=== PATIENT | female | born 1975 | race Caucasian/White ===

== ENCOUNTER → 2019-01-08 | Outpatient (CLI) | payer MEDICAID, SELFPAY ==
--- NOTE | 2019-01-07 | IMM_PTH ---
PATIENT: OC LEON LOC: [facility] U#:[id number] AGE/SX: 43/F ROOM: RE01/08/[address]: Dr. Tanvir Colindres MD : 1975 BED: DIS: 01/08/2019 SPEC #: [id number] RECD: 01/09/19 12:31 STATUS: MACIEL REAamir #: [id number] NICHOLAS: 01/07/19 00:[address]: Tanvir Colindres DEPT: IMMUNOHISTOCHEMISTRY RECD BY: Kelsi Garcia ENTERED: 01/09/19 12:32 SP TYPE: IMMUNO OTHR DR: Dr. Sam Benitez MD Tissues: Left breast, NOS Procedures: Synapto (add) CALPONIN-1 (add) CD56 (add) CHROMO (add) CK5-6 (add) CK8 (add) E-CAD (add) HER2 WILLIAM (add) KI-67 (add) P53 (add) SC (add) IN SITU HYBRIDIZATION P40 (add) ER (initial) PHYSICIAN & [address] [address] SPECIMEN INFORMATION: Tissue Source: Left breast tissue Clinical Info: Left breast mass Specimen Number: [id number] CPT code: 93443, 57524 x9, 35061 x3 METHODOLOGY: Deparaffinized sections of prefer/formalin-fixed tissue or PAP/DQ stained slides are incubated with monoclonal/polyclonal antibodies/oligonucleotide probes. Localization is made via biotin free immunoperoxidase method. Appropriate controls are performed and reacted as expected. Results on target cell population are indicated in the following table: RESULTS: ANTIBODY / CLONE RESULT E-Cad (ECH-6) positive CK8 (32kjxfC54) positive , focal CK5-6 (D5 & 1684) positive, focal Ki-67 (30-9) positive, high P53 (DO-7) negative P40 (BC28) positive, focal Calponin-1 (YE564A) negative CD56 (123C3.D5) negative Chromo (LK2H10) negative Synapto (polyclonal) negative (high background staining) MORPHOMETRIC ANALYSIS ER (clone 6F11) 14%, weak in intensity SC (clone 16/1E2) 27%, weak to moderate in intensity Her-2Neu (clone CB11) 2+ The prognostic test for HER2 is performed on formalin-fixed paraffin embedded tissue. A 3+ (positive) staining pattern is defined as intense, homogeneous, complete, circumferential membranous staining in >10% of contiguous tumor cells. A similar weak (2+) staining pattern is interpreted as equivocal. PAULA follow-up testing is recommended for all equivocal cases. Positivity/negativity for ER/SC is reported if > or < 1% of the tumor cells are immuno- reactive, respectively. The ASCO/CAP criteria is used for scoring. Reference: Journal of Clinical Oncology, 2013; 31:7370-2367 & 2010; 16:4541-1542. Duration of fixation: 28 Hrs; Sample Adequate: Yes. These assays have not been validated on decalcified tissues. Results should be interpreted with caution given the likelihood of false negativity on decalcified specimens. These tests were developed and their performance characteristics determined by [facility]. They may not have been cleared or approved by the U.S. Food and Drug Administration. The FDA has determined that such clearance or approval is not necessary. 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 Negative for neuroendocrine differentiation. Positive for estrogen receptors (favorable prognostic indicator). Positive for progesterone receptors (favorable prognostic indicator). Equivocal for overexpression of AHM9ely. SJ:nito 01/12/19 Case has been reviewed in consultation with Dr. Archuleta who concurs with the above diagnosis. IDC:AM ADDENDUM ADDENDUM ADDENDUM ADDENDUM ADDENDUM ADDENDUM ADDENDUM ADDENDUM ADDENDUM ADDENDUM ADDENDUM ADDENDUM ADDENDUM ADDENDUM ADDENDUM ADDENDUM ADDENDUM ADDENDUM ADDENDUM ADDENDUM ADDENDUM ADDENDUM 01/13/2019 10:36 ADDENDUM 01/13/2019 10:36 ADDENDUM 01/13/2019 10:36 ADDENDUM 01/13/2019 10:36 ADDENDUM 01/13/2019 10:36 IN SITU HYBRIDIZATION (PAULA) FOR HER2 Interpretation: Not Amplified / Negative HER2 : CEP-17 Ratio: 1.04 Average HER2 Signal: 2.35 Average CEP-17 Signal: 2.25 Number of Tumor Cells Scanned: 50 Interpretative Information: The INFORM HER2 Dual PAULA DNA Probe Cocktail assay is performed on formalin-fixed paraffin embedded tissue and determines HER2 gene status by detecting HER2 copies via silver in situ hybridization (SISH) and Chromosome 17 copies via chromogenic red in situ hybridization on tumor cells. A minimum of 20 cells representing > 10% of contiguous and homogeneous invasive tumor cells were analyzed. HER2 gene status is classified as Non-amplified (HER2/Chr17 ratio < 2.0) or Amplified (HER2/Chr17 ratio greater than or equal to 2.0). If the resulting HER2/Chr17 ratio falls within 1.8 - 2.2 (Borderline), retesting by FISH is recommended. Reference: Dinorah AC, Rehan LUCIANOH, Tamika DG, et al: Recommendations for Human Epidermal Growth Factor Receptor 2 Testing in Breast Cancer: [place] [employer] of Clinical On[employer] / [employer] [place] [employer] Clinical Practice Guideline Update. J Clin Oncol 31:4622-6227, 2013. SJ:nito 01/13/19
--- NOTE | 2019-01-07 13:30 | BRBX_PTH ---
PATIENT: OC LEON LOC: [facility] U#:[id number] AGE/SX: 43/F ROOM: RE01/08/[address]: Dr. Tanvir Colindres MD : 1975 BED: DIS: 01/08/2019 SPEC #: [id number] RECD: 01/07/19 17:04 STATUS: MACIEL ASHANTI #: [id number] NICHOLAS: 01/07/19 13:[address]: Tanvir Colindres DEPT: SURGICAL PATHOLOGY RECD BY: Malik Randolph ENTERED: 01/08/19 10:57 SP TYPE: BREAST BX OTHR DR: Dr. 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 See comment. TIFFANY:nito 01/09/19 COMMENT Immunohistochemistry ([id number]) supports the above diagnosis. The findings may represent focal metaplastic change. ER/SC/Kbw6hpg studies are being performed on sections of tumor and the results from this study will be reported separately ([id number]). This case has been reviewed in consultation with Dr. Archuleta who concurs with the above diagnosis. MICROSCOPIC DESCRIPTION Slides are reviewed. GROSS DESCRIPTION Received in fixative is one container labeled with the patient's name and designated left breast. The specimen consists of multiple elongated fragments of wahl-yellow fibroadipose tissue that in aggregate measure 2 x 1 x 0.1 cm. The entire specimen is submitted in one cassette. / TIFFANY:nito 01/08/19 TC:0 CPT: 13716
[2019-01-07 14:44] VITALS: BMI 32.8
== END | disposition home or self-care (01) ==
LOC: LABSPEC 08:24
PROVIDERS: Family Provider Family Medicine; PCP Family Medicine; Referring Provider Surgery; Visit Provider Surgery
DX: N63.20 Unspecified lump in the left breast, unspecified quadrant (principal)
CPT/HCPCS: 88305; 88341; 88342; 88368

== ENCOUNTER 2019-01-09 11:29 | Observation (INO) | payer MEDICAID, SELFPAY ==
[2019-01-08 15:18] VITALS: BMI 32.8
--- NOTE | 2019-01-09 11:35 | CT_ITS ---
STUDY: CT CHEST WITH CONTRAST REASON FOR EXAM: Female, 43 years old. Left breast hematoma RADIATION DOSAGE (If Supplied By Facility): CTDIvol = ( 16.10 ) mGy, DLP = ( 1353.33 ) mGycm TECHNIQUE: Transaxial imaging was performed following intravenous administration of 100ml IV Isovue 300. Individualized dose optimization techniques were used for this CT. COMPARISON: None. FINDINGS: Skin thickening and edema of the soft tissues of the left breast which may represent postoperative changes, cellulitis, radiation therapy changes. Within the inferior left breast is a 2.5 cm round fluid collection with a thick wall consistent with a known hematoma. If there is clinical evidence of infection, abscess should be considered. The lungs are normal. There is no demonstrated pleural abnormality. Normal heart and pericardium. Normal mediastinum. Normal hilar regions. Normal enhanced pulmonary arteries. Normal aorta arch and descending thoracic aorta. Normal osseous structures. There is no demonstrated abnormality of the visualized upper abdomen. CT/Chest WITH Contrast IMPRESSION: Postsurgical, postradiation, or infectious changes of the left breast with a 2.5 cm round fluid collection which may represent hematoma or abscess. Clinical correlation is recommended. Electronically Signed: Randy Villaseñor MD at 12:17 EDT Tel , Service support ,
[2019-01-09 11:50] LABS: CREATININE FINGERSTICK 0.9 mg/dL (0.55-1.02); EGFR FINGERSTICK > 60.0000 mL/min (>60)
[2019-01-09 12:10] VITALS: BMI 33.3
[2019-01-09 12:11] VITALS: BP 143/90; PULSE 76; RESP 16; TEMP 36.9; O2SAT 99
[2019-01-09 12:13] VITALS: BMI 33.4
--- NOTE | 2019-01-09 13:37 | PCM.HP.STD ---
Problem List (1) Hematoma of breast Status: Acute History of Present Illness Date of Admission: 01/09/19 The patient is a 43 year old F who had a left breast biopsy 2 days ago. She presented back to the office with swelling and serous drainage from her incision yesterday. A small chromic stitch was placed into the incision and there is been no further drainage. She did complain of further swelling and pain. Past Medical History Medical History: Medical History (Last Reviewed 01/08/19 @ 15:17 by Baylee Garcia) Diabetes E11.9 Metabolic syndrome X E88.81 Thyroid cancer C73 HTN (hypertension) I10 Allergies hydrocodone [From Hycomine (hydrocodone-PPA)] Allergy (Mild, Verified 01/09/19 12:35) Itching phenylpropanolamine [From Hycomine (hydrocodone-PPA)] Allergy (Mild, Verified 01/09/19 12:35) Itching Home Medications: Ambulatory Orders Medication Instructions Recorded labetalol 200 mg tablet 200 mg PO DAILY 01/07/19 levothyroxine 200 mcg capsule 200 mcg PO DAILY 01/07/19 levothyroxine 50 mcg capsule 50 mcg PO DAILY 01/07/19 metformin ER 750 mg 750 mg PO QHS 01/07/19 tablet,extended release 24 hr cephalexin 250 mg capsule 250 mg PO TID #10 cap 01/08/19 Surgical History: Surgical History (Last Reviewed 01/08/19 @ 15:17 by Baylee Garcia) S/P thyroidectomy Z98.890 s/p ovarian ablation s/p tonsillectomy Surgical History: no surgical history Smoking Status: Former smoker Tobacco Use: Cigarettes Review of Systems Constitutional: Denies: Anorexia, Chills HEENT: Denies: Difficulty Swallowing Cardiovascular: Denies: Chest Pain Respiratory: Denies: Cough, Shortness of Breath Gastrointestinal: Denies: Abdominal Pain Gynecological: Reports: - - Left breast pain and swelling Musculoskeletal: Denies: Arm Pain VTE Information - Inpt Only VTE Present on Admission: No VTE Mechan Device Prophylaxis: SCD's Patient Problems: Active and Suspected Problems (Last Reviewed 01/08/19 @ 15:17 by Baylee Garcia) Hematoma of breast (Acute) - Physical Exam General: Alert, Oriented x3, Cooperative Neck: No JVD Lungs: Normal air movement Cardiovascular: Regular rate, Regular Rhythm Abdomen: Soft, Non Tender, Non-Distended Skin: - - Left breast is swollen and ecchymosis present. Tender to the touch. No erythema. Vital Signs Temp Pulse Resp BP Pulse Ox 98.4 F 76 16 143/90 H 99 01/09/19 12:11 01/09/19 12:11 01/09/19 12:11 01/09/19 12:11 01/09/19 12:11 Oxygen Delivery Method Room Air Weight: 219 lb 5.759 oz Body Mass Index (BMI) 33.3 Laboratory Tests Past 24 Hrs 01/09/19 11:45 POC Creatinine 0.9 POC Estimated GFR (eGFR) > 60.0000 Assessment/Plan All Active Problems (Last Reviewed 01/08/19 @ 15:17 by Baylee Garcia) Hematoma of breast (Acute) 43-year-old female with left breast hematoma after core biopsy 1. The patient has a BI-RADS 5 left breast mass. She underwent biopsy with clip placement 2 days ago. She presented back with swelling and serous drainage from the biopsy incision. She says that it continues to grow and it is painful. I sent her for CT of the left breast which does not show active extravasation or a large hematoma cavity. I have wrapped the patient with Luis wrap and I will observe her and give pain medication. If her breast worsens tomorrow I will evaluate for possible surgery. I am unsure if this is a block lymphatic as there is no hematoma cavity on the CT scan. Tanvir Colindres MD Pager: [facility] [address] [place] [address], [address] [place] [address] Office:
--- NOTE | 2019-01-09 13:41 | HP.PCM_ITS ---
Problem List (1) Hematoma of breast Status: Acute History of Present Illness Date of Admission: 01/09/19 The patient is a 43 year old F who had a left breast biopsy 2 days ago. She presented back to the office with swelling and serous drainage from her incision yesterday. A small chromic stitch was placed into the incision and there is been no further drainage. She did complain of further swelling and pain. Past Medical History Medical History: Medical History (Last Reviewed 01/08/19 @ 15:17 by Baylee Garcia) Diabetes E11.9 Metabolic syndrome X E88.81 Thyroid cancer C73 HTN (hypertension) I10 Allergies hydrocodone [From Hycomine (hydrocodone-PPA)] Allergy (Mild, Verified 01/09/19 12:35) Itching phenylpropanolamine [From Hycomine (hydrocodone-PPA)] Allergy (Mild, Verified 01/09/19 12:35) Itching Home Medications: Ambulatory Orders Medication Instructions Recorded labetalol 200 mg tablet 200 mg PO DAILY 01/07/19 levothyroxine 200 mcg capsule 200 mcg PO DAILY 01/07/19 levothyroxine 50 mcg capsule 50 mcg PO DAILY 01/07/19 metformin ER 750 mg 750 mg PO QHS 01/07/19 tablet,extended release 24 hr cephalexin 250 mg capsule 250 mg PO TID #10 cap 01/08/19 Surgical History: Surgical History (Last Reviewed 01/08/19 @ 15:17 by Baylee Garcia) S/P thyroidectomy Z98.890 s/p ovarian ablation s/p tonsillectomy Surgical History: no surgical history Smoking Status: Former smoker Tobacco Use: Cigarettes Review of Systems Constitutional: Denies: Anorexia, Chills HEENT: Denies: Difficulty Swallowing Cardiovascular: Denies: Chest Pain Respiratory: Denies: Cough, Shortness of Breath Gastrointestinal: Denies: Abdominal Pain Gynecological: Reports: - - Left breast pain and swelling Musculoskeletal: Denies: Arm Pain VTE Information - Inpt Only VTE Present on Admission: No VTE Mechan Device Prophylaxis: SCD's Patient Problems: Active and Suspected Problems (Last Reviewed 01/08/19 @ 15:17 by Baylee Garcia) Hematoma of breast (Acute) - Physical Exam General: Alert, Oriented x3, Cooperative Neck: No JVD Lungs: Normal air movement Cardiovascular: Regular rate, Regular Rhythm Abdomen: Soft, Non Tender, Non-Distended Skin: - - Left breast is swollen and ecchymosis present. Tender to the touch. No erythema. Vital Signs Temp Pulse Resp BP Pulse Ox 98.4 F 76 16 143/90 H 99 01/09/19 12:11 01/09/19 12:11 01/09/19 12:11 01/09/19 12:11 01/09/19 12:11 Oxygen Delivery Method Room Air Weight: 219 lb 5.759 oz Body Mass Index (BMI) 33.3 Laboratory Tests Past 24 Hrs 01/09/19 11:45 POC Creatinine 0.9 POC Estimated GFR (eGFR) > 60.0000 Assessment/Plan All Active Problems (Last Reviewed 01/08/19 @ 15:17 by Baylee Garcia) Hematoma of breast (Acute) 43-year-old female with left breast hematoma after core biopsy 1. The patient has a BI-RADS 5 left breast mass. She underwent biopsy with clip placement 2 days ago. She presented back with swelling and serous drainage from the biopsy incision. She says that it continues to grow and it is painful. I sent her for CT of the left breast which does not show active extravasation or a large hematoma cavity. I have wrapped the patient with Luis wrap and I will observe her and give pain medication. If her breast worsens tomorrow I will evaluate for possible surgery. I am unsure if this is a block lymphatic as th ere is no hematoma cavity on the CT scan. Tanvir Colindres MD Pager: [facility] [address] [place] [address], [address] [place] [address] Office:
[2019-01-09 16:19] VITALS: BP 137/73; PULSE 89; RESP 14; TEMP 36.7; O2SAT 100
[2019-01-09] MEDS: oxyCODONE 5 MG Tablet PO ×2 (16:23→21:08)
[2019-01-09 16:30] LABS: Bedside Glucose 149 mg/dL (70-110)
[2019-01-09] MEDS: Cephalexin 250 MG Capsule PO (21:18)
[2019-01-09 21:31] LABS: Bedside Glucose 101 mg/dL (70-110)
[2019-01-09 22:20] VITALS: BP 156/84; PULSE 86; RESP 16; TEMP 36.7; O2SAT 100
[2019-01-10] VITALS (10 sets, daily range): BP systolic 125–173; BP diastolic 77–96; PULSE 80–103; RESP 16–18; TEMP 36.5–37.8; O2SAT 94–99; BMI 33.3
[2019-01-10] MEDS: oxyCODONE 5 MG Tablet PO (01:11)
[2019-01-10 06:31] LABS: Bedside Glucose 126 mg/dL (70-110)
[2019-01-10 08:41] LABS: Absolute Lymphocyte Count 1.91 X10^3/ul (0.83-4.51); Basophil# 0.02 X10^3/uL; Basophil% 0.2 % (0-1); Eosinophil# 0.26 X10^3/uL; Eosinophils% 2.7 % (0-5); Hematocrit 41.6 % (37-47); Hemoglobin 13.8 g/dl (12.0-15.0); Lymphocyte # 1.91 X10^3/ul (4.0); Lymphocyte % 19.5 % (19-41); Mean Corp Hgb Conc 33.2 g/gl (32-36); Mean Corpuscular Hgb 28.7 pg (27.0-32.0); Mean Corpuscular Volume 86.5 fL (81-99); Mean Platelet Vol. 10.7 fl (6.2-12.0); Monocyte# 0.52 X10^3/uL; Monocyte% 5.3 % (0-10); Neutrophil # 7.04 X10^3/uL (2.7-7.7); Neutrophil % 72.1 % (47-70); POSITIVE COUNT NO; POSITIVE DIFFERENTIAL NO; POSITIVE MORPHOLOGY NO; Platelet Count 261 K/mm3 (150-450); RBC Distribution Width CV 12.5 % (11.6-14.6); RBC Distribution Width SD 39.8 fl (35.1-43.9); Red Blood Count 4.81 M/mm3 (4.2-5.4); White Blood Count 9.8 K/mm3 (4.4-11.0)
[2019-01-10 08:52] LABS: Internal QC Validated? YES +Cl - CLEAR BKGD; Pregnancy, Urine Negative Negative
[2019-01-10 08:54] LABS: Anion Gap 8 (5-15); BUN 9 mg/dL (7-18); BUN/Creat Ratio 12.4 RATIO (10-20); Calcium,Total 8.9 mg/dL (8.5-10.1); Chloride 102 mmol/L (98-107); Creatinine, Serum 0.73 mg/dL (0.55-1.02); EST Glomerular Filtration Rate 93 mL/min (>60); Est Glom Filt Rate - Afr Amer 112 mL/min (>60); Estimated Creatinine Clearance 100.24 ml/min; Glucose 134 mg/dL (74-106); Potassium 3.9 mmol/L (3.5-5.1); Sodium Level 138 mmol/L (136-145)
--- NOTE | 2019-01-10 09:06 | PCM.PN.SRG ---
Patient Problems: Active and Suspected Problems (Last Reviewed 01/08/19 @ 15:17 by Baylee Garcia) Hematoma of breast (Acute) Subjective: Patient is complaining of the swelling is worse and was very painful last night. She had some clear drainage last night through her bandages. - Physical Exam General: Alert, Oriented x3, Cooperative HEENT: PERRLA Lungs: Normal air movement Abdomen: Soft, Non Tender, Non-Distended Skin: No rashes Musculoskeletal: No Muscle Wasting Psych/Mental Status: Normal Affect Vital Signs Temp Pulse Resp BP Pulse Ox 98.2 F 103 H 16 173/94 H 98 01/10/19 08:34 01/10/19 08:34 01/10/19 08:34 01/10/19 08:34 01/10/19 08:34 Oxygen Delivery Method Room Air Weight: 219 lb 5.759 oz Body Mass Index (BMI) 33.3 Intake and Output for Last 24 Hours 01/08/19 01/09/19 01/10/19 23:59 23:59 23:59 Intake Total 800 / 800 1650 / 1650 Output Total 700 / 700 1500 / 1500 Balance 100 / 100 150 / 150 Laboratory Tests Past 24 Hrs 01/09/19 01/10/19 01/10/19 11:45 08:28 08:28 WBC 9.8 RBC 4.81 Hgb 13.8 Hct 41.6 MCV 86.5 MCH 28.7 MCHC 33.2 RDW 12.5 RDW Differential 39.8 Plt Count 261 MPV 10.7 Immature Gran % (Auto) 0.200 Neut % (Auto) 72.1 H Lymph % (Auto) 19.5 [place] % (Auto) 5.3 Eos % (Auto) 2.7 Baso % (Auto) 0.2 Absolute Neuts (auto) 7.0 Absolute Lymphs (auto) 1.91 Total Counted Not Reportable Sodium 138 Potassium 3.9 Chloride 102 Carbon Dioxide 28.0 Anion Gap 8 BUN 9 Creatinine 0.73 POC Creatinine 0.9 Estim Creat Clear Calc 100.24 POC Estimated GFR (eGFR) > 60.0000 Est GFR (MDRD) Af Amer 112 Est GFR (MDRD) Non-Af 93 BUN/Creatinine Ratio 12.4 Glucose 134 H Calcium 8.9 Urine Test 01/10/19 08:30 WBC RBC Hgb Hct MCV MCH MCHC RDW RDW Differential Plt Count MPV Immature Gran % (Auto) Neut % (Auto) Lymph % (Auto) [place] % (Auto) Eos % (Auto) Baso % (Auto) Absolute Neuts (auto) Absolute Lymphs (auto) Total Counted Sodium Potassium Chloride Carbon Dioxide Anion Gap BUN Creatinine POC Creatinine Estim Creat Clear Calc POC Estimated GFR (eGFR) Est GFR (MDRD) Af Amer Est GFR (MDRD) Non-Af BUN/Creatinine Ratio Glucose Calcium Urine Test Negative POC Glucose 01/10/19 01/09/19 01/09/19 06:17 21:16 16:22 POC Glucose 126 H 101 149 H Medical Necessity - Tobacco Use Smoking Status: Former smoker Tobacco Use: Cigarettes Assessment/Plan All Active Problems (Last Reviewed 01/08/19 @ 15:17 by Baylee Garcia) Hematoma of breast (Acute) 43-year-old female with left breast mass and swelling after biopsy 1. The patient is having serous drainage from her breast and a CT scan was obtained that showed no blush or large hematoma. Her breast continues to swell and have serous drainage. I discussed this problem with several physicians including breast surgeons and the consensus was that the mass should come out and the breast should be explored for any source of drainage or bleeding. At that time if the source is found and controlled the mass will be removed as well. A drain or packing will be placed into the cavity to control drainage as well. 2. I discussed this plan with the patient in detail. I informed her that I still do not have pathology for the mass and that she would require a second surgery for staging. I also informed her of the risks of surgery such as bleeding, infection, seroma or hematoma. I also explained the possibility of positive margins. The patient consents to proceed with surgery. Tanvir Colindres MD Pager: [facility] [address] [place] [address], [address] [place] [address] Office:
--- NOTE | 2019-01-10 09:09 | PN.SURG_ITS ---
Patient Problems: Active and Suspected Problems (Last Reviewed 01/08/19 @ 15:17 by Baylee Garcia) Hematoma of breast (Acute) Subjective: Patient is complaining of the swelling is worse and was very painful last night. She had some clear drainage last night through her bandages. - Physical Exam General: Alert, Oriented x3, Cooperative HEENT: PERRLA Lungs: Normal air movement Abdomen: Soft, Non Tender, Non-Distended Skin: No rashes Musculoskeletal: No Muscle Wasting Psych/Mental Status: Normal Affect Vital Signs Temp Pulse Resp BP Pulse Ox 98.2 F 103 H 16 173/94 H 98 01/10/19 08:34 01/10/19 08:34 01/10/19 08:34 01/10/19 08:34 01/10/19 08:34 Oxygen Delivery Method Room Air Weight: 219 lb 5.759 oz Body Mass Index (BMI) 33.3 Intake and Output for Last 24 Hours 01/08/19 01/09/19 01/10/19 23:59 23:59 23:59 Intake Total 800 / 800 1650 / 1650 Output Total 700 / 700 1500 / 1500 Balance 100 / 100 150 / 150 Laboratory Tests Past 24 Hrs 01/09/19 01/10/19 01/10/19 11:45 08:28 08:28 WBC 9.8 RBC 4.81 Hgb 13.8 Hct 41.6 MCV 86.5 MCH 28.7 MCHC 33.2 RDW 12.5 RDW Differential 39.8 Plt Count 261 MPV 10.7 Immature Gran % (Auto) 0.200 Neut % (Auto) 72.1 H Lymph % (Auto) 19.5 [place] % (Auto) 5.3 Eos % (Auto) 2.7 Baso % (Auto) 0.2 Absolute Neuts (auto) 7.0 Absolute Lymphs (auto) 1.91 Total Counted Not Reportable Sodium 138 Potassium 3.9 Chloride 102 Carbon Dioxide 28.0 Anion Gap 8 BUN 9 Creatinine 0.73 POC Creatinine 0.9 Estim Creat Clear Calc 100.24 POC Estimated GFR (eGFR) > 60.0000 Est GFR (MDRD) Af Amer 112 Est GFR (MDRD) Non-Af 93 BUN/Creatinine Ratio 12.4 Glucose 134 H Calcium 8.9 Urine Test 01/10/19 08:30 WBC RBC Hgb Hct MCV MCH MCHC RDW RDW Differential Plt Count MPV Immature Gran % (Auto) Neut % (Auto) Lymph % (Auto) [place] % (Auto) Eos % (Auto) Baso % (Auto) Absolute Neuts (auto) Absolute Lymphs (auto) Total Counted Sodium Potassium Chloride Carbon Dioxide Anion Gap BUN Creatinine POC Creatinine Estim Creat Clear Calc POC Estimated GFR (eGFR) Est GFR (MDRD) Af Amer Est GFR (MDRD) Non-Af BUN/Creatinine Ratio Glucose Calcium Urine Test Negative POC Glucose 01/10/19 01/09/19 01/09/19 06:17 21:16 16:22 POC Glucose 126 H 101 149 H Medical Necessity - Tobacco Use Smoking Status: Former smoker Tobacco Use: Cigarettes Assessment/Plan All Active Problems (Last Reviewed 01/08/19 @ 15:17 by Baylee Garcia) Hematoma of breast (Acute) 43-year-old female with left breast mass and swelling after biopsy 1. The patient is having serous drainage from her breast and a CT scan was obtained that showed no blush or large hematoma. Her breast continues to swell and have serous drainage. I discussed this problem with several physicians including breast surgeons and the consensus was that the mass should come out and the breast should be explored for any source of drainage or bleeding. At that time if the source is found and controlled the mass will be removed as well. A drain or packing will be placed into the cavity to control drainage as well. 2. I discussed this plan with the patient in detail. I informed her that I still do not have pathology for the mass and that she would require a second surgery for staging. I also informed her of the risks of surgery such as bleeding, infection, seroma or hematoma. I also explained the possibility of positive margins. The patient consents to proceed with surgery. Tanvir Colindres MD Pager: [facility] [address] [place] [address], [address] [place] [address] Office:
--- NOTE | 2019-01-10 09:53 | NURSING ---
CALLED REPORT TO SURGERY.
[2019-01-10] MEDS: Dextrose 5%-Lactated Ringers 1,000 ML 125 ML IV ×2 (10:03→18:12)
--- NOTE | 2019-01-10 10:07 | NURSING ---
PT LEFT FOR SURGERY
--- NOTE | 2019-01-10 11:05 | BI_ITS ---
SURGICAL BREAST SPECIMEN RADIOGRAPH CLINICAL: Document presence of tissue clip marker in biopsy specimen. FINDINGS: Specimen shows presence of tissue clip marker. Electronically Signed: Silvestre Ramirez, at 8:13 EDT , Service support , BI/Breast Biopsy Specimen
[2019-01-10] MEDS: Bupivacaine Mpf 0.5% 30 ML VIAL (11:24)
--- NOTE | 2019-01-10 11:49 | OP.PCM_ITS ---
Problem List (1) Hematoma of breast Status: Acute Report of Operation Date of Procedure: 01/10/19 Pre-Operative Diagnosis: Left breast mass. Post biopsy hematoma and breast swelling Post-Operative Diagnosis: Same Surgery/Procedure Performed:: 1. Left breast ultrasound-guided needle localization. 2. Left breast partial mastectomy and evacuation of hematoma Description of Surgical Findings:: The patient had very ecchymotic and swollen left breast. There was some bleeding around the mass but no hematoma cavity. Specimen's removed: 1. Left breast mass with suture marking the lateral and superior margin. 2. New superior and deep margin. 3. New inferior margin Drains: JONATHAN to bulb suction Description of Procedure: Patient was brought back to the operating room and general anesthesia was induced. Using ultrasound guidance the mass and clip were localized and a marking wire was placed into the mass. Next the left breast was prepped and draped in the usual sterile fashion. A linear radial incision was made inferior to superior in the inferior breast at the 6 o'clock position. This was deepened down to the deep breast tissue. There was some small amount of bleeding but no actual hematoma cavity. The mass was identified and the wire was brought into the cavity. Using electrocautery the mass was dissected out. When the mass was dissected out the mass appeared to be transected. The mass was marked and sent for mammogram. Next the inferior portion of the mass was dissected free deeply and superiorly and sent as a new superior and deep margin. New inferior margin was also obtained using electrocautery. Each of these new margins were marked with sutures at the new margin using 3-0 silk suture. The cavity was irrigated and meticulously inspected. There was good hemostasis. Titanium clips were placed in the cavity for marking for radiation. Next a 10 Slovenian round drain was placed through the inferior breast skin and into the cavity. The drain was sutured in place using 3-0 nylon suture. There was some oozing from the poke incision from the drain placement. This was stopped with pressure. Next the incision was closed with interrupted 3-0 Vicryl sutures in a running 4-0 Monocryl. Drain sponge and fluffy gauze sponges were placed over the incision and drain site. The patient's chest was tightly wrapped with Luis bandage. Patient was taken to PACU in stable condition. - Admit VTE Documentation VTE Present on Admission: No VTE Mechan Device Prophylaxis: SCD's
[2019-01-10 11:50] LABS: Bedside Glucose 100 mg/dL (70-110)
[2019-01-10] MEDS: Levothyroxine 125 MCG Tablet 250 MCG PO (12:53)
[2019-01-10] MEDS: Cephalexin 250 MG Capsule PO ×2 (14:41→22:28)
[2019-01-10] MEDS: Labetalol 200 MG Tablet PO (14:41)
[2019-01-10] MEDS: Insulin Lispro 100 UNIT/ML INSULN.PEN SC (16:40)
[2019-01-10 17:25] LABS: Bedside Glucose 173 mg/dL (70-110)
[2019-01-10 23:00] LABS: Bedside Glucose 120 mg/dL (70-110)
[2019-01-11 01:56] LABS: Bedside Glucose 162 mg/dL (70-110)
[2019-01-11] MEDS: Dextrose 5%-Lactated Ringers 1,000 ML 125 ML IV (02:02)
[2019-01-11] MEDS: Acetaminophen 325 MG Tablet 650 MG PO (03:31)
[2019-01-11 03:37] VITALS: BP 137/85; PULSE 76; RESP 16; TEMP 36.7; O2SAT 100
[2019-01-11] MEDS: Levothyroxine 125 MCG Tablet 250 MCG PO (07:19)
[2019-01-11] MEDS: Cephalexin 250 MG Capsule PO (07:19)
[2019-01-11 07:26] LABS: Bedside Glucose 122 mg/dL (70-110)
[2019-01-11 08:13] VITALS: BP 162/102; PULSE 78; RESP 18; TEMP 37.2; O2SAT 100
[2019-01-11] MEDS: Labetalol 200 MG Tablet PO (08:17)
--- NOTE | 2019-01-11 08:26 | PN.SURG_ITS ---
Patient Problems: Active and Suspected Problems (Last Reviewed 01/08/19 @ 15:17 by Baylee Garcia) Hematoma of breast (Acute) Subjective: Patient is doing well this morning. She reports her pain is much better after surgery. - Physical Exam Lungs: Normal air movement Cardiovascular: Regular rate, Regular Rhythm Abdomen: Soft, Non Tender, Non-Distended Vital Signs Temp Pulse Resp BP Pulse Ox 98.9 F 78 18 162/102 H 100 01/11/19 08:13 01/11/19 08:13 01/11/19 08:13 01/11/19 08:13 01/11/19 08:13 Oxygen Delivery Method Nasal Cannula Weight: 219 lb 5.759 oz Body Mass Index (BMI) 33.3 Intake and Output for Last 24 Hours 01/09/19 01/10/19 01/11/19 23:59 23:59 23:59 Intake Total 800 / 800 5109 / 5109 1292 / 1292 Output Total 700 / 700 2908 / 2908 900 / 900 Balance 100 / 100 2201 / 2201 392 / 392 Laboratory Tests Past 24 Hrs 01/10/19 01/10/19 01/10/19 08:28 08:28 08:30 WBC 9.8 RBC 4.81 Hgb 13.8 Hct 41.6 MCV 86.5 MCH 28.7 MCHC 33.2 RDW 12.5 RDW Differential 39.8 Plt Count 261 MPV 10.7 Immature Gran % (Auto) 0.200 Neut % (Auto) 72.1 H Lymph % (Auto) 19.5 Cabell % (Auto) 5.3 Eos % (Auto) 2.7 Baso % (Auto) 0.2 Absolute Neuts (auto) 7.0 Absolute Lymphs (auto) 1.91 Total Counted Not Reportable Sodium 138 Potassium 3.9 Chloride 102 Carbon Dioxide 28.0 Anion Gap 8 BUN 9 Creatinine 0.73 Estim Creat Clear Calc 100.24 Est GFR (MDRD) Af Amer 112 Est GFR (MDRD) Non-Af 93 BUN/Creatinine Ratio 12.4 Glucose 134 H Calcium 8.9 Urine Test Negative POC Glucose 01/11/19 01/10/19 01/10/19 07:21 22:30 16:26 POC Glucose 122 H 120 H 173 H 01/10/19 01/10/19 11:43 08:44 POC Glucose 100 162 H Medical Necessity - Tobacco Use Smoking Status: Former smoker Tobacco Use: Cigarettes Assessment/Plan All Active Problems (Last Reviewed 01/08/19 @ 15:17 by Baylee Garcia) Hematoma of breast (Acute) 43-year-old female status post left partial mastectomy after post biopsy hematoma 1. Patient is doing well after partial mastectomy. The mass was removed and a drain was placed in the cavity. There was no bleeding at the end of the case. She has a drain in place which did not drain overnight but after being repositioned in strip this morning drained about 20 cc of serosanguineous fluid. Patient will be discharged home today with JONATHAN in place. Patient will call me tomorrow to let me know how she was doing. She will require the drain output and follow-up this week for drain removal when it is less than 30 cc/day. Continue tight Luis wrap. No showering while JONATHAN in place. Tanvir Colindres MD Pager: [facility] [address] [place] [address], [address] [place] [phone] Office:
--- NOTE | 2019-01-11 08:28 | PCM.DC.BS ---
Discharge Diet: No Restrictions Discharge Activity: May Not Drive - for 2-3 days or while taking narcotic pain meds., May Not Shower Lifting Restrictions: 10 pounds for 1 week. Call your doctor if your incision/area has: Continuous Slow Oozing, Sudden Increased Bleeding, Increased Pain/ Swelling, Increased Redness, Foul Smelling Discharge, Swelling at the incision site Call your doctor if you observe: Fever of 101 or Higher Suture Line Care: Avoid Pulling/Pushing, Avoid Pinching/Bending Cleanse incision/area with: Soap & Water Drain: Suction Additional Dressing/Incision Instructions:: Strip drain twice a day and record output daily. Continue tight teresa wrapping. Allergies/Adverse Reactions: Allergies hydrocodone [From Hycomine (hydrocodone-PPA)] Allergy (Mild, Verified 01/09/19 12:35) Itching phenylpropanolamine [From Hycomine (hydrocodone-PPA)] Allergy (Mild, Verified 01/09/19 12:35) Itching Medications to take at Discharge labetalol 200 mg tablet 200 mg PO DAILY 01/07/19 levothyroxine 200 mcg capsule 200 mcg PO DAILY 01/07/19 levothyroxine 50 mcg capsule 50 mcg PO DAILY 01/07/19 metformin ER 750 mg tablet,extended release 24 hr 750 mg PO QHS 01/07/19 cephalexin 250 mg capsule 250 mg PO TID #10 cap 01/08/19 Oxycodone [Oxyir] 5 - 10 mg PO Q4H PRN PRN 7 Days #30 tablet 01/11/19 The following prescriptions were given: Oxycodone [Oxyir] 5 - 10 mg PO Q4H PRN PRN 7 Days #30 tablet PRN Reason: Severe Pain (-05/07) Primary Care Physician: Sam Benitez [Primary Care Provider] - Please Follow Up With: Tanvir Colindres MD When: Please call my office tomorrow to give update. [phone]
[2019-01-11] MEDS: oxyCODONE 5 MG Tablet PO (08:30)
[2019-01-11 09:45] VITALS: BP 160/90; PULSE 78; RESP 18; TEMP 37.2; O2SAT 100
--- NOTE | 2019-01-12 | BRBX_PTH ---
PATIENT: OC LEON LOC: [facility] U#:[id number] AGE/SX: 43/F ROOM: [facility]301 RE01/09/[address]: Dr. Tanvir Colindres MD : 1975 BED: 1 DIS: 01/11/2019 SPEC #: [id number] RECD: 01/12/19 07:45 STATUS: MACIEL REAamir #: [id number] NICHOLAS: 01/12/19 00:[address]: Tanvir Colindres DEPT: SURGICAL PATHOLOGY RECD BY: Chaka Marques ENTERED: 01/12/19 10:17 SP TYPE: BREAST BX OTHR DR: Dr. Sam Benitez MD Tissues: A - Left breast, NOS B - Left breast, NOS Procedures: Surgery Specimen Level IV Surgery Specimen Level V HEADER OPERATION: Left partial breast mastectomy PRE-OP DIAGNOSIS: Left breast mass, postop hematoma TISSUE SUBMITTED: A - Left breast mass, long stitch - lateral, short stitch - superior, B - Left breast mass, new superior and deep margins, stitch benedict new margin, C - Left breast mass, new inferior margin, stitch benedict new margin MICROSCOPIC DIAGNOSIS A. 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 Changes consistent with previous biopsy site. See cancer summary below. B. 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 Changes consistent with previous biopsy site. See cancer summary below. C. Left breast mass, new inferior margin: Changes consistent with previous biopsy site. Negative for carcinoma. SJ:nito 01/13/19 INVASIVE BREAST CANCER SUMMARY (including specimens A, B & C): Specimen - partial breast Procedure - excision with wire-guided localization Lymph node sampling - no lymph node present Specimen integrity - multiple designated specimens (main excision and identified margins) Specimen size: Partial mastectomy - 6 x 4.5 x 2.5 cm New superior and deep margin - 5 x 3.5 x 2 cm New inferior margin - 1.5 x 0.5 x 0.3 cm Specimen laterality - left Tumor site - not identified Tumor size: Lumpectomy specimen - 3.5 x 1.5 x 1.5 cm New superior and deep margin - 2 x 0.9 cm, largest focus (measured microscopically) Tumor focality - single focus of invasive carcinoma Macroscopic and Microscopic extent of tumor: Skin - not present Nipple - not applicable Skeletal muscle - no skeletal muscle present. Ductal carcinoma in situ (DCIS) - no DCIS is present. Lobular carcinoma in situ (LCIS) - not identified Histologic type of invasive carcinoma - invasive ductal carcinoma with focal squamous differentiation (Consistent with focal area of metaplastic carcinoma). Histologic Grade (Lashell grade): Glandular/tubular differentiation - score 3 Nuclear pleomorphism - score 3 Mitotic count - score 3 Overall grade - 3 (score of 9) Margins - Margins are focally positive for carcinoma. See comment. Treatment effect: Response to presurgical (neoadjuvant) therapy - no known presurgical therapy. Lymph-Vascular invasion - not identified Dermal lymph-vascular invasion - not applicable Lymph nodes - no lymph nodes present. Distant metastasis - not applicable Additional pathologic findings - changes consistent with previous biopsy site with focal area of hematoma formation. Ancillary studies - previously performed on section of tumor ([id number] / [id number]). ER - positive (14%, weak in intensity) AR - positive (27%, weak to moderate in intensity) Her2 denver - equivocal (2+) Her2 by dual PAULA - not amplified/negative Microcalcifications - not identified Clinical history - Please make reference to previous specimen ([id number]) left breast, core biopsy wit diagnosis of invasive ductal carcinoma with focal squamous differentiation. PATHOLOGIC STAGE: pT2 pNx Mx The above summary is in compliance with [employer] (CAP) Cancer Protocols Checklist and [place] Joint Committee on Cancer (AJCC), Staging Manual, 8th Ed. COMMENT The tumor is present in both specimen A & B, Correlation with clinical and radiologic findings is necessary for determination of exact tumor size. A. The tumor in the partial mastectomy specimen is present at anterior, posterior, lateral and superior margins of the specimen and is 0.2 cm away from the inferior margin. B. The tumor is 0.1 cm away from the new superior and deep margins Anterior and lateral margins are positive for tumor. This case is discussed with Dr. Colindres. As per surgeon, Dr. Colindres, the specimen margins inking is slightly discordant. Clinical correlation and appropriate follow up are necessary. Please make reference to previous specimen ([id number]) left breast, core biopsy with diagnosis of invasive ductal carcinoma wit focal squamous differentiation. Case has been reviewed in consultation with Dr. Archuleta who concurs with the above diagnosis. IDC:AM MICROSCOPIC DESCRIPTION Slides are reviewed. GROSS DESCRIPTION A - Received in fixative is one container labeled with the patient's name and designated left breast mass, short stitch - lateral, long stitch - superior. The specimen consists of a piece of fibroadipose tissue with needle localization measuring 6 x 4.5 x 2.5 cm. The specimen is oriented as follows: short stitch - lateral, long stitch - superior. A wire is coming out on the medial side. The specimen is inked as follows: anterior - yellow, posterior - black, superior - blue, inferior - green, medial - red and lateral - orange. Serial sections reveal a wahl, indurated mass measuring 3.5 x 1.5 x 1.5 cm. This mass is close to the superior, posterior, lateral and inferior margins. The specimen appears to be partly fragmented. The entire specimen is submitted in 16 cassettes from lateral to medial margins. Cassette 1 contains the most lateral margin and cassette 16 contains the medial margin. / SJ:nito 01/12/19 Note: As per surgeon, Dr. Colindres, the specimen margins inking is slightly discordant. B - Received in fixative is one container labeled with the patient's name and designated left breast mass, new superior and deep margins, stitch benedict the new margin. The specimen consists of a piece of wahl-yellow fibroadipose tissue measuring 5 x 3.5 x 2 cm. The new margin is inked black and the old margin is inked blue. Sections reveal wahl-yellow fibroadipose cut surfaces mixed with fibrous area and focal area of ill-defined mass close to the old margin. The entire specimen is submitted in 11 cassettes from one end to another end. / SJ:nito 01/12/19 C - Received in fixative is one container labeled with the patient's name and designated left breast mass, new inferior margin, stitch benedict new margin. The specimen consists of two pieces of wahl-yellow fibroadipose tissue, the larger piece shows a suture and measures 2.5 x 2 x 0.5 cm and the smaller piece without suture measures 1.5 x 0.5 x 0.3 cm. The larger piece with suture, new margin, is inked black and the opposite margin, old margin, is inked blue. Sections reveal wahl-yellow adipose cut surfaces without any obvious mass lesion. The entire specimen is submitted in four cassettes from one end to another end. / SJ:rg 01/12/19 TC:0 CPT: 81851, 08945 x2
== END 2019-01-11 10:00 | disposition home or self-care (01) ==
LOC: MS3 11:30
PROVIDERS: Admitting Provider Surgery; Family Provider Family Medicine; PCP Family Medicine; Referring Provider Surgery; Visit Provider Surgery
PROC: (CPT 19083; principal; 2019-01-10 10:00)
DX: C50.912 Malignant neoplasm of unspecified site of left female breast (principal); N64.89 Other specified disorders of breast; E11.9 Type 2 diabetes mellitus without complications; F41.9 Anxiety disorder, unspecified; F32.9 Major depressive disorder, single episode, unspecified; I10 Essential (primary) hypertension; E88.81 Metabolic syndrome and other insulin resistance; Z79.899 Other long term (current) drug therapy; Z79.84 Long term (current) use of oral hypoglycemic drugs; Z85.850 Personal history of malignant neoplasm of thyroid; Z87.891 Personal history of nicotine dependence; E78.00 Pure hypercholesterolemia, unspecified
CPT/HCPCS: 00400; 10140; 19301; 36415; 71260; 76098; 80048; 81025; 82962; 85025; 88305; 88307; 96360; 96361; 99218; Q9967; G0378; G0379; J2405

== ENCOUNTER 2019-02-24 07:43 | Day surgery (SDC) | payer MEDICAID, SELFPAY ==
[2019-02-06 09:42] VITALS: BMI 33.3
--- NOTE | 2019-02-10 02:01 | HP_ITS ---
Intake Vital Signs 02/06/19 Body Mass Index (BMI) 33.3 02/06/19 Blood Pressure 157/99 H 02/06/19 Blood Pressure Location Rt brachial 02/06/19 Blood Pressure Position Sitting 02/06/19 Respiratory Rate 20 H 02/06/19 Pulse Rate 80 02/06/19 Pulse Ox 99 Intake Visit Reasons: Discuss genetic testing results & surgery Chief Complaint: discuss surgery Cell Tuber Hand Required: No Is patient in pain?: No Allergies hydrocodone [From Hycomine (hydrocodone-PPA)] Allergy (Mild, Verified 02/06/19 09:39) Itching phenylpropanolamine [From Hycomine (hydrocodone-PPA)] Allergy (Mild, Verified 02/06/19 09:39) Itching Medications labetalol 200 mg tablet 200 mg PO DAILY 01/07/19 [History Confirmed 02/06/19] levothyroxine 200 mcg capsule 200 mcg PO DAILY 01/07/19 [History Confirmed 02/06/19] levothyroxine 50 mcg capsule 50 mcg PO DAILY 01/07/19 [History Confirmed 02/06/19] metformin ER 750 mg tablet,extended release 24 hr 750 mg PO QHS 01/07/19 [History Confirmed 02/06/19] Is last menstrual period known: No Post menopausal: No Patient : No PFSH Medical History Diabetes (Acute) Metabolic syndrome X (Acute) Thyroid cancer (Acute) HTN (hypertension) (Chronic) Surgical History (Updated 02/06/19 @ 09:39 by Marisol Hendricks) History of breast biopsy (Acute ~12/2018) S/P thyroidectomy (Acute) Status post left breast lumpectomy (Acute ~12/2018) s/p ovarian ablation (Acute) s/p tonsillectomy (Acute) Family History Mother Breast cancer Social History (Updated 02/10/19 @ 14:01 by Tanvir Colindres MD) Smoking Status: Former smoker HPI HPI HPI: OC LEON, is a 43 F who presents to the office today for HPI HPI Surgical H&P: Yes HPI: OC LENO, is a 43 F who presents to the office today for follow-up. Patient reports no problems since her last surgery. ROS General General: No weight change or fatigue Endo Endocrine: Yes thyroid disease and thyroid cancer Musc Musculoskeletal: Yes arthritis Cardio Cardiovascular: Yes murmur and high blood pressure; no pacemaker, heart disease, atrial fibrillation, heart attack, heart stent, palpitations, shortness of breat with exertion or chest pain Psych Psychiatric: No depression or anxiety Resp Respiratory: No shortness of breath, No sleep apnea, No cough, No COPD, No asthma, No emphysema, No wheezing Gastro Gastrointestinal: No abdominal pain, No nausea or vomiting, No diarrhea, No constipation, No blood in stool, No acid reflux, No hemorrhoids, No ulcers, No gallbladder problem, No black,tarry stools Axel Hematologic: No blood thinners Exam Const General: cooperative Orientation: alert, oriented x3 Chest Other: Patient's left breast incision is healing well with no erythema or ecchymosis. Resp Effort & Inspection: normal respiratory effort Auscultation: clear to auscultation bilaterally Cardio Rate: regular rate Rhythm: regular rhythm Heart Sounds: murmur GI Inspection: non-distended Palpation: soft, nontender Assessment & Plan Problems 1. Malignant neoplasm of central portion of left breast in female, estrogen receptor positive C50.112; Z17.0 Plan Patient has left breast cancer and had excision of this cancer which was done emergently due to bleeding after biopsy. There were positive margins in the cavity. The patient was sent for genetic testing which was normal except for an uncertain abnormality in 1 of the other genes, not BRCA. I recommend the patient undergo reexcision of margins of the left breast as well as sentinel lymph node biopsy. I explained breast surgery to the patient in detail as well as the risks including but not limited to bleeding, infection, seroma, nerve injury, lymphedema. Patient understands the risks and is willing to proceed with surgery. Tanvir Colindres MD Pager: [facility] [address] [place] [address], [address] [place] [address] Office: Coding Level of Care Code Global Post Op Diagnoses Malignant neoplasm of central portion of left breast in female, estrogen receptor positive C50.112; Z17.0 ??Breast location: central portion of breast ??Estrogen receptor status: positive ??Patient sex: female 02/10/19 1401 <Electronically signed by Tanvir oden MD> Date _ Tanvir Colindres MD I have re-examined the patient. There are no clinical changes since date of exam.
--- NOTE | 2019-02-24 | IMM_PTH ---
PATIENT: OC LEON LOC: [facility] U#:[id number] AGE/SX: 43/F ROOM: RE02/24/[address]: Dr. Tanvir Colindres MD : 1975 BED: DIS: 02/24/2019 SPEC #: [id number] RECD: 02/26/19 14:46 STATUS: MACIEL REQ #: [id number] NICHOLAS: 02/24/19 00:[address]: Tanvir Colindres DEPT: IMMUNOHISTOCHEMISTRY RECD BY: Kelsi Garcia ENTERED: 02/26/19 14:49 SP TYPE: IMMUNO OTHR DR: Dr. Sam Benitez MD Tissues: A - Axillary lymph node, NOS B - Left breast, NOS C - Left breast, NOS E - Left breast, NOS Procedures: CK7 (add) MACRO (add) Pankeratin (add) GATA3 (add) CK7 (initial) PHYSICIAN & INSTITUTION [place] [id number] SPECIMEN INFORMATION: Tissue Source: A - Left sentinel lymph nodes, B - Left breast tissue, superior portion of cavity, C - Left breast tissue, inferior portion of cavity, E - Left breast tissue, inferior lateral margin Clinical Info: Malignant neoplasm of central portion of left breast, ER positive Specimen Number: [id number] A1, A2, B4, C4, E1 CPT code: 16297 x4, 14329 x11 METHODOLOGY: Deparaffinized sections of prefer/formalin-fixed tissue or PAP/DQ stained slides are incubated with monoclonal/polyclonal antibodies/oligonucleotide probes. Localization is made via biotin free immunoperoxidase method. Appropriate controls are performed and reacted as expected. Results on target cell population are indicated in the following table: RESULTS: ANTIBODY / CLONE RESULT Block A1 CK7 (OV-TL12/30) negative AE1-3 (AE1/AE3/PCK26) negative Block A2 CK7 (OV-TL12/30) negative AE1-3 (AE1/AE3/PCK26) negative Block B4 CK7 (OV-TL12/30) negative Macro (HAM-56) positive GATA3 (L50-823) negative Block C4 CK7 (OV-TL12/30) negative Macro (HAM-56) positive GATA3 (L50-823) negative Block E4 CK7 (OV-TL12/30) negative Macro (HAM-56) positive GATA3 (L50-823) negative These tests were developed and their performance characteristics determined by [facility]. They may not have been cleared or approved by the U.S. Food and Drug Administration. The FDA has determined that such clearance or approval is not necessary. INTERPRETATION: A. Left sentinel lymph nodes, biopsy: Two out of two lymph nodes negative for carcinoma. B. Left breast tissue, superior portion of cavity, biopsy: Benign breast tissue. C. Left breast tissue, inferior portion of cavity, biopsy: Benign breast tissue. E. Left breast tissue, inferior lateral margin, biopsy: Benign breast tissue. AM:nito 02/27/19
[2019-02-24 08:06] VITALS: BP 142/85; PULSE 75; RESP 16; TEMP 36.7; O2SAT 97; BMI 32.2
[2019-02-24 08:30] LABS: Bedside Glucose 109 mg/dL (70-110)
--- NOTE | 2019-02-24 08:30 | NM_ITS ---
PROCEDURE: NUCLEAR MEDICINE Injection Roark Node - LEFT breast(s). REASON FOR EXAM: Female, 43 years old. Left breast cancer. TECHNIQUE: Roark node localization using radionuclide methods of the LEFT breast(s) was performed following subcutaneous administration of 1.1 mCi of of sulfur colloid Tc-99m. FINDINGS: 1.1 mCi of technetium labeled sulfur colloid was injected subcutaneously in 4 equal aliquots in the inferior lateral aspect of the right breast NM/Lymph Node Injection Only IMPRESSION: Subcutaneous injection of 1.1 mCi of technetium labeled sulfur colloid for sentinel node imaging. Electronically Signed: Silvestre Ramirez, at 9:06 EDT , Service support ,
[2019-02-24] MEDS: Bupiv/Epi 0.25% 30 ML Vial (09:32)
[2019-02-24 09:46] LABS: Internal QC Validated? YES +Cl - CLEAR BKGD; Pregnancy, Urine Negative Negative
[2019-02-24] MEDS: Cefazolin 2 GM in 0.9% Normal Saline 100 ML IV (10:16)
[2019-02-24] MEDS: Isosulfan Blue 1% 5 ML Vial OPERA.SITE (10:20)
--- NOTE | 2019-02-24 10:30 | BRBX_PTH ---
PATIENT: OC LEON LOC: [facility] [place] U#:[id number] AGE/SX: 43/F ROOM: RE02/24/[address]: Dr. Tanvir Colindres MD : 1975 BED: DIS: 02/24/2019 SPEC #: [id number] RECD: 02/24/19 13:27 STATUS: MACIEL REAamir #: [id number] NICHOLAS: 02/24/19 10:[address]: Tanvir Colindres DEPT: SURGICAL PATHOLOGY RECD BY: Chaka Marques ENTERED: 02/24/19 14:13 SP TYPE: BREAST BX OTHR DR: Dr. Sam Benitez MD Tissues: A - Lymph node, NOS B - Left breast, NOS C - Left breast, NOS D - Left breast, NOS E - Left breast, NOS Procedures: Frozen Section (charge) Frozen Section Add'l ([facility]) Surgery Specimen Level IV Surgery Specimen Level V HEADER OPERATION: Breast excision of margins, sentinel lymph node biopsy PRE-OP DIAGNOSIS: Malignant neoplasm of central portion of left breast, ER positive TISSUE SUBMITTED: A - Left sentinel lymph node, frozen section, B - Left breast tissue, superior portion of cavity, C - Left breast tissue, inferior portion of cavity, D - Left breast tissue, new lateral margin, E - Left breast tissue, inferior lateral margin FROZEN SECTION DIAGNOSIS A. Left sentinel lymph nodes, biopsy: Two out of two lymph nodes, negative for metastatic carcinoma. SJ:renae 02/24/19 MICROSCOPIC DIAGNOSIS A. Left axillary sentinel lymph nodes, biopsy: Two out of two lymph nodes negative for carcinoma. See comment. B. Left breast tissue, lumpectomy: Mild fibrocystic change. Microscopic fibroadenoma. No evidence of malignancy. See comment. C. Left breast tissue, inferior portion of cavity, biopsy: No evidence of malignancy. See comment. D. Left breast tissue, new lateral margin, biopsy: Benign breast parenchyma. E. Left breast tissue, inferior-lateral margin, biopsy: Changes of previous biopsy. No evidence of carcinoma. See comment. AM:nito 02/26/19 COMMENT A, B, C & E - Immunohistochemistry ([id number]) supports the above diagnosis. Reference is made to the patient's previous lumpectomy ([id number]) in which invasive ductal carcinoma was identified. Case has been reviewed in consultation with Dr. Bennett who concurs with the above diagnosis. IDC:[email or web address] MICROSCOPIC DESCRIPTION Slides are reviewed. GROSS DESCRIPTION A - Received fresh for frozen section diagnosis labeled with the patient's name is a specimen designated left sentinel lymph node. The specimen consists of two pieces of adipose tissue containing a nodule measuring 1.5 x 1.5 x 0.7 cm and 1.5 x 1 x 0.7 cm. Both pieces are bisected and reveal lymph nodes. The entire specimen is submitted for frozen section diagnosis in two cassettes as follows: 1 - frozen section, one bisected lymph node, 2 - frozen section, one bisected lymph node. / :nito 02/24/19 B - Received fresh for intraoperative consultation labeled with the patient's name is a specimen designated left breast tissue superior portion of cavity. The specimen consists of a piece of fibroadipose tissue measuring 8 x 6.5 x 3 cm. The specimen is oriented as follows: long - lateral, short - superior. The specimen is inked as follows: anterior - yellow, posterior - black, superior - blue, inferior - green, medial - red and lateral - orange. Sections do not reveal any obvious mass lesion. This information is conveyed to the surgeon intraoperatively. Sections also reveal focal indurated areas of inferior portion of the specimen most likely representing old margin. Parimutuel Cashier sections are submitted in 12 cassettes as follows: 1 & 2 - perpendicular margin, 3-12 - additional sections. / SJ:nito 02/25/19 C - Received fresh for intraoperative consultation labeled with the patient's name is a specimen designated left breast tissue inferior portion of cavity. The specimen consists of a piece of fibroadipose tissue measuring 7.5 x 2 x 0.5 cm. The specimen is oriented by a suture marking new inferior margin. New margin is inked black and old margin is inked blue. Serial sections do not reveal any obvious mass lesion. This information is conveyed to the surgeon intraoperatively. The specimen is serially sectioned and submitted entirely in six cassettes from one end to another end. / :nito 02/25/19 D - Received fresh for intraoperative consultation labeled with the patient's name is a specimen designated left breast tissue new lateral margin. The specimen consists of a piece of fibroadipose tissue measuring 3.5 x 3 x 1 cm. The specimen is oriented by a suture marking new lateral margin. New margin is inked black and old margin is inked blue. Serial sections do not reveal any obvious mass lesion. This information is conveyed to the surgeon intraoperatively. The entire specimen is submitted in four cassettes. / :nito 02/25/19 E - Received fresh labeled with the patient's name is a specimen designated left breast tissue inferior lateral. The specimen consists of a piece of yellow adipose tissue measuring 3 x 2 x 0.5 cm. One surface is yellowish which is inked black and opposite surface is congested which is inked blue. Sections do not reveal any mass lesion. The entire specimen is submitted in two cassettes. / TIFFANY:nito 02/25/19 TC:5 CPT: 87596 x2, 15582 x3, 69115, 39034, 61536
[2019-02-24 11:52] VITALS: BP 142/85; BP 144/90; PULSE 81; RESP 16; TEMP 36.3; O2SAT 96
[2019-02-24 12:00] VITALS: BP 140/90; BP 142/85; PULSE 77; RESP 16; O2SAT 97
[2019-02-24 12:06] LABS: Bedside Glucose 125 mg/dL (70-110)
[2019-02-24 12:15] VITALS: BP 132/87; BP 142/85; PULSE 80; RESP 16; O2SAT 98
--- NOTE | 2019-02-24 12:17 | DCINST_ITS ---
Discharge Diet: No Restrictions Discharge Activity: May Not Drive - for 2-3 days or while taking narcotic pain meds., May Shower - tomorrow May shower in (days): 1 Lifting Restrictions: 10 pounds for 1 week. Call your doctor if your incision/area has: Continuous Slow Oozing, Sudden Increased Bleeding, Increased Pain/ Swelling, Increased Redness, Foul Smelling Discharge, Swelling at the incision site Call your doctor if you observe: Fever of 101 or Higher Suture Line Care: Avoid Pulling/Pushing, Avoid Pinching/Bending Remove Dressing in (days):: 1 - Remove bulky dressing tomorrow. May leave any opsite dressing for 3-4 days. Keep dressing in place until your follow-up appointment. Additional Dressing/Incision Instructions:: Remove bulky dressing tomorrow. May leave any opsite dressing for 3-4 days. Keep dressing in place until your follow-up appointment. Allergies/Adverse Reactions: Allergies hydrocodone [From Hycomine (hydrocodone-PPA)] Allergy (Mild, Verified 02/17/19 09:06) Itching phenylpropanolamine [From Hycomine (hydrocodone-PPA)] Allergy (Mild, Verified 02/17/19 09:06) Itching Medications to take at Discharge labetalol 200 mg tablet 200 mg PO DAILY 01/07/19 levothyroxine 200 mcg capsule 200 mcg PO DAILY 01/07/19 levothyroxine 50 mcg capsule 50 mcg PO DAILY 01/07/19 metformin ER 750 mg tablet,extended release 24 hr 750 mg PO QHS 01/07/19 Aspirin [Aspir 81] 81 mg PO DAILY 02/17/19 Cholecalciferol (Vitamin D3) [Vitamin D3] 2,000 unit PO DAILY 02/17/19 Fish Oil/Dha/Epa [Fish Oil 1,200 mg Fish Oil] 1 ea PO DAILY 02/17/19 Vitamin B Complex 1 ea PO DAILY 02/17/19 Oxycodone HCl/Acetaminophen [Percocet 5/325] 1 - 2 tablet PO Q4H PRN PRN 7 Days #40 tablet 02/24/19 The following prescriptions were given: Oxycodone HCl/Acetaminophen [Percocet 5/325] 1 - 2 tablet PO Q4H PRN PRN 7 Days #40 tablet PRN Reason: Pain Transmission Status: Sent to [facility] Primary Care Physician: Sam Benitez MD [Primary Care Provider] - Please Follow Up With: Tanvir Colindres MD When: Please call to schedule 2 week follow up appointment. [phone]
[2019-02-24 12:28] VITALS: BP 142/85; BP 145/90; PULSE 83; RESP 14; TEMP 36.1; O2SAT 94
--- NOTE | 2019-02-24 12:31 | PCM.OPRPT ---
Problem List (1) Breast cancer, left Status: Acute Qualifiers: Breast location: overlapping sites of breast Estrogen receptor status: positive Patient sex: female Qualified Code(s): C50.812 - Malignant neoplasm of overlapping sites of left female breast; Z17.0 - Estrogen receptor positive status [ER+] Report of Operation Date of Procedure: 02/24/19 Pre-Operative Diagnosis: Left breast cancer with positive margins Post-Operative Diagnosis: Same Surgery/Procedure Performed:: 1. Left sentinel lymph node biopsy. 2. Reexcision of left breast margins Specimen's removed: 1. Left axillary lymph nodes. 2. Left superior cavity. 3. Left inferior cavity. 4. New lateral margin. Description of Procedure: The patient was brought back to the operating room and general anesthesia was induced. Lymphazurin blue dye was placed in the left breast in the subareolar space. The breast was massaged. Left breast and axilla were prepped in usual sterile fashion. The left axilla was marked and an incision was made with a scalpel. It was deepened to the axillary fascia using electrocautery. The neoprobe was used to locate the sentinel lymph node. There was a blue sentinel lymph node which was dissected free and its tributaries were clipped. The node was removed from the body and the 10-second count was 4215. After placing the neoprobe back in the axilla there were no further radioactive contents. Axillary lymph node was sent for pathology. The left axillary cavity was irrigated and dried. The axillary fascia was closed with interrupted 3-0 Vicryl sutures and running 4-0 Monocryl suture. Next attention was paid to left breast. The prior inferior left breast incision was excised. Flaps were created using electrocautery and the cavity and surrounding breast tissue was dissected free using electrocautery. The specimens were marked and sent for pathology. Hemostasis was obtained using electrocautery. The inferior incision was reclosed with interrupted 3-0 Vicryl sutures in a running 4-0 Monocryl. Glue was applied to both incisions. A supportive bra was placed and the patient was awoken and taken to PACU in stable condition. - Admit VTE Documentation VTE Mechan Device Prophylaxis: SCD's
[2019-02-24] MEDS: Acetaminophen 325 MG Tablet PO (13:18)
[2019-02-24] MEDS: oxyCODONE 5 MG Tablet PO (13:18)
[2019-02-24 13:47] VITALS: BP 142/85; BP 143/90; PULSE 74; RESP 16; TEMP 36.6; O2SAT 99
== END 2019-02-24 13:55 | disposition home or self-care (01) ==
LOC: SDC 07:45 → AC 07:46
PROVIDERS: Anesthesiology; Family Provider Family Medicine; PCP Family Medicine; Referring Provider Surgery; Visit Provider Surgery
PROC: (CPT 19301; principal; 2019-02-24 10:15)
DX: D24.2 Benign neoplasm of left breast (principal); C73 Malignant neoplasm of thyroid gland; E11.9 Type 2 diabetes mellitus without complications; I10 Essential (primary) hypertension; E06.9 Thyroiditis, unspecified; Z87.891 Personal history of nicotine dependence; Z79.84 Long term (current) use of oral hypoglycemic drugs; Z79.899 Other long term (current) drug therapy
CPT/HCPCS: 01610; 19120; 38500; 38792; 81025; 82962; 88305; 88307; 88331; 88332; 88341; 88342; A9541; J7120; J2405; Q9968

== ENCOUNTER 2019-03-23 07:11 | Day surgery (SDC) | payer MEDICAID, SELFPAY ==
[2019-03-11 16:07] VITALS: BMI 31.8
[2019-03-19 10:11] VITALS: BMI 31.4
[2019-03-23 07:35] VITALS: BP 152/91; PULSE 75; RESP 18; TEMP 36.6; O2SAT 97; BMI 32.1
[2019-03-23 07:36] LABS: Internal QC Validated? YES +Cl - CLEAR BKGD; Pregnancy, Urine Negative Negative
[2019-03-23] MEDS: Lactated Ringers 1,000 ML 100 ML IV (07:59)
[2019-03-23 08:26] LABS: Bedside Glucose 120 mg/dL (70-110)
--- NOTE | 2019-03-23 08:26 | HP.PCM_ITS ---
Problem List (1) Encounter for adjustment or management of vascular access device Status: Acute History of Present Illness Date of Admission: 03/23/19 The patient is a 43 year old F here for port placement. Patient has breast cancer which is triple negative and needs chemotherapy. Past Medical History Medical History: Medical History (Last Reviewed 03/19/19 @ 10:10 by Eliane Bautista) Breast cancer, left C50.912 Diabetes E11.9 Metabolic syndrome X E88.81 Thyroid cancer C73 HTN (hypertension) I10 Allergies hydrocodone [From Hycomine (hydrocodone-PPA)] Adverse Reaction (Mild, Verified 03/19/19 10:11) Itching phenylpropanolamine [From Hycomine (hydrocodone-PPA)] Adverse Reaction (Mild, Verified 03/19/19 10:11) Itching Home Medications: Ambulatory Orders Medication Instructions Recorded labetalol 200 mg tablet 200 mg PO DAILY 01/07/19 levothyroxine 200 mcg capsule 200 mcg PO DAILY 01/07/19 levothyroxine 50 mcg capsule 50 mcg PO DAILY 01/07/19 metformin ER 750 mg 750 mg PO QHS 01/07/19 tablet,extended release 24 hr Aspirin [Aspir 81] 81 mg PO DAILY 02/17/19 Fish Oil/Dha/Epa [Fish Oil 1,200 1 ea PO DAILY 02/17/19 mg Fish Oil] Vitamin B Complex 1 ea PO DAILY 02/17/19 Lidocaine/Prilocaine 1 applicatio TP DAILY PRN PRN 30 03/19/19 [Lidocaine-Prilocaine Cream] Days #1 tube Ondansetron [Ondansetron Odt] 8 mg PO Q8H PRN PRN 10 Days #30 03/19/19 tab.rapdis Prochlorperazine Maleate 10 mg PO Q6H PRN PRN 10 Days #30 03/19/19 tab Surgical History: Surgical History (Last Reviewed 03/19/19 @ 10:10 by Eliane Bautista) History of breast biopsy Onset Date: ~12/2018 Z98.890 S/P lumpectomy, left breast Onset Date: ~02/24/19 Z98.890 S/P thyroidectomy Z98.890 Status post left breast lumpectomy Onset Date: ~12/2018 Z98.890 s/p ovarian ablation s/p tonsillectomy Surgical History: no surgical history Smoking Status: Former smoker Tobacco Use: Non-smoker Review of Systems Constitutional: Denies: Anorexia, Chills, Fever HEENT: Denies: Difficulty Swallowing Cardiovascular: Denies: Chest Pain Respiratory: Denies: Cough, Shortness of Breath Gastrointestinal: Denies: Abdominal Pain, Nausea, Vomiting Genitourinary: Denies: Dysuria Musculoskeletal: Denies: Joint Tenderness Skin: Denies: Dryness, Jaundice Neurological: Denies: Balance problems Hematologic/ Lymphatic: Denies: Anemia VTE Information - Inpt Only VTE Present on Admission: No VTE Mechan Device Prophylaxis: SCD's Patient Problems: Active and Suspected Problems (Last Reviewed 03/19/19 @ 10:10 by Eliane Bautista) Encounter for adjustment or management of vascular access device (Acute) - Physical Exam General: Alert, Oriented x3 Neck: No JVD, Negative Carotid Bruits Lungs: Normal air movement Cardiovascular: Regular rate, Regular Rhythm Abdomen: Soft, Non Tender, Non-Distended Vital Signs Temp Pulse Resp BP Pulse Ox 97.9 F 75 18 152/91 H 97 03/23/19 07:35 03/23/19 07:35 03/23/19 07:35 03/23/19 07:35 03/23/19 07:35 Oxygen Delivery Method Room Air Weight: 218 lb 0.595 oz Body Mass Index (BMI) 32.1 Finger Stick Blood Glucose 125 Laboratory Tests Past 24 Hrs 03/23/19 07:25 Urine Test Negative POC Glucose 03/23/19 08:23 POC Glucose 120 H Assessment/Plan All Active Problems (Last Reviewed 03/19/19 @ 10:10 by Eliane Bautista) Encounter for education (Acute) Encounter for adjustment or management of vascular access device (Acute) Cancer of left female breast (Acute) Hematoma of breast (Resolved) 43-year-old female here for right chest port placement 1. Chest port was discussed with the patient in detail. I discussed the procedure including the risks of bleeding, infection, pneumothorax, DVT, line infection. Patient understands and is willing to proceed with port placement. She will start treatment next week. Tanvir Colindres MD Pager: [facility] [address] [place] [address], [address] [place] [phone] Office:
[2019-03-23] MEDS: Cefazolin 2 GM in 0.9% Normal Saline 100 ML IV (08:28)
[2019-03-23] MEDS: Bupiv/Epi 0.5% Mpf 30 ML Vial (09:00)
[2019-03-23 09:14] VITALS: BP 130/90; BP 152/91; PULSE 87; RESP 14; TEMP 36.7; O2SAT 99
[2019-03-23 09:20] VITALS: BP 128/93; BP 152/91; PULSE 78; RESP 16; O2SAT 97
[2019-03-23 09:25] VITALS: BP 138/94; BP 152/91; PULSE 85; RESP 16; O2SAT 99
--- NOTE | 2019-03-23 09:28 | RAD_ITS ---
STUDY: X-RAY CHEST REASON FOR EXAM: Female, 43 years old. Port placement. TECHNIQUE: Single AP portable view of the chest. COMPARISON: None. FINDINGS: A right-sided portacatheter is in place. The tip is at the junction of the superior vena cava and right atrium. Surgical clips are seen in the left axillary region. Minimal increased markings in the left mid lung suggestive of linear atelectasis and/or scarring. There is no demonstrated pleural abnormality. Normal size heart. Normal mediastinum and laurie. Normal visualized pulmonary arteries. Normal visualized aortic arch and descending thoracic aorta. Normal visualized thoracic spine. Normal visualized ribs, clavicles, and shoulders. There is no demonstrated abnormality of the visualized soft tissue structures of the upper abdomen. RAD/Chest 1 View (Portable) IMPRESSION: The tip of the right portacatheter is at the junction of the superior vena cava and right atrium. Electronically Signed: Silvestre Ramirez, at 9:54 EDT , Service support ,
[2019-03-23 09:30] VITALS: BP 106/72; BP 152/91; PULSE 83; RESP 16; TEMP 36.7; O2SAT 100
--- NOTE | 2019-03-23 10:20 | PCM.OPRPT ---
Problem List (1) Encounter for adjustment or management of vascular access device Status: Acute Report of Operation Date of Procedure: 03/23/19 Pre-Operative Diagnosis: Need for vascular access for left breast cancer Post-Operative Diagnosis: Same Surgery/Procedure Performed:: Ultrasound and fluoroscopy guided right chest port placement utilizing right IJ Description of Procedure: After obtaining informed consent patient was brought back to the operating room MAC anesthesia was induced and the right chest and neck were prepped in normal sterile fashion. Ultrasound was used to evaluate both IJs and the right IJ was selected. Next, using a needle, the right IJ was accessed and a guidewire was passed on into the superior vena cava under fluoroscopy guidance. A small incision was made over the puncture site and the dilator introducer was placed over the guidewire. Next this was capped and the pocket was made for the port. 1% lidocaine with epinephrine was injected in the proposed port site. An incision was made with scalpel. Electrocautery was used to make a pocket under the skin and subcutaneous tissue. Hemostasis was obtained. Next, the catheter was tunneled up to the neck incision site and placed through the introducer. The peel-away introducer was removed and the position of the catheter was confirmed on fluoroscopy. Next, the catheter was trimmed and attached to the port with the locking device. Interrupted 2-0 Vicryl sutures were used to anchor the port to the chest wall and then the port was placed inside the pocket. The pocket was then flushed with saline and the port irrigated with saline. There was good blood return and the port flushed easily. Next, heparin was injected into the port. The skin was closed with subcutaneous interrupted 3-0 Vicryl sutures. A single 3-0 Vicryl sutures placed under the skin at the neck incision site. Steri-Strips were placed as well as op sites. Patient tolerated procedure well, was taken to PACU in stable condition. Chest x-ray will be obtained. Grafts/Implants Used: 8 Setswana PowerPort - Admit VTE Documentation VTE Mechan Device Prophylaxis: SCD's
--- NOTE | 2019-03-23 10:22 | DCINST_ITS ---
Discharge Diet: No Restrictions - Pain medication may cause nausea. You should typically eat light foods as you take your pain medication. Discharge Activity: Return to Normal Activity, May Shower - with your bandage in place in 1-2 days after surgery. DO NOT SHOWER WHEN YOUR PORT IS ACCESSED. Call your doctor if your incision/area has: Continuous Slow Oozing, Sudden Increased Bleeding, Increased Pain/ Swelling, Increased Redness Call your doctor if you observe: Fever of 101 or Higher Remove Dressing in (days):: 3 - When you remove the bandage, leave the steri- strips intact until they fall off. Allergies/Adverse Reactions: Allergies hydrocodone [From Hycomine (hydrocodone-PPA)] Adverse Reaction (Mild, Verified 03/19/19 10:11) Itching phenylpropanolamine [From Hycomine (hydrocodone-PPA)] Adverse Reaction (Mild, Verified 03/19/19 10:11) Itching Medications to take at Discharge labetalol 200 mg tablet 200 mg PO DAILY 01/07/19 levothyroxine 200 mcg capsule 200 mcg PO DAILY 01/07/19 levothyroxine 50 mcg capsule 50 mcg PO DAILY 01/07/19 metformin ER 750 mg tablet,extended release 24 hr 750 mg PO QHS 01/07/19 Aspirin [Aspir 81] 81 mg PO DAILY 02/17/19 Fish Oil/Dha/Epa [Fish Oil 1,200 mg Fish Oil] 1 ea PO DAILY 02/17/19 Vitamin B Complex 1 ea PO DAILY 02/17/19 Lidocaine/Prilocaine [Lidocaine-Prilocaine Cream] 1 applicatio TP DAILY PRN PRN 30 Days #1 tube 03/19/19 Ondansetron [Ondansetron Odt] 8 mg PO Q8H PRN PRN 10 Days #30 tab.rapdis 03/19/19 Prochlorperazine Maleate 10 mg PO Q6H PRN PRN 10 Days #30 tab 03/19/19 Primary Care Physician: Sam Benitez MD [Primary Care Provider] - Test Results: Test results from this visit will be discussed in further detail at your follow- up appointment, if applicable. Please Follow Up With: Tanvir Colindres MD When: Please call to schedule 1 week follow up appointment. [phone]
[2019-03-23 10:30] VITALS: BP 152/91
== END 2019-03-23 10:57 | disposition home or self-care (01) ==
LOC: SDC 07:12 → AC 07:13
PROVIDERS: Anesthesiology; Family Provider Family Medicine; PCP Family Medicine; Referring Provider Surgery; Visit Provider Surgery
PROC: (CPT 36571; principal; 2019-03-23 08:30)
DX: C50.912 Malignant neoplasm of unspecified site of left female breast (principal); Z45.2 Encounter for adjustment and management of vascular access device; E11.9 Type 2 diabetes mellitus without complications; I10 Essential (primary) hypertension; E06.9 Thyroiditis, unspecified; Z85.850 Personal history of malignant neoplasm of thyroid; Z79.84 Long term (current) use of oral hypoglycemic drugs; Z79.82 Long term (current) use of aspirin; Z79.899 Other long term (current) drug therapy; Z87.891 Personal history of nicotine dependence
CPT/HCPCS: 00532; 36571; 71045; 77001; 81025; 82962; J7120; C1788

== ENCOUNTER → 2019-03-27 | Outpatient (CLI) | payer MEDICAID, SELFPAY ==
[2019-03-11 16:07] VITALS: BMI 31.8
[2019-03-23 07:35] VITALS: BMI 32.1
--- NOTE | 2019-03-27 07:56 | ECHODONC_ITS ---
Reason For Study: PRE-CHEMO Procedure This was a 2D Doppler, Color Flow transthoracic echocardiogram. Myocardial strain analysis was performed in this exam to aid in the assessment of cardiac function. The exam was of adequate technical quality. Exam performed in department. Left Ventricle Normal LV size. Left ventricular systolic function is normal. The estimated ejection fraction is 65 %. Diastolic function is indeterminate. No regional wall motion abnormalities noted. Right Ventricle Normal RV size. Normal systolic function. Atria Normal left atrium. Normal right atrium. No doppler evidence for ASD. Mitral Valve There is no mitral annular calcification. Anterior leaflet diffuse mitral valve thickening. Trivial mitral valve insufficiency. Tricuspid Valve Normal tricuspid valve. Trivial tricuspid valve insufficiency. Aortic Valve Trisinus/trileaflet aortic valve. Normal aortic valve. Pulmonic Valve The pulmonic valve is not well visualized. Great Vessels Normal sized aortic root. Pericardium/Pleural No pericardial effusion. MMode/2D Measurements & Calculations LVIDd: 4.2 cm IVSd: 0.94 cm Ao root diam: 2.7 cm LVIDs: 2.8 cm LVPWd: 1.2 cm RVDd: 2.7 cm FS: 32.4 % LAV(MOD-bp): 28.9 ml LA A4 area: 10.6 cm2 LA dimension(2D): 3.9 cm LAV(MOD-bp) Indexed: 13.5 ml/m2 LAV(MOD-sp2): 40.6 ml LAV(MOD-sp4): 18.1 ml RA A4 area: 7.4 cm2 Time Measurements MV dec time: 0.15 sec Doppler Measurements & Calculations MV E max andrew: 102.4 cm/sec Lat Peak E' Andrew: 9.4 cm/sec Med Peak E' Andrew: 6.2 cm/sec MV A max andrew: 95.2 cm/sec E/E' lat: 10.9 E/E' med: 16.5 MV E/A: 1.1 Ao V2 max: 202.3 cm/sec LV V1 max: 125.9 cm/sec PA V2 max: 120.2 cm/sec Ao max P.4 mmHg LV V1 max P.3 mmHg Interpretation Summary Left ventricular systolic function is normal. The estimated ejection fraction is 65 %. The global longitudinal strain was -16 % . (Borderline) Anterior leaflet diffuse mitral valve thickening. Trivial mitral valve insufficiency. Trivial tricuspid valve insufficiency. Diastolic function is indeterminate. Ordering Physician: Edwin Soria Referring Physician: Edwin Soria Performed By: Carissa Nguyen, ANGE, RVT
== END | disposition home or self-care (01) ==
LOC: CVS 07:53
PROVIDERS: Family Provider Family Medicine; PCP Family Medicine; Referring Provider Internal Medicine Hematology & Oncology; Visit Provider Internal Medicine Hematology & Oncology
DX: C73 Malignant neoplasm of thyroid gland (principal); C50.912 Malignant neoplasm of unspecified site of left female breast
CPT/HCPCS: 0399T; 93306

== ENCOUNTER → 2019-08-27 09:38 | Outpatient (CLI) | payer MEDICAID, SELFPAY ==
[2019-08-10 09:59] VITALS: BMI 31.5
[2019-08-20 10:44] VITALS: BMI 32.3
--- NOTE | 2019-08-27 09:44 | BD_ITS ---
STUDY: DUAL ENERGY X-RAY ABSORPTIOMETRY / DXA REASON FOR EXAM: Female, 43 years old. MENOPAUSAL- CHEMO INDUCED AT 43 -- HAS BREAST CANCER- CURRENTLY HAVING RADIATION, S/P CHEMO AND PRE- AROMATASE INHIBITOR TREATMENT -- DIABETIC- TAKES METFORMIN -- HX OF SMOKING- QUIT 5 YRS AGO -- TAKES THYROID MEDICATION -- FAMILY HX OF OSTEO- MOTHER -- DOES LITTLE EXERCISE -- HX OF ANKLE FX -- PAOLA OF 0.75 INCHES TECHNIQUE: Bone Mineral Density (BMD) measurements of lumbar spine and bilateral hips were obtained. COMPARISON: None. FINDINGS: Lumbar Spine (L1-L4): g/cm2 (1.540) / T-score (3.1) / Z-score (3.1) Findings are suggestive of normal bone density with a low fracture risk. Left Femur Total: g/cm2 (1.262) / T-score (2.0) / Z-score (2.3) Left Femoral Neck: g/cm2 (1.236) / T-score (1.4) / Z-score (1.9) Right Femur Total: g/cm2 (1.318) / T-score (2.5) / Z-score (2.7) Right Femoral Neck: g/cm2 (1.381) / T-score (2.5) / Z-score (3.0) BD/Dexa Bone Density Study IMPRESSION: The patient is considered normal as outlined below according to World Andrae Organization (WHO) criteria with a low fracture risk. Reference Information: The T-score is the number of standard deviations above or below the standard which is normal for young adults at their peak bone mineral density. The World Health Organization (WHO) interprets the T-scores as follows: Above -1 Normal bone density Between -1 and -2.5 Osteopenia Equal to / or below -2.5 Osteoporosis As a practical clinical guideline, osteopenia may be graded as follows: Mild -1 through -1.5 Moderate -1.6 through -2.0 Severe -2.1 through -2.4 The Z-score is the number of standard deviations above or below age-matched controls. A Z-score of less than -1.5 would be considered abnormal. References: 1. NIH Osteoporosis and Related Bone Diseases http://www.osteo.org 2. International Society for Clinical Densitometry http://www.iscd.org 3. National Osteoporosis Foundation http://www.nof.org Electronically Signed: Silvestre Ramirez, at 10:13 EST , Service support ,
== END ==
PROVIDERS: PCP Family Medicine; Referring Provider Internal Medicine Hematology & Oncology; Visit Provider Internal Medicine Hematology & Oncology
DX: C50.912 Malignant neoplasm of unspecified site of left female breast (principal); C73 Malignant neoplasm of thyroid gland
CPT/HCPCS: 77080; 77412

== ENCOUNTER 2019-09-02 10:59 | Emergency (ER) | payer MEDICAID, SELFPAY ==
[2019-08-10 09:59] VITALS: BMI 31.5
[2019-08-31 10:21] VITALS: BMI 32.3
[2019-09-02 11:01] VITALS: BP 168/111; PULSE 88; RESP 18; TEMP 36.6; O2SAT 100; BMI 32.8
[2019-09-02 11:37] VITALS: BP 169/93; PULSE 82; RESP 13; O2SAT 100
[2019-09-02 12:20] VITALS: BP 146/95; PULSE 88; RESP 16; O2SAT 98
--- NOTE | 2019-09-02 12:20 | ED.DCSUM_ITS ---
- ER Visit Summary Date of Service: 09/02/19 Chief Complaint: Acute on chronic hypertension History of Present Illness: The patient is a 43 F history of hypertension. Also recently diagnosed breast cancer underwent chemotherapy which is since finished in June and is still undergoing radiation therapy. She is had a prior TIA and is diabetic. They states her blood pressures have been running a little higher than normal. Today at her radiation treatment was 158/111. Currently it is 169/93. And when I am in the room is 145/95. She denies any headache, chest pain or shortness of breath. Radiation therapy personnel encouraged her to be evaluated. She denies any other complaints. Said she used to be on labetalol it was working well Dr. Cooper her digital content marketing manager who she sees for thyroid disease change her from labetalol to metoprolol 100 mg daily. Said the blood pressure has been is good since she is been on this medication. She had no problems in the past with labetalol. Physical Examination: White female no acute distress vital signs stable afebrile. Initial blood pressure 169/93 when I am in the room was 145/95. No complaints. H EENT exam unremarkable except for alopecia secondary to recent chemotherapy. Neck nontender no lymphadenopathy. Lungs clear to auscultation bilaterally. Heart regular rhythm no murmur. Abdomen soft nontender. Patient moving all 4 extremities. Neurovascular intact. No edema. Neurologically she is awake alert with no focal motor deficits. Test Results: None Emergency Department Course and Treatment: Patient I discussed treatment options. She does not need any testing at this time. Treatment Plan: She will continue her metoprolol. Log her blood pressures twice daily and follow-up with your primary care provider for repeat evaluation. We are not making any medication changes at this time. Disposition: Discharge Impression: Acute on chronic hypertension History of breast CA with chemo and radiation therapy History of diabetes This note was generated with [employer] dictation software. It may contain incorrect words, spelling, and punctuation that were not noted in review of the chart prior to signing ED Disposition - Plan for ED Patient: Referrals: Sam Benitez MD [Primary Care Provider] -
--- NOTE | 2019-09-02 12:23 | ED.DEP ---
ED Disposition - Plan for ED Patient: Disposition: Home or Assisted Living Instructions: HYPERTENSION, Established, Out of Control Prescriptions: Labetalol [Trandate (Beta Oswaldo)] 200 mg PO DAILY #30 tab Prescription Printed Referrals: Sam Benitez MD [Primary Care Provider] - As Needed Rashaun Cooper MD [STAFF PHYSICIAN] - As Needed Additional Instructions: Log your blood pressures daily. Follow-up with either Dr. Cooper or Dr. Thomas for any med changes.
--- NOTE | 2019-09-02 12:33 | ED.RN ---
DISCHARGE INSTRUCTIONS GIVEN TO AND REVIEWED WITH PATIENT, PATIENT DENIES QUESTIONS OR CONCERNS AND VOICES UNDERSTANDING OF DISCHARGE INSTRUCTIONS. PT AMBULATES OUT OF ROOM WITHOUT DIFFICULTY.
== END 2019-09-02 12:33 | disposition home or self-care (01) ==
PROVIDERS: Emergency Provider Emergency Medicine; PCP Family Medicine
DX: I10 Essential (primary) hypertension (principal); C50.912 Malignant neoplasm of unspecified site of left female breast; E11.9 Type 2 diabetes mellitus without complications; E03.9 Hypothyroidism, unspecified; Z86.73 Personal history of transient ischemic attack (TIA), and cerebral infarction without residual deficits; Z79.82 Long term (current) use of aspirin; Z79.84 Long term (current) use of oral hypoglycemic drugs; Z79.899 Other long term (current) drug therapy
CPT/HCPCS: 77412; 99282

== ENCOUNTER → 2020-01-19 10:47 | Outpatient (CLI) | payer MEDICAID, SELFPAY ==
[2019-08-10 09:59] VITALS: BMI 31.5
[2019-11-19 11:08] VITALS: BMI 32.3
--- NOTE | 2020-01-19 10:48 | BI_ITS ---
MAMMOGRAPHY - BILATERAL SCREENING 3-D TOMOSYNTHESIS REASON FOR EXAM: Female, 44 years old. P/H AGE 43, MOTHER AGE 67, PAT GMA AGE 70S -- LT LUMPECTOMY 01/10/19 WITH RAD AND CHEMO PERTINENT HISTORY: Personal history of breast cancer.. TECHNIQUE: 2-D mammograms and 3-D Tomosynthesis of the breast (s) were performed. CAD was performed. COMPARISON: 01/10/2019 FINDINGS: The breast composition is composed of scattered fibroglandular density. Architectural distortion in the central left breast from previous surgery. No new suspicious mass or nodule noted. Scattered benign calcifications are seen. No dense spiculated masses or suspicious microcalcifications are identified. No architectural distortion is identified. There is no skin thickening or retraction. There has been no significant change since the prior study. BI/SCREEN MAMM (CAD) W/ZOE BILAT IMPRESSION: No mammographic signs of malignancy. Routine yearly mammograms recommended. ASSESSMENT CATEGORY: BIRADS Category 2: Benign. A letter regarding these results will be sent to the patient by the facility within 30 days. FOLLOW UP RECOMMENDATION: Yearly follow up mammogram recommended. (A) Approximately 10% of breast cancers are not detected by mammography. A normal mammogram should not delay biopsy of a clinically suspicious abnormality. Electronically Signed: Alfa Handley MD at 12:40 EDT , Service support ,
== END ==
PROVIDERS: PCP Family Medicine; Referring Provider Surgery; Visit Provider Surgery
DX: Z12.31 Encounter for screening mammogram for malignant neoplasm of breast (principal)
CPT/HCPCS: 77063; 77067

== ENCOUNTER → 2020-01-25 17:19 | Outpatient (CLI) | payer MEDICAID, SELFPAY ==
[2019-08-10 09:59] VITALS: BMI 31.5
[2020-01-25 09:01] VITALS: BMI 32.3
[2020-01-31 07:07] LABS: HPV APTIMA, High Risk Negative (Negative)
== END ==
PROVIDERS: Referring Provider Nurse Practitioner Women's Health; Visit Provider Nurse Practitioner Women's Health
DX: Z12.4 Encounter for screening for malignant neoplasm of cervix (principal)
CPT/HCPCS: 87624; 88175; G0145

== ENCOUNTER → 2020-05-24 08:49 | Outpatient (CLI) | payer MEDICAID, SELFPAY ==
[2020-04-18 08:59] VITALS: BMI 32.5
[2020-05-18 13:47] VITALS: BMI 33.5
--- NOTE | 2020-05-24 08:50 | US_ITS ---
STUDY: ULTRASOUND BREAST - LEFT REASON FOR EXAM: Female, 44 years old. Left breast pain at the site of the lumpectomy. TECHNIQUE: Axial and longitudinal images of the LEFT breast were performed with a high resolution ultrasound transducer. # OF IMAGES: 61 COMPARISON: Comparison is made with prior mammogram done earlier in the day. FINDINGS: LEFT Breast: The lumpectomy site was examined by ultrasound. Evidence of a focal scar tissue measuring 3.1 cm x 2.3 cm x 2.3 cm. Is also evidence of a fluid collection at the operative site measuring 2.3 cm x 1.5 cm x 0.3 cm suggestive of postoperative seroma. US/Breast Limited Unilateral IMPRESSION: Focal scarring and small fluid collection seen at the excisional biopsy site. ASSESSMENT CATEGORY: BIRADS Category 2: Benign. A letter regarding these results will be sent to the patient by the facility within 30 days. Electronically Signed: Silvestre Ramirez, at 14:09 EDT , Service support ,
--- NOTE | 2020-05-24 08:50 | BI_ITS ---
MAMMOGRAPHY - UNILATERAL DIAGNOSTIC: LEFT BREAST REASON FOR EXAM: Female, 44 years old. One-week history of left retroareolar pain at the level of the lumpectomy site. PERTINENT HISTORY: Personal history of breast cancer. Prior left lumpectomy. Mother with breast cancer. Grandmother with breast cancer. TECHNIQUE: Digital unilateral breast gunner (3D mammographic acquisition) in the CC and MLO projections. 2-D mediolateral oblique (MLO) and craniocaudad (CC) views of both breasts were obtained. CAD: Full Field Digital Mammography with Computer Added Detection was performed. COMPARISON: Comparison is made with prior examination dated 01/19/2020. FINDINGS: Breast Composition: The breasts are heterogeneously dense, which may obscure small masses. There are no dominant masses or suspicious calcifications. Surgical clips are once again seen in the deep inferior central portion of the left breast in keeping with the prior lumpectomy. Postsurgical changes are seen. This is unchanged. Surgical clips are also present in the left axillary region. No other significant abnormalities are identified. There has been no significant change since the prior study. BI/DIAG MAMM W/CAD, UNILAT IMPRESSION: Stable unilateral diagnostic mammogram. With the patient''s history of pain at the lumpectomy site, correlation with ultrasound is recommended.. (A) ASSESSMENT CATEGORY: BIRADS Category 0: Incomplete. Need additional imaging evaluation. A letter regarding these results will be sent to the patient by the facility within 30 days. Approximately 10% of breast cancers are not detected by mammography. A normal mammogram should not delay biopsy of a clinically suspicious abnormality. Electronically Signed: Silvestre Ramirez, at 10:54 EDT , Service support ,
--- NOTE | 2020-05-24 10:27 | RAD_ITS ---
STUDY: X-RAY - UNILATERAL RIBS ( LEFT ) REASON FOR EXAM: Female, 44 years old. LEFT BREAST PAIN, PT HAS BREAST CA TECHNIQUE: 4 view(s) of the ribs. COMPARISON: None. FINDINGS: Normal visualized ribs without a demonstrated fracture. The visualized lung is clear and expanded. RAD/Ribs Unil 2V No CXR IMPRESSION: Normal x-ray examination of the ribs. Electronically Signed: Alfa Handley MD at 17:47 EDT , Service support ,
== END ==
PROVIDERS: PCP Family Medicine; Referring Provider Internal Medicine Hematology & Oncology; Visit Provider Internal Medicine Hematology & Oncology
DX: C50.912 Malignant neoplasm of unspecified site of left female breast (principal)
CPT/HCPCS: 71100; 76642; 77061; 77065; G0279

== ENCOUNTER → 2021-01-27 12:13 | Outpatient (CLI) | payer MEDICAID, SELFPAY ==
[2020-04-18 08:59] VITALS: BMI 32.5
[2020-09-20 11:25] VITALS: BMI 34.3
[2020-12-20 14:04] VITALS: BMI 32.3
--- NOTE | 2021-01-27 12:14 | BI_ITS ---
MAMMOGRAPHY - BILATERAL SCREENING REASON FOR EXAM: Female, 45 years old. Routine annual screening examination. PERTINENT HISTORY: Personal history of breast cancer. Left lumpectomy with chemotherapy and radiation therapy. Mother with breast cancer. Grandmother with breast cancer. TECHNIQUE: Digital bilateral breast zoe (3D mammographic acquisition) in the CC and MLO projections. 2-D mediolateral oblique (MLO) and craniocaudad (CC) views of both breasts were obtained. CAD: Full Field Digital Mammography with Computer Added Detection was performed. COMPARISON: Comparison is made with prior study dated 01/19/2020 and 05/24/2020. FINDINGS: Breast Composition: There are scattered areas of fibroglandular density. There are no dominant masses or suspicious calcifications. The patient is status post lumpectomy and then deep central aspect of the left breast with the postsurgical changes. Surgical clips are seen at the operative site as well as in the left axillary region. No other significant abnormalities are identified. There has been no significant change since the prior study. BI/SCRN MAMM (CAD)W/ZOE BILAT IMPRESSION: Stable bilateral screening mammogram. Yearly follow-up mammogram recommended. (A) ASSESSMENT CATEGORY: BIRADS Category 2: Benign. A letter regarding these results will be sent to the patient by the facility within 30 days. Approximately 10% of breast cancers are not detected by mammography. A normal mammogram should not delay biopsy of a clinically suspicious abnormality. [id number] Electronically Signed: Silvestre Ramirez MD at 13:25 EDT , Service support ,
== END ==
PROVIDERS: PCP Family Medicine; Referring Provider Internal Medicine Hematology & Oncology; Visit Provider Internal Medicine Hematology & Oncology
DX: Z12.31 Encounter for screening mammogram for malignant neoplasm of breast (principal)
CPT/HCPCS: 77063; 77067

== ENCOUNTER → 2021-04-18 10:21 | Outpatient (CLI) | payer MEDICAID, SELFPAY ==
[2020-04-18 08:59] VITALS: BMI 32.5
[2021-04-18 12:38] LABS: ALB/GLOB Ratio 0.9 RATIO (0.9-2.4); AST(SGOT) 16 U/L (15-37); Alanine Aminotransfer ALT/SGPT 41 U/L (13-56); Albumin, Serum 3.5 g/dL (3.2-5.0); Alkaline Phosphatase 70 U/L (45-117); Anion Gap 5 (5-15); BUN 20 mg/dL (7-18); BUN/Creat Ratio 34.4 RATIO (10-20); Calcium,Total 8.9 mg/dL (8.5-10.1); Chloride 104 mmol/L (98-107); Cholesterol 216 mg/dL (200); Creatinine, Serum 0.58 mg/dL (0.55-1.02); EST Glomerular Filtration Rate 119 mL/min (>60); Est Glom Filt Rate - Afr Amer 144 mL/min (>60); Glucose 139 mg/dL (74-106); High Density Lipoprotein 58 mg/dL; Protein, Total 7.5 g/dL (6.4-8.2); Sodium Level 136 mmol/L (136-145); Thyroid Stim Hormone (TSH) 2.59 uIU/mL (0.358-3.74); Triglycerides 226 mg/dL; Very Low Density Lipoprotein 45 mg/dL (5-40)
[2021-04-18 12:46] LABS: Microalbumin,Random Urine < 5.0 mg/L (NO RANGE EST.)
[2021-04-19 20:32] LABS: Anti-Thyroglobulin AB < 1.0 IU/mL (0.0-0.9); Thyroglobulin, Serum Qt. 0.3 ng/mL (1.5-38.5)
== END ==
PROVIDERS: Referring Provider Internal Medicine Endocrinology, Diabetes & Metabolism; Visit Provider Internal Medicine Endocrinology, Diabetes & Metabolism
DX: E89.0 Postprocedural hypothyroidism (principal); C73 Malignant neoplasm of thyroid gland; E11.65 Type 2 diabetes mellitus with hyperglycemia
CPT/HCPCS: 36415; 80053; 80061; 82043; 82570; 84432; 84439; 84443; 86800

== ENCOUNTER 2021-05-24 10:30 | Outpatient (RCR) | payer MEDICAID, SELFPAY ==
[2020-04-18 08:59] VITALS: BMI 32.5
== END 2021-05-28 23:59 ==
LOC: DC 10:30
PROVIDERS: Visit Provider Internal Medicine Endocrinology, Diabetes & Metabolism
DX: Z71.3 Dietary counseling and surveillance (principal); E66.9 Obesity, unspecified; E11.65 Type 2 diabetes mellitus with hyperglycemia
CPT/HCPCS: 97802; G0108

== ENCOUNTER 2021-06-14 09:27 | Outpatient (RCR) | payer MEDICAID, SELFPAY ==
[2020-04-18 08:59] VITALS: BMI 32.5
== END 2021-06-27 23:59 ==
LOC: DC 09:27
PROVIDERS: Visit Provider Internal Medicine Endocrinology, Diabetes & Metabolism
DX: E11.65 Type 2 diabetes mellitus with hyperglycemia (principal); E66.9 Obesity, unspecified
CPT/HCPCS: 97803

== ENCOUNTER → 2022-02-20 | Outpatient (CLI) | payer MEDICAID, SELFPAY ==
[2020-04-18 08:59] VITALS: BMI 32.5
--- NOTE | 2022-02-20 07:52 | BI_ITS ---
MAMMOGRAPHY - BILATERAL SCREENING REASON FOR EXAM: Female, 46 years old. Routine annual screening examination. PERTINENT HISTORY: Personal history of breast cancer. Prior left lumpectomy with chemotherapy and radiation therapy. Mother with breast cancer. Grandmother with breast cancer. TECHNIQUE: Digital bilateral breast zoe (3D mammographic acquisition) in the CC and MLO projections. 2-D mediolateral oblique (MLO) and craniocaudad (CC) views of both breasts were obtained. CAD: Full Field Digital Mammography with Computer Added Detection was performed. COMPARISON: Comparison is made with prior study dated 01/27/2021 and 01/19/2020. FINDINGS: Breast Composition: There are scattered areas of fibroglandular density. There are no dominant masses or suspicious calcifications. The patient is status post lumpectomy in the inferior deep central portion of the left breast with resultant postoperative scarring. Surgical clips are also seen in the left axillary region. There has been no change. No other significant abnormalities are identified. There has been no significant change since the prior study. BI/SCRN MAMM (CAD)W/ZOE BILAT IMPRESSION: Stable bilateral screening mammogram. Yearly follow-up mammogram recommended. (A) ASSESSMENT CATEGORY: BIRADS Category 2: Benign. A letter regarding these results will be sent to the patient by the facility within 30 days. Approximately 10% of breast cancers are not detected by mammography. A normal mammogram should not delay biopsy of a clinically suspicious abnormality. [id number] Electronically Signed: Silvestre Ramirez MD at 10:24 EDT ,
--- NOTE | 2022-02-20 08:08 | BD_ITS ---
STUDY: DUAL ENERGY X-RAY ABSORPTIOMETRY / DXA REASON FOR EXAM: Female, 46 years old. SCREENING FOR OSTEOPOROSIS TECHNIQUE: Bone Mineral Density (BMD) measurements of lumbar spine and bilateral hips were obtained. COMPARISON: Comparison is made with prior study dated 08/27/2019. FINDINGS: Lumbar Spine (L1-L4): g/cm2 (1.362) / T-score (2.9) / Z-score (3.4) Findings are suggestive of normal bone density with a low fracture risk. Left Femur Total: g/cm2 (1.174) / T-score (1.9) / Z-score (2.2) Left Femoral Neck: g/cm2 (1.043) / T-score (1.7) / Z-score (2.2) Right Femur Total: g/cm2 (1.221) / T-score (2.3) / Z-score (2.6) Right Femoral Neck: g/cm2 (1.064) / T-score (1.9) / Z-score (2.4) The T-Scores on the most recent prior examination were: Lumbar Spine (L1-L4): There has been worsening of bone density since the previous examination. Left Femur Total: which represents a worsening of 1.2%. Right Femur Total: which represents a worsening of 1.8%. BD/Dexa Bone Density Study IMPRESSION: The patient is considered normal as outlined below according to World Andrae Organization (WHO) criteria with a low fracture risk. There has been worsening of bone density since the previous examination. Reference Information: The T-score is the number of standard deviations above or below the standard which is normal for young adults at their peak bone mineral density. The World Health Organization (WHO) interprets the T-scores as follows: Above -1 Normal bone density Between -1 and -2.5 Osteopenia Equal to / or below -2.5 Osteoporosis As a practical clinical guideline, osteopenia may be graded as follows: Mild -1 through -1.5 Moderate -1.6 through -2.0 Severe -2.1 through -2.4 The Z-score is the number of standard deviations above or below age-matched controls. A Z-score of less than -1.5 would be considered abnormal. References: 1. NIH Osteoporosis and Related Bone Diseases www osteo.org 2. International Society for Clinical Densitometry www iscd.org 3. National Osteoporosis Foundation www nof.org Electronically Signed: Silvestre Ramirez MD at 14:50 EDT ,
== END | disposition home or self-care (01) ==
PROVIDERS: PCP Family Medicine; Visit Provider Internal Medicine Hematology & Oncology
DX: Z13.820 Encounter for screening for osteoporosis (principal); Z12.31 Encounter for screening mammogram for malignant neoplasm of breast
CPT/HCPCS: 77063; 77067; 77080

== ENCOUNTER → 2022-03-06 | Outpatient (CLI) | payer MEDICAID, SELFPAY ==
[2020-04-18 08:59] VITALS: BMI 32.5
[2022-03-06 09:59] LABS: Estradiol < 11.0 pg/mL; Follicle Stimulating Hormone 58.9 mIU/mL
== END | disposition home or self-care (01) ==
LOC: PAVLAB 09:13
PROVIDERS: PCP Family Medicine; Referring Provider Nurse Practitioner Women's Health; Visit Provider Nurse Practitioner Women's Health
DX: N92.6 Irregular menstruation, unspecified (principal); C50.912 Malignant neoplasm of unspecified site of left female breast
CPT/HCPCS: 36415; 82670; 83001

== ENCOUNTER → 2022-03-14 | Outpatient (CLI) | payer MEDICAID, SELFPAY ==
[2020-04-18 08:59] VITALS: BMI 32.5
--- NOTE | 2022-03-14 08:19 | US_ITS ---
INDICATION: AUB EXAMINATION: Ultrasound US Pelvis Non OB Complete With Transvaginal Imaging TECHNIQUE: Transabdominal and transvaginal pelvic ultrasound was performed. Grayscale, spectral waveform, and color flow Doppler evaluation of the adnexa. COMPARISON: None. FINDINGS: UTERUS: Anteverted uterus demonstrates heterogenous echogenicity, a hyperechoic ovoid area is visualized in the posterior myometrium measuring 1.1 x 1.0 x 0.6 cm suggestive of a myometrial fibroid. The uterus measures 6.9 x 4.5 x 3.1 cm. The endometrial stripe measures 0.4 cm in AP diameter which is within normal limits. RIGHT OVARY: Right ovary measures 2.3 x 1.6 x 1.2 cm. Non-enlarged, normal echogenicity. There is normal arterial inflow and venous outflow present in the right ovary. LEFT OVARY: The left ovary measures 2.7 x 2.0 x 1.4 cm. Non-enlarged, normal echogenicity. There is normal arterial inflow and venous outflow present in the left ovary. FREE FLUID: None. US/Transvaginal Non- IMPRESSION: 1. cm posterior myometrial fibroid, otherwise unremarkable uterus. Unremarkable ovaries. Electronically Signed: Kendall Lopez MD at 9:11 EDT ,
--- NOTE | 2022-03-14 08:19 | US_ITS ---
INDICATION: AUB EXAMINATION: Ultrasound US Pelvis Non OB Complete With Transvaginal Imaging TECHNIQUE: Transabdominal and transvaginal pelvic ultrasound was performed. Grayscale, spectral waveform, and color flow Doppler evaluation of the adnexa. COMPARISON: None. FINDINGS: UTERUS: Anteverted uterus demonstrates heterogenous echogenicity, a hyperechoic ovoid area is visualized in the posterior myometrium measuring 1.1 x 1.0 x 0.6 cm suggestive of a myometrial fibroid. The uterus measures 6.9 x 4.5 x 3.1 cm. The endometrial stripe measures 0.4 cm in AP diameter which is within normal limits. RIGHT OVARY: Right ovary measures 2.3 x 1.6 x 1.2 cm. Non-enlarged, normal echogenicity. There is normal arterial inflow and venous outflow present in the right ovary. LEFT OVARY: The left ovary measures 2.7 x 2.0 x 1.4 cm. Non-enlarged, normal echogenicity. There is normal arterial inflow and venous outflow present in the left ovary. FREE FLUID: None. US/Pelvic (Non ) IMPRESSION: 1. cm posterior myometrial fibroid, otherwise unremarkable uterus. Unremarkable ovaries. Electronically Signed: Kendall Lopez MD at 9:11 EDT ,
== END | disposition home or self-care (01) ==
LOC: US 08:17
PROVIDERS: Referring Provider Nurse Practitioner Women's Health; Visit Provider Nurse Practitioner Women's Health
DX: N92.6 Irregular menstruation, unspecified (principal)
CPT/HCPCS: 76830; 76856

== ENCOUNTER → 2022-04-17 | Outpatient (CLI) | payer MEDICAID, SELFPAY ==
[2022-04-17 09:01] VITALS: BMI 32.5
[2022-04-17 10:04] LABS: Vitamin B12 487 pg/mL (211-911); Vitamin D,25 Hydroxy 41.7 ng/mL
[2022-04-17 10:11] LABS: Microalbumin,Random Urine 7.2 mg/L (NO RANGE EST.)
[2022-04-17 10:15] LABS: AST(SGOT) 15 U/L (15-37); Alanine Aminotransfer ALT/SGPT 30 U/L (13-56); Albumin, Serum 3.9 g/dL (3.2-5.0); Alkaline Phosphatase 69 U/L (45-117); Anion Gap 7 (5-15); BUN 13 mg/dL (7-18); BUN/Creat Ratio 16.2 RATIO (10-20); Calcium,Total 9.2 mg/dL (8.5-10.1); Chloride 104 mmol/L (98-107); Cholesterol 244 mg/dL (200); EST Glomerular Filtration Rate 82 mL/min (>60); Est Glom Filt Rate - Afr Amer 99 mL/min (>60); Globulin 3.8 g/dL (2.2-4.2); Glucose 132 mg/dL (74-106); High Density Lipoprotein 53 mg/dL; Potassium 4.1 mmol/L (3.5-5.1); Protein, Total 7.7 g/dL (6.4-8.2); Sodium Level 137 mmol/L (136-145); T4 Free Direct 1.32 ng/dL (0.76-1.46); Thyroid Stim Hormone (TSH) 0.86 uIU/mL (0.358-3.74); Triglycerides 342 mg/dL; Very Low Density Lipoprotein 68 mg/dL (5-40)
[2022-04-19 08:28] LABS: Anti-Thyroglobulin AB < 1.0 IU/mL (0.0-0.9); Thyroglobulin, Serum Qt. 0.2 ng/mL (1.5-38.5)
== END | disposition home or self-care (01) ==
PROVIDERS: Referring Provider Internal Medicine Endocrinology, Diabetes & Metabolism; Visit Provider Internal Medicine Endocrinology, Diabetes & Metabolism
DX: E55.9 Vitamin D deficiency, unspecified (principal); C73 Malignant neoplasm of thyroid gland; E11.9 Type 2 diabetes mellitus without complications; E89.0 Postprocedural hypothyroidism
CPT/HCPCS: 36415; 80053; 80061; 82043; 82306; 82570; 82607; 84432; 84439; 84443; 86800

== ENCOUNTER → 2022-10-31 | Outpatient (CLI) | payer MEDICAID, SELFPAY ==
[2022-04-17 09:01] VITALS: BMI 32.5
== END | disposition home or self-care (01) ==
PROVIDERS: Referring Provider Internal Medicine; Visit Provider Internal Medicine
DX: G47.10 Hypersomnia, unspecified (principal)
CPT/HCPCS: 95810

== ENCOUNTER → 2022-11-06 | Outpatient (CLI) | payer MEDICAID, SELFPAY ==
[2022-04-17 09:01] VITALS: BMI 32.5
--- NOTE | 2022-11-06 12:51 | ECHOCS_ITS ---
Reason For Study: MURMUR Procedure This was a 2D Doppler, Color Flow transthoracic echocardiogram. Myocardial strain analysis was performed in this exam to aid in the assessment of cardiac function. Exam performed in department. Left Ventricle Normal size and thickness. The global longitudinal strain = -22.4 % (normal). The left ventricular ejection fraction is 65 %. No evidence for diastolic dysfunction. Right Ventricle Normal size and thickness. Atria The left and right atria are normal. Mitral Valve The mitral valve is structurally normal. No prolapse or stenosis seen. Tricuspid Valve Trivial tricuspid valve insufficiency. Unable to estimate RV systolic pressure due to insufficient tricuspid regurgitant envelope. Aortic Valve Trisinus/trileaflet aortic valve. Trivial aortic valve insufficiency. Pulmonic Valve The pulmonic valve is not well visualized. Great Vessels Normal sized aortic root. Pericardium/Pleural No pericardial effusion. MMode/2D Measurements & Calculations LVIDd: 4.8 cm IVSd: 0.74 cm Ao root diam: 3.0 cm LVIDs: 3.0 cm LVPWd: 1.0 cm RVDd: 3.1 cm FS: 36.5 % LAV(MOD-bp): 49.3 ml LVAd ap4: 29.1 cm2 SV(MOD-sp4): 56.6 ml LAV(MOD-bp) Indexed: 23.1 ml/m2 LVLd ap4: 7.6 cm LAV(MOD-sp2): 50.1 ml EDV(MOD-sp4): 91.5 ml LAV(MOD-sp4): 45.1 ml EDV(sp4-el): 94.5 ml LVAs ap4: 14.8 cm2 LVLs ap4: 6.0 cm ESV(MOD-sp4): 34.8 ml ESV(sp4-el): 30.6 ml EF(MOD-sp4): 61.9 % EF(sp4-el): 67.6 % SV(sp4-el): 63.9 ml LA A4 area: 17.5 cm2 LA dimension(2D): 4.0 cm RA A4 area: 11.5 cm2 Time Measurements MV dec time: 0.23 sec Doppler Measurements & Calculations MV E max andrew: 73.8 cm/sec Lat Peak E' Andrew: 10.2 cm/sec Med Peak E' Andrew: 6.6 cm/sec MV A max andrew: 86.0 cm/sec E/E' lat: 7.3 E/E' med: 11.2 MV E/A: 0.86 MV V2 max: 91.1 cm/sec Ao V2 max: 161.1 cm/sec MV max P.3 mmHg MV dec slope: 327.6 cm/sec2 Ao max P.4 mmHg MV V2 mean: 62.9 cm/sec Ao V2 mean: 114.7 cm/sec MV mean P.7 mmHg Ao mean P.0 mmHg MV V2 VTI: 27.6 cm Ao V2 VTI: 34.4 cm AV (velocity ratio): 0.59 LV V1 max: 97.0 cm/sec PA V2 max: 123.1 cm/sec LV V1 max P.8 mmHg PA V2 mean: 88.5 cm/sec LV V1 mean P.9 mmHg LV V1 mean: 65.5 cm/sec LV V1 VTI: 20.2 cm ECHO/Echo Complete W/ Contrast Interpretation Summary The global longitudinal strain = -22.4 % (normal). The left ventricular ejection fraction is 65 %. Ordering Physician: Eduard Teixeira Referring Physician: Eduard Teixeira Performed By: Mia Kelley RCS
== END | disposition home or self-care (01) ==
LOC: CVS 12:50
PROVIDERS: Referring Provider Internal Medicine; Visit Provider Internal Medicine
DX: R01.1 Cardiac murmur, unspecified (principal); R06.83 Snoring
CPT/HCPCS: 93306; A4216; C8929

== ENCOUNTER 2022-12-25 06:16 | Day surgery (SDC) | payer MEDICAID, SELFPAY ==
[2022-04-17 09:01] VITALS: BMI 32.5
[2022-12-25 06:48] VITALS: BP 148/84; PULSE 70; RESP 18; TEMP 36.5; O2SAT 99; BMI 31.1
[2022-12-25 06:51] LABS: Internal QC Validated? YES +Cl - CLEAR BKGD; Pregnancy, Urine Negative Negative
[2022-12-25] MEDS: Lactated Ringers 1,000 ML 15 ML IV (06:52)
[2022-12-25 06:57] LABS: Bedside Glucose 140 mg/dL (74-106)
--- NOTE | 2022-12-25 07:13 | H&P.OPEN ---
HPI - General HPI Narrative OC LEON, is a 47 F who presents for screening colonoscopy. Patient has had several cancers and has family history of cancers but she has never had a colonoscopy. She says she occasionally has blood in her stool but is bright and she thinks is from straining. She denies abdominal pain. She denies any weight loss. She has never had a colonoscopy in the past. [facility] Medical History (Updated 12/18/22 @ 09:46 by Tiki Fernandes) Arthritis Breast cancer, left Cancer Chronic headache Diabetes Former smoker Gastric reflux H/O emotional problems H/O: pneumonia History of echocardiogram History of irregular heartbeat History of malignant neoplasm of skin HTN (hypertension) Loud snoring Metabolic syndrome X Murmur, cardiac Neuropathy Obesity PORT PLACEMENT Thyroid cancer Thyroid disease TIA (transient ischemic attack) Wears glasses Home Medications vitamin B complex 1 ea PO DAILY 02/17/19 [History Last Taken Unknown] cholecalciferol (vitamin D3) 25 mcg (1,000 unit) capsule 1,000 unit PO DAILY 06/08/19 [History Last Taken Unknown] aspirin 81 mg tablet,delayed release 81 mg PO DAILY 04/18/20 [History Last Taken Unknown] cetirizine 10 mg tablet 10 mg PO DAILY 03/02/21 [History Last Taken Unknown] diclofenac sodium 75 mg tablet,delayed release 75 mg PO BID 03/02/21 [History Last Taken Unknown] blood sugar diagnostic #100 ea 04/18/21 [Rx Last Taken Unknown] blood-glucose meter (OneTouch Verio Flex Meter) #1 ea 04/19/21 [Rx Last Taken Unknown] OneTouch Verio test strips (blood sugar diagnostic) #200 ea 06/09/21 [Rx Last Taken Unknown] Jardiance 25 mg tablet (empagliflozin) 25 mg PO DAILY #90 tabs 10/15/22 [Rx Last Taken Unknown] levothyroxine 200 mcg tablet 200 mcg PO .COMPLEX #96 tabs 10/15/22 [Rx Last Taken 12/25/22 04:30] sitagliptin phosphate 100 mg tablet (Januvia) 100 mg PO DAILY #90 tabs 10/15/22 [Rx Last Taken Unknown] metoprolol succinate 100 mg tablet,extended release 24 hr 100 mg PO QHS 12/18/22 [History Last Taken Unknown] Allergy/AdvReac Type Severity Reaction Status Date / Time hydrocodone AdvReac Mild Itching Verified 12/25/22 06:47 [From Hycomine (hydrocodone-PPA)] Family History Mother Breast cancer Grandmother Cervical cancer Breast cancer Sister Thyroid cancer Unknown Diabetes Arthritis Hyperlipidemia Hypertension Thyroid disorder CVA (cerebral vascular accident) Other Vocal cord cancer Surgical History (Updated 12/18/22 @ 09:46 by Tiki Fernandes) History of breast biopsy (~12/2018) History of endometrial ablation History of removal of Port-a-Cath History of tonsillectomy Hx of surgical procedure S/P lumpectomy, left breast (~02/24/19) S/P thyroidectomy Status post left breast lumpectomy (~12/2018) Social History Smoking Status: Former smoker Tobacco: How many years used: 22 second hand exposure: No alcohol intake: never substance use type: does not use caffeine: Yes what type of physical activity do you participate in: walking seatbelt use: always do you feel safe at home: Yes 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 works for [employer] Past Medical/Surgical History Planned Operation Planned Operative Procedure/s: COLONOSCOPY S.O.S: No Previous Hospitalizations/Surgeries HX Hospitalizations: No HX of Surgeries: total thyroidectomy Uterine Ablation Tonsilectomy [place] teeth left breast lumpectomy i&d left breast 12/2018 Any Problems With Anesthesia: No You/Your Family Experience Fever (Hyperthermia) With Anes: No Cholinesterase deficiency: No Cardiovascular Hx Chest Pain within Last 2 months: No Hx of Irregular Heartbeat and/or Afib: No Hx Heart Attack: No Hx Congestive Heart Failure: No Hx Rheumatic Fever: No Hx Hypertension: Yes (CONTROLLED ON MED) Hx Internal Defibrillator: No Hx Pacemaker: No Hx Cardiac Catheterization: No Hx Cardiac Surgery/Stents/Etc.: No Hx Stress Test: No Hx Pain in Legs when Walking/Leg Cramps: No Respiratory Chronic Cough: No HX of Shortness of Breath: No Hoarseness: No Hx Chronic Obstructive Pulmonary Disease (COPD): No Hx Asthma: No Hx Emphysema: No Hx Sleep Apnea: No CPAP: No BIPAP: No Hx Respiratory Tract Infection/Cold (presently): No Do You Snore Loudly (louder than talking or can be heard): Yes Do You Often Feel Tired/ Fatigued/ Sleepy Dring Daytime?: No Has Anyone Observed You Stop Breathing During Sleep?: No Result (for STOP score): Positive Hx Smoking: Yes (quit 5-6 yrs ago) Smoking Status: Former smoker Gastrointestinal Hx Gastroesophageal Reflux: No (occ heartburn) Controlled With Meds: No Hx Gastrointestinal Disorders: No Hx Gastrointestinal Bleed: No Hx Ulcer: No Hx Hiatal Hernia: No Difficulty Chewing/Swallowing: No Special diet followed at home: No Hx Unplanned Weight Loss of 20#: No HX Unplanned Weight Gain of 20#: No Neurological Hx Seizures: No HX Syncope/Blackout Spells/Unconsciousness: No Hx Transient Ischemic Attacks (TIA): No Hx Multiple Sclerosis: No Hx Parkinson's Disease: No Hx Head/Neck Injury: No Hx Headaches: Yes (migraines) Hx Back Injury/Pain: No Recent Onset of Speech Difficulty: No Restless Legs: No Does patient have nerve stimulator: No Blood Disorder Hx Leukemia: No Bleeding Tendencies: No Hx Deep Vein Thrombosis: No Hx High Cholesterol: Yes (in the past) Blood Transmitted Disease: No Hx Hepatitis: No Hx Cirrhosis: No Hx Anemia: No Hx Blood Disorders: No Reproduction Is Patient Lactating: No Hx Hysterectomy: No Hx Tubal Ligation: No (.) Are You Post Menopause: No Genitourinary Hx Renal Disease: No Hx Dialysis: No Musculoskeletal Hx Arthritis: Yes Hx Rheumatoid Arthritis: No Hx Gout: No Recent Onset of an Orthopedic Problem: No Endocrine Hx Diabetes: Yes (on med) Insulin: No Thyroid Disease: Yes (on med) Hx Steroid Therapy: No Psycho/Social Hx Substance Use: Yes (marijuana daily) Hx Alcohol Use: No Hx Anxiety: Yes (no med) Hx Depression: Yes (no med) Mental Illness: No Hx Dementia: No Miscellaneous Hx Cancer: Yes (thyroid/precancer skin/BREAST) Recent Exposure to Contagious Disease: No Hx of C-Diff: No Any Loose Teeth: No Allergies hydrocodone [From Hycomine (hydrocodone-PPA)] Adverse Reaction (Mild, Verified 12/25/22 06:47) Itching Discharge Is Pt Admitted From a Skilled Nursing, or a Penitentiary: No After D/C, Where Do you Plan to Go: Return Home Vital Signs Vital Signs Vital Signs: 12/25/22 06:48 05/30/23 06:48 Temperature 97.7 F L Temperature Source Temporal Pulse Rate 70 Respiratory Rate 18 Respiratory Pattern Normal Blood Pressure 148/84 H Blood Pressure Mean 105 Blood Pressure Source Monitor Blood Pressure Position Sitting Blood Pressure Location Right Arm Pulse Ox 99 Oxygen Delivery Method Room Air Weight Weight: 210 lb 15.718 oz Body Mass Index (BMI) 31.1 Physical Exam Const alert and oriented x3 HEENT normocephalic Eyes PERRL Resp normal respiratory effort and normal air movement Cardio regular rate and regular rhythm GI soft to palpation, non-tender and non-distended Extremity normal to inspection Assessment & Plan Assessment/Plan (1) Screen for colon cancer: PLAN: I explained endoscopy in detail to the patient. I explained the risks including but not limited to stroke or heart attack with anesthesia, perforation of the GI tract, bleeding, infection. I explained that any of these could necessitate further emergency surgery. The patient understands and all questions were answered sufficiently. The patient wishes to proceed with procedure. Tanvir Colindres MD Pager: [facility] [address] [place] [address] [address] [place] [address] Office: Surgery Risks - Colonoscopy Risks Include but are not Limited To: Risks include but are not limited to: Bleeding, perforation requiring further surgery, inability to complete colonoscopy requiring barium enema.
[2022-12-25 07:35] VITALS: BP 104/54; BP 148/84; PULSE 72; RESP 16; TEMP 37.1; O2SAT 95
[2022-12-25 07:40] VITALS: BP 108/61; BP 148/84; PULSE 67; RESP 16; O2SAT 96
[2022-12-25 07:45] VITALS: BP 105/62; BP 148/84; PULSE 73; RESP 16; O2SAT 97
--- NOTE | 2022-12-25 07:45 | OP.COLON_ITS ---
Patient Name: Soha Flores Procedure Date: 12/25/2022 7:11 AM Date of : 1975 Age: 47 Procedure: Colonoscopy Indications: Screening for colorectal malignant neoplasm Providers: Tanvir Colindres MD Referring MD: Tanvir Colindres MD Medicines: Monitored Anesthesia Care Patient Profile: This is a 47 year old female. Refer to note in patient chart for documentation of history and physical. Last Colonoscopy: none. The patient's first colonoscopy is today. Complications: No immediate complications. Procedure: Pre-Anesthesia Assessment: - Prior to the procedure, a History and Physical was performed, and patient medications and allergies were reviewed. The patient's tolerance of previous anesthesia was also reviewed. The risks and benefits of the procedure and the sedation options and risks were discussed with the patient. All questions were answered, and informed consent was obtained. Prior Anticoagulants: The patient has taken no previous anticoagulant or antiplatelet agents. After reviewing the risks and benefits, the patient was deemed in satisfactory condition to undergo the procedure. After I obtained informed consent, the scope was passed under direct vision. Throughout the procedure, the patient's blood pressure, pulse, and oxygen saturations were monitored continuously. The Colonoscope was introduced through the anus and advanced to the cecum, identified by appendiceal orifice and ileocecal valve. The colonoscopy was performed without difficulty. The patient tolerated the procedure well. The quality of the bowel preparation was good. Scope In: 7:20:53 AM Scope Withdrawal Time 0 hours 4 minutes 30 seconds Scope Out: 7:29:26 AM Total Procedure Duration Time 0 hours 8 minutes 33 seconds Findings: The entire examined colon appeared normal on direct and retroflexion views. Impression: - The entire examined colon is normal on direct and retroflexion views. - No specimens collected. Recommendation: - Discharge patient to home. - Resume previous diet. - Continue present medications. - Repeat colonoscopy in 10 years for screening purposes. Procedure Code(s): --- Professional --- 44778, Colonoscopy, flexible; diagnostic, including collection of specimen(s) by brushing or washing, when performed (separate procedure) Diagnosis Code(s): --- Professional --- Z12.11, Encounter for screening for malignant neoplasm of colon CPT copyright 2017 [employer]. All rights reserved. The codes documented in this report are preliminary and upon insurance coder review may be revised to meet current compliance requirements. Tanvir Colindres MD 12/25/2022 7:44:34 AM This report has been signed electronically. Number of Addenda: 0 Note Initiated On: 12/25/2022 7:11 AM
--- NOTE | 2022-12-25 07:45 | OP.CCLET_ITS ---
12/25/2022 Prasad Re : Colonoscopy procedure for Soha Flores Dear Prasad This procedure was performed on Sunday, December 25, 2022. My impressions and recommendations are as follows: Impressions : - The entire examined colon is normal on direct and retroflexion views. - No specimens collected. Recommendations : - Discharge patient to home. - Resume previous diet. - Continue present medications. - Repeat colonoscopy in 10 years for screening purposes. My findings are described in the full procedure note, which is enclosed. If I can be of further assistance, please feel free to contact me at Doctor phone number(s): , Work: . Sincerely, Tanvir Colindres MD 12/25/2022 7:44:34 AM This report has been signed electronically.
[2022-12-25 07:50] VITALS: BP 129/73; BP 148/84; PULSE 64; RESP 16; TEMP 37.1; O2SAT 97
[2022-12-25 08:10] VITALS: BP 148/84
== END 2022-12-25 08:30 | disposition home or self-care (01) ==
LOC: EN 06:17 → AC 06:18
PROVIDERS: Anesthesiology; Referring Provider Surgery; Visit Provider Surgery
PROC: 0DJD8ZZ Inspection of Lower Intestinal Tract, Via Natural or Artificial Opening Endoscopic (ICD-10-PCS; CPT 45378; principal; 2022-12-25 07:25)
DX: Z12.11 Encounter for screening for malignant neoplasm of colon (principal); E11.40 Type 2 diabetes mellitus with diabetic neuropathy, unspecified; I10 Essential (primary) hypertension; E88.81 Metabolic syndrome and other insulin resistance; E66.9 Obesity, unspecified; M19.90 Unspecified osteoarthritis, unspecified site; Z85.850 Personal history of malignant neoplasm of thyroid; Z86.73 Personal history of transient ischemic attack (TIA), and cerebral infarction without residual deficits; Z79.899 Other long term (current) drug therapy; Z85.828 Personal history of other malignant neoplasm of skin; Z79.82 Long term (current) use of aspirin; Z87.891 Personal history of nicotine dependence; Z79.84 Long term (current) use of oral hypoglycemic drugs; Z85.3 Personal history of malignant neoplasm of breast
CPT/HCPCS: 45378; 81025; 82962; J7120; J2405

== ENCOUNTER → 2023-02-22 | Outpatient (CLI) | payer MEDICAID, SELFPAY ==
[2022-04-17 09:01] VITALS: BMI 32.5
--- NOTE | 2023-02-22 09:09 | BI_ITS ---
MAMMOGRAPHY - BILATERAL SCREENING REASON FOR EXAM: Female, 47 years old. Routine annual screening examination. PERTINENT HISTORY: Personal history of breast cancer. Prior left lumpectomy with radiation and chemotherapy. Mother with breast cancer. Grandmother with breast cancer. TECHNIQUE: Digital bilateral breast zoe (3D mammographic acquisition) in the CC and MLO projections. 2-D mediolateral oblique (MLO) and craniocaudad (CC) views of both breasts were obtained. CAD: Full Field Digital Mammography with Computer Added Detection was performed. COMPARISON: Comparison is made with prior study February 20, 2022 and January 27, 2021. FINDINGS: Breast Composition: There are scattered areas of fibroglandular density. There are no dominant masses or suspicious calcifications. The patient is status post lumpectomy in the deep central portion of the left breast as well as axillary node dissection on the left side. Postoperative changes are stable. There has been no change. No other significant abnormalities are identified. There has been no significant change since the prior study. BI/SCRN MAMM (CAD)W/ZOE BILAT IMPRESSION: Stable bilateral screening mammogram. Yearly follow-up mammogram recommended. (A) ASSESSMENT CATEGORY: BIRADS Category 2: Benign. A letter regarding these results will be sent to the patient by the facility within 30 days. Approximately 10% of breast cancers are not detected by mammography. A normal mammogram should not delay biopsy of a clinically suspicious abnormality. [id number] Electronically Signed: Silvestre Ramirez MD at 10:23 EDT ,
== END | disposition home or self-care (01) ==
LOC: OPBI 09:08
PROVIDERS: Referring Provider Student in an Organized Health Care Education/Training Program; Visit Provider Student in an Organized Health Care Education/Training Program
DX: Z12.31 Encounter for screening mammogram for malignant neoplasm of breast (principal)
CPT/HCPCS: 77063; 77067

== ENCOUNTER → 2023-03-26 | Outpatient (CLI) | payer MEDICAID, SELFPAY ==
[2022-04-17 09:01] VITALS: BMI 32.5
--- NOTE | 2023-03-26 09:11 | US_ITS ---
EXAM: US PELVIS TRANSABDOMINAL AND TRANSVAGINAL, COMPLETE CLINICAL INDICATION: AUB TECHNIQUE: Transabdominal and endovaginal pelvic ultrasound was performed with grayscale and color Doppler imaging. Endovaginal imaging was used for better evaluation of the endometrium and adnexa. COMPARISON: No relevant prior studies available. FINDINGS: UTERUS/CERVIX: Uterus measures 8.6 x 4.2 x 5.6 cm and is anteverted. Multiple nabothian cysts. Endometrium measures approximately 6 mm in diameter and appears to be somewhat ill-defined. Heterogeneous uterine echogenicity which may represent diffuse fibroid involvement or adenomyosis. Focal 13 mm fibroid noted within the posterior aspect of the lower uterine segment. RIGHT OVARY: Normal. Blood flow is present in the right ovary. The right ovary measures 3.2 x 2.4 x 2.5 cm. LEFT OVARY: 19 mm left ovarian follicular cyst. Blood flow is present in the left ovary. The left ovary measures 3.6 x 3.0 x 2.0 cm. FREE FLUID: No adnexal mass or free pelvic fluid. US/Pelvic w/ Transvaginal IMPRESSION: Question adenomyosis of the uterus versus diffuse fibroid involvement. MRI of the pelvis recommended if clinically warranted. Electronically Signed: Veto Silverio MD at 20:49 EDT ,
== END | disposition home or self-care (01) ==
LOC: US 09:10
PROVIDERS: Referring Provider Nurse Practitioner Women's Health; Visit Provider Nurse Practitioner Women's Health
DX: N93.9 Abnormal uterine and vaginal bleeding, unspecified (principal)
CPT/HCPCS: 76830; 76856

== ENCOUNTER → 2023-04-04 | Outpatient (CLI) | payer MEDICAID, SELFPAY ==
[2022-04-17 09:01] VITALS: BMI 32.5
[2023-04-04 11:50] LABS: Estradiol 28.1 pg/mL; Follicle Stimulating Hormone 18.7 mIU/mL
== END | disposition home or self-care (01) ==
LOC: PAVLAB 10:36
PROVIDERS: Referring Provider Nurse Practitioner Women's Health; Visit Provider Nurse Practitioner Women's Health
DX: N95.0 Postmenopausal bleeding (principal)
CPT/HCPCS: 36415; 82670; 83001

== ENCOUNTER 2023-07-30 05:39 | Day surgery (SDC) | payer MEDICAID, SELFPAY ==
[2022-04-17 09:01] VITALS: BMI 32.5
--- NOTE | 2023-07-28 07:30 | HYST_PTH ---
PATHOLOGY RESULTS PATIENT: OC LEON LOC: [facility] U#:[id number] AGE/SX: 47/F ROOM: RE07/30/[address]: Dr. Jaymie Kemp MD : 1975 BED: DIS: 07/30/2023 SPEC #: [id number] RECD: 07/30/23 13:46 STATUS: MACIEL BURRELL #: [id number] NICHOLAS: 07/28/23 07:[address]: Jaymie Kemp DEPT: SURGICAL PATHOLOGY RECD BY: Eliane Kat ENTERED: 07/30/23 13:47 SP TYPE: HYSTERECT Tissues: Uterus, NOS Procedures: Surgery Specimen Level V HEADER OPERATION: ERAS, laparoscopic assisted vaginal hysterectomy, bilateral salpingo-oophorectomy PRE-OP DIAGNOSIS: Cancer of left breast, postmenopausal bleeding TISSUE SUBMITTED: Uterus, cervix, bilateral fallopian tubes, bilateral ovaries MICROSCOPIC DIAGNOSIS Uterus, cervix, bilateral fallopian tubes and bilateral ovaries, hysterectomy and bilateral salpingo-oophorectomy: Cervix - chronic cystic cervicitis. Endometrium - changes consistent with endometrial ablation and focal minimal area of proliferative endometrium. Myometrium - intramural leiomyoma (1.5 cm in diameter). - Focal adenomyosis. Bilateral fallopian tubes - no pathologic diagnosis. Right ovary - physiologic, hemorrhagic follicular cyst. Left ovary - benign epithelial cyst (0.9 cm in greatest dimension). TIFFANY:nito 07/31/2023 MICROSCOPIC DESCRIPTION Slides are reviewed. GROSS DESCRIPTION Received in fixative is one container labeled with the patient's name and designated uterus, cervix, bilateral fallopian tubes and bilateral ovaries. The specimen consists of a hysterectomy specimen consisting of uterus with cervix, attached bilateral ovaries, attached left fallopian tube and attached portion of right fallopian and also detached portion of right fallopian tube with fimbrial end. The uterus with cervix weighs 70 gm and measures 8.5 x 5.5 x 3.5 cm. The serosal surface is wahl, glistening. The ectocervical mucosa is unremarkable. The external os is oval and patulous in contour. The endocervical canal measures 2.5 cm in length and the endocervical mucosa is wahl, glistening and unremarkable. The endometrial cavity is tubular in shape and measures 4.0 cm in length and 0.7 cm in width. The endometrium is wahl, glistening without any mass lesion and measures <0.1 cm in thickness. Sections of the uterine wall reveal one intramural nodular mass measuring 1.5 cm in diameter. Sections of this mass reveals wahl whorled cut surfaces without areas of hemorrhage, necrosis or cystic degeneration. The uterine wall measures up to 2.0 cm in thickness. Attached portion of right fallopian tube measures 2.5 cm in length and 0.5 cm in diameter and detached portion measures 3.5 cm in length and 0.5 cm in diameter. The fimbrial end is identified. Sections reveal unremarkable cut surfaces. The soft to cystic right ovary measures 4.5 x 4.0 x 1.5 cm. Sections reveal a hemorrhagic cyst measuring 3.0 cm in greatest dimension. The cyst wall is smooth. No tubo-ovarian adhesions are identified. The left fallopian tube measures 6.5 cm in length and up to 0.8 cm in diameter. The fimbrial end is identified. No tubo-ovarian adhesions are identified. Sections reveal unremarkable cut surfaces. The left ovary measures 2.0 x 2.0 x 1.2 cm. Sections reveal a cyst filled with clear fluid measuring 0.9 cm in greatest dimension. [employer] sections are submitted in 12 cassettes as follows: 1 - anterior cervix, 2 - posterior cervix, 3 & 4 - anterior uterine wall, 5 & 6 - posterior uterine wall, 7 - nodular mass, entirely submitted, 8 - right fallopian tube and ovary, 9 & 10 - right ovary with cyst, 11 - left fallopian tube, 12 - left ovary. / TIFFANY:nito 07/30/2023 TC:1 CPT: 27315
[2023-07-30] VITALS (10 sets, daily range): BP systolic 121–159; BP diastolic 80–92; PULSE 68–93; RESP 12–18; TEMP 35.7–37.2; O2SAT 94–100; BMI 30.9
--- OUTSIDE RECORDS SUMMARY | 2023-07-30 05:43 | XMS RPT_ITS | CCD ---
Author Name Unknown Address [address] [place] [address] Organization [facility] Care Team Providers Care Ornamenter Hand Name Role Phone Yazmin Looney CNP Unavailable Unavailable OSMANI DAVIES Attending Unavailable BUTTERFIELD, FELISA R Primary Care Unavailable Scout EISENBERG, Felisa R Primary Care Provider Pcp EMPLOYEE COUNSELOR, No Primary Care Provider Unavailja Butterfield APRN FAINA, Felisa R Primary Care Provider LOUIE MARTINEZ Attending Unavailable LOUIE MARTINEZ Referring Unavailable BUTTERFIELD, FELISA R Primary Care Unavailable LOUIE MARTINEZ Attending Unavailable BUTTERFIELD, FELISA R Primary Care Unavailable OSMANI DAVIES Referring Unavailable BUTTERFIELD, FELISA R Primary Care Unavailable OSMANI DAVIES Referring Unavailable SCOUT, FELISA R Primary Care Unavailable OSMANI DAVIES Referring Unavailable BUTTERFIELD, FELISA R Primary Care Unavailable OSMANI DAVIES Referring Unavailable BUTTERFIELD, FELISA R Primary Care Unavailable OSMANI DAVIES Referring Unavailable SCOUT, FELISA R Primary Care Unavailable OSMANI DAVIES Attending Unavailable BUTTERFIELD, FELISA R Primary Care Unavailable BUTTERFIELD, FELISA R Primary Care Unavailable OSMANI DAVIES Attending Unavailable Allergies Allergy Classification Reported Allergen(s) Allergy Type Date of Onset Reaction(s) Facility (9 sources) HYDROcodone; Translations: [HYDROCODONE] Drug Allergy 03-04-2020 Itching [facility] Repository (8 sources) Phenylpropanolam ine; Translations: [PHENYLPROPANOLA MINE] Drug Allergy 04-08-2019 Itching [facility] (3 sources) metFORMIN; Translations: [METFORMIN] Drug Allergy 02-01-2023 Diarrhea [facility] Medications Completed/Discontinued Medications Medication Drug Class(es) Dates Sig (Normalized) Sig (Original) aspirin 81 mg delayed release oral tablet (4 sources) Platelet Aggregation Inhibitor, Nonsteroidal Anti-inflammatory Drug Start: 02-17-2019 take 1 tablet by mouth once daily aspirin, enteric coated (ASPIRIN, ENTERIC COATED) 81 mg EC tablet Take 81 mg by mouth once daily. 0 02/17/2019 Active Problems Active Problems Problem Classification Problem Date Documented Date Episodic/Chronic Joint disorders and dislocations; trauma-related (7 sources) Derangement of right knee; Translations: [Unspecified internal derangement of right knee] Onset: 06-08-2020 06-08-2020 Chronic Joint disorders and dislocations; trauma-related (7 sources) Chondromalacia of left patella; Translations: [Chondromalacia patellae, left knee] Onset: 07-05-2020 07-05-2020 Chronic Osteoarthritis (18 sources) Osteoarthritis of right knee joint; Translations: [Unilateral primary osteoarthritis, right knee] Onset: 03-08-2020 06-20-2020 Chronic Other connective tissue disease (2 sources) Muscle weakness; Translations: [Muscle weakness (generalized)] Onset: 07-02-2023 07-10-2023 Episodic Other connective tissue disease (1 source) Muscle weakness (generalized); Translations: [Muscle weakness] Onset: 07-02-2023 Episodic Other injuries and conditions due to external causes (1 source) Injury of right knee; Translations: [Unspecified injury of right lower leg, initial encounter] 05-24-2023 Episodic Other injuries and conditions due to external causes (1 source) Unspecified injury of right lower leg, initial encounter; Translations: [Unspecified injury of right lower leg, initial encounter] Onset: 05-24-2023 Episodic Other nervous system disorders (1 source) Other chronic pain; Translations: [Chronic pain of right knee] Onset: 07-02-2023 Chronic Other non-traumatic joint disorders (1 source) Pain in left ankle and joints of left foot; Translations: [Acute left ankle pain] Onset: 01-30-2023 Episodic Other non-traumatic joint disorders (1 source) Acute ankle pain; Translations: [Pain in left ankle and joints of left foot] Episodic Other non-traumatic joint disorders (8 sources) Pain in left knee; Translations: [Pain in joint, lower leg] Onset: 03-08-2020 07-05-2020 Episodic Other non-traumatic joint disorders (2 sources) Stiffness of right knee; Translations: [Stiffness of right knee, not elsewhere classified] Onset: 07-02-2023 07-10-2023 Episodic Other non-traumatic joint disorders (2 sources) Pain in right knee; Translations: [Chronic pain of right knee] Onset: 07-02-2023 Episodic Other non-traumatic joint disorders (1 source) Stiffness of right knee, not elsewhere classified; Translations: [Knee stiffness, right] Onset: 07-02-2023 Episodic Unclassified (1 source) Unknown / UNK(Unknown) Onset: 08-31-2017 Past or Other Problems Problem Classification Problem Date Documented Da te Episodic/Chronic Other non-traumatic joint disorders (8 sources) Effusion of right knee joint; Translations: [Effusion, right knee] Onset: 03-08-2020 03-08-2020 Episodic Other non-traumatic joint disorders (1 source) Effusion, right knee; Translations: [Effusion of right knee] Onset: 03-08-2020 Episodic Sprains and strains (16 sources) Strain of muscle and/or tendon of lower leg; Translations: [Strain of unspecified muscle and tendon at ankle and foot level, left foot, initial encounter] Onset: 01-30-2023 Episodic Unclassified (1 source) E89.0,E11.9,E78.2 Onset: 08-31-2017 Results Test Name Value Interpretation Reference Range Facil ity Vital Signs Date Time Vital Sign Value Performing Clinician Facility 06-19-2023 10:38-0500 Diastolic blood pressure 92 mm[Hg] Osmani Benton DO Work Phone: [facility] 06-19-2023 10:38-0500 Heart rate 82 /min Osmani Davies DO Work Phone: [facility] 06-19-2023 10:38-0500 Systolic blood pressure 137 mm[Hg] Osmani Benton DO Work Phone: [facility] 05-29-2023 12:48-0400 Body height 175.3 cm Osmani Davies DO Work Phone: [facility] 05-29-2023 12:48-0400 Body weight 93.89 kg Osmani Davies DO Work Phone: [facility] 05-29-2023 12:48-0400 Diastolic blood pressure 80 mm[Hg] Osmani Tomff DO Work Phone: [facility] 05-29-2023 12:48-0400 Heart rate 86 /min Osmani Keke DO Work Phone: [facility] 05-29-2023 12:48-0400 Systolic blood pressure 131 mm[Hg] Osmani Keke DO Work Phone: [facility] 05-24-2023 07:33-0400 Body height 175.3 cm Louie Martinez MD Work Phone: [facility] 05-24-2023 07:33-0400 Body mass index (BMI) [Ratio] 30.72 kg/m2 Louie Martinez MD Work Phone: [facility] 05-24-2023 07:33-0400 Body temperature 98.4 [degF] Louie Martinez MD Work Phone: [facility] 05-24-2023 07:33-0400 Body weight 94.35 kg Louie Martinez MD Work Phone: [facility] 05-24-2023 07:33-0400 Diastolic blood pressure 100 mm[Hg] Louie Martinez MD Work Phone: [facility] 05-24-2023 07:33-0400 Heart rate 96 /min Louie Martinez MD Work Phone: [facility] 05-24-2023 07:33-0400 Respiratory rate 16 /min Louie Martinez MD Work Phone: [facility] 05-24-2023 07:33-0400 SaO2% (BldA) [Mass fraction] 98 % Louie Martinez MD Work Phone: [facility] 05-24-2023 07:33-0400 Systolic blood pressure 165 mm[Hg] Louie Martinez MD Work Phone: [facility] 01-30-2023 08:52-0400 Body height 175.3 cm Osmani Davies DO Work Phone: [facility] 01-30-2023 08:52-0400 Body weight 97.52 kg Osmani Davies DO Work Phone: [facility] 01-30-2023 08:52-0400 Diastolic blood pressure 72 mm[Hg] Osmani Davies DO Work Phone: [facility] 01-30-2023 08:52-0400 Heart rate 79 /min Osmani Davies DO Work Phone: [facility] 01-30-2023 08:52-0400 Systolic blood pressure 128 mm[Hg] Osmani Davies DO Work Phone: [facility] Encounters Encounter Date Encounter Type Care Provider Facility Start: 07-24-2023 End: 07-24-2023 ambulatory OSMANI DAVIES Facility:[id number] Start: 07-19-2023 End: 07-19-2023 ambulatory OSMANI DAVIES Facility:[id number] Start: 07-12-2023 End: 07-12-2023 ambulatory OSMANI DAVIES Facility:[id number] Start: 07-10-2023 End: 07-10-2023 ambulatory OSMANI DAVIES Facility:[id number] Start: 07-10-2023 End: 07-10-2023 ambulatory Yolis Aren [employer] [facility] Procedures Date Procedure Procedure Detail Performing Clinician Start: 05-29-2023 Arthrocentesis aspir &/inj major jt/bursa w/o us Osmani Davies DO Work Phone: Start: 05-24-2023 Radiologic examinati on knee 3 views Louie Martinez MD Work Phone: Start: 01-30-2023 Radex ankle complete minimum 3 views Osmani Davies DO Work Phone: Start: 01-05-2019 Mammography Osmani Davies DO Work Phone: Start: 12-21-2017 Lipid 1996 panel - S danny or Plasma Jaime Griffin III, MD Work Phone: Start: 05-14-2013 SURGICAL PATHOLOGY, CONVERTED Rd Amaya MD Work Phone: Start: 10-18-2006 CYTOLOGY VISUAL MERCHANDISER, CONVERTED Rd Amaya MD Work Phone: Start: 03-04-2006 CYTOLOGY VISUAL MERCHANDISER, CONVERTED Jaime Griffin MD Work Phone: Plan of Treatment Date Care Activity Detail Author Start: 03-29-2023 Influenza vaccination [facility] Start: 03-29-2023 Influenza vaccination given INFLUENZA VACCINE (#1) [facility] Start: 12-21-2022 Lipid 1996 panel - Serum or Plasma Lipid Screening [facility] Start: 12-21-2022 Lipid panel Lipid Screening [facility] Start: 12-21-2022 LIPID SCREEN LIPID SCREEN [facility] Start: 07-29-2022 DEPRESSION ASSESSMENT DEPRESSION ASSESSMENT [facility] Start: 12-21-2020 DIABETES SCREEN DIABETES SCREEN [facility] Start: 12-21-2020 Diabetes Screening Diabetes Screening [facility] Start: 11-16-2020 COLOGUARD (FIT-DNA) COLOGUARD (FIT-DNA) [facility] Start: 11-16-2020 Colonoscopy COLONOSCOPY [facility] Start: 11-16-2020 COLORECTAL CANCER SCREENING COLORECTAL CANCER SCREENING [facility] Start: 11-16-[address] COLONOGRAPHY [facility] Start: 11-16-2020 FECAL OCCULT BLOOD FECAL OCCULT BLOOD [facility] Start: 11-16-2020 Screening for malignant neoplasm of colon [facility] Start: 11-16-2020 SIGMOIDOSCOPY SIGMOIDOSCOPY [facility] Start: 07-29-2020 Urine microalbumin profile DTaP,Tdap,Td Vaccine (2 - Td or Tdap) [facility] Start: 01-06-2020 Mammography [facility] Start: 01-06-2020 Screening for malignant neoplasm of breast Mammogram Screening [facility] Start: 2015 Screening for malignant neoplasm of breast MAMMOGRAM [facility] Start: 11-16-2005 HPV TESTING HPV TESTING [facility] Start: 11-16-2005 Screening for malignant neoplasm of cervix HPV Testing [facility] Start: 11-16-1996 PAP TESTING PAP TESTING [facility] Start: 11-16-1996 Screening for malignant neoplasm of cervix Pap Testing [facility] Start: 11-16-1994 Urine microalbumin profile [facility] Start: 11-16-1993 ANNUAL WELLNESS VISIT ANNUAL WELLNESS VISIT [facility] Start: 11-16-1993 HEPATITIS C SCREENING HEPATITIS C SCREENING [facility] Start: 11-16-1993 Hepatitis C screening Hepatitis C Screening [facility] Start: 11-16-1993 HIV SCREENING HIV SCREENING [facility] Start: 11-16-1993 HIV screening HIV Screening [facility] Start: 1987 Depression screening using PHQ-9 (Patient Health Questionnaire 9) score DEPRESSION SCREENING [facility] Start: 11-16-1986 Administration of diphtheria + tetanus + acellular pertussis vaccine DTAP/TDAP/TD VACCINE (1 - Tdap) [facility] Start: 05-18-1976 COVID-19 VACCINE (#1) COVID-19 VACCINE (#1) [facility] Start: 1975 HEPATITIS B (1 of 3 - 3-dose series) HEPATITIS B (1 of 3 - 3-dose series) [facility] Start: 1975 Hepatitis B Vaccine (1 of 3 - 3-dose series) Hepatitis B Vaccine (1 of 3 - 3-dose series) [facility] Start: 1975 HPV/COTEST HPV/COTEST [facility] Start: 1975 Screening for malignant neoplasm of cervix [facility] Immunizations Immunization Date Immunization Notes Care Provider Fa cili 05-15-2012 influenza virus vacc ine, unspecified formulation Jaime Griffin III, MD Work Phone: [facility] Payers Date Payer Category Payer Medicaid [id number] 2020 Medicaid [id number] 2017 Unknown [id number] 1975 Unknown [id number] 1975 Unknown [id number] Social History Date Type Detail Facility Start: 03-08-2020 Tobacco smoking status NHIS Ex-smoker [facility] History of tobacco use Current smoker [facility] Start: 03-08-2020 End: 05-24-2023 Tobacco use and exposure Smokeless tobacco non-user [facility] Start: 01-30-2023 End: 06-19-2023 Alcohol intake Ex-drinker (finding) [facility] Start: 1975 Sex Assigned At Not on file C [facility] Tobacco smoking status KYIS Tobacco smoking consumption unknown [facility] Start: 01-30-2023 End: 06-19-2023 History of Social function [facility] Start: 01-30-2023 End: 06-19-2023 Tobacco use panel [facility] National Score (1-100), lower number is lower risk 46 [facility] Start: 02-25-2021 End: 03-27-2021 Exposure to SARS-CoV-2 (event) Not sure [facility] Start: 05-24-2023 Tobacco smoking status NHIS Never smoked tobacco [facility] Clinical Notes 01-30-2023 to 07-24-2023 Yolis Younger, HOUSE CLEANER - 07/10/2023 7:48 AM ESTPatient Osmani Rai, DO - 06/19/2023 10:40 AM ESTPatient Osmani Rai, DO - 05/29/2023 12:44 PM EDTDischarge Instructions Note Date & Type Note Facility 07-24-2023 Note HNO ID: [id number] Author: Dickson Dailey PT, DPT Service: ? Author Type: Physical Therapist Type: Progress Notes Filed: 07/24/2023 8:32 AM Note Text: Episode Visit Count: 5 Therapist That Will Accept/Oversee The Plan Of Care: Marco Antonio Dailey DPConchis Start of Care Date: 07/02/23 Onset Date: 07/02/19 Plan of Care Certification Date: 07/02/23 Next Certification Due Date: 08/31/23 Patient Identified by Name and Date of : Yes REHABILITATION AND SPORTS THERAPY PHYSICAL THERAPY PROGRESS REPORT PLAN OF CARE UPDATE: Assessment: Soha Flores demonstrates significant improvements in strength and ROM of the right knee. Recurrent swelling without her brace on persistes as do mild gait deviations. She has progressed toward goals. Patient continues to present with impairments in edema management and symptom management that interfere with heavy exertion, recreational activities, running, jumping, squatting . Current prognosis is Good due to: current objective clinical presentation, good overall health status, acuteness of condition, positive past response to therapy, within-session changes, good support system/ coping skills . She will benefit from continued skilled therapy services to meet the updated goals for this plan of care as noted below. Goals for Episode of Care: created on 07/02/23 through 08/13/23 [place] in home exercise program.(MET) Patient will decrease pain to 0/10 with functional activities to allow patient to improve ambulation, transfers, and standing tolerance for ADLs. (3-4/10) Increase ROM of right knee to equal left side. (PROGRESSING) Increased strength of bilateral lower extremities to 5/5 for pain free completion of all desired functional activities. (PROGRESSING) Normal gait. (MINIMAL DEVIATIONS) Reciprocal stair negotiation. (MET) Patient Goals: Abolish knee pain. Planned Interventions, Frequency, and Duration: 2x/week, 3 weeks Total Number of Visits Planned: 5 Patient to be seen for Therapeutic exercise (75215), Neuromuscular re-education (55422), Manual therapy (38905), Gait Training (54774), Functional training, General Conditioning, Patient/Family/Caregiver Education PLAN FOR NEXT VISIT: Hold chart pending an unrelated upcoming surgery. SUBJECTIVE: Patient reports she is still having right anteromedial knee pain. Functional Limitations: heavy exertion, recreational activities, running, jumping, squatting Pain: Pain Pain Level: 1 Pain Location: Knee - Right PROMIS Scales T-scores: mean of general population = 50. 5 points is clinically meaningfully difference Percentiles provide an indication of how the patient's score ranks in relation to the general population. Higher percentile rankings indicate better function/quality of life. 50th percentile is the average of the general population and indicates half of respondents had a worse score. OBJECTIVE MEASURES WITH LEVEL OF FUNCTION: LE AROM R Knee Extension: -2 Degrees R Knee Flexion: 136 Degrees LE Strength R Hip Extension: 5/5 R Hip Flexion (L2): 5/5 R Hip ABduction: 5/5 R Knee Extension (L3): 5/5 R Knee Flexion: 5/5 Gait Weight Bearing Status: FWB Gait: Independent Gait Distance (feet): 60 Gait Device: None Gait Observation: Right knee stefanie laterally and left arch collapses. TREATMENT: Therapeutic Exercise: 1: Nustep L5 with no UE x5' 2: Goals assessed 3: *Bridges with ball squeeze 3x10 4: HS stretch at steps right 3x30 5: Gastroc stretch bilat 3x30 6: YTB IR strengthening prone 2x10 7: SCLP (5/5) 65# 3x10 8: CKE (5/2) 30# stop 6 3x10 9: CKF (6/2) 30# 3x10 Skilled Intervention: Patient was educated in proper exercise technique and purpose for exercises. Reviewed and educated patient on additions/changes for home exercise program as above (*). Skilled judgment was used in selection of appropriate interventions. Correct performance of therapeutic exercises was facilitated with verbal and visual cuing. Billing Therapeutic Exercise Treatment Minutes: 45 Skilled Treatment Time Minutes (timed and untimed codes): 45 Total Session Time (minutes): 46 Session Start Time : 744 Session Stop Time : 830 Dickson Dailey, PT, DPT [facility] 07-19-2023 Note HNO ID: [id number] Author: Yolis Younger PTA Service: ? Author Type: Tonal Regulator Type: Progress Notes Filed: 07/19/2023 8:26 AM Note Text: Episode Visit Count: 4 Therapist That Will Accept/Oversee The Plan Of Care: Marco Antonio Dailey DPT Start of Care Date: 07/02/23 Onset Date: 07/02/19 Plan of Care Certification Date: 07/02/23 Next Certification Due Date: 08/31/23 Patient Identified by Name and Date of : Yes REHABILITATION AND SPORTS THERAPY PHYSICAL THERAPY TREATMENT NOTE ASSESSMENT: Soha Flores tolerated the session with expected muscle soreness. She demonstrated improvements in overall tolerance to exercise. The patient will continue to benefit from ongoing skilled physical therapy to progress toward set goals. PLAN FOR NEXT VISIT: Continue painfree stretching and low impact strengthening of hips/core, quads and hamstrings. SUBJECTIVE: Pt reports her symptoms are about the same. She can't get rid of the medial anterior knee pain. Pain: Pain Pain Level: 3 Pain Location: Knee - Right Description: Stiffness OBJECTIVE MEASURES WITH LEVEL OF FUNCTION: No objective measurements taken this treatment. See assessment for response to treatment. TREATMENT: Therapeutic Exercise: 1: BJC sup. HS stretch 2x30 YANET 2: S/L ITB stretch 2x30 3: BJC adductor stretch 2x30 5: 4 step up 2x10 right 6: SLR flex/abd 2x10 YANET 8: LAQ with add ball squeeze 2x10 YANET 9: WB F/L x1' ea 11: 20 STS 2x10 12: YTB s-s/monster 25' <> x1 ea 13: step flex/HS stretch 2x30 YANET 14: step calf stretch 2x30 Skilled Intervention: Patient was educated in proper exercise technique and purpose for exercises. Skilled judgment was used in selection of appropriate interventions. Billing Therapeutic Exercise Treatment Minutes: 38 Skilled Treatment Time Minutes (timed and untimed codes): 38 Total Session Time (minutes): 40 Session Start Time : 744 Session Stop Time : 824 Yolis Younger PTA [facility] 07-12-2023 Note HNO ID: [id number] Author: Yolis Younger PTA Service: ? Author Type: Tonal Regulator Type: Progress Notes Filed: 07/12/2023 8:24 AM Note Text: Episode Visit Count: 3 Therapist That Will Accept/Oversee The Plan Of Care: Marco Antonio Dailey DPT Start of Care Date: 07/02/23 Onset Date: 07/02/19 Plan of Care Certification Date: 07/02/23 Next Certification Due Date: 08/31/23 Patient Identified by Name and Date of : Yes REHABILITATION AND SPORTS THERAPY PHYSICAL THERAPY TREATMENT NOTE ASSESSMENT: Soha Flores tolerated the session with no issues. She demonstrated difficulty with closed chain strengthening exercises. The patient will continue to benefit from ongoing skilled physical therapy to progress toward set goals. PLAN FOR NEXT VISIT: Continue painfree stretching and low impact strengthening of hips/core, quads and hamstrings. SUBJECTIVE: Pt reports she overdid it and was sore last night but is very stiff this morning. Pain: Pain Pain Level: 3 Pain Location: Knee - Right Description: Stiffness Post Treatment Pain Post Treatment Pain Level: No Change Post Treatment Pain Location: Knee - Right OBJECTIVE MEASURES WITH LEVEL OF FUNCTION: No objective measurements taken this treatment. See assessment for response to treatment. TREATMENT: Therapeutic Exercise: 1: BJC sup. HS stretch 2x30 YANET 3: Heel slides AAROM with band 3x30 5: SAQ 1.5# 2x10 YANET 6: SLR flex/abd 2x10 YANET 8: LAQ with add ball squeeze 2x10 YANET 9: WB F/L x1' ea 10: airex tandem x30 YANET 11: 20 STS 2x10 12: YTB s-s/monster 25' <> x1 ea 13: step flex/HS stretch 2x30 YANET 14: step calf stretch 2x30 Skilled Intervention: Patient was educated in proper exercise technique and purpose for exercises. Skilled judgment was used in selection of appropriate interventions. Billing Therapeutic Exercise Treatment Minutes: 38 Skilled Treatment Time Minutes (timed and untimed codes): 38 Total Session Time (minutes): 39 Session Start Time : 744 Session Stop Time : 823 Yolis Younger PTA [facility] 07-10-2023 Note HNO ID: [id number] Author: Yolis Younger PTA Service: ? Author Type: Tonal Regulator Type: Progress Notes Filed: 07/10/2023 8:24 AM Note Text: Episode Visit Count: 2 Therapist That Will Accept/Oversee The Plan Of Care: Marco Antonio Dailey DPConchis Start of Care Date: 07/02/23 Onset Date: 07/02/19 Plan of Care Certification Date: 07/02/23 Next Certification Due Date: 08/31/23 Patient Identified by Name and Date of : Yes REHABILITATION AND SPORTS THERAPY PHYSICAL THERAPY TREATMENT NOTE ASSESSMENT: Soha Flores tolerated the session with improved tolerance to closed chain exercises. She demonstrated difficulty with attempt at Nustep and she felt non painful popping with certain movements. The patient will continue to benefit from ongoing skilled physical therapy to progress toward set goals. PLAN FOR NEXT VISIT: Continue painfree stretching and low impact strengthening of hips/core, quads and hamstrings. SUBJECTIVE: Pt reports increased knee pain today as she tweaked it walking her dog this AM. Pain: Pain Pain Level: 4 Pain Location: Knee - Right Description: Sharp Post Treatment Pain Post Treatment Pain Level: No Change OBJECTIVE MEASURES WITH LEVEL OF FUNCTION: No objective measurements taken this treatment. See assessment for response to treatment. TREATMENT: Therapeutic Exercise: 1: Seated HS stretch 3x30 2: Seated gastroc stretch 3x30 3: Heel slides AAROM with band 3x30 4: Quad sets with towel roll 10x5 5: SAQ 1.5# 2x10 YANET 6: SLR flex/abd 2x10 YANET 7: S/L RTB clams 2x10 YANET 8: LAQ with add ball squeeze 2x10 YANET 9: WB F/L x1' ea 10: airex tandem x30 YANET 11: 20 STS 2x10 12: YTB s-s/monster 25' <> x1 ea Skilled Intervention: Patient was educated in proper exercise technique and purpose for exercises. Skilled judgment was used in selection of appropriate interventions. Billing Therapeutic Exercise Treatment Minutes: 38 Skilled Treatment Time Minutes (timed and untimed codes): 38 Total Session Time (minutes): 38 Session Start Time : 744 Session Stop Time : 822 Yolis Younger [facility] 07-10-2023 History of Present illness Narrative Episode Visit Count: 2 Therapist That Will Accept/Oversee The Plan Of Care: Marco Antonio Dailey DPT Start of Care Date: 07/02/23 Onset Date: 07/02/19 Plan of Care Certification Date: 07/02/23 Next Certification Due Date: 08/31/23 Patient Identified by Name and Date of : Yes REHABILITATION AND SPORTS THERAPY PHYSICAL THERAPY TREATMENT NOTE ASSESSMENT: Soha Flores tolerated the session with improved tolerance to closed chain exercises. She demonstrated difficulty with attempt at Nustep and she felt non painful popping with certain movements. The patient will continue to benefit from ongoing skilled physical therapy to progress toward set goals. PLAN FOR NEXT VISIT: Continue painfree stretching and low impact strengthening of hips/core, quads and hamstrings. SUBJECTIVE: Pt reports increased knee pain today as she tweaked it walking her dog this AM. Pain: Pain Pain Level: 4 Pain Location: Knee - Right Description: Sharp Post Treatment Pain Post Treatment Pain Level: No Change OBJECTIVE MEASURES WITH LEVEL OF FUNCTION: No objective measurements taken this treatment. See assessment for response to treatment. TREATMENT: Therapeutic Exercise: 1: Seated HS stretch 3x30 2: Seated gastroc stretch 3x30 3: Heel slides AAROM with band 3x30 4: Quad sets with towel roll 10x5 5: SAQ 1.5# 2x10 YANET 6: SLR flex/abd 2x10 YANET 7: S/L RTB clams 2x10 YANET 8: LAQ with add ball squeeze 2x10 YANET 9: WB F/L x1' ea 10: airex tandem x30 YANET 11: 20 STS 2x10 12: YTB s-s/monster 25' <> x1 ea Skilled Intervention: Patient was educated in proper exercise technique and purpose for exercises. Skilled judgment was used in selection of appropriate interventions. Billing Therapeutic Exercise Treatment Minutes: 38 Skilled Treatment Time Minutes (timed and untimed codes): 38 Total Session Time (minutes): 38 Session Start Time : 744 Session Stop Time : 822 Yolis Younger PTA documented in this encounter [facility] 07-02-2023 Note HNO ID: [id number] Author: Dickson Dailey, PT, DPT Service: ? Author Type: Physical Therapist Type: Progress Notes Filed: 07/02/2023 8:47 AM Note Text: Episode Visit Count: 1 Therapist That Will Accept/Oversee The Plan Of Care: Marco Antonio Dailey DPT Start of Care Date: 07/02/23 Onset Date: 07/02/19 Plan of Care Certification Date: 07/02/23 Next Certification Due Date: 08/31/23 Patient Identified by Name and Date of : Yes REHABILITATION AND SPORTS THERAPY PHYSICAL THERAPY EVALUATION PLAN OF CARE: Assessment: Soha Flores presents with chief complaint of right knee pain that interferes with physical activities, recreational activities, walking in the community, stair negotiation, squatting, jumping, running . She presents with impairments in gait, joint mobility, overall function, range of motion, strength, and symptom management. Patient did not complete the PROMIS? (Patient Reported Outcome Measures Information System). Prognosis for therapy is Good due to: current objective clinical presentation, good overall health status, acuteness of condition, positive past response to therapy, within-session changes, good support system/ coping skills . She will benefit from skilled therapy services to meet the goals established for this plan of care as noted below. Goals for Episode of Care: created on 07/02/23 through 08/13/23 [place] in home exercise program. Patient will decrease pain to 0/10 with functional activities to allow patient to improve ambulation, transfers, and standing tolerance for ADLs. Increase ROM of right knee to equal left side. Increased strength of bilateral lower extremities to 5/5 for pain free completion of all desired functional activities. Normal gait. Reciprocal stair negotiation. Patient Goals: Abolish knee pain. Planned Interventions, Frequency, and Duration: Current Frequency: 2x/week Duration: 5 weeks Total Number of Visits Planned: 10 Planned Treatment Interventions: Therapeutic exercise (31769), Neuromuscular re-education (69186), Therapeutic activities (84056), Gait Training (80077), Manual therapy (44619), Patient/Family/Caregiver Education, Body Mechanics Training, Functional training, General Conditioning PLAN FOR NEXT VISIT: Continue painfree stretching and low impact strengthening of hips/core, quads and hamstrings. Patient demonstrates good understanding of plan of care and treatment. The above goals and plan of care were discussed and agreed upon by patient/family. SUBJECTIVE: Four year H/O bilateral knee pain, worse on the right following chemotherapy. Had injectrions with prolonged relief. Stepped over dog with a hop/twist 4 weeks ago and right knee has been in more pain since. fluid removed and received coritisone shot. Pain anteromedial knee. Patient Goals: Abolish knee pain. Functional Limitations: physical activities, recreational activities, walking in the community, stair negotiation, squatting, jumping, running Prior Level of Function: Independent without limitations Relevant History Past Relevant Medical Conditions: Cancer, Diabetes, Arthritis (H/O chemo, H/O left ankle fracture.) Intake Information: Prescription present Pain: Pain Pain Level: 4 Pain Location: Knee - Right Description: Sharp Frequency: Continuous, With movement Post Treatment Pain Post Treatment Pain Level: 5 Post Treatment Pain Location: Knee - Right PROMIS Scales T-scores: mean of general population = 50. 5 points is clinically meaningfully difference Percentiles provide an indication of how the patient's score ranks in relation to the general population. Higher percentile rankings indicate better function/quality of life. 50th percentile is the average of the general population and indicates half of respondents had a worse score. OBJECTIVE MEASURES WITH LEVEL OF FUNCTION: Posture / Alignment L LE Anatomical Alignment Weight-Bearing: L Genu valgus Knee Observations R Knee Presents with: Comments (Lateral tracking of the patella) R Knee Palpation Tenderness: Medial joint line Knee Brace: (2 knee sleeves) LE AROM R Knee Extension: -6 Degrees R Knee Flexion: 115 Degrees L Knee Extension: 0 Degrees L Knee Flexion: 139 Degrees LE Strength R Hip Extension: 4/5 R Hip Flexion (L2): 5/5 R Hip ABduction: 5/5 R Knee Extension (L3): 5/5 R Knee Flexion: 5/5 L Hip Extension: 4/5 L Hip Flexion (L2): 5/5 L Hip ABduction: 5/5 L Knee Extension (L3): 5/5 L Knee Flexion: 5/5 Special Tests - Knee Knee Special Tests: Thessaly's Test Thessaly's Test: Thessaly's Test (5 degrees flexion), Thessaly's Test (20 degrees flexion) Thessaly's Test (5 degrees flexion): Right Negative Thessaly's Test (20 degrees flexion): Right Negative DVT Screening/Testing Screening/Testing: Gagandeep Pedraza's Sign: Right Negative Gait Gait Observation: Right knee stefanie laterally Education: Education Francy (more content not included)... [facility] 06-19-2023 Note HNO ID: [id number] Author: Osmani Davies, DO Service: ? Author Type: Physician Type: Progress Notes Filed: 06/19/2023 10:59 AM Note Text: HPI: Soha Flores is a 47 year old female established patient who returns for a follow up of Primary osteoarthritis of right knee. Last seen 05-29-2023 received a steroid injection. 3/10 pain AND 60% improvement. Ice, diclofenac, tylenol, hinged knee brace, home exercises. Prior history as of 05-29-2023: presents for reinjury of right Knee. Patient states pain started 5 days ago, she was stepping over her dog and went to sit in a chair and felt a pop. She states a 5/10 pain. Patient treating with ice, tylenol, knee sleeve. seen by [facility] on 05-24-2023, she had xray's done. Walking/ movement worsens her pain. Patient notes swelling and with prolonged walking standing will sometimes feel her leg go out. Sometimes she will fall. Patient been working out going to the gym and has lost weight and is feeling much better overall with her knees. Patient's been seen multiple times in the past for right knee osteoarthritis this required cortisone injections conservative measures. She had gel injections summer 2020. Past x-rays and MRI right knee showed arthritis. Current Outpatient Medications Medication Sig Dispense Refill TRULICITY 1.5 mg/0.5 mL pen injector methocarbamol (ROBAXIN) 500 mg tablet Take 1 tablet by mouth four times daily. Pseudoephedrine HCl (SUDAFED SR) 120 mg TbER 1 tablet as needed Orally every 12 hrs for 7 days pseudoephedrine (SUDAFED) 30 mg tablet 2 tablets as needed Orally every 6 hrs for 7 days diclofenac, EC, (VOLTAREN) 75 mg EC tablet Take 1 tablet by mouth twice daily. fluconazole (DIFLUCAN) 150 mg tablet TAKE 1 TABLET BY MOUTH ONCE DAILY FOR ONE DOSE hydroCHLOROthiazide 12.5 mg capsule Take 12.5 mg by mouth every morning. JARDIANCE 25 mg tablet Take 25 mg by mouth once daily. cetirizine (ZYRTEC) 10 mg tablet Take 10 mg by mouth as needed. fluticasone (FLONASE) 50 mcg/actuation nasal spray 1 [employer] as needed. ondansetron orally disintegrating (ZOFRAN ODT) 8 mg disintegrating tablet 8 mg as needed. aspirin, enteric coated (ASPIRIN, ENTERIC COATED) 81 mg EC tablet Take 81 mg by mouth once daily. Cholecalciferol, Vitamin D3, 25 mcg (1,000 unit) cap Take 1,000 Units by mouth once daily. hydrOXYzine HCl (ATARAX) 25 mg tablet Take 25 mg by mouth every 8 hours as needed. levothyroxine (SYNTHROID) 200 mcg tablet Take 200 mcg by mouth once daily. metoprolol succinate ER (TOPROL XL) 100 mg Take 100 mg by mouth once daily. metFORMIN ER (GLUCOPHAGE XR) 750 mg 24 hr tablet Take 750 mg by mouth two times a day. JANUVIA 100 mg tablet Take 100 mg by mouth once daily. VITAMIN B COMPLEX ORAL Take 1 tablet by mouth once daily. triamcinolone (KENALOG) 0.025 % cream Apply 1 application to affected area as needed. Vpuvg-[id number]-EPA-Fish Oil 300-1,000 mg cap Take 1 capsule by mouth once daily. No current facility-administered medications for this visit. ALLERGIES Allergen Reactions Metformin Diarrhea Hydrocodone Itching Phenylpropanolamine Itching HISTORIES PAST MEDICAL HISTORY Diagnosis Date Diabetes (HCC) Hypertension Hypothyroidism Malignant neoplasm (HCC) of lower inner quadrant of left female breast Migraine Skin cancer Thyroid cancer (HCC) TIA (transient ischemic attack) PAST SURGICAL HISTORY Procedure Laterality Date ABLATION uterine BREAST LUMPECTOMY HX Left ORAL SURGERY PROCEDURE wisdom teeth extraction TONSILLECTOMY AND ADENOIDECTOMY HX Social History Tobacco Use Smoking status: Former Smokeless tobacco: Never Substance Use Topics Alcohol use: Not Currently Drug use: Never FAMILY HISTORY Problem Relation Age of Onset Cancer Mother Diabetes Father Cancer Father Hypertension Father Diabetes Sister Review of Systems Constitutional: Negative. HENT: Negative. Eyes: Negative. Respiratory: Negative. Cardiovascular: Negative. Gastrointestinal: Negative. Genitourinary: Negative. Musculoskeletal: Positive for joint pain. Skin: Negative. Neurological: Negative. Endo/Heme/Allergies: Negative. Psychiatric/Behavioral: Negative. Exam: BP 137/92 Pulse 82 No weight on file for this encounter. Const: Appears well developed and well nourished. No signs of acute distress present. Facial expression appears pleasant. CV: Extremities: No clubbing, cyanosis or edema. +2 distal pulses throughout Skin: No erythema, petechiae, rash. Neuro: Alert and oriented x3. Reflexes: DTRs are 2+ bilaterally. No deficits noted. Right Knee Exam Tenderness The patient is experiencing tenderness in the patella and medial joint line. Range of Motion Extension: normal Flexion: 120 abnormal Tests Nicholas: Medial - positive Lateral - negative Varus: negative Valgus: negative Ling: Anterior - negative Drawer: Anterior - negative Posterior - (more content not included)... [facility] 06-19-2023 Instructions Yadira Duque MA - 06/19/2023 11:02 AM EST Ice right knee 3 times a day for 20 minutes. Continue diclofenac 75 mg twice a day with food/ Tylenol 1-2 tablets 325 mg every 8 hours as needed for Breakthrough pain only. Continue home exercise program for keeping the quadriceps, hip flexors and hamstrings strong to help support the knee twice daily. Formal physical therapy for right knee strengthening range of motion. Avoid deep knee bends, squats or excessive walking standing for the next few weeks. Limited step climbing. Hinged knee brace to wear daily activities. Glucosamine/chondroitin Joint supplement can help with joint pain. Reevaluate after therapy May consider gel injections in the future documented in this encounter [facility] 06-19-2023 History of Present illness Narrative HPI: Soha Flores is a 47 year old female established patient who returns for a follow up of Primary osteoarthritis of right knee. Last seen 05-29-2023 received a steroid injection. 3/10 pain & 60% improvement. Ice, diclofenac, tylenol, hinged knee brace, home exercises. Prior history as of 05-29-2023: presents for reinjury of right Knee. Patient states pain started 5 days ago, she was stepping over her dog and went to sit in a chair and felt a pop. She states a 5/10 pain. Patient treating with ice, tylenol, knee sleeve. seen by Laurie on 05-24-2023, she had xray's done. Walking/ movement worsens her pain. Patient notes swelling and with prolonged walking standing will sometimes feel her leg go out. Sometimes she will fall. Patient been working out going to the gym and has lost weight and is feeling much better overall with her knees. Patient's been seen multiple times in the past for right knee osteoarthritis this required cortisone injections conservative measures. She had gel injections summer 2020. Past x-rays and MRI right knee showed arthritis. Current Outpatient Medications Medication Sig Dispense Refill TRULICITY 1.5 mg/0.5 mL pen injector methocarbamol (ROBAXIN) 500 mg tablet Take 1 tablet by mouth four times daily. Pseudoephedrine HCl (SUDAFED SR) 120 mg TbER 1 tablet as needed Orally every 12 hrs for 7 days pseudoephedrine (SUDAFED) 30 mg tablet 2 tablets as needed Orally every 6 hrs for 7 days diclofenac, EC, (VOLTAREN) 75 mg EC tablet Take 1 tablet by mouth twice daily. fluconazole (DIFLUCAN) 150 mg tablet TAKE 1 TABLET BY MOUTH ONCE DAILY FOR ONE DOSE hydroCHLOROthiazide 12.5 mg capsule Take 12.5 mg by mouth every morning. JARDIANCE 25 mg tablet Take 25 mg by mouth once daily. cetirizine (ZYRTEC) 10 mg tablet Take 10 mg by mouth as needed. fluticasone (FLONASE) 50 mcg/actuation nasal spray 1 [employer] as needed. ondansetron orally disintegrating (ZOFRAN ODT) 8 mg disintegrating tablet 8 mg as needed. aspirin, enteric coated (ASPIRIN, ENTERIC COATED) 81 mg EC tablet Take 81 mg by mouth once daily. Cholecalciferol, Vitamin D3, 25 mcg (1,000 unit) cap Take 1,000 Units by mouth once daily. hydrOXYzine HCl (ATARAX) 25 mg tablet Take 25 mg by mouth every 8 hours as needed. levothyroxine (SYNTHROID) 200 mcg tablet Take 200 mcg by mouth once daily. metoprolol succinate ER (TOPROL XL) 100 mg Take 100 mg by mouth once daily. metFORMIN ER (GLUCOPHAGE XR) 750 mg 24 hr tablet Take 750 mg by mouth two times a day. JANUVIA 100 mg tablet Take 100 mg by mouth once daily. VITAMIN B COMPLEX ORAL Take 1 tablet by mouth once daily. triamcinolone (KENALOG) 0.025 % cream Apply 1 application to affected area as needed. Epzhx-4-[id number]-EPA-Fish Oil 300-1,000 mg cap Take 1 capsule by mouth once daily. No current facility-administered medications for this visit. ALLERGIES Allergen Reactions Metformin Diarrhea Hydrocodone Itching Phenylpropanolamine Itching HISTORIES PAST MEDICAL HISTORY Diagnosis Date Diabetes (HCC) Hypertension Hypothyroidism Malignant neoplasm (HCC) of lower inner quadrant of left female breast Migraine Skin cancer Thyroid cancer (HCC) TIA (transient ischemic attack) PAST SURGICAL HISTORY Procedure Laterality Date ABLATION uterine BREAST LUMPECTOMY HX Left ORAL SURGERY PROCEDURE wisdom teeth extraction TONSILLECTOMY AND ADENOIDECTOMY HX Social History Tobacco Use Smoking status: Former Smokeless tobacco: Never Substance Use Topics Alcohol use: Not Currently Drug use: Never FAMILY HISTORY Problem Relation Age of Onset Cancer Mother Diabetes Father Cancer Father Hypertension Father Diabetes Sister Review of Systems Constitutional: Negative. HENT: Negative. Eyes: Negative. Respiratory: Negative. Cardiovascular: Negative. Gastrointestinal: Negative. Genitourinary: Negative. Musculoskeletal: Positive for joint pain. Skin: Negative. Neurological: Negative. Endo/Heme/Allergies: Negative. Psychiatric/Behavioral: Negative. Exam: BP 137/92 Pulse 82 No weight on file for this encounter. Const: Appears well developed and well nourished. No signs of acute distress present. Facial expression appears pleasant. CV: Extremities: No clubbing, cyanosis or edema. +2 distal pulses throughout Skin: No erythema, petechiae, rash. Neuro: Alert and oriented x3. Reflexes: DTRs are 2+ bilaterally. No deficits noted. Right Knee Exam Tenderness The patient is experiencing tenderness in the patella and medial joint line. Range of Motion Extension: normal Flexion: 120 abnormal Tests Nicholas: Medial - positive Lateral - negative Varus: negative Valgus: negative Ling: Anterior - negative Drawer: Anterior - negative Posterior - negative Patellar apprehension: positive Other Erythema: absent Scars: absent Sensation: normal Pulse: present Swelling: moderate Effusion: effusion present Comments: Positive tenderness medial joint and patellofemoral joint. X-ray 3 view right knee 05/24/2023 Laurie: Moderate tricompartment osteoarthritis especially medial and patellofemoral compartment with spurring and joint space narrowing. No acute fracture. Films were reviewed by myself. ASSESSMENT/PLAN: 1. Primary osteoarthritis of right knee - ICD9: 715.16, ICD10: M17.11 (primary diagnosis) Ice right knee 3 times a day for 20 minutes. Continue diclofenac 75 mg twice a day with food/ Tylenol 1-2 tablets 325 mg every 8 hours as needed for Breakthrough pain only. Continue home exercise program for keeping the quadriceps, hip flexors and hamstrings strong to help support the knee twice daily. Formal physical therapy for right knee strengthening range of motion. Avoid deep knee bends, squats or excessive walking standing for the next few weeks. Limited step climbing. Hinged knee brace to wear daily activities. Glucosamine/chondroitin Joint supplement can help with joint pain. Reevaluate after therapy May consider gel injections in the future Osmani Davies DO The information in this document was created by the director of graduate medical education. Pam Davies have reviewed and approved this document for accuracy. Note: This dictation was created with the assistance of voice recognition software. Phonetic and/or minor grammatical errors may exist. documented in this encounter [facility] 05-29-2023 Note HNO ID: [id number] Author: Osmani Davies DO Service: ? Author Type: Physician Type: Progress Notes Filed: 05/29/2023 1:31 PM Note Text: HPI: Soha Flores is a 47 year old female established patient presents for reinjury of right Knee. Patient states pain started 5 days ago, she was stepping over her dog and went to sit in a chair and felt a pop. She states a 5/10 pain. Patient treating with ice, tylenol, knee sleeve. seen by [facility]ie on 05-24-2023, she had xray's done. Walking/ movement worsens her pain. Patient notes swelling and with prolonged walking standing will sometimes feel her leg go out. Sometimes she will fall. Patient been working out going to the gym and has lost weight and is feeling much better overall with her knees. Patient's been seen multiple times in the past for right knee osteoarthritis this required cortisone injections conservative measures. She had gel injections summer 2020. Past x-rays and MRI right knee showed arthritis. Current Outpatient Medications Medication Sig Dispense Refill TRULICITY 1.5 mg/0.5 mL pen injector methocarbamol (ROBAXIN) 500 mg tablet Take 1 tablet by mouth four times daily. Pseudoephedrine HCl (SUDAFED SR) 120 mg TbER 1 tablet as needed Orally every 12 hrs for 7 days pseudoephedrine (SUDAFED) 30 mg tablet 2 tablets as needed Orally every 6 hrs for 7 days diclofenac, EC, (VOLTAREN) 75 mg EC tablet Take 1 tablet by mouth twice daily. fluconazole (DIFLUCAN) 150 mg tablet TAKE 1 TABLET BY MOUTH ONCE DAILY FOR ONE DOSE hydroCHLOROthiazide 12.5 mg capsule Take 12.5 mg by mouth every morning. JARDIANCE 25 mg tablet Take 25 mg by mouth once daily. cetirizine (ZYRTEC) 10 mg tablet Take 10 mg by mouth as needed. fluticasone (FLONASE) 50 mcg/actuation nasal spray 1 [employer] as needed. ondansetron orally disintegrating (ZOFRAN ODT) 8 mg disintegrating tablet 8 mg as needed. aspirin, enteric coated (ASPIRIN, ENTERIC COATED) 81 mg EC tablet Take 81 mg by mouth once daily. Cholecalciferol, Vitamin D3, 25 mcg (1,000 unit) cap Take 1,000 Units by mouth once daily. hydrOXYzine HCl (ATARAX) 25 mg tablet Take 25 mg by mouth every 8 hours as needed. levothyroxine (SYNTHROID) 200 mcg tablet Take 200 mcg by mouth once daily. metoprolol succinate ER (TOPROL XL) 100 mg Take 100 mg by mouth once daily. JANUVIA 100 mg tablet Take 100 mg by mouth once daily. VITAMIN B COMPLEX ORAL Take 1 tablet by mouth once daily. Kdtfk-[id number]-EPA-Fish Oil 300-1,000 mg cap Take 1 capsule by mouth once daily. metFORMIN ER (GLUCOPHAGE XR) 750 mg 24 hr tablet Take 750 mg by mouth twice daily. (Patient not taking: Reported on 01/30/2023) triamcinolone (KENALOG) 0.025 % cream Apply 1 application to affected area as needed. (Patient not taking: Reported on 01/30/2023) No current facility-administered medications for this visit. ALLERGIES Allergen Reactions Hydrocodone Itching Phenylpropanolamine Itching HISTORIES PAST MEDICAL HISTORY Diagnosis Date Diabetes (HCC) Hypertension Hypothyroidism Malignant neoplasm (HCC) of lower inner quadrant of left female breast Migraine Skin cancer Thyroid cancer (HCC) TIA (transient ischemic attack) PAST SURGICAL HISTORY Procedure Laterality Date ABLATION uterine BREAST LUMPECTOMY HX Left ORAL SURGERY PROCEDURE wisdom teeth extraction TONSILLECTOMY AND ADENOIDECTOMY HX Social History Tobacco Use Smoking status: Former Smokeless tobacco: Never Substance Use Topics Alcohol use: Not Currently Drug use: Never FAMILY HISTORY Problem Relation Age of Onset Cancer Mother Diabetes Father Cancer Father Hypertension Father Diabetes Sister Review of Systems Constitutional: Negative. HENT: Negative. Eyes: Negative. Respiratory: Negative. Cardiovascular: Negative. Gastrointestinal: Negative. Genitourinary: Negative. Musculoskeletal: Positive for joint pain. Skin: Negative. Neurological: Negative. Endo/Heme/Allergies: Negative. Psychiatric/Behavioral: Negative. Exam: BP 131/80 Pulse 86 Ht 175.3 cm (5' 9 ) Wt 93.9 kg (207 lb) BMI 30.57 kg/m? BMI 30.57 kg/(m2) Const: Appears well developed and well nourished. No signs of acute distress present. Facial expression appears pleasant. CV: Extremities: No clubbing, cyanosis or edema. +2 distal pulses throughout Skin: No erythema, petechiae, rash. Neuro: Alert and oriented x3. Reflexes: DTRs are 2+ bilaterally. No deficits noted. Right Knee Exam Tenderness The patient is experiencing tenderness in the patella and medial joint line. Range of Motion Extension: normal Flexion: 120 abnormal Tests Nicholas: Medial - positive Lateral - negative Varus: negative Valgus: negative Ling: Anterior - negative Drawer: Anterior - negative Posterior - negative Patellar apprehension: positive Other Erythema: absent Scars: absent Sensation: normal Pulse: present Swelling: moderate (more content not included)... [facility] 05-29-2023 Instructions Yadira Duque MA - 05/29/2023 1:11 PM EDT Ice right knee 3-4 times a day for 20 minutes. Diclofenac 75 mg twice a day with food/ Tylenol 1-2 tablets 325 mg every 8 hours as needed for Breakthrough pain only. Hopefully aspiration/cortisone injection to affected right knee with decreased pain. Would recommend no heavy activities for the next 7 days. Home exercise program for keeping the quadriceps, hip flexors and hamstrings strong to help support the knee. Perform these twice daily. Avoid deep knee bends, squats or excessive walking standing for the next few weeks. Limited step climbing. Hinged knee brace to wear daily activities. Glucosamine/chondroitin Joint supplement can help with joint pain. Reevaluate in 3 weeks documented in this encounter [facility] 05-29-2023 History of Present illness Narrative Associated Order(s): LARGE JOINT INJECTION/ARTHROCENTESIS: R knee joint Post-Procedure Diagnose(s): Primary osteoarthritis of right knee; Effusion of right knee HPI: Soha Flores is a 47 year old female established patient presents for reinjury of right Knee. Patient states pain started 5 days ago, she was stepping over her dog and went to sit in a chair and felt a pop. She states a 5/10 pain. Patient treating with ice, tylenol, knee sleeve. seen by [facility] on 05-24-2023, she had xray's done. Walking/ movement worsens her pain. Patient notes swelling and with prolonged walking standing will sometimes feel her leg go out. Sometimes she will fall. Patient been working out going to the gym and has lost weight and is feeling much better overall with her knees. Patient's been seen multiple times in the past for right knee osteoarthritis this required cortisone injections conservative measures. She had gel injections summer 2020. Past x-rays and MRI right knee showed arthritis. Current Outpatient Medications Medication Sig Dispense Refill TRULICITY 1.5 mg/0.5 mL pen injector methocarbamol (ROBAXIN) 500 mg tablet Take 1 tablet by mouth four times daily. Pseudoephedrine HCl (SUDAFED SR) 120 mg TbER 1 tablet as needed Orally every 12 hrs for 7 days pseudoephedrine (SUDAFED) 30 mg tablet 2 tablets as needed Orally every 6 hrs for 7 days diclofenac, EC, (VOLTAREN) 75 mg EC tablet Take 1 tablet by mouth twice daily. fluconazole (DIFLUCAN) 150 mg tablet TAKE 1 TABLET BY MOUTH ONCE DAILY FOR ONE DOSE hydroCHLOROthiazide 12.5 mg capsule Take 12.5 mg by mouth every morning. JARDIANCE 25 mg tablet Take 25 mg by mouth once daily. cetirizine (ZYRTEC) 10 mg tablet Take 10 mg by mouth as needed. fluticasone (FLONASE) 50 mcg/actuation nasal spray 1 [employer] as needed. ondansetron orally disintegrating (ZOFRAN ODT) 8 mg disintegrating tablet 8 mg as needed. aspirin, enteric coated (ASPIRIN, ENTERIC COATED) 81 mg EC tablet Take 81 mg by mouth once daily. Cholecalciferol, Vitamin D3, 25 mcg (1,000 unit) cap Take 1,000 Units by mouth once daily. hydrOXYzine HCl (ATARAX) 25 mg tablet Take 25 mg by mouth every 8 hours as needed. levothyroxine (SYNTHROID) 200 mcg tablet Take 200 mcg by mouth once daily. metoprolol succinate ER (TOPROL XL) 100 mg Take 100 mg by mouth once daily. JANUVIA 100 mg tablet Take 100 mg by mouth once daily. VITAMIN B COMPLEX ORAL Take 1 tablet by mouth once daily. Ixzfs-8-VLX-EPA-Fish Oil 300-1,000 mg cap Take 1 capsule by mouth once daily. metFORMIN ER (GLUCOPHAGE XR) 750 mg 24 hr tablet Take 750 mg by mouth twice daily. (Patient not taking: Reported on 01/30/2023) triamcinolone (KENALOG) 0.025 % cream Apply 1 application to affected area as needed. (Patient not taking: Reported on 01/30/2023) No current facility-administered medications for this visit. ALLERGIES Allergen Reactions Hydrocodone Itching Phenylpropanolamine Itching HISTORIES PAST MEDICAL HISTORY Diagnosis Date Diabetes (HCC) Hypertension Hypothyroidism Malignant neoplasm (HCC) of lower inner quadrant of left female breast Migraine Skin cancer Thyroid cancer (HCC) TIA (transient ischemic attack) PAST SURGICAL HISTORY Procedure Laterality Date ABLATION uterine BREAST LUMPECTOMY HX Left ORAL SURGERY PROCEDURE wisdom teeth extraction TONSILLECTOMY AND ADENOIDECTOMY HX Social History Tobacco Use Smoking status: Former Smokeless tobacco: Never Substance Use Topics Alcohol use: Not Currently Drug use: Never FAMILY HISTORY Problem Relation Age of Onset Cancer Mother Diabetes Father Cancer Father Hypertension Father Diabetes Sister Review of Systems Constitutional: Negative. HENT: Negative. Eyes: Negative. Respiratory: Negative. Cardiovascular: Negative. Gastrointestinal: Negative. Genitourinary: Negative. Musculoskeletal: Positive for joint pain. Skin: Negative. Neurological: Negative. Endo/Heme/Allergies: Negative. Psychiatric/Behavioral: Negative. Exam: BP 131/80 Pulse 86 Ht 175.3 cm (5' 9 ) Wt 93.9 kg (207 lb) BMI 30.57 kg/m BMI 30.57 kg/(m^2) Const: Appears well developed and well nourished. No signs of acute distress present. Facial expression appears pleasant. CV: Extremities: No clubbing, cyanosis or edema. +2 distal pulses throughout Skin: No erythema, petechiae, rash. Neuro: Alert and oriented x3. Reflexes: DTRs are 2+ bilaterally. No deficits noted. Right Knee Exam Tenderness The patient is experiencing tenderness in the patella and medial joint line. Range of Motion Extension: normal Flexion: 120 abnormal Tests Nicholas: Medial - positive Lateral - negative Varus: negative Valgus: negative Ling: Anterior - negative Drawer: Anterior - negative Posterior - negative Patellar apprehension: positive Other Erythema: absent Scars: absent Sensation: normal Pulse: present Swelling: moderate Effusion: effusion present Comments: Positive tenderness medial joint and patellofemoral joint. X-ray 3 view right knee 05/24/2023 Laurie: Moderate tricompartment osteoarthritis especially medial and patellofemoral compartment with spurring and joint space narrowing. No acute fracture. Films were reviewed by myself. ASSESSMENT/PLAN: 1. Primary osteoarthritis of right knee - ICD9: 715.16, ICD10: M17.11 (primary diagnosis) LARGE JOINT INJECTION/ARTHROCENTESIS: R knee joint Informed Consent Consent Obtained: Verbal [place] Protocol A moment to CARE was completed. SIGN IN Personnel directly involved with the procedure wore the appropriate PPE. Special Equipment: N/A Patient/Surrogate Stated/Verified: Patient name, Date of , Relevant allergies and Intended procedure TIME OUT Intended patient and procedure match the source document(s). Consent documented and matches the intended procedure. Relevant labs, photos, and/or imaging studies have been reviewed. Correct side/site marked and visible. Medications required for procedure verified. No fire risk assessment and interventions applicable. No implant(s) inserted. 05/29/2023 12:58 PM The procedure site was prepped in the usual sterile fashion. Site: R knee joint Aspirate: 20 mL yellow and clear Medications: 40 mg triamcinolone acetonide 40 mg/mL; 2 mg dexAMETHasone sodium phosphate 4 mg/mL Anesthetics: 2 mL lidocaine (PF) 20 mg/mL (2 %) Outcome: Tolerated well, no immediate complications Post-injection instructions were reviewed with the patient and the patient voiced understanding of these instructions. SIGN OUT No instruments, equipment or retained foreign bodies applicable. Ice right knee 3-4 times a day for 20 minutes. Diclofenac 75 mg twice a day with food/ Tylenol 1-2 tablets 325 mg every 8 hours as needed for Breakthrough pain only. Hopefully aspiration/cortisone injection to affected right knee with decreased pain. Would recommend no heavy activities for the next 7 days. Home exercise program for keeping the quadriceps, hip flexors and hamstrings strong to help support the knee. Perform these twice daily. Avoid deep knee bends, squats or excessive walking standing for the next few weeks. Limited step climbing. Hinged knee brace to wear daily activities. Glucosamine/chondroitin Joint supplement can help with joint pain. Reevaluate in 3 weeks 2. Effusion of right knee - ICD9: 719.06, ICD10: M25.461 Osmani Davies DO The information in this document was created by the director of graduate medical education. Pam Davies have reviewed and approved this document for accuracy. Note: This dictation was created with the assistance of voice recognition software. Phonetic and/or minor grammatical errors may exist. documented in this encounter [facility] 05-24-2023 Emergency department Note Discharge orders reviewed, pt states understanding. NAD noted. Pt ambulates to [facility], leaves via car. [facility] 05-24-2023 Emergency department Note Discharge orders reviewed, pt states understanding. NAD noted. Pt ambulates to [facility], leaves via car. Images from the original note were not included. [facility] Emergency Department - [place] [facility] Course/Medical Decision Making: Soha Flores, date of 1975, is a 47 y.o. female with no pertinent past medical history who presents to the Emergency Department with/for R knee pain. Upon arrival patient in no acute distress breathing easily on room air ED Course as of 05/24/23 0803 SatMay 24, 2023 0751 On arrival patient is alert and oriented x3 answering questions appropriately all extremity spontaneously. Hemodynamically stable and afebrile. Patient presents with right knee pain. She states that last night she was stepping over her dog and stepped awkwardly. She states that her knee buckled and slid and then she heard a pop . Denies falling or hitting her head. No other injuries. Denies surgeries to this knee. Came into the ED on crutches that she had from a prior leg injury. States that she has no pain at rest and that she has full range of motion but when she tries to bear weight on it she gets 10 out of 10 pain. Denies any fevers, chest pain, shortness of breath. On exam patient is overall well-appearing. Distal pulses and sensation are intact. Negative tenderness throughout the right knee. Full range of passive motion. We will plan for x-ray 0802 XR Knee Right 3 Views Osteoarthritis. 0802 On reassessment patient continues to do well. Given knee immobilizer and prescription for naproxen as well as referral to sports medicine. Patient already has crutches. Given close return precautions. Encouraged to follow up with their PCP. Discharged with instructions to return to the ED with any new or worsening symptoms. Patient amenable to plan Differential diagnosis (including but not limited to): Fracture, contusion, sprain, strain, dislocation, septic joint, compartment syndrome, neurovascular injury IV antibiotics considered but deemed not necessary at this time Medications Given: Medications - No data to display Upon re-examination, the patient looked well and denied any new or worsening symptoms. Patient remained stable throughout the visit. Results were discussed with the patient and family . Patient and family given the opportunity to ask questions. Patient discharged with instructions to return to the emergency department with any new worsening symptoms Patient amenable to plan Consults: none Disposition: DC Chief Complaint: Patient presents with Chief Complaint Patient presents with Knee Injury HPI Soha Flores, date of 1975, is a 47 y.o. female with no pertinent past medical history who presents to the Emergency Department with/for R knee pain. Patient states that last night she was stepping over her dog and stumbled. She states that she twisted her knee and then she heard a pop . Denies falling or hitting her head. States that she has pain with weightbearing. Full range of motion. No prior surgeries. Denies any fevers, chest pain, shortness of breath Review of Systems Constitutional: Negative for fever. Respiratory: Negative for shortness of breath. Cardiovascular: Negative for chest pain. Gastrointestinal: Negative for abdominal pain. Genitourinary: Negative for dysuria. Musculoskeletal: R knee pain All other systems reviewed and are negative. Physical Exam Vitals and nursing note reviewed. Constitutional: General: She is not in acute distress. HENT: Head: Atraumatic. Eyes: Extraocular Movements: Extraocular movements intact. Pupils: Pupils are equal, round, and reactive to light. Cardiovascular: Rate and Rhythm: Regular rhythm. Pulmonary: Effort: Pulmonary effort is normal. No respiratory distress. Abdominal: General: There is no distension. Palpations: Abdomen is soft. Tenderness: There is no abdominal tenderness. Musculoskeletal: General: No signs of injury. Neurological: General: No focal deficit present. Mental Status: She is alert and oriented to person, place, and time. Mental status is at baseline. Psychiatric: Mood and Affect: Mood normal. Vitals: Vitals: 05/24/23 0733 BP: (!) 165/100 Pulse: 96 Resp: 16 Temp: 98.4 F (36.9 C) SpO2: 98% Past Medical History: Past Medical History: Diagnosis Date Breast cancer (HCC) 2019 DM II (diabetes mellitus, type II), controlled ([facility]) H/O total thyroidectomy Heart murmur Hypertension Thyroid cancer (HCC) 2011 TIA (transient ischemic attack) 2011 Past Surgical History: Past Surgical History: Procedure Laterality Date BREAST LUMPECTOMY Left 2019 TONSILLECTOMY TOTAL THYROIDECTOMY 2011 Family History: History reviewed. No pertinent family history. Social History: Social History Socioeconomic History Marital status: Spouse name: None Number of children: None Years of education: None Highest education level: None Occupational History None Tobacco Use Smoking status: Never Smokeless tobacco: Never Vaping Use Vaping Use: Never used Substance and Sexual Activity Alcohol use: Not Currently Drug use: Not Currently Sexual activity: None Other Topics Concern None Social History Narrative None Social Determinants of Health Financial Resource Strain: Not on file Food Insecurity: No Food Insecurity (05/24/2023) [facility] Brief Food Brief social Worry about food: Not on file Brief social Food run out: Not on file Transportation Needs: No Transportation Needs (05/24/2023) [facility] Brief Transportation Brief social Transport to appt: Not on file Brief social Transport to work: Not on file Physical Activity: Not on file Stress: Not on file Social Connections: Not on file Intimate Partner Violence: Not on file Housing Stability: Low Risk (05/24/2023) [facility] Brief Housing Brief social Pay for mortgage/rent: Not on file Brief social: Place to sleep: Not on file Allergies: Not on File Review of patient's records reviewed by me during this visit Diagnostics: Labs: Labs Reviewed - No data to display Labs reviewed and interpreted by me. Radiology: Personal review of imaging conducted and agree with radiology's findings XR Knee Right 3 Views Final Result Osteoarthritis. Louie Martinez MD 05/24/23, 8:03 AM [facility] Emergency Physicians This note was partially generated using [employer] Lanes[employer] system, and there may be some incorrect words, spellings, and punctuation that were not noted in checking the note before saving. Louie Martinez MD 05/24/23 0803 Patient ambulates to room 2 with crutches with complaints of right knee pain after an injury last night. Patient was stepping over her dog and twisted her knee, states she heard a pop noise. Patient states she has unable to put any weight on her knee. Patient rates pain 0/10 unless she puts weight on her knee and the pain increases to a 9/10. Patient alert and oriented, skin PWD, respirations easy and unlabored. documented in this encounter [facility] 05-24-2023 Hospital Discharge instructions Louie Martinez MD - 05/24/2023 8:04 AM EDT Follow up with your primary care doctor. Please return to the Emergency Department for any new or worsening symptoms. documented in this encounter [facility] 05-24-2023 Physician Emergency department Note Images from the original note were not included. [facility] Emergency Department - [place] [facility] Course/Medical Decision Making: Soha Flores, date of 1975, is a 47 y.o. female with no pertinent past medical history who presents to the Emergency Department with/for R knee pain. Upon arrival patient in no acute distress breathing easily on room air ED Course as of 05/24/23 0803 SatMay 24, 2023 0751 On arrival patient is alert and oriented x3 answering questions appropriately all extremity spontaneously. Hemodynamically stable and afebrile. Patient presents with right knee pain. She states that last night she was stepping over her dog and stepped awkwardly. She states that her knee buckled and slid and then she heard a pop . Denies falling or hitting her head. No other injuries. Denies surgeries to this knee. Came into the ED on crutches that she had from a prior leg injury. States that she has no pain at rest and that she has full range of motion but when she tries to bear weight on it she gets 10 out of 10 pain. Denies any fevers, chest pain, shortness of breath. On exam patient is overall well-appearing. Distal pulses and sensation are intact. Negative tenderness throughout the right knee. Full range of passive motion. We will plan for x-ray 0802 XR Knee Right 3 Views Osteoarthritis. 0802 On reassessment patient continues to do well. Given knee immobilizer and prescription for naproxen as well as referral to sports medicine. Patient already has crutches. Given close return precautions. Encouraged to follow up with their PCP. Discharged with instructions to return to the ED with any new or worsening symptoms. Patient amenable to plan Differential diagnosis (including but not limited to): Fracture, contusion, sprain, strain, dislocation, septic joint, compartment syndrome, neurovascular injury IV antibiotics considered but deemed not necessary at this time Medications Given: Medications - No data to display Upon re-examination, the patient looked well and denied any new or worsening symptoms. Patient remained stable throughout the visit. Results were discussed with the patient and family . Patient and family given the opportunity to ask questions. Patient discharged with instructions to return to the emergency department with any new worsening symptoms Patient amenable to plan Consults: none Disposition: DC Chief Complaint: Patient presents with Chief Complaint Patient presents with Knee Injury HPI Soha Flores, date of 1975, is a 47 y.o. female with no pertinent past medical history who presents to the Emergency Department with/for R knee pain. Patient states that last night she was stepping over her dog and stumbled. She states that she twisted her knee and then she heard a pop . Denies falling or hitting her head. States that she has pain with weightbearing. Full range of motion. No prior surgeries. Denies any fevers, chest pain, shortness of breath Review of Systems Constitutional: Negative for fever. Respiratory: Negative for shortness of breath. Cardiovascular: Negative for chest pain. Gastrointestinal: Negative for abdominal pain. Genitourinary: Negative for dysuria. Musculoskeletal: R knee pain All other systems reviewed and are negative. Physical Exam Vitals and nursing note reviewed. Constitutional: General: She is not in acute distress. HENT: Head: Atraumatic. Eyes: Extraocular Movements: Extraocular movements intact. Pupils: Pupils are equal, round, and reactive to light. Cardiovascular: Rate and Rhythm: Regular rhythm. Pulmonary: Effort: Pulmonary effort is normal. No respiratory distress. Abdominal: General: There is no distension. Palpations: Abdomen is soft. Tenderness: There is no abdominal tenderness. Musculoskeletal: General: No signs of injury. Neurological: General: No focal deficit present. Mental Status: She is alert and oriented to person, place, and time. Mental status is at baseline. Psychiatric: Mood and Affect: Mood normal. Vitals: Vitals: 05/24/23 0733 BP: (!) 165/100 Pulse: 96 Resp: 16 Temp: 98.4 F (36.9 C) SpO2: 98% Past Medical History: Past Medical History: Diagnosis Date Breast cancer (HCC) 2018 DM II (diabetes mellitus, type II), controlled (HCC) H/O total thyroidectomy Heart murmur Hypertension Thyroid cancer (HCC) 2011 TIA (transient ischemic attack) 2011 Past Surgical History: Past Surgical History: Procedure Laterality Date BREAST LUMPECTOMY Left 2019 TONSILLECTOMY TOTAL THYROIDECTOMY 2011 Family History: History reviewed. No pertinent family history. Social History: Social History Socioeconomic History Marital status: Spouse name: None Number of children: None Years of education: None Highest education level: None Occupational History None Tobacco Use Smoking status: Never Smokeless tobacco: Never Vaping Use Vaping Use: Never used Substance and Sexual Activity Alcohol use: Not Currently Drug use: Not Currently Sexual activity: None Other Topics Concern None Social History Narrative None Social Determinants of Health Financial Resource Strain: Not on file Food Insecurity: No Food Insecurity (05/24/2023) [facility] Brief Food Brief social Worry about food: Not on file Brief social Food run out: Not on file Transportation Needs: No Transportation Needs (05/24/2023) [facility] Brief Transportation Brief social Transport to appt: Not on file Brief social Transport to work: Not on file Physical Activity: Not on file Stress: Not on file Social Connections: Not on file Intimate Partner Violence: Not on file Housing Stability: Low Risk (05/24/2023) [facility] Brief Housing Brief social Pay for mortgage/rent: Not on file Brief social: Place to sleep: Not on file Allergies: Not on File Review of patient's records reviewed by me during this visit Diagnostics: Labs: Labs Reviewed - No data to display Labs reviewed and interpreted by me. Radiology: Personal review of imaging conducted and agree with radiology's findings XR Knee Right 3 Views Final Result Osteoarthritis. Louie Martinez MD 05/24/23, 8:03 AM [facility] Emergency Phys[facility] This note was partially generated using [employer] Dictation system, and there may be some incorrect words, spellings, and punctuation that were not noted in checking the note before saving. Louie Martinez MD 05/24/23 0803 [facility] 05-24-2023 Emergency department Triage note Patient ambulates to room 2 with crutches with complaints of right knee pain after an injury last night. Patient was stepping over her dog and twisted her knee, states she heard a pop noise. Patient states she has unable to put any weight on her knee. Patient rates pain 0/10 unless she puts weight on her knee and the pain increases to a 9/10. Patient alert and oriented, skin PWD, respirations easy and unlabored. [facility] 01-30-2023 Note HNO ID: [id number] Author: Osmani Davies, DO Service: ? Author Type: Physician Type: Progress Notes Filed: 01/30/2023 9:27 AM Note Text: HPI: Soha Flores is a 47 year old female established patient presents for New of the Left Ankle pain started 1 month ago, worsened in the last 2 weeks. She was walking and twisted her ankle. She has had an on going problem with her left ankle since she was 18, she said she has sprained it a lot since then. 2/10 on a pain scale. Certain movement/ being on her feet worsens her pain. Patient treating with ice, tylenol as needed, ankle brace, range of motion exercises. She states she feels like her muscle is getting ripped off the bone. Pain Scales: Verbal (Numeric Rating or Visual Analog Scale) Pain Level: 2 Pain Location: Ankle-Left Description: Sharp Duration Amount of Time: 1 Duration Units: Months Frequency: Continuous Intervention/Comfort measure: Cold, Medication Current Outpatient Medications Medication Sig Dispense Refill diclofenac, EC, (VOLTAREN) 75 mg EC tablet Take 1 tablet by mouth twice daily. fluconazole (DIFLUCAN) 150 mg tablet TAKE 1 TABLET BY MOUTH ONCE DAILY FOR ONE DOSE hydroCHLOROthiazide 12.5 mg capsule Take 12.5 mg by mouth every morning. JARDIANCE 25 mg tablet Take 25 mg by mouth once daily. cetirizine (ZYRTEC) 10 mg tablet Take 10 mg by mouth as needed. fluticasone (FLONASE) 50 mcg/actuation nasal spray 1 [employer] as needed. ondansetron orally disintegrating (ZOFRAN ODT) 8 mg disintegrating tablet 8 mg as needed. aspirin, enteric coated (ASPIRIN, ENTERIC COATED) 81 mg EC tablet Take 81 mg by mouth once daily. Cholecalciferol, Vitamin D3, 25 mcg (1,000 unit) cap Take 1,000 Units by mouth once daily. hydrOXYzine HCl (ATARAX) 25 mg tablet Take 25 mg by mouth every 8 hours as needed. levothyroxine (SYNTHROID) 200 mcg tablet Take 200 mcg by mouth once daily. metoprolol succinate ER (TOPROL XL) 100 mg Take 100 mg by mouth once daily. JANUVIA 100 mg tablet Take 100 mg by mouth once daily. VITAMIN B COMPLEX ORAL Take 1 tablet by mouth once daily. Vjtiy-1-DRM-EPA-Fish Oil 300-1,000 mg cap Take 1 capsule by mouth once daily. metFORMIN ER (GLUCOPHAGE XR) 750 mg 24 hr tablet Take 750 mg by mouth twice daily. (Patient not taking: Reported on 01/30/2023) triamcinolone (KENALOG) 0.025 % cream Apply 1 application to affected area as needed. (Patient not taking: Reported on 01/30/2023) No current facility-administered medications for this visit. ALLERGIES Allergen Reactions Hydrocodone Itching Phenylpropanolamine Itching HISTORIES PAST MEDICAL HISTORY Diagnosis Date Diabetes (HCC) Hypertension Hypothyroidism Malignant neoplasm (HCC) of lower inner quadrant of left female breast Migraine Skin cancer Thyroid cancer (HCC) TIA (transient ischemic attack) PAST SURGICAL HISTORY Procedure Laterality Date ABLATION uterine BREAST LUMPECTOMY HX Left ORAL SURGERY PROCEDURE wisdom teeth extraction TONSILLECTOMY AND ADENOIDECTOMY HX Social History Tobacco Use Smoking status: Former Smokeless tobacco: Never Substance Use Topics Alcohol use: Not Currently Drug use: Never FAMILY HISTORY Problem Relation Age of Onset Cancer Mother Diabetes Father Cancer Father Hypertension Father Diabetes Sister Review of Systems Constitutional: Negative. HENT: Negative. Eyes: Negative. Respiratory: Negative. Cardiovascular: Negative. Gastrointestinal: Negative. Genitourinary: Negative. Musculoskeletal: Negative. Skin: Negative. Neurological: Negative. Endo/Heme/Allergies: Negative. Psychiatric/Behavioral: Negative. Exam: BP 128/72 Pulse 79 Ht 175.3 cm (5' 9 ) Wt 97.5 kg (215 lb) BMI 31.75 kg/m? BMI 31.75 kg/(m2) Const: Appears well developed and well nourished. No signs of acute distress present. Facial expression appears pleasant. CV: Extremities: No clubbing, cyanosis or edema. +2 distal pulses throughout Skin: No erythema, petechiae, rash. Neuro: Alert and oriented x3. Reflexes: DTRs are 2+ bilaterally. No deficits noted. Left Ankle Exam Tenderness The patient is experiencing tenderness in the ATF, CF and lateral malleolus. Swelling: mild Range of Motion Dorsiflexion: normal Plantar flexion: normal Eversion: normal Inversion: normal Muscle Strength Dorsiflexion: 5/5 Plantar flexion: 5/5 Anterior tibial: 5/5 Posterior tibial: 5/5 Gastrocsoleus: 5/5 Peroneal muscle: 4/5 Tests Anterior drawer: 1+ Varus tilt: negative Other Erythema: absent Scars: absent Sensation: normal Pulse: present Comments: Mild inversion plantarflexion test. Negative eversion dorsiflexion test. Negative talus tilt bilateral. Recent Results (from the past 36 hour(s)) XR ANKLE GENERAL 3V AP/LAT/OBL LEFT Impression Left ankle x-ray x3 view shows arthritic changes to the lateral and medial malleolus talus joint. Old fracture noted t (more content not included)... [facility] 01-30-2023 Instructions Danay Bajwa MA - 01/30/2023 9:29 AM EDT Ice left lateral ankle 3-4 times a day for 20 minutes. Ibuprofen 2-3 tablets (400-600mg) every 8 hours/Tylenol as needed for breakthrough pain. Home exercise program for ankle range of motion and strengthening twice daily. Ankle lace up brace was strong supportive shoe for the next few weeks. Recommend wearing an ankle lace up brace in the future with uneven ground or long standing walking activities. Formal physical therapy to work on ankle strengthening and joint balance to prevent further ankle sprain. Follow up after therapy documented in this encounter [facility] 01-30-2023 History of Present illness Narrative HPI: Soha Flores is a 47 year old female established patient presents for New of the Left Ankle pain started 1 month ago, worsened in the last 2 weeks. She was walking and twisted her ankle. She has had an on going problem with her left ankle since she was 18, she said she has sprained it a lot since then. 2/10 on a pain scale. Certain movement/ being on her feet worsens her pain. Patient treating with ice, tylenol as needed, ankle brace, range of motion exercises. She states she feels like her muscle is getting ripped off the bone. Pain Scales: Verbal (Numeric Rating or Visual Analog Scale) Pain Level: 2 Pain Location: Ankle-Left Description: Sharp Duration Amount of Time: 1 Duration Units: Months Frequency: Continuous Intervention/Comfort measure: Cold, Medication Current Outpatient Medications Medication Sig Dispense Refill diclofenac, EC, (VOLTAREN) 75 mg EC tablet Take 1 tablet by mouth twice daily. fluconazole (DIFLUCAN) 150 mg tablet TAKE 1 TABLET BY MOUTH ONCE DAILY FOR ONE DOSE hydroCHLOROthiazide 12.5 mg capsule Take 12.5 mg by mouth every morning. JARDIANCE 25 mg tablet Take 25 mg by mouth once daily. cetirizine (ZYRTEC) 10 mg tablet Take 10 mg by mouth as needed. fluticasone (FLONASE) 50 mcg/actuation nasal spray 1 [place] as needed. ondansetron orally disintegrating (ZOFRAN ODT) 8 mg disintegrating tablet 8 mg as needed. aspirin, enteric coated (ASPIRIN, ENTERIC COATED) 81 mg EC tablet Take 81 mg by mouth once daily. Cholecalciferol, Vitamin D3, 25 mcg (1,000 unit) cap Take 1,000 Units by mouth once daily. hydrOXYzine HCl (ATARAX) 25 mg tablet Take 25 mg by mouth every 8 hours as needed. levothyroxine (SYNTHROID) 200 mcg tablet Take 200 mcg by mouth once daily. metoprolol succinate ER (TOPROL XL) 100 mg Take 100 mg by mouth once daily. JANUVIA 100 mg tablet Take 100 mg by mouth once daily. VITAMIN B COMPLEX ORAL Take 1 tablet by mouth once daily. Ivtxy-0-WPG-EPA-Fish Oil 300-1,000 mg cap Take 1 capsule by mouth once daily. metFORMIN ER (GLUCOPHAGE XR) 750 mg 24 hr tablet Take 750 mg by mouth twice daily. (Patient not taking: Reported on 01/30/2023) triamcinolone (KENALOG) 0.025 % cream Apply 1 application to affected area as needed. (Patient not taking: Reported on 01/30/2023) No current facility-administered medications for this visit. ALLERGIES Allergen Reactions Hydrocodone Itching Phenylpropanolamine Itching HISTORIES PAST MEDICAL HISTORY Diagnosis Date Diabetes (HCC) Hypertension Hypothyroidism Malignant neoplasm (HCC) of lower inner quadrant of left female breast Migraine Skin cancer Thyroid cancer (HCC) TIA (transient ischemic attack) PAST SURGICAL HISTORY Procedure Laterality Date ABLATION uterine BREAST LUMPECTOMY HX Left ORAL SURGERY PROCEDURE wisdom teeth extraction TONSILLECTOMY AND ADENOIDECTOMY HX Social History Tobacco Use Smoking status: Former Smokeless tobacco: Never Substance Use Topics Alcohol use: Not Currently Drug use: Never FAMILY HISTORY Problem Relation Age of Onset Cancer Mother Diabetes Father Cancer Father Hypertension Father Diabetes Sister Review of Systems Constitutional: Negative. HENT: Negative. Eyes: Negative. Respiratory: Negative. Cardiovascular: Negative. Gastrointestinal: Negative. Genitourinary: Negative. Musculoskeletal: Negative. Skin: Negative. Neurological: Negative. Endo/Heme/Allergies: Negative. Psychiatric/Behavioral: Negative. Exam: BP 128/72 Pulse 79 Ht 175.3 cm (5' 9 ) Wt 97.5 kg (215 lb) BMI 31.75 kg/m BMI 31.75 kg/(m^2) Const: Appears well developed and well nourished. No signs of acute distress present. Facial expression appears pleasant. CV: Extremities: No clubbing, cyanosis or edema. +2 distal pulses throughout Skin: No erythema, petechiae, rash. Neuro: Alert and oriented x3. Reflexes: DTRs are 2+ bilaterally. No deficits noted. Left Ankle Exam Tenderness The patient is experiencing tenderness in the ATF, CF and lateral malleolus. Swelling: mild Range of Motion Dorsiflexion: normal Plantar flexion: normal Eversion: normal Inversion: normal Muscle Strength Dorsiflexion: 5/5 Plantar flexion: 5/5 Anterior tibial: 5/5 Posterior tibial: 5/5 Gastrocsoleus: 5/5 Peroneal muscle: 4/5 Tests Anterior drawer: 1+ Varus tilt: negative Other Erythema: absent Scars: absent Sensation: normal Pulse: present Comments: Mild inversion plantarflexion test. Negative eversion dorsiflexion test. Negative talus tilt bilateral. Recent Results (from the past 36 hour(s)) XR ANKLE GENERAL 3V AP/LAT/OBL LEFT Impression Left ankle x-ray x3 view shows arthritic changes to the lateral and medial malleolus talus joint. Old fracture noted to the distal tip of the lateral malleolus with resultant spurring. Mild joint space narrowing between the tibial talus joint mortise view. No acute fracture. No loose body. ASSESSMENT/PLAN: 1. Strain of left ankle, initial encounter - ICD9: 845.00, ICD10: S96.912A (primary diagnosis) Ice left lateral ankle 3-4 times a day for 20 minutes. Ibuprofen 2-3 tablets (400-600mg) every 8 hours/Tylenol as needed for breakthrough pain. Home exercise program for ankle range of motion and strengthening twice daily. Ankle lace up brace was strong supportive shoe for the next few weeks. Recommend wearing an ankle lace up brace in the future with uneven ground or long standing walking activities. Formal physical therapy to work on ankle strengthening and joint balance to prevent further ankle sprain. Follow up after therapy 2. Sprain of left ankle, unspecified ligament, initial encounter - ICD9: 845.00, ICD10: S93.402A 3. Acute left ankle pain - ICD9: 719.47, ICD10: M25.572 - XR ANKLE GENERAL 3V AP/LAT/OBL LEFT Osmani Davies DO The information in this document was created by the director of graduate medical education. Pam Davies have reviewed and approved this document for accuracy. Note: This dictation was created with the assistance of voice recognition software. Phonetic and/or minor grammatical errors may exist. documented in this encounter [facility] Injury of right knee, initial encounter- Primary [facility] Primary osteoarthritis of right knee- Primary Primary localized osteoarthrosis, lower leg Effusion of right knee Effusion of lower leg joint [facility] Diagnosis Primary osteoarthritis of right knee- Primary Primary localized osteoarthrosis, lower leg [facility] Diagnosis Primary osteoarthritis of right knee- Primary Primary localized osteoarthrosis, lower leg Chronic pain of right knee Knee stiffness, right Muscle weakness Muscle weakness (generalized) [facility] Diagnostic Procedure Only (Routine) - Pending Review Specialty Diagnoses / Procedures Referred By Clare tomas Referred To Contact XR IMAGING Diagnoses Acute left ankle pain Procedures XR ANKLE GENERAL 3V AP/LAT/OBL LEFT RADEX ANKLE COMPLETE MINIMUM 3 VIEWS Osmani Davies DO [address] [place] [id number] Xr Imaging Referral ID Status Reason Start Date Expiration Date Visits Requested Visits Authorized [id number] Pending Review Auto-Generat ed Referral 01/30/2023 02/24/2024 1 1 [facility] for referral (narrative)* Consultation (Routine) - Open Specialty Diagnoses / Procedures Referred By Contac t Referred To Contact Orthopedic Surgery Diagnoses Injury of right knee, initial encounter Louie Martinez MD [address] [place] [id number] [facility] [address] [place], [place] [id number] Referral ID Status Reason Start Date Expiration Date Visits Re quested Visits Authorized [id number] Open 05/24/2023 06/24/2024 1 1 [facility] Summary Purpose Family History No Family History Records FoundNo Family History Records FoundNo Family History Records FoundNo Family History Records FoundNo Family History Records Found Advance Directives No Advanced Directives Records FoundNo Advanced Directives Records FoundNo Advanced Directives Records FoundNo Advanced Directives Records FoundNo Advanced Directives Records Found Medications Administered Section Inactive Administered Medications - up to 3 most recent administrations Medication Order MAR Action Action Date Dose Rate Site dexAMETHasone sodium phosphate 2 mg injection (DECADRON) 2 mg, Injection - FOR ORTHO USE ONLY, ONCE, 1 dose, Starting on Sat05/29/23 at 1258, Until Sat05/29/23 at 1258 Given 05/29/2023 12:58 PM EDT 2 mg Knee , Right lidocaine (PF) 20 mg/mL (2 %) 2 mL injection (XYLOCAINE) 2 mL, Injection - FOR ORTHO USE ONLY, ONCE, 1 dose, Starting on Sat05/29/23 at 1258, Until Sat05/29/23 at 1258 Given 05/29/2023 12:58 PM EDT 2 mL Knee , Right triamcinolone acetonide 40 mg injection (KeNALog 40) 40 mg, Injection - FOR ORTHO USE ONLY, ONCE, 1 dose, Starting on Sat05/29/23 at 1258, Until Sat05/29/23 at 1258 Given 05/29/2023 12:58 PM EDT 40 mg Knee , Right Reason for Referral Specialty Diagnoses / Procedures Referred By Clare tomas Referred To Contact [facility] Diagnoses Primary osteoarthritis of right knee Procedures CONSULT TO PHYSICAL THERAPY PHYSICAL THERAPY EVALUATION HIGH COMPLEX 45 MINS Osmani Davies, DO [address] [address] [facility] [place] [address] [place] [address] Referral ID Status Reason Start Date Expiration Date Visits Requested Visits Authorized [id number] Pending Review Auto-Generat ed Referral 3 06/18/2024 1 1 Additional Source Comments INFORMATION SOURCE (unrecogn ized section and content) DATE CREATED AUTHOR AUTHOR'S ORGANIZ ATION 07/12/2020 [facility] DATE CREATED AUTHOR AUTHOR'S ORGANIZ ATION 01/30/2023 [facility] DATE CREATED AUTHOR AUTHOR'S ORGANIZ ATION 05/26/2023 [facility] DATE CREATED AUTHOR AUTHOR'S ORGANIZ ATION 07/25/2023 [facility] Source Comments (unrecognize d section and content) In the event this informatio n is protected by the Federal Confidentiality of Alcohol and Drug Abuse Patient Records regulations: The Federal rules restrict any use of the information to criminally investigate or prosecute any alcohol or drug abuse patient.[facility] the event this information is protected by the Federal Confidentiality of Alcohol and Drug Abuse Patient Records regulations: The Federal rules restrict any use of the information to criminally investigate or prosecute any alcohol or drug abuse patient.[facility] the event this information is protected by the Federal Confidentiality of Alcohol and Drug Abuse Patient Records regulations: The Federal rules restrict any use of the information to criminally investigate or prosecute any alcohol or drug abuse patient.[facility] the event this information is protected by the Federal Confidentiality of Alcohol and Drug Abuse Patient Records regulations: The Federal rules restrict any use of the information to criminally investigate or prosecute any alcohol or drug abuse patient.[facility] the event this information is protected by the Federal Confidentiality of Alcohol and Drug Abuse Patient Records regulations: The Federal rules restrict any use of the information to criminally investigate or prosecute any alcohol or drug abuse patient.[facility] the event this information is protected by the Federal Confidentiality of Alcohol and Drug Abuse Patient Records regulations: The Federal rules restrict any use of the information to criminally investigate or prosecute any alcohol or drug abuse patient.[facility] the event this information is protected by the Federal Confidentiality of Alcohol and Drug Abuse Patient Records regulations: The Federal rules restrict any use of the information to criminally investigate or prosecute any alcohol or drug abuse patient.[facility] Reason for Visit (unrecogniz ed section and content) Reason Comments Knee Injury Reason Comments New Reason Comments Established Patient Follow Up Reason Comments Physical Therapy Specialty Diagnoses / Procedures Referred By Clare tomas Referred To Contact [facility] Diagnoses Primary osteoarthritis of right knee Procedures CONSULT TO PHYSICAL THERAPY PHYSICAL THERAPY EVALUATION HIGH COMPLEX 45 MINS Osmani Davies DO [address] [place] [id number] [facility] [place] [address] [place] [address] Referral ID Status Reason Start Date Expiration Date Visits Requested Visits Authorized [id number] Authorized Auto-Generat ed Referral 07/29/2022 07/28/2023 30 30 Care Teams (unrecognized sec tion and content) Ornamenter Hand Relationship Specialty Start Date End Date Inessa Gould APRN PCP - General 07/10/12 01/25/13 Felisa Butterfield CNP [address] [place] [address] PCP - General Family Medicine 03/08/20 Ornamenter Hand Relationship Specialty Start Date End Date Felisa Butterfield CNP [address] [place] [address] PCP - General Family Medicine 03/08/20 Ornamenter Hand Relationship Specialty Start Date End Date Felisa Butterfield, EMPLOYEE COUNSELOR [employer] [address] [place] [address] PCP - General Nurse Practitioner[facility] 05/24/23 Ornamenter Hand Relationship Specialty Start Date End Date Felisa Butterfield CNP [address] [place] [address] PCP - General [facility] 03/08/20 Ornamenter Hand Relationship Specialty Start Date End Date Felisa Butterfield CNP [address] [place] [address] PCP - [facility] 03/08/20 Ornamenter Hand Relationship Specialty Start Date End Date Felisa Butterfield CNP [address] [place] [address] PCP - General [facility] 03/08/20 FOR RECORDS PERTAINING TO PATIENTS WHO ARE OR HAVE BEEN ENROLLED IN A CHEMICAL DEPENDENCY/SUBSTANCEABUSE PROGRAM, SOME INFORMATION MAY BE OMITTED. This clinical summary was aggregated from multiple sources. Caution should be exercised in using it in the provision of clinical care. This summary normalizes information from multiple sources, and as a consequence, information in this document may materially change the coding, format and clinical context of patient data. In addition, data may be omitted in some cases. CLINICAL DECISIONS SHOULD BE BASED ON THE PRIMARY CLINICAL RECORDS. [facility] [employer], [facility]. provides no warranty or guarantee of the accuracy or completeness of information in this document.
[2023-07-30 06:33] LABS: Internal QC Validated? YES +Cl - CLEAR BKGD; Pregnancy, Urine Negative Negative
[2023-07-30 06:37] LABS: Bedside Glucose 239 mg/dL (74-106)
[2023-07-30] MEDS: Gabapentin 600 MG Tablet PO (06:41)
[2023-07-30] MEDS: Acetaminophen 500 MG Tablet 1000 MG PO ×2 (06:42→13:07)
[2023-07-30] MEDS: Celecoxib 200 MG Capsule 400 MG PO ×2 (06:43→06:44)
[2023-07-30] MEDS: dexAMETHasone 4 MG/ML Vial 8 MG IV (06:44)
[2023-07-30 06:45] LABS: Hematocrit 43.1 % (37-47); Hemoglobin 13.9 g/dL (12.0-15.0); Mean Corp Hgb Conc 32.3 g/dL (32-36); Mean Corpuscular Hgb 28.4 pg (27.0-32.0); Mean Corpuscular Volume 88.1 fL (81-99); Mean Platelet Vol. 10.7 fl (6.2-12.0); Platelet Count 236 K/mm3 (150-450); RBC Distribution Width CV 13.1 % (11.6-14.6); RBC Distribution Width SD 42.5 fl (35.1-43.9); Red Blood Count 4.89 M/mm3 (4.2-5.4)
[2023-07-30] MEDS: Insulin Lispro 100 UNIT/ML INSULN.PEN SC ×2 (06:45→11:24)
--- NOTE | 2023-07-30 06:56 | HP.PCM_ITS ---
History and Physical Date of Admission: 07/30/23 Intake Vital Signs 04/22/2310:53 05/23/2308:32 07/09/2311:05 07/09/2311:10 Height 5 ft 9 in 5 ft 9 in 5 ft 9 in 5 ft 9 in Weight: 207 lb 2 oz 208 lb 4 oz 208 lb 4 oz BMI 30.6 30.7 30.7 BP 118/82 H 118/78 135/88 H Blood Pressure Location Rt brachial Position Sitting Respiration 18 Pulse 80 Pulse Source Monitor Temp 98.0 F Pulse Oximetry (%) 97 Oxygen Delivery Method room air Intake Visit Reasons: [facility] Forensic Photographer Required: No Is patient in pain?: No Allergies hydrocodone [From Hycomine (hydrocodone-PPA)] Adverse Reaction (Mild, Verified 07/09/23 11:10) Itchingmetformin Adverse Reaction (Mild, Verified 07/09/23 11:10) Diarrhea Medications vitamin B complex 1 ea PO DAILY 02/17/19 [History Confirmed 07/09/23] cholecalciferol (vitamin D3) 25 mcg (1,000 unit) capsule 1,000 unit PO DAILY 06/08/19 [History Confirmed 07/09/23] aspirin 81 mg tablet,delayed release 81 mg PO DAILY 04/18/20 [History Confirmed 07/09/23] diclofenac sodium 75 mg tablet,delayed release 75 mg PO BID 03/02/21 [History Confirmed 07/09/23] blood sugar diagnostic #100 ea 04/18/21 [Rx Confirmed 07/09/23] blood-glucose meter (OneTouch Verio Flex Meter) #1 ea 04/19/21 [Rx Confirmed 07/09/23] OneTouch Verio test strips (blood sugar diagnostic) #200 ea 06/09/21 [Rx Confirmed 07/09/23] Jardiance 25 mg tablet (empagliflozin) 25 mg PO DAILY #90 tabs 02/01/23 [Rx Confirmed 07/09/23] cetirizine 10 mg tablet 10 mg PO DAILY PRN 04/04/23 [History Confirmed 07/09/23] levothyroxine 200 mcg tablet 200 mcg PO .COMPLEX #96 tabs 05/23/23 [Rx Confirmed 07/09/23] metoprolol succinate 100 mg tablet,extended release 24 hr 50 mg PO QHS 05/23/23 [History Confirmed 07/09/23] dulaglutide 3 mg/0.5 mL subcutaneous pen injector (Trulicity) 3 mg (0.5 mL) subcut QWEEK #2 mL 06/12/23 [Rx Confirmed 07/09/23] misoprostol 200 mcg tablet (Cytotec) See Rx Instructions .Route .COMPLEX #4 tabs 07/09/23 [Rx Confirmed 07/09/23] Post menopausal: No Patient : No : No PFSH Medical History Arthritis Breast cancer, left Cancer Chronic headache Diabetes Former smoker Gastric reflux H/O emotional problems H/O: pneumonia History of echocardiogram History of irregular heartbeat History of malignant neoplasm of skin HTN (hypertension) Loud snoring Metabolic syndrome X Murmur, cardiac Neuropathy Obesity PORT PLACEMENT Thyroid cancer Thyroid disease TIA (transient ischemic attack) Wears glasses Surgical History History of breast biopsy (~12/2018) History of endometrial ablation History of removal of Port-a-Cath History of tonsillectomy Hx of surgical procedure S/P lumpectomy, left breast (~02/24/19) S/P thyroidectomy Status post left breast lumpectomy (~12/2018) Family History Mother Breast cancerGrandmother Cervical cancer Breast cancerSister Thyroid cancerUnknown Diabetes Arthritis Hyperlipidemia Hypertension Thyroid disorder CVA (cerebral vascular accident)Other Vocal cord cancer Social History Smoking Status: Former smoker Tobacco: How many years used: 22 second hand exposure: No alcohol intake: never substance use type: does not use caffeine: Yes what type of physical activity do you participate in: walking seatbelt use: always do you feel safe at home: Yes 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 Details: OC LEON is a 47 year old who presents for preop for hysterectomy. she has had persistent PMB and has a history of breast cancer. unable to perform biopsy of uterine lining due to stenosis. Uterus measures 8.6 x 4.2 x 5.6 cm and is anteverted. Multiple nabothian cysts. Endometrium measures approximately 6 mm in diameter and appears to be somewhat ill-defined. Heterogeneous uterine echogenicity which may represent diffuse fibroid involvement or adenomyosis. Focal 13 mm fibroid noted within the posterior aspect of the lower uterine segment. Female Reproductive History Menopausal Symptoms: No night sweats History 3 Elective abortions Hx Para 3 Spontaneous abortions Hx # Term Pregnancies Ectopic pregnancies Hx # Pregnancies Multiple births # of living children Past Pregnancies Del. Date Name GA/Weeks Outcome Route Bth Weight Infant Gen Labor Lgth Anesthesia Del Locatn Provider FOB Unknown 2006 Mariela live - full term Unknown 2008 Gray live - full term Unknown 2012 Matt live - full term ROS Const Constitutional: Denies fatigue, night sweats, weight gain or weight loss ENT ENT: Reports system reviewed and no additional complaints, except as documented Cardio Card: Denies chest pain Resp Resp: Denies cough or dyspnea GI GI: Reports as per HPI; Denies abdominal pain, constipation, nausea or vomiting : Reports urinary incontinence; Denies nipple discharge, urinary frequency, urinary hesitancy, urinary urgency, vaginal discharge, vaginal dryness, vaginal odor or vaginal pruritus Musc Musc: Denies arthralgias, back pain or muscle weakness Skin Skin/Breast: Denies alopecia, change in hair, dry skin, breast mass, breast pain, breast skin changes or nipple discharge Neuro Neuro: Reports system reviewed and no additional complaints, except as documented Psych Psych: Reports system reviewed and no additional complaints, except as documented Endo Endo: Denies cold intolerance, excessive sweating, heat intolerance or polydipsia Axel/Lymph Hematologic/Lymphatic: Denies easy bleeding, Denies easy bruising and Denies lymphadenopathy Exam Const General: cooperative, healthy appearing, comfortable and no acute distress Orientation: alert [facility] Head: normal to inspection and normocephalic Ears: hearing grossly normal bilaterally and external ears normal Nose: external nose normal and nares normal Face and sinus: normal facial exam Neck Neck: normal visual inspection and no lymphadenopathy Thyroid: thyroid normal Chest Chest palpation & inspection: normal inspection of the chest Resp Effort & Inspection: normal respiratory effort Auscultation: clear to auscultation bilaterally Cardio Rate: regular rate Rhythm: regular rhythm Heart Sounds: S1 normal and S2 normal GI Inspection: normal to inspection and non-distended Palpation: soft and no hepatosplenomegaly Musc Other: gross motor intact no deficits, full bilateral strength Skin General: no rashes or lesions noted Neuro General: patient alert, patient awake, moves all extremities and no focal motor deficits Motor: muscle tone normal throughout Extrem General: normal to inspection and no pedal edema Psych Appearance: grossly normal Mental Status: mental status grossly normal Affect: normal affect Speech and Movement: speech and movement normal Coding Level of Care Code No Charge Diagnoses Malignant neoplasm of lower-inner quadrant of left female breast, unspecified estrogen receptor status C50.312 Breast location: lower inner quadrant of breast Estrogen receptor status: unspecified Postmenopausal bleeding N95.0 Assessment and Plan Assessment and Plan (1) Cancer of left female breast : Status: Chronic Qualifiers: Breast location: lower inner quadrant of breast Estrogen receptor status: unspecified Qualified Code(s): C50.312 - Malignant neoplasm of lower- inner quadrant of left female breast Comment: discussed risk reducing oophorectomy at time of hysterectomy, approved by ifrah chaudhary. (2) Postmenopausal bleeding: Status: Acute Comment: 2021 failed EMB. US lining was 4mm. Recurrent bleeding 11/2022:rpt US. Adenomyosis vs postablation syndrome. Lining 6mm. discussed options of d and c hystoersocpy vs LAVH BSO for persistent irregular bleeding, patient to decide. Medications: Refilled misoprostol (Cytotec) 200 mcg 2 tab po night prior to procedure and repeat 12 hour later 4 tabs 0RF Plan After discussing the patient's diagnosis and treatment plan options, patient wishes to proceed with surgical management. I have discussed with the patient the risks, benefits, and alternatives of the procedure which include but are not limited to risks of anesthesia, bleeding, infection, possible damage to bowel, bladder, or surrounding vasculature which could lead to additional surgery to evaluate any complications. Patient agrees to procedure and wishes to proceed. ACOG/uptodate references given for additional information regarding procedure. UPDATE- I have seen the patient and performed any clinically relevant updates to the history and physical exam. Jaymie Kemp MD
[2023-07-30] MEDS: Scopolamine 1mg/72hr Patch 1 PATCH TD (06:59)
[2023-07-30] MEDS: Enoxaparin 40 MG/0.4 ML Syringe SC (06:59)
[2023-07-30] MEDS: Phenazopyridine 95 MG Tablet 190 MG PO (06:59)
[2023-07-30] MEDS: Lactated Ringers 1,000 ML 40 ML IV ×2 (07:08→11:53)
[2023-07-30 07:10] LABS: AST(SGOT) 21 U/L (15-37); Alanine Aminotransfer ALT/SGPT 44 U/L (13-56); Albumin, Serum 3.6 g/dL (3.2-5.0); Alkaline Phosphatase 54 U/L (45-117); Anion Gap 8 (5-15); BUN 14 mg/dL (7-18); BUN/Creat Ratio 18.4 RATIO (10-20); Calcium,Total 8.9 mg/dL (8.5-10.1); Chloride 105 mmol/L (98-107); Creatinine, Serum 0.76 mg/dL (0.55-1.02); EST Glomerular Filtration Rate 86 mL/min (>60); Est Glom Filt Rate - Afr Amer 104 mL/min (>60); Estimated Creatinine Clearance 95.63 ml/min; Globulin 3.5 g/dL (2.2-4.2); Glucose 240 mg/dL (74-106); Potassium 3.6 mmol/L (3.5-5.1); Protein, Total 7.1 g/dL (6.4-8.2); Sodium Level 138 mmol/L (136-145); Thyroid Stim Hormone (TSH) 4.17 uIU/mL (0.358-3.74)
[2023-07-30] MEDS: Magnesium 1 GM over 15 mins IV (07:35)
[2023-07-30] MEDS: Cefazolin 2 GM in 0.9% Normal Saline (100mL Bag) 100 ML IV (07:49)
[2023-07-30 09:01] LABS: Bedside Glucose 147 mg/dL (74-106)
[2023-07-30] MEDS: Bupivacaine 0.25% 30 ML Vial (10:00)
[2023-07-30] MEDS: Vasopressin 20 UNITS/ML Vial (10:00)
--- NOTE | 2023-07-30 11:21 | PCM.OPRPT ---
Problems Associated Problem List Diagnoses (1) S/P laparoscopic assisted vaginal hysterectomy (LAVH): (2) Postmenopausal bleeding: (3) Cancer of left female breast : Report of Operation Date of Procedure: 07/30/23 Pre-Operative Diagnosis: see A/P Post-Operative Diagnosis: same Surgery/Procedure Performed:: LAVHBSO cystoscopy Description of Surgical Findings:: thickened vesicouterine tissue, right simple ovarian cyst Surgeon: Jaymie Kemp performance test consultant: Christos Molina Type of Anesthesia: General Specimen's removed: uterus, tubes, ovaries Drains: de la cruz Estimated Blood Loss (mL): 250 Fluids Replaced: crystalloid Description of Procedure: Patient received preoperative antibiotics and SCDs were on preoperatively. Patient was taken back to the operating room and placed in the dorsal lithotomy position. General anesthesia was induced and patient was prepped and draped in normal sterile fashion. Uterine manipulator was placed inside the uterus and De La Cruz catheter placed in the bladder. The umbilicus was grasped with towel clamps and an intraumbilical incision was made after injecting with quarter percent Marcaine and a Veress needle entered into the abdomen confirmed to be intra-abdominal with a low opening pressure. Abdomen was insufflated with CO2 gas and the Veress needle removed and the 5 mm trocar was placed under direct visualization without complication. Right and left lower quadrants were transilluminated and injected with quarter percent Marcaine and 5 mm ports placed under direct visualization. Pelvis was well visualized see operative findings for additional information. Bilateral fallopian tubes and ovaries were identified and transected with the LigaSure device across the IP ligament, and then down to the level of the utero-ovarian ligament which was also transected with the LigaSure device. The broad ligament was opened up by transecting the round ligament bilaterally and skeletonizing the uterine vessels bilaterally and creating a bladder flap using the LigaSure device. thickened tissue was encountered and taken down carefully with the monopolar scissors and with the suction practice coordinator, and ligasure device. The uterine arteries were transected bilaterally with good visualization of the bladder and the ureters were seen to be inferior lateral to the operative area. Attention was then paid to the vaginal portion of the procedure and the cervix was grasped with Stephen clamps and circumferentially injected with dilute vasopressin. A circumferential incision was made and the vaginal mucosa was mobilized off posteriorly and the cul-de-sac entered into sharply and a longneck speculum placed. The anterior cul-de-sac was then identified and entered into sharply. The uterosacral ligaments were clamped cut and suture ligated with 0 Monocryl bilaterally followed by the cardinal ligaments which were clamped cut and suture ligated bilaterally with 0 Monocryl. The uterus serially descended and was removed without difficulty. Pelvic sidewall pedicles were checked and noted to have excellent hemostasis. The vaginal mucosa was reapproximated incorporating the posterior peritoneum. This was reapproximated using 0 Vicryl [id number] sutures. Excellent hemostasis was noted. The cystoscopy was then performed and bilateral ureteral strong spray was noted and the bladder was noted to have no abnormality or lesions seen. De La Cruz catheter was replaced and then attention paid to the abdominal portion of the procedure again. The pelvis and cul-de-sac were well visualized and no significant active bleeding noted but some raw areas were seen on the peritoneum and therefore hemoblast was applied. Pressure was taken down and the areas visualized and noted of excellent hemostasis. All ports were removed under direct visualization without complication and the abdomen was desufflated of air. The instruments were removed from the abdomen and the vaginal sweep was negative. Port sites on the abdomen were closed with 4-0 Monocryl interrupted sutures and Steri's and windows were applied. She was awoken and taken recovery in stable condition. Grafts/Implants Used: none Procedure Start Time: 07:59 Procedure Stop Time: 10:51 Complications none Admit VTE Documentation VTE Present on Admission: No VTE Mechan Device Prophylaxis: SCD's VTE Pharm Prophylaxis ordered?: Yes Multi Select Codes Urinary/Genital Urinary/Genital CPT Codes: 81714 Cystoscopy and 36889 LAVH+BS/O <250gr Uterus
[2023-07-30 11:44] LABS: Bedside Glucose 223 mg/dL (74-106)
[2023-07-30] MEDS: Ketorolac 30 MG/ML Syringe IV (13:07)
[2023-07-30 13:41] LABS: Hemoglobin 13.8 g/dL (12.0-15.0); Mean Corp Hgb Conc 32.1 g/dL (32-36); Mean Corpuscular Hgb 28.4 pg (27.0-32.0); Mean Corpuscular Volume 88.5 fL (81-99); Mean Platelet Vol. 10.6 fl (6.2-12.0); Platelet Count 237 K/mm3 (150-450); RBC Distribution Width CV 13.2 % (11.6-14.6); RBC Distribution Width SD 42.6 fl (35.1-43.9); Red Blood Count 4.86 M/mm3 (4.2-5.4); White Blood Count 11.3 K/mm3 (4.4-11.0)
--- NOTE | 2023-07-30 14:29 | DCINST_ITS ---
Discharge Instructions Diet Discharge Diet: No restrictions Activity May resume sexual activity in: 6 weeks Weight Bearing Status: Full weight bearing Dressing / Incision Call your doctor if your incision/area has: Continuous Slow Oozing, Sudden Increased Bleeding, Increased Pain/ Swelling, Increased Redness and Foul Smelling Discharge Call your doctor if you observe: Fever of 101 or Higher, Using more than 1 pad per hour, Shortness of breath, Chest pain and Uncontrolled pain Suture Line Care: Avoid Pulling/Pushing and Avoid Pinching/Bending Remove Dressing in: 1 week (if present) Cleanse incision/area with: Soap & Water and Keep Dressing Clean & Dry Follow Up Care Please Follow Up With: Jaymie Kemp MD When: Call to make an appointment with your doctor for a postop visit in 2 and 6 weeks. Test Results: Test results from this visit will be discussed in further detail at your follow- up appointment, if applicable. Discharge Plan Admission Attending Provider: Jaymie Kemp Primary Care Provider: QUENTIN ALEXANDER Discharge Orders/Prescriptions Prescriptions: New oxycodone-acetaminophen [Percocet] 5-325 mg tablet 1 tab PO Q6H PRN (Reason: pain) 7 Days Qty: 20 0RF naproxen [naproxen] 500 mg tablet 500 mg PO BID PRN PRN (Reason: Pain) Qty: 30 1RF No Action cholecalciferol (vitamin D3) 1,000 unit capsule 1,000 unit PO DAILY diclofenac sodium 75 mg tablet,delayed release (DR/EC) 75 mg PO BID Patient Comments: TAKE 1 TABLET BY MOUTH TWICE DAILY cetirizine 10 mg tablet 10 mg PO DAILY PRN (Reason: allergy symptoms) Patient Comments: TAKE 1 TABLET BY MOUTH ONCE DAILY (DME) blood sugar diagnostic Strip See Rx Instructions .ROUTE .MEDSUPPLY Qty: 100 3RF Rx Instructions: As directed Jardiance 25 mg tablet 25 mg PO DAILY Qty: 90 2RF metoprolol succinate 100 mg tablet extended release 24 hr 50 mg PO QHS vitamin B complex 1 EACH capsule 1 ea PO DAILY aspirin 81 MG tablet,delayed release (DR/EC) 81 mg PO DAILY levothyroxine 200 mcg capsule 300 mcg PO SCHWAB omega 6-xig-iql-fish oil [Fish Oil] 1,200 (144-216) mg capsule 1 cap PO DAILY misoprostol [Cytotec] 200 mcg tablet 400 mcg PO PRN PRN (Reason: PROCEDURE) Rx Instructions: 200 mcg 2 tab po night prior to procedure and repeat 12 hour later levothyroxine 200 mcg tablet 200 mcg PO .SAMOTUWETHFR Rx Instructions: 200 mcg PO One daily, 1 1/2 on Sundays; Trulicity 3 mg/0.5 mL pen injector 3 mg subcut WE (DME) blood-glucose meter [OneTouch Verio Flex meter] Misc See Rx Instructions .ROUTE .MEDSUPPLY Qty: 1 0RF Rx Instructions: As directed (DME) OneTouch Verio test strips Strip See Rx Instructions .ROUTE .MEDSUPPLY Qty: 200 6RF Rx Instructions: 2 times daily Referrals / Follow Up: Care Physician,No Primary [Non-Staff] - Disposition Disposition (needs filled in before D/C Order can be placed): Home, Self Care
== END 2023-07-30 16:15 | disposition home or self-care (01) ==
LOC: SDC 05:40 → AC 05:41
PROVIDERS: Anesthesiology; Referring Provider Obstetrics & Gynecology; Visit Provider Obstetrics & Gynecology
PROC: 0UT9FZZ Resection of Uterus, Via Natural or Artificial Opening With Percutaneous Endoscopic Assistance (ICD-10-PCS; CPT 58552; principal; 2023-07-30 07:05)
DX: L72.0 Epidermal cyst (principal); E11.40 Type 2 diabetes mellitus with diabetic neuropathy, unspecified; D25.1 Intramural leiomyoma of uterus; N72 Inflammatory disease of cervix uteri; N83.01 Follicular cyst of right ovary; N95.0 Postmenopausal bleeding; I10 Essential (primary) hypertension; E66.9 Obesity, unspecified; E07.9 Disorder of thyroid, unspecified; Z68.30 Body mass index [BMI] 30.0-30.9, adult; Z79.82 Long term (current) use of aspirin; Z79.899 Other long term (current) drug therapy; Z86.73 Personal history of transient ischemic attack (TIA), and cerebral infarction without residual deficits; Z79.84 Long term (current) use of oral hypoglycemic drugs; Z87.891 Personal history of nicotine dependence; Z85.3 Personal history of malignant neoplasm of breast
CPT/HCPCS: 58552; 00840; 80053; 81025; 82962; 83735; 84443; 85027; 86850; 86900; 86901; 88307; 93005; J7120; J2405; J3475

== ENCOUNTER → 2024-03-05 | Outpatient (CLI) | payer MEDICAID, SELFPAY ==
[2022-04-17 09:01] VITALS: BMI 32.5
--- NOTE | 2024-03-05 08:42 | BI_ITS ---
MAMMOGRAPHY - BILATERAL SCREENING 3-D TOMOSYNTHESIS REASON FOR EXAM: Female, 48 years old. h/o breast cancer, annual screening -- please compare to prior PERTINENT HISTORY: No significant family history. TECHNIQUE: 2-D mammograms and 3-D Tomosynthesis of the breast (s) were performed. CAD was performed. COMPARISON: 02/22/2023 FINDINGS: The breast composition is composed of scattered fibroglandular density. Scattered benign calcifications are seen. No dense spiculated masses or suspicious microcalcifications are identified. No architectural distortion is identified. There is no skin thickening or retraction. There has been no significant change since the prior study. No change in lumpectomy changes and scarring in the inferior left breast. BI/SCRN MAMM (CAD)W/ZOE BILAT IMPRESSION: No mammographic signs of malignancy. Routine yearly mammograms recommended. ASSESSMENT CATEGORY: BIRADS Category 1: Negative. A letter regarding these results will be sent to the patient by the facility within 30 days. FOLLOW UP RECOMMENDATION: Yearly follow up mammogram recommended. (A) Approximately 10% of breast cancers are not detected by mammography. A normal mammogram should not delay biopsy of a clinically suspicious abnormality. Electronically Signed: Randy Villaseñor MD at 13:27 EDT ,
== END | disposition home or self-care (01) ==
PROVIDERS: Referring Provider Student in an Organized Health Care Education/Training Program; Visit Provider Student in an Organized Health Care Education/Training Program
DX: Z12.31 Encounter for screening mammogram for malignant neoplasm of breast (principal)
CPT/HCPCS: 77063; 77067

== ENCOUNTER → 2024-06-15 | Outpatient (CLI) | payer MEDICAID, SELFPAY ==
[2022-04-17 09:01] VITALS: BMI 32.5
[2024-06-15 12:50] LABS: Vitamin D,25 Hydroxy 69.4 ng/mL
[2024-06-15 13:01] LABS: Microalbumin,Random Urine 32.4 mg/L (NO RANGE EST.); Microalbumin:Creatinine Ratio 14.9 mg/g CRE (<30 mg/g CRE)
[2024-06-15 13:07] LABS: T4 Free Direct 1.86 ng/dL (0.76-1.46); Thyroid Stim Hormone (TSH) 0.094 uIU/mL (0.358-3.740)
[2024-06-16 16:10] LABS: Anti-Thyroglobulin AB < 1.0 IU/mL (0.0-0.9); Thyroglobulin, Serum Qt. 0.3 ng/mL (1.5-38.5)
== END | disposition home or self-care (01) ==
LOC: BIMLAB 10:03
PROVIDERS: PCP Internal Medicine Endocrinology, Diabetes & Metabolism; Visit Provider Internal Medicine Endocrinology, Diabetes & Metabolism
DX: E11.65 Type 2 diabetes mellitus with hyperglycemia (principal); C73 Malignant neoplasm of thyroid gland; E89.0 Postprocedural hypothyroidism; E55.9 Vitamin D deficiency, unspecified
CPT/HCPCS: 36415; 82043; 82306; 82570; 84432; 84439; 84443; 86800

== ENCOUNTER → 2025-01-11 | Outpatient (CLI) | payer MEDICAID, SELFPAY ==
[2022-04-17 09:01] VITALS: BMI 32.5
== END | disposition home or self-care (01) ==
LOC: BIMLAB 11:31
PROVIDERS: PCP Internal Medicine Endocrinology, Diabetes & Metabolism; Referring Provider Internal Medicine Endocrinology, Diabetes & Metabolism; Visit Provider Internal Medicine Endocrinology, Diabetes & Metabolism
DX: E89.0 Postprocedural hypothyroidism (principal)
CPT/HCPCS: 36415; 84439; 84443

== ENCOUNTER → 2025-03-08 | Outpatient (CLI) | payer MEDICAID, SELFPAY ==
[2022-04-17 09:01] VITALS: BMI 32.5
--- NOTE | 2025-03-08 08:37 | BI_ITS ---
EXAM: SCRN MAMM (CAD)W/ZOE BILAT DATE: 03/08/2025 CLINICAL HISTORY: F, Age 49 y/o , ANNUAL SCREENING MAMMOGRAM TECHNIQUE: SCRN MAMM (CAD)W/ZOE BILAT COMPARISON: Prior exam(s) were compared FINDINGS: TISSUE DENSITY: There are scattered areas of fibroglandular density. Bilateral Breast Mammographic Findings: No suspicious masses, calcifications or other abnormalities are identified. BI/SCRN MAMM (CAD)W/ZOE BILAT IMPRESSION: No mammographic evidence of malignancy in either breast OVERALL FINAL ASSESSMENT BI-RADS 1: NEGATIVE. RECOMMENDATION: Routine annual follow-up in 1 Year A letter with findings and recommendations will be mailed to the patient. Reading Location: [id number]
--- OUTSIDE RECORDS SUMMARY | 2025-03-08 08:58 | XMS RPT_ITS | CCD ---
Author Organization [facility] Care Team Providers Care Embedded Case Manager Name Role Phone Yazmin Looney PRESS PULLER Unavailable Unavailable Dr. Edwin Soria Attending Provider Dr. Sam Benitez Primary Care Provider Dr. Sam Benitez Referring Provider Dr. Michael Osuna Attending Provider Dr. Sam Benitez Primary Care Provider Dr. Sam Benitez Referring Provider Pine HSE ADVISOR, HSE ADVISOR-C Zina Attending Provider Dr. Tanvir Colindres Attending Provider Dr. Edwin Soria Attending Provider FELISA BUTTERFIELD Primary Care Provider Unavailabl e FELISA BUTTERFIELD Referring Provider Unavailable Dr. Rashaun Cooper Attending Provider Dr. Michael Osuna Attending Provider Dr. Michael Osuna Referring Provider CATHERINE FELISA Primary Care Provider Unavailabl e Dr. Edwin Soria Attending Provider Dr. Edwin Soria Referring Provider Dr. Eduard Teixeira Attending Provider [facility] Doctor, Out of Referring Provider Unavailab Dr. Rashaun Van Attending Provider [facility] Doctor, Out of [facility], [facility] Primary Primary Care Provider Unavailable Dr. Latoya Irby Attending Provider Dr. Latoya Irby Referring Provider Dr. Tanvir Colindres Attending Provider Dr. Tanvir Colindres Referring Provider Dr. Tanvir Colindres Other Provider CATHERINE FELISA Primary Care Provider OSMANI DAVIES Attending Unavailable BUTTERFIELD, FELISA R Primary Care Unavailable [place] PRESS PULLER, Felisa R Primary Care Provider [facility] Doctor, Out of Referring Provider Unavailab Dr. Eduard Chawla Attending Provider Dr. Rashaun Cooper Attending Provider Dr. Michael Osuna Attending Provider BUTTERFIELD, FELISA Primary Care Provider Unavailabl e [facility] Doctor, Out of Referring Provider Unavailab Dr. Sam Morley Referring Provider Hortencia HSE ADVISOR, HSE ADVISOR-C Zina Attending Provider Dr. Edwin Soria Attending Provider Care Physician, No Primary Primary Care Provider Unavailable Care Physician, No Primary Referring Provider Un available Pcp WOODS RIDER, No Primary Care Provider Unavailabl e [place] WOODS RIDER PRESS PULLER, Felisa R Primary Care Provider [phone] LOUIE MARTINEZ Attending Unavailable LOUIE MARTINEZ Referring Unavailable FELISA BUTTERFIELD R Primary Care Unavailable LOUIE MARTINEZ Attending Unavailable BUTTERFIELD, FELISA R Primary Care Unavailable Dr. Edwin Soria Attending Provider Care Physician, No Primary Primary Care Provider Unavailable Care Physician, No Primary Referring Provider Un available Dr. Jaymie Kemp Attending Provider [phone] Dr. Rashaun Cooper Attending Provider Dr. Jaymie Kemp Referring Provider Dr. Jaymie Kemp Other Provider FELISA BUTTERFIELD Primary Care Provider Catherine PRESS PULLER, Felisa R Primary Care Provider Dr. Rashaun Cooper MD Primary Care Provider Dr. Rashaun Cooper MD Attending Provider [phone] Rashaun Cooper MD Referring Provider OSMANI DAVIES Attending Unavailable BUTTERFIELD, FELISA R Primary Care Unavailable OSMANI DAVIES Attending Unavailable BUTTERFIELD, FELISA R Primary Care Unavailable Jaymie Kemp Attending Unavailable Kenneth, Rashaun Referring Unavailable Kenneth, Rashaun Primary Care Unavailable Kenneth, Rashaun Attending Unavailable Isckarus, Edwin Attending Unavailable Isckarus, Ranjitour Attending Unavailable VOSLER, LOUIE Primary Care Unavailable VOSLER, LOUIE Referring Unavailable VOSLER, LOUIE Primary Care Unavailable EnrriqueMichael vera Attending Unavailable Kenneth, Rashaun Referring Unavailable Kenneth, Rashaun Primary Care Unavailable Kenneth, Rashaun Attending Unavailable Kenneth, Rashaun Referring Unavailable Kenneth, Rashaun Primary Care Unavailable Kenneth, Rashaun Attending Unavailable Kenneth, Rashaun Primary Care Unavailable Kenneth, Rashaun Attending Unavailable Isckarus, Ranjitour Attending Unavailable Kenneth, Rashaun Consulting Unavailable Tanvir Colindres Referring Unavailable Sam Benitez Primary Care Unavailable Michael Osuan Consulting Unavailable Kenneth, Rashaun Primary Care Unavailable Michael Osuna Attending Unavailable Michael Osuna Referring Unavailable Kenneth, Rashaun Referring Unavailable Isckarus, Edwin Attending Unavailable Kenneth, Rashaun Primary Care Unavailable Allergies Allergy Classification Reported Allergen(s) Gigi rgy Type Date of Onset Reaction(s) Facility metFORMIN (1 source) metFORMIN Drug Allergy 023 Diarrhea [facility] Opioid Agonists (1 source) HYDROcodone Drug Allergy Itching [facility] Phenylpropanolamine (1 source) Phenylpropanolamine Drug Allergy 019 Itching [facility] (20 sources) HYDROcodone; Translations: [HYDROCODONE] Drug Allergy 020 Itching [facility] (11 sources) Phenylpropanolamine; Translations: [PHENYLPROPANOLAMINE] Drug Allergy 019 Itching [facility] (13 sources) metFORMIN; Translations: [METFORMIN] Drug Allergy 023 Diarrhea [facility] (1 source) HYDROcodone Drug Allergy 025 [facility] Repository Medications Current Medications Medication Drug Class(es) Dates Sig (Normalized) Sig (Original) aspirin 81 mg delayed release oral tablet (20 sources) Platelet Aggregation Inhibitor, Nonsteroidal Anti-inflammatory Drug Start: 02-17-2019 take 1 tablet by mouth once daily aspirin, enteric coated (ASPIRIN, ENTERIC COATED) 81 mg EC tablet Take 81 mg by mouth once daily. 02/17/2019 Active Comment on above: Take 81 mg by mouth once daily. Blood Sugar Diagnostic (20 sources) Start: 04-18-2021 Blood Sugar Diagnostic Active 0 .ROUTE .MEDSUPPLY April 18, 2021 9:18am As directed Start: 04-18-2021 Blood Sugar Di agnostic Active 0 .ROUTE .MEDSUPPLY April 18, 2021 10:18am As directed Start: 06-08-2019 End: 04-18-2021 Blood Sugar Diagnostic Disco ntinued 0 .ROUTE .MEDSUPPLY June 08, 2019 12:00am April 18, 2021 9:19am As directed Start: 06-08-2019 End: 04-18-2021 Blood Sugar Diagnostic Disco ntinued 0 .ROUTE .MEDSUPPLY June 08, 2019 1:00am April 18, 2021 10:19am As directed Blood-Glucose Meter (Onetouc h Verio Flex Meter) misc (12 sources) Start: 04-19-2021 Blood-Glucose Meter (Onetouch Verio Flex Meter) misc Active 0 .ROUTE .MEDSUPPLY 1 April 19, 2021 12:00am As directed Start: 04-19-2021 Blood-Glucose Meter (Onetouch Verio Flex Meter) misc Active 0 .ROUTE .MEDSUPPLY April 18, 2021 11:00pm As directed Start: 04-19-2021 Blood-Glucose Meter (Onetouch Verio Flex Meter) misc Active 0 .ROUTE .MEDSUPPLY April 19, 2021 12:00am As directed Blood-Glucose Sensor (Freest yle Ginny 3 Plus Sensor) device (6 sources) Start: 06-15-2024 Blood-Glucose Sensor (Freestyle Ginny 3 Plus Sensor) device Active 0 .Route 12 27June 15, 2024 1:00am As directed Start: 06-15-2024 Blood-Glucose Sensor (Freestyle Ginny 3 Plus Sensor) device Active 0 .Route June 15, 2024 1:00am As directed Start: 05-15-2024 Blood-Glucose Sensor (Freestyle Ginny 3 Plus Sensor) device Active 0 .Route 2 May 15, 2024 12:52pm As directed Start: 05-15-2024 Blood-Glucose Sensor (Freestyle Ginny 3 Plus Sensor) device Active 0 .Route 2 May 15, 2024 12:52pm As directed Start: 05-08-2024 End: 05-15-2024 Blood-Glucose Sensor (Freest yle Ginny 3 Plus Sensor) device Discontinued 0 .Route 2 May 08, 2024 12:00am May 15, 2024 12:52pm As directed Start: 05-08-2024 End: 05-15-2024 Blood-Glucose Sensor (Freest yle Ginny 3 Plus Sensor) device Discontinued 0 .Route 2 May 08, 2024 12:00am May 15, 2024 12:52pm As directed cholecalciferol 0.025 mg oral capsule (20 sources) Vitamin D Start: 06-08-2019 take 1 capsule by mouth once daily Cholecalciferol, Vitamin D3, 25 mcg (1,000 unit) cap Take 1,000 Units by mouth once daily. 06/08/2019 Active Comment on above: Take 1,000 Units by mouth once daily. diclofenac sodium 75 mg delayed release oral tablet (20 sources) Nonsteroidal Anti-inflammatory Drug Start: 11-15-2020 End: 12-28-2024 take 1 tablet by mouth twice daily diclofenac, EC, (VOLTAREN) 75 mg EC tablet Indications: Primary osteoarthritis of right knee Take 1 tablet by mouth two times a day. 60 tablet 1 12/28/2024 Active Start: 11-15-2020 End: 03-02-2021 Diclofenac Sodium 75 mg tabl et,delayed release (DR/EC) Discontinued NMA PO November 15, 2020 12:00am March 02, 2021 8:13am take 75 mg by mouth twice daily DICLOFENAC PO Take 75 mg by mouth two times per day. 0 Active Comment on above: Take 1 tablet by stephen twice daily. Dulaglutide (20 sources) GLP-1 Receptor Agonist Start: 02-02-2025 Dulaglutide (Trulicity) 4.5 mg/0.5 mL pen injector Active 4.5 mg SC EVERY WEEK 6 February 02, 2025 9:33am Start: 12-24-2024 End: 02-02-2025 Dulaglutide (Trulicity) 4.5 mg/0.5 mL pen injector Discontinued 4.5 mg SC EVERY WEEK 6 December 24, 2024 12:00am February 02, 2025 9:33am Start: 12-24-2024 Dulaglutide (T rulicity) 4.5 mg/0.5 mL pen injector Active 4.5 mg SC EVERY WEEK 6 December 24, 2024 12:00am Start: 08-26-2023 End: 12-26-2023 Dulaglutide (Trulicity) 4.5 mg/0.5 mL pen injector Discontinued 4.5 mg SC EVERY WEEK 6 August 26, 2023 1:00am December 26, 2023 9:49am Start: 08-26-2023 End: 12-26-2023 Dulaglutide (Trulicity) 4.5 mg/0.5 mL pen injector Discontinued 4.5 mg SC EVERY WEEK 6 August 26, 2023 1:00am December 26, 2023 9:49am Start: 07-19-2023 End: 08-26-2023 Dulaglutide (Trulicity) 3 mg /0.5 mL pen injector Discontinued 3 mg SC WE July 19, 2023 1:00am August 26, 2023 8:37am Start: 07-19-2023 Dulaglutide (T rulicity) 3 mg/0.5 mL pen injector Active 3 MG SC WE July 19, 2023 12:00am Start: 06-12-2023 End: 07-19-2023 Dulaglutide (Trulicity) 3 mg /0.5 mL pen injector Discontinued 3 mg SC EVERY WEEK 2 June 12, 2023 1:00am July 19, 2023 11:17am Diabetes mellitus Type 2 diabetes mellitus with hyperglycemia Start: 06-12-2023 End: 07-19-2023 Dulaglutide (Trulicity) 3 mg /0.5 mL pen injector Discontinued 3 mg SC EVERY WEEK 2 June 12, 2023 1:00am July 19, 2023 11:17am Start: 06-12-2023 End: 07-19-2023 Dulaglutide (Trulicity) 3 mg /0.5 mL pen injector Discontinued 3 MG SC EVERY WEEK 2 June 12, 2023 12:00am July 19, 2023 10:17am Start: 05-23-2023 TRULICITY 1.5 mg/0.5 mL pen injector 05/23/2023 Active Start: 05-23-2023 End: 06-12-2023 Dulaglutide (Trulicity) 1.5 mg/0.5 mL pen injector Discontinued 1.5 mg SC EVERY WEEK 2 3 May 23, 2023 12:00am June 12, 2023 5:24pm Start: 02-05-2023 End: 05-23-2023 Dulaglutide (Trulicity) 0.75 mg/0.5 mL pen injector Discontinued 0.75 mg SC EVERY WEEK February 25, 2023 12:00am April 04, 2023 10:53am Dulaglutide (SERENA LICITY) 1.5 MG/0.5ML SOPN Inject 1.5 mg into the skin every 7 days. 1 box = 2 ml = 4 pens 0 Active DULoxetine 20 mg delayed release oral capsule (2 sources) Serotonin and Norepinephrine Reuptake Inhibitor Start: 08-27-2022 take 20 mg by mouth twice daily Duloxetine Active 20 MG PO TWICE A DAY August 27, 2022 1:00am empagliflozin 25 mg oral tablet (20 sources) Sodium-Glucose Cotransporter 2 Inhibitor Start: 11-15-2020 End: 01-14-2025 take 1 tablet by mouth once daily JARDIANCE 25 mg tablet Take 25 mg by mouth once daily. 12/13/2020 Active Comment on above: Take 25 mg by mouth once daily. Fish Oil-Dha-Epa (5 sources) Start: 02-17-2019 Fish Oil-Dha-Epa Active 1 EACH PO DAILY February 17, 2019 12:00am fluconazole 150 mg oral tablet (8 sources) Azole Antifungal Start: 11-29-2022 take 1 tablet by mouth once daily fluconazole (DIFLUCAN) 150 mg tablet TAKE 1 TABLET BY MOUTH ONCE DAILY FOR ONE DOSE 11/29/2022 Active Comment on above: TAKE 1 TABLET BY STEPHEN TH ONCE DAILY FOR ONE DOSE fluticasone propionate 0.05 mg/actuat metered dose nasal spray (13 sources) Corticosteroid Start: 11-15-2020 Fluticasone Propionate Active G INTRANASAL November 15, 2020 12:00am Start: 08-01-2020 fluticasone (F LONASE) 50 mcg/actuation nasal spray 1 [place] as needed. 08/01/2020 Active Comment on above: 1 [place] as needed. hydroCHLOROthiazide 12.5 mg oral capsule (9 sources) Thiazide Diuretic Start: 2022 take 1 capsule by mouth once daily in the morning hydroCHLOROthiazide 12.5 mg capsule Take 12.5 mg by mouth every morning. 11/14/2022 Active take 1 tablet by mouth once luzma y hydroCHLOROthiazide (HYDRODIURIL) 12.5 MG tablet Take 1 tablet by mouth daily. 0 Active Comment on above: Take 12.5 mg by mout h every morning. hydrOXYzine hydrochloride 25 mg oral tablet (8 sources) Antihistamine Start: 03-02-20 20 take 1 tablet by mouth every eight hours as needed hydrOXYzine HCl (ATARAX) 25 mg tablet Take 25 mg by mouth every 8 hours as needed. 03/02/2020 Active Comment on above: Take 25 mg by mouth every 8 hours as needed. ketoconazole 20 mg/ml medicated shampoo (3 sources) Azole Antifungal Start: 01-28-20 25 ketoconazole (NIZORAL) 2 % shampoo once daily as needed. 01/27/2025 Active Start: 11-23-2024 Ketoconazole 2 % shampoo Active 1 NMA TOPICAL TWICE A WEEK 120 November 23, 2024 12:00am 24 hr metoprolol succinate 100 mg extended release oral tablet (20 sources) beta-Adrenergic Oswaldo Start: 05-23-2023 take 2 tablets by mouth every twenty-four hours at bedtime Metoprolol Succinate 100 mg tablet extended release 24 hr Active 50 mg PO AT BEDTIME May 23, 2023 8:42am Start: 05-23-2023 take 50 mg by mouth at bedtime Metoprolol Succinate Active 50 MG PO AT BEDTIME May 23, 2023 7:42am Start: 12-18-2022 End: 05-23-2023 take 1 tablet by mouth every twenty-four hours at bedtime Metoprolol Succinate 100 mg tablet extended release 24 hr Discontinued 100 mg PO AT BEDTIME 90 3 April 15, 2023 8:52am May 23, 2023 8:42am Start: 11-10-2019 End: 05-23-2023 take 100 mg by mouth once daily metoprolol succinate E R (TOPROL XL) 100 mg Take 100 mg by mouth once daily. 02/06/2020 Active Metoprolol Succi jessica 50 MG CS24 Take by mouth. 0 Active Comment on above: Take 100 mg by mouth once daily. [place] 2-Ggl-Zmt-Fish Oil (Fish Oil) 1,200 (144-216) mg capsule (3 sources) Start: 07-19-2023 [place] 8-Zer-Dxs-Fish Oil (Fish Oil) 1,200 (144-216) mg capsule Active 1 NMA PO DAILY July 19, 2023 1:00am Start: 07-19-2023 take 1 capsule by mo uth once daily [place] 7-Hiy-Lbm-Fish Oil (Fish Oil) 1,200 (144-216) mg capsule Active 1 CAP PO DAILY July 19, 2023 12:00am Cybkc-9-ZVK-EPA-Fish Oil 300-1,000 mg cap (8 sources) take 300-1000 mg by mouth once daily Mjtic-5-IPP-EPA-Fish Oil 300-1,000 mg cap Take 1 capsule by mouth once daily. Active take 300-1000 mg by mouth once d aily Zffgp-3-ZTQ-EPA-Fish Oil 300-1,000 mg cap Take 1 capsule by mouth once daily. 0 Active Comment on above: Take 1 capsule by mo uth once daily. ondansetron 8 mg disintegrating oral tablet (8 sources) Serotonin-3 Receptor Antagonist Start: 03-19-20 ondansetron orally disintegrating (ZOFRAN ODT) 8 mg disintegrating tablet 8 mg as needed. 03/19/2019 Active Comment on above: 8 mg as needed. pseudoephedrine hydrochloride 30 mg oral tablet (13 sources) alpha-Adrenergic Agonist Start: 01-11-20 take 2 tablets by mouth every six hours as needed pseudoephedrine (SUDAFED) 30 mg tablet 2 tablets as needed Orally every 6 hrs for 7 days 01/10/2022 Active Start: 07-07-2020 End: 12-28-2024 take 1 tablet by mouth every twelve hours as needed Pseudoephedrine HCl (SUDAFED SR) 120 mg TbER 1 tablet as needed Orally every 12 hrs for 7 days 07/07/2020 12/28/2024 Discontinued (Discontinued by Patient) Comment on above: 1 tablet as needed O rally every 12 hrs for 7 days 2 tablets as needed Orally every 6 hrs for 7 days Bddndrr-Cqlm-Kaunv-O reg-Capryl (5 sources) Start: 04-18-20 Uoxgivl-Jahe-Glkwz- Oreg-Capryl Active CAP PO April 18, 2021 12:00am 24 hr venlafaxine 75 mg extended release oral capsule (8 sources) Serotonin and Norepinephrine Reuptake Inhibitor Start: 12-14-19 take 1 capsule by mouth every hour venlafaxine ER (EFFEXOR XR) 75 mg 24 hr capsule Take 1 capsule by mouth every afternoon. 12/14/2023 Active Start: 09-12-2023 End: 09-14-2024 take 1 capsule by mouth once daily Venlafaxine (Effexor Xr) 75 mg capsule,extended release 24hr Active 75 mg PO DAILY 30 September 14, 2024 10:12am Vitamin B Complex (10 sources) Start: 02-17-2019 Vitamin B Comp bria Active 1 EACH PO DAILY February 16, 2019 11:00pm Start: 02-17-2019 Vitamin B Comp bria Active 1 EACH PO DAILY February 17, 2019 12:00am Vitamin B Complex 1 EACH capsule (2 sources) Start: 02-17-2019 Vitamin B Comp bria 1 EACH capsule Active 1 NMA PO DAILY February 17, 2019 12:00am VITAMIN B COMPLEX ORAL (8 sources) Start: 02-17-2019 take 1 tablet by mouth once daily VITAMIN B COMPLEX ORAL Take 1 tablet by mouth once daily. 02/17/2019 Active Start: 02-17-2019 take 1 tablet by stephen th once daily VITAMIN B COMPLEX ORAL Take 1 tablet by mouth once daily. 0 02/17/2019 Active Comment on above: Take 1 tablet by stephen th once daily. Completed/Discontinued Medications Medication Drug Class(es) Dates Sig (Normalized) Sig (Original) acetaminophen 325 mg / oxyCODONE hydrochloride 5 mg oral tablet (15 sources) Opioid Agonist Start: 07-30-2023 End: 08-15-2023 Oxycodone-Acetamino phen (Percocet) 5-325 mg tablet Discontinued 1 {tbl} PO EVERY 6 HOURS as needed for pain 20 7 0 July 30, 2023 August 15, 2023 9:28am Status post laparoscopy-assiste d vaginal hysterectomy Acquired absence of both cervix and uterus Start: 02-24-2019 End: 03-07-2019 Oxycodone-Acetaminophen 1 TA BLET tablet Discontinued 1 - 2 {tbl} PO EVERY 4 HOURS NEEDED as needed for Pain 40 7 0 February 24, 2019 March 02, 2019 12:00am March 07, 2019 12:09am Status post left breast lumpectomy Other specified postprocedural states Start: 02-24-2019 End: 03-07-2019 take 1 tablet by mouth every four hours as needed Oxycodone-Acetaminophen Discontinued 1 - 2 TABLET PO EVERY 4 HOURS NEEDED 40 7 February 24, 2019 March 06, 2019 11:09pm Blood-Glucose Sensor (Freest yle Ginny 3 Sensor) device (4 sources) Start: 05-08-2024 End: 06-15-2024 Blood-Glucose Sensor (Freest yle Ginny 3 Sensor) device Discontinued 0 .Route 2 May 08, 2024 10:23am June 15, 2024 9:43am As directed Start: 05-08-2024 End: 06-15-2024 Blood-Glucose Sensor (Freest yle Ginny 3 Sensor) device Discontinued 0 .Route 2 May 08, 2024 10:23am June 15, 2024 9:43am As directed Start: 11-26-2023 End: 05-08-2024 Blood-Glucose Sensor (Freest yle Ginny 3 Sensor) device Discontinued 0 .Route 2 November 26, 2023 12:00am May 08, 2024 10:23am As directed Start: 11-26-2023 End: 05-08-2024 Blood-Glucose Sensor (Freest yle Ginny 3 Sensor) device Discontinued 0 .Route 2 November 26, 2023 12:00am May 08, 2024 10:23am As directed cephalexin 250 mg oral capsule (12 sources) Cephalosporin Antibacterial Start: 01-08-2019 End: 02-06-2019 take 3 capsules by mouth three times daily Cephalexin (Keflex) 250 mg capsule Discontinued 250 mg PO THREE TIMES A DAY 10 January 08, 2019 12:00am February 06, 2019 9:39am Pt has 3 doses yesterday, was prescribed yesterday cetirizine hydrochloride 10 mg oral tablet (20 sources) Histamine-1 Receptor Antagonist Start: 11-15-2020 End: 03-02-2021 Cetirizine 10 mg tablet Discontinued NMA PO November 15, 2020 12:00am March 02, 2021 8:13am Start: 09-19-2020 End: 04-04-2023 cetirizine (ZYRTEC) 10 mg ta blet Take 10 mg by mouth as needed. 09/19/2020 Active Comment on above: Take 10 mg by mouth as needed. desoximetasone 0.0025 mg/mg topical ointment (12 sources) Corticosteroid Start: 09-20-2020 End: 03-02-2021 Desoximetasone 1 APPLIC ointment Discontinued 1 NMA TOPICAL TWICE A DAY 60 0 September 20, 2020 1:00am March 02, 2021 8:11am Rash Rash and other nonspecific skin eruption apply thin film to affected area twice daily Start: 09-20-2020 End: 03-02-2021 Desoximetasone Discontinued 1 APPLIC TOPICAL TWICE A DAY 60 September 20, 2020 12:00am March 02, 2021 7:11am apply thin film to affected area twice daily 1 ml dexamethasone phosphate 4 mg/ml injection (17 sources) Corticosteroid Start: 12-28-2024 End: 12-28-2024 dexAMETHasone sodium phosphate 2 mg injection (DECADRON) Start: 12-28-2024 End: 12-28-2024 2 mg, Injection - FOR ORTHO USE ONLY, ONCE, 1 dose, Starting on Sat12/28/24 at 0915, Until Sat12/28/24 at 0915 Start: 12-19-2023 End: 12-19-2023 dexAMETHasone sodium phospha te 2 mg injection (DECADRON) Start: 05-29-2023 End: 05-29-2023 dexAMETHasone sodium phospha te 2 mg injection (DECADRON) Start: 05-13-2019 End: 06-08-2019 Dexamethasone 4 MG tablet Di scontinued 20 mg PO TWICE A DAY 10 1 4 May 13, 2019 12:00am June 08, 2019 10:26am Malignant neoplasm of left breast Malignant neoplasm of unspecified site of left female breast Take 20 mg night before and morning of chemotherapy, repeat cycle every 2 weeks total 4 cycles Start: 05-13-2019 End: 06-08-2019 Dexamethasone Discontinued 2 0 MG PO TWICE A DAY 10 May 12, 2019 11:00pm June 08, 2019 9:26am Take 20 mg night before and morning of chemotherapy, repeat cycle every 2 weeks total 4 cycles labetalol hydrochloride 200 mg oral tablet (20 sources) beta-Adrenergic Oswaldo Start: 09-02-2019 End: 11-10-2019 take 1 tablet by mouth once daily Labetalol 200 MG tablet Discontinued 200 mg PO DAILY 30 0 September 02, 2019 1:00am November 10, 2019 9:55am Start: 01-07-2019 End: 06-08-2019 take 1 tablet by mouth once daily Labetalol 200 mg tablet Discontinued 200 mg PO DAILY January 07, 2019 12:00am June 08, 2019 11:05am levothyroxine sodium 0.175 mg oral tablet (20 sources) l-Thyroxine Start: 06-15-2024 End: 01-14-2025 take 1 tablet by mouth once daily Levothyroxine 175 mcg tablet Discontinued 175 ug PO daily 90 0 October 05, 2024 9:25am January 14, 2025 3:21pm Start: 07-19-2023 End: 06-15-2024 Levothyroxine 200 mcg capsul e Discontinued 300 ug PO July 19, 2023 1:00am June 15, 2024 9:41am Start: 07-19-2023 Levothyroxine Active 300 MCG PO SCHWAB July 19, 2023 12:00am Start: 01-04-2020 End: 06-15-2024 take 1 tablet by mouth once daily levothyroxine (SYNTHROID) 200 mcg tablet Take 200 mcg by mouth once daily. 01/04/2020 Active Start: 01-07-2019 End: 01-04-2020 take 1 capsule by mouth once daily Levothyroxine 50 mcg capsule Discontinued 50 ug PO DAILY 90 June 18, 2019 8:38am January 04, 2020 10:26am Start: 01-07-2019 End: 01-04-2020 take 1 capsule by mouth once daily Levothyroxine 200 mcg capsule Discontinued 200 ug PO DAILY 90 June 18, 2019 8:38am September 02, 2019 12:42pm Comment on above: Take 200 mcg by mout h once daily. Lidocaine (5 sources) Antiarrhythmic, Amide Local Anesthetic Start: 12-28-2024 End: 12-28-2024 lidocaine 20 mg/mL (2 %) 2 mL injection (XYLOCAINE) Start: 12-28-2024 End: 12-28-2024 2 mL, Injection - FOR ORTHO USE ONLY, ONCE, 1 dose, Starting on Sat12/28/24 at 0915, Until Sat12/28/24 at 0915 Start: 12-19-2023 End: 12-19-2023 lidocaine 20 mg/mL (2 %) 2 m L injection (XYLOCAINE) Start: 05-29-2023 End: 05-29-2023 lidocaine (PF) 20 mg/mL (2 % ) 2 mL injection (XYLOCAINE) 24 hr metFORMIN hydrochloride 750 mg extended release oral tablet (20 sources) Biguanide Start: 11-19-2019 End: 12-28-2024 take 1 tablet by mouth twice daily Metformin 750 mg tablet extended release 24 hr Discontinued 750 mg PO TWICE A DAY 180 0 November 19, 2019 2:24pm March 02, 2021 8:12am Start: 01-07-2019 End: 06-09-2019 take 1 tablet by mouth every twenty-four hours at bedtime Metformin 750 mg tablet extended release 24 hr Discontinued 750 mg PO AT BEDTIME January 07, 2019 12:00am June 09, 2019 9:33am Start: 01-07-2019 End: 11-19-2019 take 1 tablet by mouth once daily in the evening Metformin 750 mg tablet extended release 24 hr Discontinued 750 mg PO EVERY EVENING 90 1 November 10, 2019 10:05am November 19, 2019 2:25pm Start: 01-07-2019 End: 06-09-2019 take 750 mg by mouth at bedtime Metformin Discontinued 750 MG PO AT BEDTIME January 06, 2019 11:00pm June 09, 2019 8:33am Comment on above: Take 750 mg by mouth twice daily. Take 750 mg by mouth two times a day. methocarbamol 500 mg oral tablet (7 sources) Muscle Relaxant Start: 023 End: 025 take 1 tablet by mouth four times daily methocarbamol (ROBAXIN) 500 mg tablet Take 1 tablet by mouth four times daily. 05/16/2023 12/28/2024 Discontinued (Discontinued by Patient) Comment on above: Take 1 tablet by stephen four times daily. miSOPROStol 0.2 mg oral tablet (10 sources) Prostaglandin E1 Analog Start: 023 End: take 1 tablet by mouth every twelve hours as needed Misoprostol (Cytotec) 200 mcg tablet Discontinued 400 ug PO NEEDED as needed for PROCEDURE July 19, 2023 1:00am September 14, 2024 9:53am 200 mcg 2 tab po night prior to procedure and repeat 12 hour later naproxen 500 mg oral tablet (3 sources) Nonsteroidal Anti-inflammatory Drug Start: End: take 1 tablet by mouth twice daily as needed for pain Naproxen 500 mg tablet Discontinued 500 mg PO TWICE DAILY NEEDED as needed for Pain 30 July 30, 2023 1:00am August 15, 2023 9:28am oxyCODONE hydrochloride 5 mg oral tablet (12 sources) Opioid Agonist Start: End: take 5-10 mg by mouth every four hours as needed for pain Oxycodone 5 MG tablet Discontinued 5 - 10 mg PO EVERY 4 HOURS NEEDED as needed for Severe Pain (6-10/10) 30 7 0 January 11, 2019 12:00am January 17, 2019 12:00am January 18, 2019 12:09am Hematoma of breast Other specified disorders of breast OZEMPIC 2 mg/dose (8 mg/3 mL) pen injector (2 sources) Start: End: inject 2 mg by subcutaneous injection every week OZEMPIC 2 mg/dose (8 mg/3 mL) pen injector Inject 2 mg subcutaneously one time a week. 12/31/2023 12/28/2024 Discontinued (Discontinued by Patient) Start: 12-31-2023 inject 2 mg by subcu taneous injection every week OZEMPIC 2 mg/dose (8 mg/3 mL) pen injector Inject 2 mg subcutaneously one time a week. 0 12/31/2023 Active repaglinide 1 mg oral tablet (20 sources) Glinide Start: 06-08-2019 End: 11-10-2019 take 1 tablet by mouth at mealtime as needed Repaglinide 1 MG tablet Discontinued 1 mg PO NEEDED as needed for HYPERGLYCEMIA September 02, 2019 12:42pm November 10, 2019 10:06am administer within 30 minutes of a meal or snack Semaglutide (Ozempic) 2 mg/dose (8 mg/3 mL) pen injector (8 sources) Start: 06-15-2024 End: 12-24-2024 Semaglutide (Ozempic) 2 mg/dose (8 mg/3 mL) pen injector Discontinued 2 mg SC EVERY WEEK 3 June 15, 2024 9:43am December 24, 2024 2:46pm Diabetes mellitus Type 2 diabetes mellitus with hyperglycemia Start: 06-15-2024 End: 12-24-2024 Semaglutide (Ozempic) 2 mg/d ose (8 mg/3 mL) pen injector Discontinued 2 mg SC EVERY WEEK 3 June 15, 2024 9:43am December 24, 2024 2:46pm Start: 05-08-2024 End: 06-15-2024 Semaglutide (Ozempic) 2 mg/d ose (8 mg/3 mL) pen injector Discontinued 2 mg SC EVERY WEEK 3 May 08, 2024 10:23am June 15, 2024 9:44am Diabetes mellitus Type 2 diabetes mellitus with hyperglycemia Start: 05-08-2024 End: 06-15-2024 Semaglutide (Ozempic) 2 mg/d ose (8 mg/3 mL) pen injector Discontinued 2 mg SC EVERY WEEK 3 May 08, 2024 10:23am June 15, 2024 9:44am Start: 12-31-2023 End: 05-08-2024 Semaglutide (Ozempic) 2 mg/d ose (8 mg/3 mL) pen injector Discontinued 2 mg SC EVERY WEEK 3 December 31, 2023 12:49pm May 08, 2024 10:23am Diabetes mellitus Type 2 diabetes mellitus with hyperglycemia Start: 12-31-2023 End: 05-08-2024 Semaglutide (Ozempic) 2 mg/d ose (8 mg/3 mL) pen injector Discontinued 2 mg SC EVERY WEEK December 31, 2023 12:49pm May 08, 2024 10:23am Start: 12-26-2023 End: 12-31-2023 Semaglutide (Ozempic) 2 mg/d ose (8 mg/3 mL) pen injector Discontinued 2 mg SC EVERY WEEK 3 December 26, 2023 12:00am December 31, 2023 12:49pm Diabetes mellitus Type 2 diabetes mellitus with hyperglycemia Start: 12-26-2023 End: 12-31-2023 Semaglutide (Ozempic) 2 mg/d ose (8 mg/3 mL) pen injector Discontinued 2 mg SC EVERY WEEK 3 December 26, 2023 12:00am December 31, 2023 12:49pm SITagliptin 100 mg oral tablet (20 sources) Dipeptidyl Peptidase 4 Inhibitor Start: 11-10-2019 End: 12-28-2024 take 1 tablet by mouth once daily Sitagliptin Phosphate (Januvia) 100 mg tablet Discontinued 100 mg PO DAILY May 23, 2020 8:54am November 15, 2020 2:50pm Comment on above: Take 100 mg by mouth once daily. tamoxifen 20 mg oral tablet (12 sources) Estrogen Agonist/Antagonis t Start: 09-28-2019 End: 11-10-2019 take 1 tablet by mouth once daily Tamoxifen 20 MG tablet Discontinued 20 mg PO DAILY September 28, 2019 1:00am November 10, 2019 9:58am Malignant neoplasm of left female breast Estrogen receptor positive tumor status Malignant neoplasm of unspecified site of left female breast Estrogen receptor positive status [ER+] Tirzepatide (Mounjaro) 2.5 mg/0.5 mL pen injector (6 sources) Start: 02-01-2023 End: 02-05-2023 Tirzepatide (Mounjaro) 2.5 mg/0.5 mL pen injector Discontinued 2.5 mg SC EVERY WEEK February 01, 2023 12:00am February 05, 2023 8:34am Start: 02-01-2023 End: 02-05-2023 Tirzepatide (Mounjaro) 2.5 m g/0.5 mL pen injector Discontinued 2.5 mg SC EVERY WEEK 09 25February 01, 2023 12:00am February 05, 2023 8:34am Start: 02-01-2023 End: 02-05-2023 Tirzepatide (Mounjaro) 2.5 m g/0.5 mL pen injector Discontinued 2.5 MG SC EVERY WEEK 2 January 31, 2023 11:00pm February 05, 2023 7:34am Start: 02-01-2023 End: 02-05-2023 Tirzepatide (Mounjaro) 2.5 m g/0.5 mL pen injector Discontinued 2.5 MG SC EVERY WEEK 2 February 01, 2023 12:00am February 05, 2023 8:34am 1 ml triamcinolone acetonide 40 mg/ml injection (12 sources) Corticosteroid Start: 12-28-2024 End: 12-28-2024 triamcinolone acetonide 40 mg injection (KeNALog 40) Start: 12-28-2024 End: 12-28-2024 40 mg, Injection - FOR ORTHO USE ONLY, ONCE, 1 dose, Starting on Sat12/28/24 at 0915, Until Sat12/28/24 at 0915 Start: 12-19-2023 End: 12-19-2023 triamcinolone acetonide 40 m g injection (KeNALog 40) Start: 05-29-2023 End: 05-29-2023 triamcinolone acetonide 40 m g injection (KeNALog 40) Start: 03-02-2020 End: 12-28-2024 triamcinolone (KENALOG) 0.02 5 % cream Apply 1 application to affected area as needed. 03/02/2020 12/28/2024 Discontinued (Discontinued by Patient) Comment on above: Apply 1 application to affected area as needed. Triamcinolone 0.1% Cream (Kenalog) 1 APPLIC Tube (12 sources) Start: 09-21-2020 End: 03-02-2021 Triamcinolone 0.1% Cream (Kenalog) 1 APPLIC Tube Discontinued 1 NMA TOPICAL THREE TIMES A DAY 1 September 21, 2020 1:00am March 02, 2021 8:13am Rash Rash and other nonspecific skin eruption apply thin layer to affected area 2-3 times per day Start: 09-21-2020 End: 03-02-2021 Triamcinolone 0.1% Cream (Ke nalog) 1 APPLIC Tube Discontinued 1 NMA TOPICAL THREE TIMES A DAY September 21, 2020 1:00am March 02, 2021 8:13am apply thin layer to affected area 2-3 times per day Start: 09-21-2020 End: 03-02-2021 Triamcinolone 0.1% Cream (Ke nalog) 1 APPLIC Tube Discontinued 1 APPLIC TOPICAL THREE TIMES A DAY 1 September 21, 2020 12:00am March 02, 2021 7:13am apply thin layer to affected area 2-3 times per day Start: 09-21-2020 End: 03-02-2021 Triamcinolone 0.1% Cream (Ke nalog) 1 APPLIC Tube Discontinued 1 APPLIC TOPICAL THREE TIMES A DAY 1 September 21, 2020 1:00am March 02, 2021 8:13am apply thin layer to affected area 2-3 times per day Problems Active Problems Problem Classification Problem Date Documented Date Episodic/Chronic Cancer of breast (20 sources) Malignant neoplasm of female breast; Translations: [Malignant neoplasm of unspecified site of left female breast] Onset: 09-14-2024 Chronic Cancer of thyroid (20 sources) Papillary thyroid carcinoma; Translations: [Malignant neoplasm of thyroid gland] Onset: 06-15-2024 Chronic Comment on above: 2012 Complications of surgical procedures or medical care (20 sources) Postoperative hypothyroidism; Translations: [Postprocedural hypothyroidism] Onset: 01-15-2025 Chronic Diabetes mellitus with complications (1 source) Type 2 diabetes mellitus with hyperglycemia; Translations: [Type 2 diabetes mellitus with hyperglycemia] Onset: 02-02-2025 Chronic Diabetes mellitus without complication (20 sources) Diabetes mellitus; Translations: [Type 2 diabetes mellitus without complications] Onset: 06-15-2024 Chronic Comment on above: January 2023 A1c 7.4% S tarted Trulicity, D/C 2023 Trulicity changed to Ozempic Heart valve disorders (12 sources) Heart murmur; Translations: [Cardiac murmur, unspecified] 10-10-2022 Episodic Comment on above: Bubble contrast echo cardiogram normal Joint disorders and dislocations; trauma-related (11 sources) Derangement of right knee; Translations: [Unspecified internal derangement of right knee] Onset: 06-08-2020 06-08-2020 Chronic Joint disorders and dislocations; trauma-related (11 sources) Chondromalacia of left patella; Translations: [Chondromalacia patellae, left knee] Onset: 07-05-2020 07-05-2020 Chronic Menopausal disorders (12 sources) Postmenopausal bleeding; Translations: [Postmenopausal bleeding] 03-27-2023 Chronic Comment on above: 2021 failed EMB. US lining was 4mm. Recurrent bleeding 11/2022:rpt US. Adenomyosis vs postablation syndrome. Lining 6mm. discussed options of d and c hystoersocpy vs LAVH BSO for persistent irregular bleeding, patient to decide. Menstrual disorders (15 sources) Irregular periods; Translations: [Irregular menstruation, unspecified] Chronic Comment on above: US. Osteoarthritis (20 sources) Osteoarthritis of right knee joint; Translations: [Unilateral primary osteoarthritis, right knee] Onset: 03-08-2020 06-20-2020 Chronic Other connective tissue disease (12 sources) Fibromyalgia; Translations: [Fibromyalgia] 02-22-2022 Episodic Other female genital disorders (10 sources) Stenosis of cervix; Translations: [Stricture and stenosis of cervix uteri] 03-14-2022 Episodic Comment on above: failed EMB Other female genital disorders (3 sources) Stricture and stenosis of cervix uteri; Translations: [Stricture and stenosis of cervix] 03-18-2023 Episodic Other injuries and conditions due to external causes (1 source) Injury of right knee; Translations: [Unspecified injury of right lower leg, initial encounter] 05-24-2023 Episodic Other injuries and conditions due to external causes (1 source) Unspecified injury of right lower leg, initial encounter; Translations: [Unspecified injury of right lower leg, initial encounter] Onset: 05-24-2023 Episodic Other lower respiratory disease (9 sources) Snoring; Translations: [Snoring] 10-10-2022 Episodic Comment on above: This patient has milana judy snoring without evidence of sleep apnea on a high-quality diagnostic polysomnogram. There was no other sleep disorder evident on that study including no evidence of restless legs, sleep architecture abnormality, insomnia, parasomnia,We discussed snoring, and ways to mitigate it. Since her airway is Mallampati 2 and she did not snore as a child, the best solution for Soha will likely be significant weight loss. Her BMI is 31%, losing just 10 to 20 pounds is likely to significantly help her snoring.Thank you for allowing this pleasant patient to come to [facility]. Since she needs no further intervention for her sleep disorder, we will discharge her from the practice, please let us know if we can be of further assistance in the future. Other lower respiratory disease (6 sources) Snoring; Translations: [Other respiratory abnormalities] 10-10-2022 Episodic Other nervous system disorders (12 sources) Peripheral nerve disease ; Translations: [Polyneuropathy, unspecified] 11-19-2019 Chronic Other nervous system disorders (5 sources) Polyneuropathy, unspecified; Translations: [Unspecified hereditary and idiopathic peripheral neuropathy] Chronic Other non-epithelial cancer of skin (11 sources) History of malignant neoplasm of skin; Translations: [Personal history of other malignant neoplasm of skin] 03-07-2022 Episodic Other non-traumatic joint disorders (1 source) Pain in left ankle and joints of left foot; Translations: [Acute left ankle pain] Onset: 01-30-2023 Episodic Other non-traumatic joint disorders (1 source) Acute ankle pain; Translations: [Pain in left ankle and joints of left foot] Episodic Other non-traumatic joint disorders (1 source) Pain in right shoulder; Translations: [Pain in joint, shoulder region] 12-19-2023 Episodic Other non-traumatic joint disorders (2 sources) Mass of knee joint; Translations: [Other specified joint disorders, right knee] Onset: 02-23-2025 02-23-2025 Episodic Other non-traumatic joint disorders (1 source) Other specified joint disorders, right knee; Translations: [Cyst of right knee joint] Onset: 02-23-2025 Episodic Other nutritional; endocrine; and metabolic disorders (12 sources) Obesity; Translations: [Obesity, unspecified] 11-15-2020 Chronic Other nutritional; endocrine; and metabolic disorders (7 sources) Obesity, unspecified; Translations: [Obesity, unspecified] 10-15-2022 Chronic Other screening for suspected conditions (not mental disorders or infectious disease) (20 sources) Patient encounter status; Translations: [Encounter for screening mammogram for malignant neoplasm of breast] Onset: 03-09-2024 Episodic Residual codes; unclassified (1 source) Hypersomnia; Translations: [Hypersomnia, unspecified] 10-11-2022 Chronic Residual codes; unclassified (11 sources) Postmenopausal state; Translations: [Asymptomatic menopausal state] 03-06-2022 Episodic Residual codes; unclassified (2 sources) Asymptomatic menopausal state; Translations: [Asymptomatic postmenopausal status (age-related) (natural)] Episodic Residual codes; unclassified (10 sources) History of endometrial ablation; Translations: [Other specified postprocedural states] 03-14-2022 Episodic Residual codes; unclassified (3 sources) Other specified postprocedural states; Translations: [Personal history of other diseases of circulatory system] 03-18-2023 Episodic Residual codes; unclassified (3 sources) History of vaginal hysterectomy; Translations: [Acquired absence of both cervix and uterus] 07-30-2023 Episodic Comment on above: LAVHBSO SM - nml pat hology Residual codes; unclassified (1 source) Acquired absence of both cervix and uterus; Translations: [Acquired absence of both cervix and uterus] 07-30-2023 Episodic Unclassified (1 source) Unknown / UNK(Unknown) Onset: 08-31-2017 Past or Other Problems Problem Classification Problem Date Documented Da te Episodic/Chronic Cancer of breast (1 source) Personal history of malignant neoplasm of breast; Translations: [Personal history of malignant neoplasm of breast] Onset: 10-03-2024 Episodic Other aftercare (1 source) Encounter for adjustment and management of vascular access device; Translations: [Encounter for adjustment and management of vascular access device] Onset: 10-03-2024 Episodic Other connective tissue disease (6 sources) Muscle weakness; Translations: [Muscle weakness (generalized)] Onset: 07-02-2023 Resolved: 08-27-2023 07-10-2023 Episodic Other connective tissue disease (6 sources) Calcific tendinitis of right shoulder; Translations: [Calcific tendinitis of right shoulder] Onset: 12-19-2023 12-19-2023 Episodic Other non-traumatic joint disorders (12 sources) Pain in left knee; Translations: [Pain in joint, lower leg] Onset: 03-08-2020 Resolved: 08-27-2023 07-05-2020 Episodic Other non-traumatic joint disorders (12 sources) Effusion of right knee joint; Translations: [Effusion, right knee] Onset: 03-08-2020 03-08-2020 Episodic Other non-traumatic joint disorders (6 sources) Stiffness of right knee; Translations: [Stiffness of right knee, not elsewhere classified] Onset: 07-02-2023 Resolved: 08-27-2023 07-10-2023 Episodic Sprains and strains (20 sources) Strain of muscle and/or tendon of lower leg; Translations: [Strain of unspecified muscle and tendon at ankle and foot level, left foot, initial encounter] Onset: 01-30-2023 Episodic Unclassified (1 source) E89.0,E11.9,E78.2 Onset: 08-31-2017 Unclassified (11 sources) PORT PLACEMENT 02-26-2022 Comment on above: FEBRUARY 2019 Results Test Name Value Interpretation Reference Range Facility OVon 02-23-2025 CNOV Office Visit (ORUPDO ) SOHA LEON Noelle ([id number]) 1975 F Date Time Provider Department 02/23/25 11:40 AM OSMANI DAVIES During your visit today, we recorded the following information about you: Pulse Blood pressure Weight Height 79/minute 141/81 84.9 kg 1.753 m Danay Bajwa MA 02/23/2025 11:38 AM Signed Continue to ice right knee 3 times a day for 20 minutes especially to the anterior medial aspect over the cystic region. Continue diclofenac 75 mg twice a day with food for the next week and then as needed for pain/ Tylenol 1-2 tablets 325 mg every 8 hours as needed for Breakthrough pain only. Continue home exercise program for keeping the quadriceps, hip flexors and hamstrings strong to help support the knee twice daily. Limited step climbing. Continue knee brace to wear daily activities. Glucosamine/chondroitin Joint supplement can help with joint pain. In the future if continued cystic enlargement to the knee would recommend MRI for further evaluation of the cyst. I feel this is more of a ganglion cyst secondary to the osteoarthritis of the right knee. DO Keke Adkins James David, DO 02/23/2025 11:37 AM Signed HPI: Soha Leon is a 49 year old female established patient who returns for a re-evaluation of her Primary osteoarthritis of right knee. Patient noticed increased swelling over the last couple of days to the right anterior medial joint line with a cystic-like structure in that region. She says it was very sore swollen. She has been moving her house and doing a lot of climbing and lifting activities. She has been icing and taking her medication. Notes improvement today. Last seen on 12/28/2024 AND received a steroid injection. Ongoing pain in her right knee for the past 3 days with no known injury. Ice, Diclofenac, tylenol, hinged knee brace, home exercises. Prior history as of 12/28/2024: Primary osteoarthritis of right knee. Patient 10/05, with some swelling and a lump present. Patient is taking diclofenac and using ice. Denies any new injury. gradual increase in right knee pain over the past month, with significant worsening in the last 2 weeks prompting her to seek medical attention. 2 braces for stability and pain control. Still taken diclofenac which has helped. Prior history as of 06-19-23. Last seen 05-29-2023 received a steroid injection. 10/05 pain AND 60% improvement. Ice, diclofenac, tylenol, hinged knee brace, home exercises. Patient's been seen multiple times in the past for right knee osteoarthritis this required cortisone injections conservative measures. She had gel injections summer 2020. Past x-rays and MRI right knee showed arthritis. Current Outpatient Medications Medication Sig Dispense Refill ketoconazole (NIZORAL) 2 % shampoo once daily as needed. diclofenac, EC, (VOLTAREN) 75 mg EC tablet Take 1 tablet by mouth two times a day. 60 tablet 1 venlafaxine ER (EFFEXOR XR) 75 mg 24 hr capsule Take 1 capsule by mouth every afternoon. TRULICITY 1.5 mg/0.5 mL pen injector pseudoephedrine (SUDAFED) 30 mg tablet 2 tablets as needed Orally every 6 hrs for 7 days fluconazole (DIFLUCAN) 150 mg tablet TAKE 1 TABLET BY MOUTH ONCE DAILY FOR ONE DOSE hydroCHLOROthiazide 12.5 mg capsule Take 12.5 mg by mouth every morning. JARDIANCE 25 mg tablet Take 25 mg by mouth once daily. cetirizine (ZYRTEC) 10 mg tablet Take 10 mg by mouth as needed. fluticasone (FLONASE) 50 mcg/actuation nasal spray 1 [place] as needed. ondansetron orally disintegrating (ZOFRAN ODT) [...] Take 1 tablet by mouth once daily. Nohga-0-SIB-EPA-Fish Oil 300-1,000 mg cap Take 1 capsule [...] wisdom teeth extraction TONSILLECTOMY AND ADENOIDECTOMY HX TOTAL ABDOM HYSTERECTOMY Social History Tobacco Use Smoking status: Former Smokeless tob (more content not included)... Normal [facility] Endocrinology Visit Reporton 02-02-2025 Endocrinology Visit Report [facility] [address] [place] [address] OFFICE VISIT Date of Service: 02/02/25 MR#: [id number] Acct: [id number] Name: SOHA LEON Noelle Rep #: [id number] : 1975 Provider: Vu Reyes Age/Sex: 49/F Location: [facility] Status: Signed Intake Vital Signs 06/15/24 08:27 09/14/24 10:27 02/02/25 09:21 Height 5 ft 9 in 5 ft 9 in 5 ft 9 in Weight: 185 lb 6 oz 190 lb 4 oz BMI 27.3 28.0 BP 122/81 H 132/93 H Blood Pressure Location Rt brachial Rt brachial Position Sitting Sitting Respiration 16 Pulse 84 85 Pulse Source Monitor Monitor Temp 97.8 F Pulse Oximetry (%) 96 96 Oxygen Delivery Method room air room air Intake Visit Reasons: 8 M FU, RS 12/14 Chief Complaint: Diabetes Is patient in pain?: No Allergies hydrocodone (From Hycomine (hydrocodone-PPA)) Adverse Reaction (Mild, Verified 02/02/25 09:24) Itching metformin Adverse Reaction (Mild, Verified 02/02/25 09:24) Diarrhea Medications ???Medication ???Instructions ???Recorded ???Confirmed ???Type vitamin B complex 1 ea PO DAILY 02/17/19 02/02/25 Hi story cholecalciferol (vitamin D3) 25 1,000 unit PO DAILY 06/08/1902/02 History mcg (1,000 unit) capsule aspirin 81 mg tablet,delayed 81 mg PO DAILY 04/18/20 02/02/25 H istory release diclofenac sodium 75 mg 75 mg PO BID 03/02/21 02/02/25 His tory tablet,delayed release blood sugar diagnostic #100 ea 04/18/21 09/14/24 Rx blood-glucose meter (OneTouch #1 ea 04/19/21 09/14/24 Rx Verio Flex Meter) OneTouch Verio test strips (blood #200 ea 06/09/21 09/14/24 Rx sugar diagnostic) cetirizine 10 mg tablet 10 mg PO DAILY PRN allergy symptom s 04/04/23 02/02/25 History metoprolol succinate 100 mg 50 mg PO QHS 05/23/23 02/02/25 His tory tablet,extended release 24 hr omega 3-iwe-miz-fish oil 1,200 mg 1 cap PO DAILY 07/19/23 02/02/25 History (144 mg-216 mg) capsule (Fish Oil) blood-glucose sensor (FreeStyle #2 ea 05/15/24 09/14/24 Rx Ginny 3 Plus Sensor device) blood-glucose sensor (FreeStyle #6 ea 06/15/24 09/14/24 Rx Ginny 3 Plus Sensor device) venlafaxine 75 mg capsule,extended 75 mg PO DAILY #30 caps 09/14/24 02/02/25 Rx release 24 hr (Effexor XR) ketoconazole 2 % shampoo 1 applic topical 2XW #120 mL 11/2302/02/25 Rx Jardiance 25 mg tablet 25 mg PO DAILY #90 tabs 01/14/25 0 02/02/25 Rx (empagliflozin) levothyroxine 175 mcg tablet 175 mcg PO QDAY #90 tabs 01/14/25 02/02/25 Rx dulaglutide 4.5 mg/0.5 mL 4.5 mg (0.5 mL) subcut QWEEK #6 mL 02/02/25 02/02/25 Rx subcutaneous pen injector (Trulicity) [facility] Medical History (Updated 02/02/25 @ 09:[address] Rashaun Cooper MD) Overweight (BMI 25.0-29.9) Wears glasses Cancer Thyroid disease Gastric reflux Former smoker History of echocardiogram History of irregular heartbeat Loud snoring Murmur, cardiac History of malignant neoplasm of skin TIA (transient ischemic attack) Neuropathy Chronic headache Arthritis PORT PLACEMENT Breast cancer, left Thyroid cancer HTN (hypertension) Diabetes Surgical History S/P laparoscopic assisted vaginal hysterectomy (LAVH) Hx of colonoscopy Hx of surgical procedure History of removal of Port-a-Cath History of tonsillectomy History of endometrial ablation S/P lumpectomy, left breast ( 02/24/19) Status post left breast lumpectomy ( 12/2018) History of breast biopsy ( 12/2018) S/P thyroidectomy Family History Mother Breast cancer Grandmother Cervical cancer Breast cancer Sister Thyroid cancer Unknown Diabetes Arthritis Hyperlipidemia Hypertension Thyroid disorder CVA (cerebral vascular accident) Other Vocal cord cancer Social History Smoking Status: Former smoker Tobacco: How many years used: 22 second hand exposure: No alcohol intake: never substance use type: does not use caffeine: Yes what type of physical activity do you participate in: walking seatbelt use: always do you feel safe at home: Yes 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 A1C is 6.7% She is taking Trulicity 4.5 mg weekly and Jardiance 25 mg daily. She is up 9 pounds from May, but down 40 pounds from max weight. She has post surgical hypothyroidism. TSH was 3.9 recently. She had microcarcinoma. TG level < 1 last year. She is feeling well. ROS Const Constitutional: No fatigue or change in appetite Eyes Eyes: No (more content not included)... Normal [facility] T4 Free Directon 01-11-2025 T4 FREE DIRECT 1.30 ng/dL Normal 0.76-1.46 [facility] Comment on above: Performed By: #### L [phone], [id number] ####[facility] [id number] [place], [place], [id number] T4 freeOrdered By: Rashaun Cooper on 01-11-2025 Free T4 [Mass/Vol] 1.30 ng/dL 0.76-1.46 [facility] TSH DL <= 0.005 mIU/L QnOrde red By: Rashaun Cooper on 01-11-2025 TSH Qn 3.940 uIU/mL 0.300-4.20 0 [facility] Thyroid Stim Hormone (TSH)on 01-11-2025 TSH 3.940 uIU/mL Normal 0.300-4.20 0 [facility] Comment on above: Performed By: #### L 501.9520, L506.0400 ####[facility] [address] [place], [place], [address] CNOVon 12-28-2024 CNOV Office Visit (MANJIT ) SOHA LEON ([id number]) 1975 F Date Time Provider Department 12/28/24 9:20 AM OSMANI DAVIES During your visit today, we recorded the following information about you: Pulse Blood pressure Weight Height 84/minute 122/70 90.7 kg 1.753 m Joanne Deliatiana Womack LPN 12/28/2024 9:19 AM Signed Cortisone injection right knee given today. Ice right knee 3 times a day for 20 minutes. Refill diclofenac 75 mg twice a day with food for the next week and then as needed for pain/ Tylenol 1-2 tablets 325 mg every 8 hours as needed for Breakthrough pain only. Continue home exercise program for keeping the quadriceps, hip flexors and hamstrings strong to help support the knee twice daily. Limited step climbing. knee brace to wear daily activities. Glucosamine/chondroitin Joint supplement can help with joint pain. Please call in 3 weeks to report on how the right knee is feeling. If continued pain may consider gel injections at that time. Would recommend getting some updated lab work with CBC and CMP if taking long-term diclofenac. Osmani Davies, 12/28/2024 9:18 AM Addendum HPI: Soha Leon is a 47 year old female established patient who returns for a follow up of Primary osteoarthritis of right knee. Patient states her pain is 3/10, with some swelling and a lump present. Patient is taking diclofenac and using ice. Denies any new injury. gradual increase in right knee pain over the past month, with significant worsening in the last 2 weeks prompting her to seek medical attention. Patient wearing 2 braces for stability and pain control. Still taken diclofenac which has helped. She needs a refill. Prior history as of 06-19-23. Last seen 05-29-2023 received a steroid injection. [...] Current Outpatient Medications Medication Sig Dispense Refill venlafaxine ER (EFFEXOR XR) 75 mg 24 hr capsule Take 1 capsule by mouth every afternoon. OZEMPIC 2 mg/dose (8 mg/3 mL) pen injector Inject 2 mg subcutaneously one time a week. (Patient not taking: Reported on 12/28/2024) TRULICITY 1.5 mg/0.5 mL pen injector methocarbamol (ROBAXIN) 500 mg tablet Take 1 tablet by mouth four times daily. (Patient not taking: Reported on 12/28/2024) Pseudoephedrine HCl (SUDAFED SR) 120 mg TbER 1 tablet as needed Orally every 12 hrs for 7 days (Patient not taking: Reported on 12/28/2024) pseudoephedrine (SUDAFED) 30 mg tablet 2 tablets [...] fluticasone (FLONASE) 50 mcg/actuation nasal spray 1 [place] as needed. ondansetron orally disintegrating (ZOFRAN ODT) [...] mg by mouth two times a day. (Patient not taking: Reported on 12/28/2024) JANUVIA 100 mg tablet Take 100 mg by mouth once daily. (Patient not taking: Reported on 12/28/2024) VITAMIN B COMPLEX ORAL Take 1 tablet by mouth once daily. triamcinolone (KENALOG) 0.025 % cream Apply 1 application to affected area as needed. (Patient not taking: Reported on 12/28/2024) Revtn-9-FWI-EPA-Fish Oil 300-1,000 mg cap Take 1 capsule by mouth once daily. No current facility-administered medica (more content not included)... [facility] LARGE JOINT INJECTION/ARTHRO CENTESIS: R knee jointon 12-28-2024 Delia Handy LPN 12/28/2024 3:49 PM LARGE JOINT INJECTION/ARTHROCENTESIS: R knee joint 12/28/2024 9:15 AM The procedure site was prepped in the usual sterile fashion. Site: R knee joint Medications: 40 mg triamcinolone acetonide 40 mg/mL; 2 mg dexAMETHasone sodium phosphate 4 mg/mL (lidocaine [id number], oy0621, 07/22 kenalog [id number], [id number], 07/23 dexamethasone [id number], [id number], 04/22) Anesthetics: 2 mL lidocaine 20 mg/mL (2 %) Outcome: Tolerated well, no immediate complications Post-injection instructions were reviewed with the patient and the patient voiced understanding of these instructions. Informed Consent Consent Obtained: Verbal [place] Protocol A moment to CARE was completed. SIGN IN Personnel directly involved with the procedure wore the appropriate PPE. Special Equipment: N/A Patient/Surrogate Stated/Verified: Patient name, Date of , Relevant allergies and Intended procedure TIME OUT Relevant labs, photos, and/or imaging studies have been reviewed. Consent documented and matches the intended procedure. Correct side/site marked and visible. Medications required for procedure verified. No fire risk assessment and interventions applicable. No implant(s) inserted. [facility] XR Knee - right 4 Viewson (12/28/2024) Right k nee X-ray: - Mild to moderate medial compartment narrowing with increased sclerosis - Early osteophyte formation in the medial and lateral compartments - Lateral view: Spurring around the patellofemoral joint and posterior tibial plateau with osteophyte formation - [place] view: Moderate arthritic changes in the patellofemoral joint with significant spurring in both lateral and medial aspects - Notch view: Moderate arthritic changes in the medial and lateral compartments [facility] (UPS) [facility] Radiology Study observation (narrative) [facility] CBC W/Diff, Automatedon - Absolute Lymph 1.85 X10 3/uL Normal 0.83-4.51 [facility] Comment on above: Performed By: #### L 100.0100, L500.4050 ####[facility] [address] [place], [address] Absolute Neut 4.0 X10 3/uL Normal 2.0-7.7 [facility] Comment on above: Performed By: #### L 100.0100, L500.4050 ####[facility] [address] [place], [address] Basophils/100 WBC (Bld) 0.6 % Normal 0-1 [facility] Comment on above: Performed By: #### L 100.0100, L500.4050 ####[facility] [address] [place], [address] Eosinophils/100 WBC (Bld) 3.0 % Normal 0-5 [facility] Comment on above: Performed By: #### L 100.0100, L500.4050 ####[facility] [address] [place], [address] Erythrocyte distribution width (RBC) [Ratio] 12.3 % Normal 11.6-14.6 [facility] Comment on above: Performed By: #### L 100.0100, L500.4050 ####[facility] [address] [place], [address] Hematocrit (Bld) [Volume fraction] 44.9 % Normal 37-47 [facility] Comment on above: Performed By: #### L 100.0100, L500.4050 ####[facility] [address] [place], [address] Hemoglobin (Bld) [Mass/Vol] 14.8 g/dL Normal 12.0-15.0 [facility] Comment on above: Performed By: #### L 100.0100, L500.4050 ####[facility] [address] [place], [address] IG% 0.200 Normal 0.0-0.9 [facility] Comment on above: Result Comment: IG% - Immature Granulocytes (promyelocytes, myelocytes and metamyelocytes) > 1% indicates that a LEFT SHIFT is Present. Performed By: #### L 100.0100, L500.4050 ####[facility] [address] [place], [address] Lymphocytes/100 WBC (Bld) 28.7 % Normal 19-41 [facility] Comment on above: Performed By: #### L 100.0100, L500.4050 ####[facility] [address] [place], [address] MCH (RBC) [Entitic mass] 28.5 pg Normal 27.0-32.0 [facility] Comment on above: Performed By: #### L 100.0100, L500.4050 ####[facility] [address] [place], [address] MCHC (RBC) [Mass/Vol] 33.0 g/dL Normal 32-36 [facility] Comment on above: Performed By: #### L 100.0100, L500.4050 ####[facility] [address] [place], [address] MCV (RBC) [Entitic vol] 86.5 fL Normal 81-99 [facility] Comment on above: Performed By: #### L 100.0100, L500.4050 ####[facility] [address] [place], [address] Monocytes/100 WBC (Bld) 5.6 % Normal 0-10 [facility] Comment on above: Performed By: #### L 100.0100, L500.4050 ####[facility] [address] [place], [address] Neutrophils/100 WBC (Bld) 61.9 % Normal 47-70 [facility] Comment on above: Performed By: #### L 100.0100, L500.4050 ####[facility] [address] [place], [address] Nucleated RBC (Bld) [#/Vol] 0 10*3/uL Normal 0-5 [facility] Comment on above: Performed By: #### L 100.0100, L500.4050 ####[facility] [address] [place], [address] Platelet mean volume (Bld) [Entitic vol] 10.6 fL Normal 6.2-12.0 [facility] Comment on above: Performed By: #### L 100.0100, L500.4050 ####[facility] [address] [place], [address] Platelets (Bld) [#/Vol] 225 10*3/uL Normal 150-450 [facility] Comment on above: Performed By: #### L 100.0100, L500.4050 ####[facility] [address] [place], [address] RBC (Bld) [#/Vol] 5.19 10*6/uL Normal 4.2-5.4 [facility] Comment on above: Performed By: #### L 100.0100, L500.4050 ####[facility] [address] [place], [address] RDW SD 39.0 fl Normal 35.1-43.9 [facility] Comment on above: Performed By: #### L 100.0100, L500.4050 ####[facility] [address] [place], [address] WBC (Bld) [#/Vol] 6.4 10*3/uL Normal 4.4-11.0 [facility] Comment on above: Performed By: #### L 100.0100, L500.4050 ####[facility] [address] [place], [address] Comprehensive Metabolic Prof ilon 09-14-2024 Albumin [Mass/Vol] 3.9 g/dL Normal 3.2-5.0 [facility] Comment on above: Performed By: #### L 100.0100, L500.4050 ####[facility] [address] [place], [address] Albumin/Globulin [Mass ratio] 1.0 {ratio} Normal 0.9-2.4 [facility] Comment on above: Performed By: #### L 100.0100, L500.4050 ####[facility] [address] [place], [address] ALK P 86 U/L Normal 45-117 [facility] Comment on above: Performed By: #### L 100.0100, L500.4050 ####[facility] [address] [place], [address] ALT [Catalytic activity/Vol] 62 U/L High 13-56 [facility] Comment on above: Performed By: #### L 100.0100, L500.4050 ####[facility] [address] [place], [address] AST [Catalytic activity/Vol] 28 U/L Normal 15-37 [facility] Comment on above: Performed By: #### L 100.0100, L500.4050 ####[facility] [address] [place], [address] Bilirubin [Mass/Vol] 0.60 mg/dL Normal 0.20-1.00 [facility] Comment on above: Result Comment: For patients on eltrombopag therapy, use of Dimension [place] TBIL is not recommended. Performed By: #### L 100.0100, L500.4050 ####[facility] [address] [place], [address] BUN/CRE 21.0 RATIO High 10-20 [facility] Comment on above: Performed By: #### L 100.0100, L500.4050 ####[facility] [address] [place], [address] CA,Total 10.0 mg/dL Normal 8.5-10.1 [facility] Comment on above: Performed By: #### L 100.0100, L500.4050 ####[facility] [address] [place], [address] Chloride [Moles/Vol] 102 mmol/L Normal 98-107 [facility] Comment on above: Performed By: #### L 100.0100, L500.4050 ####[facility] [address] [place], [address] CO2 [Moles/Vol] 27.0 mmol/L Normal 21.0-32.0 [facility] Comment on above: Performed By: #### L 100.0100, L500.4050 ####[facility] [address] [place], [address] Creatinine [Mass/Vol] 0.86 mg/dL Normal 0.55-1.02 [facility] Comment on above: Result Comment: The validity of the calculated GFR GFRAA in patients over 70 years has not been determined. Clinical correlation is essential. Performed By: #### L 100.0100, L500.4050 ####[facility] [address] [place], [address] ECRCL 91.72 ml/min Normal [facility] Comment on above: Performed By: #### L 100.0100, L500.4050 ####[facility] [address] [place], [address] EST GFR - AA 91 mL/min Normal >60 [facility] Comment on above: Result Comment: Afri can [place] GFR Calc Performed By: #### L 100.0100, L500.4050 ####[facility] [address] [place], [address] GAP 9 Normal 5-15 [facility] Comment on above: Performed By: #### L 100.0100, L500.4050 ####[facility] [address] [place], [address] GFR/1.73 sq M.predicted among non-blacks MDRD (S/P/Bld) [Vol rate/Area] 75 mL/min/{1.73_m2} Normal >60 [facility] Comment on above: Result Comment: Non- GFR Calc Performed By: #### L 100.0100, L500.4050 ####[facility] [address] [place], [address] Globulin (S) [Mass/Vol] 3.8 g/dL Normal 2.2-4.2 [facility] Comment on above: Performed By: #### L 100.0100, L500.4050 ####[facility] [address] [place], [address] Glucose [Mass/Vol] 196 mg/dL High 74-106 [facility] Comment on above: Result Comment: Fast ing Glucose result greater than or equal to 126 mg/dL suggests DIABETES MELLITUS per A.D.A. criteria. Performed By: #### L 100.0100, L500.4050 ####[facility] [address] [place], [address] Potassium [Moles/Vol] 3.9 mmol/L Normal 3.5-5.1 [facility] Comment on above: Performed By: #### L 100.0100, L500.4050 ####[facility] [address] [place], [address] Sodium [Moles/Vol] 137 mmol/L Normal 136-145 [facility] Comment on above: Performed By: #### L 100.0100, L500.4050 ####[facility] [address] [place], [address] T PROT 7.7 g/dL Normal 6.4-8.2 [facility] Comment on above: Performed By: #### L 100.0100, L500.4050 ####[facility] [address] [place], [address] Urea nitrogen [Mass/Vol] 18 mg/dL Normal 7-18 [facility] Comment on above: Performed By: #### L 100.0100, L500.4050 ####[facility] [address] [place], [address] [facility] Office Visit Reporton 09-14-2024 Rev[facility] Drafter Office Visit Report [facility] [address], [address] [place] [address] OFFICE VISIT Date of Service: 09/14/24 MR#: [id number] Acct: [id number] Name: SOHA LEON Rep #: [id number] : 1975 Provider: Dr. 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 Is patient in pain?: No Allergies hydrocodone (From Hycomine (hydrocodone-PPA)) Adverse Reaction (Mild, Verified 09/14/24 08:52) Itching metformin Adverse Reaction (Mild, Verified 09/14/24 08:52) Diarrhea Medications ???Medication ???Instructions ???Recorded ???Confirmed ???Type vitamin B complex 1 ea PO DAILY 02/17/19 09/14/24 Hi story cholecalciferol (vitamin D3) 25 1,000 unit PO DAILY 06/08/1909/14 History mcg (1,000 unit) capsule aspirin 81 mg tablet,delayed 81 mg PO DAILY 04/18/20 09/14/24 H istory release diclofenac sodium 75 mg 75 mg PO BID 03/02/21 09/14/24 His tory tablet,delayed release blood sugar diagnostic #100 ea 04/18/21 06/15/24 Rx blood-glucose meter (OneTouch #1 ea 04/19/21 09/14/24 Rx Verio Flex Meter) OneTouch Verio test strips (blood #200 ea 06/09/21 09/14/24 Rx sugar diagnostic) cetirizine 10 mg tablet 10 mg PO DAILY PRN allergy symptom s 04/04/23 09/14/24 History metoprolol succinate 100 mg 50 mg PO QHS 05/23/23 09/14/24 His tory tablet,extended release 24 hr omega 3-laj-kwe-fish oil 1,200 mg 1 cap PO DAILY 07/19/23 09/14/24 History (144 mg-216 mg) capsule (Fish Oil) Jardiance 25 mg tablet 25 mg PO DAILY #90 tabs 11/26/23 0 09/14/24 Rx (empagliflozin) blood-glucose sensor (FreeStyle #2 ea 05/15/24 09/14/24 Rx Ginny 3 Plus Sensor device) blood-glucose sensor (FreeStyle #6 ea 06/15/24 09/14/24 Rx Ginny 3 Plus Sensor device) levothyroxine 175 mcg tablet 175 mcg PO QDAY #90 tabs 06/15/24 09/14/24 Rx semaglutide 2 mg/dose (8 mg/3 mL) 2 mg (0.75 mL) subcut QWEEK #3 mL 06/15/24 09/14/24 Rx subcutaneous pen injector (Ozempic) venlafaxine 75 mg capsule,extended 75 mg PO DAILY #30 caps 09/14/24 09/14/24 Rx release 24 hr (Effexor XR) Is last menstrual period known: No Patient : No : No PFSH Medical History Wears glasses Cancer Thyroid disease Gastric reflux Former smoker History of echocardiogram History of irregular heartbeat Loud snoring Murmur, cardiac History of malignant neoplasm of skin Obesity TIA (transient ischemic attack) Neuropathy Chronic headache Arthritis PORT PLACEMENT Breast cancer, left Thyroid cancer HTN (hypertension) Diabetes Surgical History S/P laparoscopic assisted vaginal hysterectomy (LAVH) Hx of colonoscopy Hx of surgical procedure History of removal of Port-a-Cath History of tonsillectomy History of endometrial ablation S/P lumpectomy, left breast ( 02/24/19) Status post left breast lumpectomy ( 12/2018) History of breast biopsy ( 12/2018) S/P thyroidectomy Family History Mother Breast cancer Grandmother Cervical cancer Breast cancer Sister Thyroid cancer Unknown Diabetes Arthritis Hyperlipidemia Hypertension Thyroid disorder CVA (cerebral vascular accident) Other Vocal cord cancer Social History Smoking Status: Former smoker Tobacco: How many years used: 22 second hand exposure: No alcohol intake: never substance use type: does not use caffeine: Yes what type of physical activity do you participate in: walking seatbelt use: always do you feel safe at home: Yes 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 Date Name GA/Weeks Outcome Route Bth Weight Gen Labor Lgth Anesthesia Del Locatn Provider FOB Unknown 2006 Mariela live - full term Unknown 2008 Maxx live - full term Unknown 2012 Matt live - full term HPI Encounter for routine gynecological examination Details: SOHA LEON is a 48 year old who presents for annual exam. Last PAP: 01/25/2020 - normal. Has had hysterectomy. History of abnormal PAP: Last mammogram: 03/05/2024 - normal History of abnormal mammogram: Colon cancer screening: last year - (more content not included)... Normal [facility] Oncology Visit Reporton 08-29 Oncology Visit Report [facility] [place] [facility] [place] [address] OFFICE VISIT Date of Service: 09/14/24 1018 MR#: [id number] Acct: [id number] Name: SOHA LEON Rep #: [id number] : 1975 From: Edwin Soria MD Age/Sex: 48/F [place] [facility] [place] Status: Signed HPI Subjective Date of Service 09/14/24 Chief Complaint Breast cancer History of Present Illness 48-year-old female, maxime-menopausal at diagnosis who never had screening mammogram until she felt a lump in her left breast. 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 ANTIBODY / CLONE? RESULT E-Cad??? (ECH-6) ? positive CK8??? (30litvQ76) positive , focal CK5-6??? (D5 1684) ? positive, focal Ki-67??? (30-9)? positive, high P53??? (DO-7)? negative P40??? (BC28) positive, focal Calponin-1 (KE294T) ? negative CD56??? (123C3.D5) ? negative Chromo??? (LK2H10) ? negative Synapto??? (polyclonal) negative (high background staining) MORPHOMETRIC ANALYSIS ? ER (clone 6F11) ? 14%, weak in intensity OK (clone 16/1E2) ? 27%, weak to moderate in intensity Her-2Neu (clone CB11) ? 2+ IN SITU HYBRIDIZATION (PAULA) FOR HER2 Interpretation:??? Not Amplified / Negative The biopsy was complicated with a rather large hematoma which required a two-step surgery: January 12, 2019: A.??? 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 Changes consistent with previous biopsy site. See cancer summary below. B.??? 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 Changes consistent with previous biopsy site. See cancer summary below. C.??? Left breast mass, new inferior margin: Changes consistent with previous biopsy site. Negative for carcinoma. INVASIVE BREAST CANCER SUMMARY (including specimens A, B C): ??? Specimen??? partial breast ??? Procedure??? excision with wire-guided localization ??? Lymph node sampling??? no lymph node present ??? Specimen integrity??? multiple designated specimens (main excision and identified margins) ??? Specimen size:??? Partial mastectomy??? 6 x 4.5 x 2.5 cm New superior and deep margin??? 5 x 3.5 x 2 cm New inferior margin??? 1.5 x 0.5 x 0.3 cm ??? Specimen laterality - left ??? Tumor site??? not identified ??? Tumor size: Lumpectomy specimen??? 3.5 x 1.5 x 1.5 cm New superior and deep margin??? 2 x 0.9 cm, largest focus (measured microscopically) ??? Tumor focality??? single focus of invasive carcinoma ??? Macroscopic and Microscopic extent of tumor: ? Skin??? not present ? Nipple??? not applicable ? Skeletal muscle??? no skeletal muscle present. ??? Ductal carcinoma in situ (DCIS)??? no DCIS is present. ??? Lobular carcinoma in situ (LCIS)??? not identified ??? Histologic type of invasive carcinoma??? invasive ductal carcinoma with focal squamous differentiation (Consistent with focal area of metaplastic carcinoma). ??? Histologic Grade (Lashell grade): ? Glandular/tubular differentiation - score 3 ? Nuclear pleomorphism - score 3 ? Mitotic count??? score 3 ? Overall grade - 3 (score of 9) ??? Margins??? Margins are focally positive for carcinoma.??? See comment. ??? Treatment effect:??? Response to presurgical (neoadjuvant) therapy - no known presurgical therapy. ??? Lymph-Vascular invasion??? not identified ??? Dermal lymph-vascular invasion??? not applicable ??? Lymph nodes??? no lymph nodes present. ??? Distant metastasis??? not applicable ??? Additional pathologic findings??? changes consistent with previous biopsy site with focal area of hematoma formation. ??? Ancillary studies - previously performed on section of tumor ([id number] / [id number]). ? ER??? positive (14%, weak in intensity) ? OK??? positive (27%, weak to moderate in intensity) ? Her2 denver??? equivocal (2+) ? Her2 by dual PAULA - not amplified/negative ??? Microcalcifications??? not identified ??? Clinical history - Please make reference to previous specimen ([id number]) left breast, core biopsy wit diagnosis of invasive ductal carcinoma with focal squamous differentiation. ??? PATHOLOGIC STAGE:??? pT2??? pNx??? Mx February 24, 2019: MICROSCOPIC DIAGNOSIS A.??? Left axillary sentinel lymph nodes, biopsy: Two out of two lymph nodes negative for carcinoma. See comment. B.??? Left breast tissue, lumpectomy: Mild fibrocystic change. Microscopic fibroade (more content not included)... Normal [facility] Thyroglobulin w/Anti-TG ABon 11-19-2024 Anti-TG AB < 1.0 Normal 0.0-0.9 [facility] Comment on above: Order Comment: Reaso n for Laboratory Test x Result Comment: Thyr oglobulin Antibody measured by Andi Sandro Methodology It should be noted that the presence of thyroglobulin antibodies may not be pathogenic nor diagnostic, especially at very low levels. The assay fabrication inspector has found that four percent of individuals without evidence of thyroid disease or autoimmunity will have positive TgAb levels up to 4 IU/mL. Performed By: #### L 506.1000, L506.0400, L3300.6820, L502.0250, L501.9520 ####[facility] [address] [place], [place], [id number] THYROGLOB QUANT 0.3 ng/mL Low 1.5-38.5 [facility] Comment on above: Order Comment: Reaso n for Laboratory Test x Result Comment: Acco rding to the National Academy of Clinical Biochemistry, the reference interval for Thyroglobulin (TG) should be related to euthyroid patients and not for patients who underwent thyroidectomy. TG reference intervals for these patients depend on the residual mass of the thyroid tissue left after surgery. Establishing a post-operative baseline is recommended. The assay limit of quantitation is 0.1 ng/mL Thyroglobulin measured by Andi Sandro Immunometric Assay Performed at: [address] [id number] Tnt Line Supervisor: Gerald Christianson PhD, Phone: [phone] Performed By: #### L 506.1000, L506.0400, L3300.6820, L502.0250, L501.9520 ####[facility] [id number] [place], [place], [id number] Endocrinology Visit Reporton 06-15-2024 Endocrinology Visit Report [facility] [address] [place] [address]. [address] [place], [place] [address] OFFICE VISIT Date of Service: 06/15/24 MR#: [id number] Acct: [id number] Name: SOHA LEON Rep #: [id number] : 1975 Provider: Vu Reyes Age/Sex: 48/F Location[place] [facility] Status: Signed Intake Vital Signs 11/26/23 08:27 03/09/24 09:46 05/21/24 10:31 06/15/24 08:27 Height 5 ft 9 in 5 ft 9 in 5 ft 9 in 5 ft 9 in Weight: 181 lb 4 oz BMI 26.7 BP 146/101 H Blood Pressure Location Rt brachial Position Sitting Pulse 82 Pulse Source Monitor Pulse Oximetry (%) 98 Oxygen Delivery Method room air Intake Visit Reasons: 7 M FU, RS 03/24 Chief Complaint: Diabetes, thyroid Allergies hydrocodone (From Hycomine (hydrocodone-PPA)) Adverse Reaction (Mild, Verified 05/21/24 10:30) Itching metformin Adverse Reaction (Mild, Verified 05/21/24 10:30) Diarrhea Medications ???Medication ???Instructions ???Recorded ???Confirmed ???Type vitamin B complex 1 ea PO DAILY 02/17/19 06/15/24 History cholecalciferol (vitamin D3) 25 1,000 unit PO DAILY 06/08/19 06/15/24 History mcg (1,000 unit) capsule aspirin 81 mg tablet,delayed 81 mg PO DAILY 04/18/20 06/15/24 History release diclofenac sodium 75 mg 75 mg PO BID 03/02/21 06/15/24 History tablet,delayed release blood sugar diagnostic #100 ea 04/18/21 06/15/24 Rx blood-glucose meter (OneTouch #1 ea 04/19/21 06/15/24 Rx Verio Flex Meter) OneTouch Verio test strips (blood #200 ea 06/09/21 05/21/24 Rx sugar diagnostic) cetirizine 10 mg tablet 10 mg PO DAILY PRN allergy symptoms 04/04/23 06/15/24 History metoprolol succinate 100 mg 50 mg PO QHS 05/23/23 06/15/24 History tablet,extended release 24 hr misoprostol 200 mcg tablet 400 mcg PO PRN PRN PROCEDURE 07/19/23 06/15/24 History (Cytotec) omega 1-bzj-yzs-fish oil 1,200 mg 1 cap PO DAILY 07/19/23 06/15/24 History (144 mg-216 mg) capsule (Fish Oil) venlafaxine 75 mg capsule,extended 75 mg PO DAILY #30 caps 09/12/23 06/15/24 Rx release 24 hr (Effexor XR) Jardiance 25 mg tablet 25 mg PO DAILY #90 tabs 11/26/23 06/15/24 Rx (empagliflozin) blood-glucose sensor (FreeStyle #2 ea 05/15/24 06/15/24 Rx Ginny 3 Plus Sensor device) blood-glucose sensor (FreeStyle #6 ea 06/15/24 06/15/24 Rx Ginny 3 Plus Sensor device) levothyroxine 200 mcg tablet 200 mcg PO .COMPLEX #90 tabs 06/15/24 06/15/24 Rx semaglutide 2 mg/dose (8 mg/3 mL) 2 mg (0.75 mL) subcut QWEEK #3 mL 06/15/24 06/15/24 Rx subcutaneous pen injector (Ozempic) PFSH Medical History Wears glasses Cancer Thyroid disease Gastric reflux Former smoker History of echocardiogram History of irregular heartbeat Loud snoring Murmur, cardiac History of malignant neoplasm of skin Obesity TIA (transient ischemic attack) Neuropathy Chronic headache Arthritis PORT PLACEMENT Breast cancer, left Thyroid cancer HTN (hypertension) Diabetes Surgical History S/P laparoscopic assisted vaginal hysterectomy (LAVH) Hx of colonoscopy Hx of surgical procedure History of removal of Port-a-Cath History of tonsillectomy History of endometrial ablation S/P lumpectomy, left breast ( 02/24/19) Status post left breast lumpectomy ( 12/2018) History of breast biopsy ( 12/2018) S/P thyroidectomy Family History Mother Breast cancer Grandmother Cervical cancer Breast cancer Sister Thyroid cancer Unknown Diabetes Arthritis Hyperlipidemia Hypertension Thyroid disorder CVA (cerebral vascular accident) Other Vocal cord cancer Social History Smoking Status: Former smoker Tobacco: How many years used: 22 second hand exposure: No alcohol intake: never substance use type: does not use caffeine: Yes what type of physical activity do you participate in: walking seatbelt use: always do you feel safe at home: Yes 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 A1C is 6.7% She is taking Ozempic. She has lost about 20 pounds. She is feeling well. She is having menopausal symptoms including brain fog. She has remote history of microcarcinoma of the thyroid. She is on high dose levothyroxine. She is due for labs. She has history of breast cancer. Bone density was 2 years ago and is normal. ROS Const Constitutional: No fatigue, weight change or change in appetite Eyes Eyes: No change in vision ENT ENT: No d (more content not included)... Normal [facility] Microalb:Creat Ratio,Random URon 06-15-2024 Creatinine [Mass/Vol] 217.00 mg/dL Normal NO RANGE EST. [facility] Comment on above: Performed By: #### L 506.1000, L506.0400, L3300.6820, L502.0250, L501.9520 #### [facility] [address] [place], [address] MALB:CRE 14.9 mg/g CRE Normal <30 mg/g CRE [facility] Comment on above: Performed By: #### L 506.1000, L506.0400, L3300.6820, L502.0250, L501.9520 #### [facility] [address] [place], [address] MICROALBUMIN,UR 32.4 mg/L Normal NO RANGE EST. [facility] Comment on above: Performed By: #### L 506.1000, L506.0400, L3300.6820, L502.0250, L501.9520 #### [facility] [address] [place], [address] T4 Free Directon 06-15-2024 T4 FREE DIRECT 1.86 ng/dL High 0.76-1.46 [facility] Comment on above: Performed By: #### L 506.1000, L506.0400, L3300.6820, L502.0250, L501.9520 ####[facility] [id number] [place], [address] Thyroid Stim Hormone (TSH)on 06-15-2024 TSH 0.094 uIU/mL Low 0.358-3.74 0 [facility] Comment on above: Performed By: #### L 506.1000, L506.0400, L3300.6820, L502.0250, L501.9520 #### [facility] [address] [place], [address] Vitamin D,25 Hydroxyon 06-15 Vitamin D 25-OH 69.4 ng/mL Normal [facility] Comment on above: Result Comment: Ramonita min D 25(OH) Status Range Deficiency <20 ng/mL (50nmol/L) Insufficiency 20 - 30 ng/mL (50 - 75 nmol/L) Sufficiency 30 - 100 ng/mL (75 - 250 nmol/L) Toxicity >100 ng/mL (>250 nmol/L) Performed By: #### L 506.1000, L506.0400, L3300.6820, L502.0250, L501.9520 #### [facility] [address] [place], [address] Oncology Visit Reporton 04-29 Oncology Visit Report [facility] [address] [place] [address] OFFICE VISIT Date of Service: 05/21/24 1027 MR#: [id number] Acct: [id number] Name: SOHA LEON Noelle Rep #: [id number] : 1975 From: Edwin Soria MD Age/Sex: 48/F Location: [facility] [place] Status: Signed HPI Subjective Date of Service 05/21/24 Chief Complaint Breast cancer History of Present Illness 47-year-old female, maxime-menopausal at diagnosis who never had screening mammogram until she felt a lump in her left breast. 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 ANTIBODY / CLONE? RESULT E-Cad??? (ECH-6) ? positive CK8??? (16qsjjH10) positive , focal CK5-6??? (D5 1684) ? positive, focal Ki-67??? (30-9)? positive, high P53??? (DO-7)? negative P40??? (BC28) positive, focal Calponin-1 (HZ703W) ? negative CD56??? (123C3.D5) ? negative Chromo??? (LK2H10) ? negative Synapto??? (polyclonal) negative (high background staining) MORPHOMETRIC ANALYSIS ? ER (clone 6F11) ? 14%, weak in intensity OK (clone 16/1E2) ? 27%, weak to moderate in intensity Her-2Neu (clone CB11) ? 2+ IN SITU HYBRIDIZATION (PAULA) FOR HER2 Interpretation:??? Not Amplified / Negative The biopsy was complicated with a rather large hematoma which required a two-step surgery: January 12, 2019: A.??? 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 Changes consistent with previous biopsy site. See cancer summary below. B.??? 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 Changes consistent with previous biopsy site. See cancer summary below. C.??? Left breast mass, new inferior margin: Changes consistent with previous biopsy site. Negative for carcinoma. INVASIVE BREAST CANCER SUMMARY (including specimens A, B C): ??? Specimen??? partial breast ??? Procedure??? excision with wire-guided localization ??? Lymph node sampling??? no lymph node present ??? Specimen integrity??? multiple designated specimens (main excision and identified margins) ??? Specimen size:??? Partial mastectomy??? 6 x 4.5 x 2.5 cm New superior and deep margin??? 5 x 3.5 x 2 cm New inferior margin??? 1.5 x 0.5 x 0.3 cm ??? Specimen laterality - left ??? Tumor site??? not identified ??? Tumor size: Lumpectomy specimen??? 3.5 x 1.5 x 1.5 cm New superior and deep margin??? 2 x 0.9 cm, largest focus (measured microscopically) ??? Tumor focality??? single focus of invasive carcinoma ??? Macroscopic and Microscopic extent of tumor: ? Skin??? not present ? Nipple??? not applicable ? Skeletal muscle??? no skeletal muscle present. ??? Ductal carcinoma in situ (DCIS)??? no DCIS is present. ??? Lobular carcinoma in situ (LCIS)??? not identified ??? Histologic type of invasive carcinoma??? invasive ductal carcinoma with focal squamous differentiation (Consistent with focal area of metaplastic carcinoma). ??? Histologic Grade (Goodwell grade): ? Glandular/tubular differentiation - score 3 ? Nuclear pleomorphism - score 3 ? Mitotic count??? score 3 ? Overall grade - 3 (score of 9) ??? Margins??? Margins are focally positive for carcinoma.??? See comment. ??? Treatment effect:??? Response to presurgical (neoadjuvant) therapy - no known presurgical therapy. ??? Lymph-Vascular invasion??? not identified ??? Dermal lymph-vascular invasion??? not applicable ??? Lymph nodes??? no lymph nodes present. ??? Distant metastasis??? not applicable ??? Additional pathologic findings??? changes consistent with previous biopsy site with focal area of hematoma formation. ??? Ancillary studies - previously performed on section of tumor ([id number] / [id number]). ? ER??? positive (14%, weak in intensity) ? OK??? positive (27%, weak to moderate in intensity) ? Her2 denver??? equivocal (2+) ? Her2 by dual PAULA - not amplified/negative ??? Microcalcifications??? not identified ??? Clinical history - Please make reference to previous specimen ([id number]) left breast, core biopsy wit diagnosis of invasive ductal carcinoma with focal squamous differentiation. ??? PATHOLOGIC STAGE:??? pT2??? pNx??? Mx February 24, 2019: MICROSCOPIC DIAGNOSIS A.??? Left axillary sentinel lymph nodes, biopsy: Two out of two lymph nodes negative for carcinoma. See comment. B.??? Left breast tissue, lumpectomy: Mild fibrocystic change. Microscopic fibroade (more content not included)... Normal [facility] Oncology Visit Reporton 03-29 Oncology Visit Report [facility] [address] [facility] [place] [address] OFFICE VISIT Date of Service: 04/15/24 1400 MR#: [id number] Acct: [id number] Name: SOHA LEON Rep #: [id number] : 1975 From: Edwin Soria MD Age/Sex: 48/F Location: [facility] Status: Signed HPI Subjective Date of Service 04/15/24 Chief Complaint Breast cancer History of Present Illness 47-year-old female, maxime-menopausal at diagnosis who never had screening mammogram until she felt a lump in her left breast. 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 ANTIBODY / CLONE? RESULT E-Cad??? (ECH-6) ? positive CK8??? (61oosrK00) positive , focal CK5-6??? (D5 1684) ? positive, focal Ki-67??? (30-9)? positive, high P53??? (DO-7)? negative P40??? (BC28) positive, focal Calponin-1 (OD757P) ? negative CD56??? (123C3.D5) ? negative Chromo??? (LK2H10) ? negative Synapto??? (polyclonal) negative (high background staining) MORPHOMETRIC ANALYSIS ? ER (clone 6F11) ? 14%, weak in intensity OK (clone 16/1E2) ? 27%, weak to moderate in intensity Her-2Neu (clone CB11) ? 2+ IN SITU HYBRIDIZATION (PAULA) FOR HER2 Interpretation:??? Not Amplified / Negative The biopsy was complicated with a rather large hematoma which required a two-step surgery: January 12, 2019: A.??? 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 Changes consistent with previous biopsy site. See cancer summary below. B.??? 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 Changes consistent with previous biopsy site. See cancer summary below. C.??? Left breast mass, new inferior margin: Changes consistent with previous biopsy site. Negative for carcinoma. INVASIVE BREAST CANCER SUMMARY (including specimens A, B C): ??? Specimen??? partial breast ??? Procedure??? excision with wire-guided localization ??? Lymph node sampling??? no lymph node present ??? Specimen integrity??? multiple designated specimens (main excision and identified margins) ??? Specimen size:??? Partial mastectomy??? 6 x 4.5 x 2.5 cm New superior and deep margin??? 5 x 3.5 x 2 cm New inferior margin??? 1.5 x 0.5 x 0.3 cm ??? Specimen laterality - left ??? Tumor site??? not identified ??? Tumor size: Lumpectomy specimen??? 3.5 x 1.5 x 1.5 cm New superior and deep margin??? 2 x 0.9 cm, largest focus (measured microscopically) ??? Tumor focality??? single focus of invasive carcinoma ??? Macroscopic and Microscopic extent of tumor: ? Skin??? not present ? Nipple??? not applicable ? Skeletal muscle??? no skeletal muscle present. ??? Ductal carcinoma in situ (DCIS)??? no DCIS is present. ??? Lobular carcinoma in situ (LCIS)??? not identified ??? Histologic type of invasive carcinoma??? invasive ductal carcinoma with focal squamous differentiation (Consistent with focal area of metaplastic carcinoma). ??? Histologic Grade (Lashell grade): ? Glandular/tubular differentiation - score 3 ? Nuclear pleomorphism - score 3 ? Mitotic count??? score 3 ? Overall grade - 3 (score of 9) ??? Margins??? Margins are focally positive for carcinoma.??? See comment. ??? Treatment effect:??? Response to presurgical (neoadjuvant) therapy - no known presurgical therapy. ??? Lymph-Vascular invasion??? not identified ??? Dermal lymph-vascular invasion??? not applicable ??? Lymph nodes??? no lymph nodes present. ??? Distant metastasis??? not applicable ??? Additional pathologic findings??? changes consistent with previous biopsy site with focal area of hematoma formation. ??? Ancillary studies - previously performed on section of tumor ([id number] / [id number]). ? ER??? positive (14%, weak in intensity) ? OK??? positive (27%, weak to moderate in intensity) ? Her2 denver??? equivocal (2+) ? Her2 by dual PAULA - not amplified/negative ??? Microcalcifications??? not identified ??? Clinical history - Please make reference to previous specimen ([id number]) left breast, core biopsy wit diagnosis of invasive ductal carcinoma with focal squamous differentiation. ??? PATHOLOGIC STAGE:??? pT2??? pNx??? Mx February 24, 2019: MICROSCOPIC DIAGNOSIS A.??? Left axillary sentinel lymph nodes, biopsy: Two out of two lymph nodes negative for carcinoma. See comment. B.??? Left breast tissue, lumpectomy: Mild fibrocystic change. Microscopic fibroade (more content not included)... Normal [facility] Radiation Oncology Visiton 0 03-09-2024 Radiation Oncology Visit [facility] [address] [facility] [place] [place] [address] OFFICE VISIT Date of Service: 03/09/24 0943 MR#: [id number] Acct: [id number] Name: SOHA LEON Rep #: [id number] : 1975 From: Michael Osuna DO Age/Sex: 48/F [place] [facility] Status: Signed Intake Vital Signs 08/15/23 08:57 11/26/23 08:27 03/09/24 09:46 Height 5 ft 9 in 5 ft 9 in 5 ft 9 in Weight: 202 lb 187 lb 2 oz BMI 29.8 27.6 BP 125/85 H 139/95 H Blood Pressure Location Lt brachial Rt brachial Position Sitting Sitting Respiration 18 Pulse 92 80 Pulse Source Monitor Monitor Temp 98.1 F 96.8 F L Temperature Source Temporal Artery Pulse Oximetry (%) 97 99 Oxygen Delivery Method room air room air Intake Visit Reasons: 6 MONTH F/U BREAST, REVIEW MAMMO Is patient in pain?: No Allergies hydrocodone (From Hycomine (hydrocodone-PPA)) Adverse Reaction (Mild, Verified 03/09/24 09:45) Itching metformin Adverse Reaction (Mild, Verified 03/09/24 09:45) Diarrhea Medications ???Medication ???Instructions ???Recorded ???Confirmed ???Type vitamin B complex 1 ea PO DAILY 02/17/19 03/09/24 History cholecalciferol (vitamin D3) 25 1,000 unit PO DAILY 06/08/19 03/09/24 History mcg (1,000 unit) capsule aspirin 81 mg tablet,delayed 81 mg PO DAILY 04/18/20 03/09/24 History release diclofenac sodium 75 mg 75 mg PO BID 03/02/21 03/09/24 History tablet,delayed release blood sugar diagnostic #100 ea 04/18/21 03/09/24 Rx blood-glucose meter (OneTouch #1 ea 04/19/21 03/09/24 Rx Verio Flex Meter) OneTouch Verio test strips (blood #200 ea 06/09/21 03/09/24 Rx sugar diagnostic) cetirizine 10 mg tablet 10 mg PO DAILY PRN allergy symptoms 04/04/23 03/09/24 History metoprolol succinate 100 mg 50 mg PO QHS 05/23/23 03/09/24 History tablet,extended release 24 hr levothyroxine 200 mcg capsule 300 mcg PO SCHWAB 07/19/23 03/09/24 History misoprostol 200 mcg tablet 400 mcg PO PRN PRN PROCEDURE 07/19/23 03/09/24 History (Cytotec) omega 6-qud-ryt-fish oil 1,200 mg 1 cap PO DAILY 07/19/23 03/09/24 History (144 mg-216 mg) capsule (Fish Oil) venlafaxine 75 mg capsule,extended 75 mg PO DAILY #30 caps 09/12/23 03/09/24 Rx release 24 hr (Effexor XR) FreeStyle Ginny 3 Sensor #2 ea 11/26/23 03/09/24 Rx (blood-glucose sensor) Jardiance 25 mg tablet 25 mg PO DAILY #90 tabs 11/26/23 03/09/24 Rx (empagliflozin) levothyroxine 200 mcg tablet 200 mcg PO .SAMOTUWETHFR #90 tabs 12/25/23 03/09/24 Rx semaglutide 2 mg/dose (8 mg/3 mL) 2 mg (0.75 mL) subcut QWEEK #3 mL 12/31/23 03/09/24 Rx subcutaneous pen injector (Ozempic) PFSH PFSH Medical History Wears glasses Cancer Thyroid disease Gastric reflux Former smoker History of echocardiogram History of irregular heartbeat Loud snoring Murmur, cardiac History of malignant neoplasm of skin Obesity TIA (transient ischemic attack) Neuropathy Chronic headache Arthritis PORT PLACEMENT Breast cancer, left Thyroid cancer HTN (hypertension) Diabetes Home Medications ???Medication ???Instructions ???Recorded ???Last Taken ???Type vitamin B complex 1 ea PO DAILY 02/17/19 Unknown History cholecalciferol (vitamin D3) 25 1,000 unit PO DAILY 06/08/19 Unknown History mcg (1,000 unit) capsule aspirin 81 mg tablet,delayed 81 mg PO DAILY 04/18/20 Unknown History release diclofenac sodium 75 mg 75 mg PO BID 03/02/21 Unknown History tablet,delayed release blood sugar diagnostic #100 ea 04/18/21 Unknown Rx blood-glucose meter (OneTouch #1 ea 04/19/21 Unknown Rx Verio Flex Meter) OneTouch Verio test strips (blood #200 ea 06/09/21 Unknown Rx sugar diagnostic) cetirizine 10 mg tablet 10 mg PO DAILY PRN allergy symptoms 04/04/23 Unknown History metoprolol succinate 100 mg 50 mg PO QHS 05/23/23 Unknown History tablet,extended release 24 hr levothyroxine 200 mcg capsule 300 mcg PO SCHWAB 07/19/23 07/30/23 History misoprostol 200 mcg tablet 400 mcg PO PRN PRN PROCEDURE 07/19/23 Unknown History (Cytotec) omega 8-ydx-vwv-fish oil 1,200 mg 1 cap PO DAILY 07/19/23 Unknown History (144 mg-216 mg) capsule (Fish Oil) venlafaxine 75 mg capsule,extended 75 mg PO DAILY #30 caps 09/12/23 Unknown Rx release 24 hr (Effexor XR) FreeStyle Ginny 3 Sensor #2 ea 11/26/23 Unknown Rx (blood-glucose sensor) Jardiance 25 mg tablet 25 mg PO DAILY #90 tabs 11/26/23 Unknown Rx (empagliflozin) levothyroxine 200 mcg tablet 200 mcg PO .SAMOTUWETHFR #90 tabs 12/25/23 Unknown Rx semaglutide 2 mg/dose (8 mg/3 mL) 2 mg (0.75 mL) subcut QWEEK #3 mL 12/31/23 Unknown Rx subcutaneous pen injector (Ozempic) Allergy/AdvReac Type Severity Reaction Status Date / Time hydroco (more content not included)... Normal [facility] LARGE JOINT INJECTION/ARTHRO CENTESIS: R shoulder jointon 12-19-2023 Osmani Davies D O 12/19/2023 1:36 PM LARGE JOINT INJECTION/ARTHROCENTESIS: R shoulder joint Informed Consent Consent Obtained: Verbal [place] Protocol A moment to CARE was completed. [...] assessment and interventions applicable. No implant(s) inserted. 12/19/2023 1:22 PM The procedure site was prepped in the usual sterile fashion. Site: R shoulder joint Medications: 40 mg triamcinolone acetonide 40 mg/mL; 2 mg dexAMETHasone sodium phosphate 4 mg/mL Anesthetics: 2 mL lidocaine 20 mg/mL (2 %) Outcome: Tolerated well, no immediate complications Post-injection instructions were reviewed with the patient and the patient voiced understanding of these instructions. SIGN OUT No instruments, equipment or retained foreign bodies applicable. [facility] XR Shoulder - right 3 Viewso n 12-19-2023 Right shoulder x-ray x 3 view shows small calcific area off the greater tubercle concern for calcific tendinitis on AP view. Mild AC joint arthritic changes. Normal glenohumeral joint. No acute fracture. [facility] ([facility] Radiology Study observation (narrative) [facility] Basophil percentageOrdered B y: Jaymie Kemp on 07-30-2023 WBC (Bld) [#/Vol] 11.3 10*3/uL 4.4-11.0 [facility] Bilirubin [Mass/Vol] 0.20 mg/dL 0.20-1.00 [facility] Comment on above: For patients on eltr ombopag therapy, use of [facility] [place] TBIL is not recommended. Chloride [Moles/Vol] 105 mmol/L 98-107 [facility] Glucose [Mass/Vol] 240 mg/dL 74-106 [facility] Comment on above: Glucose result great er than or equal to 200 mg/dLsuggests DIABETES MELLITUS per A.D.A. criteria. Potassium [Moles/Vol] 3.6 mmol/L 3.5-5.1 [facility] Protein [Mass/Vol] 7.1 g/dL 6.4-8.2 [facility] Sodium [Moles/Vol] 138 mmol/L 136-145 [facility] Blood erythrocytes count (nu mber/volume)Ordered By: Jaymie Kemp on 07-30-2023 RBC (Bld) [#/Vol] 4.86 10*6/uL 4.2-5.4 [facility] Blood hemoglobin measurement (mass/volume)Ordered By: Jaymie Kemp on 07-30-2023 Hemoglobin (Bld) [Mass/Vol] 13.8 g/dL 12.0-15.0 [facility] Blood platelet mean volumeOr dered By: Jaymie Kemp on 07-30-2023 Platelet mean volume (Bld) [Entitic vol] 10.6 fL 6.2-12.0 [facility] Determination of erythrocyte mean corpuscular volume (MCV)Ordered By: Jaymie Kemp on 07-30-2023 MCV (RBC) [Entitic vol] 88.5 fL 81-99 [facility] Glucose Glucometer (BldC) [M ass/Vol]Ordered By: Jaymie Kemp on 07-30-2023 Glucose [Mass/Vol] 223 mg/dL 74-106 [facility] Comment on above: MANAGEMENT OF PATIEN T CARE PER NURSING PROTOCOL Hematocrit Auto (Bld) [Volum e fraction]Ordered By: Jaymie Kemp on 07-30-2023 Hematocrit (Bld) [Volume fraction] 43.0 % 37-47 [facility] - Chemistry and C hemistry - challengeOrdered By: Jaymie Kemp on 07-30-2023 ALP [Catalytic activity/Vol] 54 U/L 45-117 [facility] ALT [Catalytic activity/Vol] 44 U/L 13-56 [facility] CO2 [Moles/Vol] 25.0 mmol/L 21.0-32.0 [facility] Globulin (S) [Mass/Vol] 3.5 g/dL 2.2-4.2 [facility] Urea nitrogen/Creatinine [Mass ratio] 18.4 mg/mg 10-20 [facility] - Chemistry and C hemistry - challengeOrdered By: Erik Barnes on 07-30-2023 Magnesium [Mass/Vol] 2.0 mg/dL 1.6-2.6 [facility] HCG ( test) Ql (U) Negative [facility] Comment on above: Very dilute urine sp ecimens, as indicated by a low specificgravity, may not contain customer sales representative levels of hCG. If is still suspected, a first morning urinespecimen should be collected 48 hours later and tested. Laboratory - Hematology and Cell countsOrdered By: Jaymie Kemp on 07-30-2023 Erythrocyte distribution width (RBC) [Entitic vol] 42.6 fL 35.1-43.9 [facility] Erythrocyte distribution width (RBC) [Ratio] 13.2 % 11.6-14.6 [facility] MCH (RBC) [Entitic mass] 28.4 pg 27.0-32.0 [facility] MCHC Auto (RBC) [Mass/Vol]Or dered By: Jaymie Kemp on 07-30-2023 MCHC (RBC) [Mass/Vol] 32.1 g/dL 32-36 [facility] No Panel InformationOrdered By: Jaymie Kemp on 07-30-2023 Estimated Creatinine Clearance Calc 95.63 ml/min [facility] Estimated GFR (MDRD) Amer 104 mL/min >60 [facility] Comment on above: GFR Calc Estimated GFR (MDRD) Non-Af Amer 86 mL/min >60 [facility] Comment on above: Non- GFR Calc No Panel InformationOrdered By: Erik Barnes on 07-30-2023 Thyroid Stimulating Hormone (TSH) 4.17 uIU/mL 0.358-3.74 [facility] Platelets bldOrdered By: Carlos Kemp on 07-30-2023 Platelets (Bld) [#/Vol] 237 10*3/uL 150-450 [facility] Serum or plasma albumin connie urement (mass/volume)Ordered By: Jaymie Kemp on 07-30-2023 Albumin [Mass/Vol] 3.6 g/dL 3.2-5.0 [facility] Serum or plasma albumin/glob ulin mass ratioOrdered By: Jaymie Kemp on 07-30-2023 Albumin/Globulin [Mass ratio] 1.0 {ratio} 0.9-2.4 [facility] Serum or plasma calcium connie urement (mass/volume)Ordered By: Jaymie Kemp on 07-30-2023 Calcium [Mass/Vol] 8.9 mg/dL 8.5-10.1 [facility] Serum or plasma creatinine m easurement (mass/volume)Ordered By: Jaymie Kemp on 07-30-2023 Creatinine [Mass/Vol] 0.76 mg/dL 0.55-1.02 [facility] Comment on above: The validity of the calculated GFR & GFRAA in patients over 70 years has not been determined. Clinical correlation is essential. Serum or plasma urea nitroge n measurement (mass/volume)Ordered By: Jaymie Kemp on 07-30-2023 Urea nitrogen [Mass/Vol] 14 mg/dL 7-18 [facility] Thin prep Papanicolaou smear with manual screeningOrdered By: Jaymie Kemp on 07-30-2023 Thin prep Papanicolaou smear with manual screening 21 U/L 15-37 [facility] Thin prep Papanicolaou smear with manual screening 8 5-15 [facility] XR KNEE RIGHT 3 VIEWS (ROUTI NE)on 05-24-2023 XR KNEE RIGHT 3 VIEWS (ROUTINE) EXAM: XR KNEE RIGHT 3 VIEWS (ROUTINE) HISTORY: pain COMPARISON: None. TECHNIQUE: 3 view right knee. FINDINGS: Alignment is normal. There is no fracture. There are osteoarthritic changes of moderate severity involving the medial and patellofemoral compartments. No lytic or blastic lesions are seen. IMPRESSION: Osteoarthritis. Twisting injury. Pain worse when weightbearing. Normal [employer] XR Knee - right 3 Viewson Osteoarthritis. [facility] EXAM: XR KNEE RIGHT 3 VIEWS (ROUTINE) HISTORY: pain COMPARISON: None. TECHNIQUE: 3 view right knee. FINDINGS: Alignment is normal. There is no fracture. There are osteoarthritic changes of moderate severity involving the medial and patellofemoral compartments. No lytic or blastic lesions are seen. Reinaldo Neal MD - 05/24/2023 EXAM: XR KNEE RIGHT 3 VIEWS (ROUTINE) HISTORY: pain COMPARISON: None. TECHNIQUE: 3 view right knee. FINDINGS: Alignment is normal. There is no fracture. There are osteoarthritic changes of moderate severity involving the medial and patellofemoral compartments. No lytic or blastic lesions are seen. IMPRESSION: Osteoarthritis. [facility] Radiology Study observation (narrative) [facility] XR Knee - right 3 ViewsOrder ed By: Reinaldo Buck on 05-24-2023 [facility] Work Phone: Laboratory - Hematology and Cell countson 05-23-2023 HbA1c (Bld) [Mass fraction] 6.7 % 4.2-6.3 [facility] No Panel InformationOrdered By: Zina Burnett on 04-04-2023 Follicle Stimulating Hormone 18.7 mIU/mL [facility] Comment on above: NORMAL REFERENCE RAN GES FEMALE FOLLICULAR 2.3 - 12.6 mIU/mL MID-CYCLE PEAK 5.2 - 17.5 mIU/mL LUTEAL 1.7 - 12.9 mIU/mL POST-MENOPAUSAL ON MHT 5.9 - 72.8 mIU/mL NOT ON MHT 12.7 - 132.2 mlU/mL MALE 0.7 - 10.8 mIU/mL Serum or plasma estradiol (E 2) measurement (mass/volume)Ordered By: Zina Burnett on 04-04-2023 E2 [Mass/Vol] 28.1 pg/mL [facility] Comment on above: NORMAL REFERENCE RAN GES FEMALE FOLLICULAR 21.4 - 164.8 pg/mL MID-CYCLE PEAK 49.9 - 367.2 pg/mL LUTEAL 40.2 - 259.0 pg/mL POST-MENOPAUSAL ON MHT <11.0 - 462.1 pg/mL NOT ON MHT <11.0 - 58.3 pg/mL MALE <11.0 - 52.5 pg/mL NOTE:[employer] HAS CONFIRMED THE DRUG FULVETRANT (FASLODEX) MAY CAUSE FALSELY ELEVATED ESTRADIOL RESULTS WHEN USING THIS TEST METHOD. IF PATIENT IS TAKING FULVESTRANT AN ALTERNATIVE METHOD SHOULD BE USED TO DETERMINE ESTRADIOL CONCENTRATION. Laboratory - Hematology and Cell countson 02-01-2023 HbA1c (Bld) [Mass fraction] 7.4 % 4.2-6.3 [facility] CNOVon 01-30-2023 CNOV Office Visit (ORUPDO ) SOHA LEON ([id number]) 1975 F Date Time Provider Department 01/30/23 9:00 AM OSMANI DAVIES During your visit today, we recorded the following information about you: Pulse Blood pressure Weight Height 79/minute 128/72 97.5 kg 1.753 m Osmani Davies DO 01/30/2023 9:27 AM Signed HPI: Soha Leon is a 47 year old female established [...] fluticasone (FLONASE) 50 mcg/actuation nasal spray 1 [place] as needed. ondansetron orally disintegrating (ZOFRAN ODT) [...] Take 1 tablet by mouth once daily. Myogz-5-HGL-EPA-Fish Oil 300-1,000 mg cap Take 1 capsule [...] 128/72 Pulse 79 Ht 175.3 cm (5' 9) Wt 97.5 kg (215 lb) BMI 31.75 [...] Mild inversion plantarflexion test. Negative eversion dorsiflexion (more content not included)... Normal [facility] Glucose Glucometer (BldC) [M ass/Vol]Ordered By: Dr. Colindres on 12-25-2022 Glucose [Mass/Vol] 140 mg/dL 74-106 [facility] Comment on above: MANAGEMENT OF PATIEN T CARE PER NURSING PROTOCOL Laboratory - Chemistry and C hemistry - challengeOrdered By: Dr. Kim on 12-25-2022 HCG ( test) Ql (U) Negative [facility] Comment on above: Very dilute urine sp ecimens, as indicated by a low specificgravity, may not contain customer sales representative levels of hCG. If is still suspected, a first morning urinespecimen should be collected 48 hours later and tested. Laboratory - Hematology and Cell countson 10-15-2022 HbA1c (Bld) [Mass fraction] 7.1 % [facility] Absolute lymphocyte countOrd ered By: Dr. Soria on 09-27-2022 Lymphocytes Auto (Unsp spec) [#/Vol] 1.56 10*3/uL 0.83-4.51 [facility] Basophil percentageOrdered B y: Dr. Soria on 09-27-2022 Basophils/100 WBC (Bld) 0.8 % 0-1 [facility] Bilirubin [Mass/Vol] 0.50 mg/dL 0.20-1.00 [facility] Comment on above: For patients on eltr ombopag therapy, use of [place] TBIL is not recommended. Chloride [Moles/Vol] 103 mmol/L 98-107 [facility] Eosinophils/100 WBC (Bld) 3.1 % 0-5 [facility] Glucose [Mass/Vol] 193 mg/dL 74-106 [facility] Comment on above: Fasting Glucose resu lt greater than or equal to 126 mg/dL suggests DIABETES MELLITUS per A.D.A. criteria. Neutrophils (Bld) [#/Vol] 4.4 10*3/uL 2.0-7.7 [facility] Neutrophils/100 WBC (Bld) 66.5 % 47-70 [facility] Potassium [Moles/Vol] 3.7 mmol/L 3.5-5.1 [facility] Protein [Mass/Vol] 7.7 g/dL 6.4-8.2 [facility] Sodium [Moles/Vol] 137 mmol/L 136-145 [facility] WBC (Bld) [#/Vol] 6.5 10*3/uL 4.4-11.0 [facility] Blood erythrocytes count (nu mber/volume)Ordered By: Dr. Soria on 09-27-2022 RBC (Bld) [#/Vol] 5.03 10*6/uL 4.2-5.4 [facility] Blood hemoglobin measurement (mass/volume)Ordered By: Dr. Soria on 09-27-2022 Hemoglobin (Bld) [Mass/Vol] 14.7 g/dL 12.0-15.0 [facility] Blood lymphocytes/100 leukoc ytesOrdered By: Dr. Soria on 09-27-2022 Lymphocytes/100 WBC (Bld) 23.9 % 19-41 [facility] Blood monocytes/100 leukocyt esOrdered By: Dr. Soria on 09-27-2022 Monocytes/100 WBC (Bld) 5.2 % 0-10 [facility] Blood platelet mean volumeOr dered By: Dr. Soria on 09-27-2022 Platelet mean volume (Bld) [Entitic vol] 10.5 fL 6.2-12.0 [facility] Determination of erythrocyte mean corpuscular volume (MCV)Ordered By: Dr. Soria on 09-27-2022 MCV (RBC) [Entitic vol] 87.9 fL 81-99 [facility] Hematocrit Auto (Bld) [Volum e fraction]Ordered By: Dr. Soria on 09-27-2022 Hematocrit (Bld) [Volume fraction] 44.2 % 37-47 [facility] Laboratory - Chemistry and C hemistry - challengeOrdered By: Dr. Soria on 09-27-2022 ALP [Catalytic activity/Vol] 63 U/L 45-117 [facility] ALT [Catalytic activity/Vol] 33 U/L 13-56 [facility] CO2 [Moles/Vol] 26.0 mmol/L 21.0-32.0 [facility] Globulin (S) [Mass/Vol] 3.8 g/dL 2.2-4.2 [facility] Urea nitrogen/Creatinine [Mass ratio] 22.0 mg/mg 10-20 [facility] Laboratory - Chemistry and C hemistry - challengeOrdered By: Dr. Cooper on 09-27-2022 Free T4 [Mass/Vol] 1.32 ng/dL 0.76-1.46 [facility] Laboratory - Hematology and Cell countsOrdered By: Dr. Soria on 09-27-2022 Erythrocyte distribution width (RBC) [Entitic vol] 39.1 fL 35.1-43.9 [facility] Erythrocyte distribution width (RBC) [Ratio] 12.1 % 11.6-14.6 [facility] Immature granulocytes/100 WBC (Bld) 0.500 % 0.0-0.9 [facility] Comment on above: IG% - Immature Granu locytes (promyelocytes, myelocytes and metamyelocytes) > 1% indicates that a LEFT SHIFT is Present. MCH (RBC) [Entitic mass] 29.2 pg 27.0-32.0 [facility] Nucleated RBC/100 WBC (Bld) [Ratio] 0 % 0-5 [facility] [Mass/Vol]Or dered By: Dr. Soria on 09-27-2022 MCHC (RBC) [Mass/Vol] 33.3 g/dL 32-36 [facility] No Panel InformationOrdered By: Dr. Soria on 09-27-2022 Estimated Creatinine Clearance Calc 100.64 ml/min [facility] Estimated GFR (MDRD) Amer 110 mL/min >60 [facility] Comment on above: GFR Calc Estimated GFR (MDRD) Non-Af Amer 91 mL/min >60 [facility] Comment on above: Non- GFR Calc No Panel InformationOrdered By: Dr. Cooper on 09-27-2022 Thyroglobulin Antibody < 1.0 IU/mL 0.0-0.9 [facility] Comment on above: Thyroglobulin Antibo dy measured by [employer] Thyroglobulin Level 0.5 ng/mL 1.5-38.5 [facility] Comment on above: According to the [facility] [employer],the reference interval for Thyroglobulin (TG) should berelated to euthyroid patients and not for patients whounderwent thyroidectomy. TG reference intervals for thesepatients depend on the residual mass of the thyroid tissueleft after surgery. Establishing a post-operative baselineis recommended. The assay limit of quantitation is 0.1ng/mLThyroglobulin measured by [employer] ImmunometricAssayPerformed at: - [facility] [id number] Director: Gerald Christianson PhD, Phone: [phone] Thyroid Stimulating Hormone (TSH) 2.59 uIU/mL 0.358-3.74 [facility] Vitamin D 25-Hydroxy 52.8 ng/mL [facility] Comment on above: Vitamin D 25(OH) Sta tus Range Deficiency <20 ng/mL (50nmol/L) Insufficiency 20 - 30 ng/mL (50 - 75 nmol/L) Sufficiency 30 - 100 ng/mL (75 - 250 nmol/L) Toxicity >100 ng/mL (>250 nmol/L) Platelets bldOrdered By: Dr. Soria on 09-27-2022 Platelets (Bld) [#/Vol] 260 10*3/uL 150-450 [facility] Serum or plasma albumin connie urement (mass/volume)Ordered By: Dr. Soria on 09-27-2022 Albumin [Mass/Vol] 3.9 g/dL 3.2-5.0 [facility] Serum or plasma albumin/glob ulin mass ratioOrdered By: Dr. Soria on 09-27-2022 Albumin/Globulin [Mass ratio] 1.0 {ratio} 0.9-2.4 [facility] Serum or plasma calcium connie urement (mass/volume)Ordered By: Dr. Soria on 09-27-2022 Calcium [Mass/Vol] 9.1 mg/dL 8.5-10.1 [facility] Serum or plasma creatinine m easurement (mass/volume)Ordered By: Dr. Soria on 09-27-2022 Creatinine [Mass/Vol] 0.73 mg/dL 0.55-1.02 [facility] Comment on above: The validity of the calculated GFR & GFRAA in patients over 70 years has not been determined. Clinical correlation is essential. Serum or plasma urea nitroge n measurement (mass/volume)Ordered By: Dr. Soria on 09-27-2022 Urea nitrogen [Mass/Vol] 16 mg/dL 7-18 [facility] Thin prep Papanicolaou smear with manual screeningOrdered By: Dr. Soria on 09-27-2022 Thin prep Papanicolaou smear with manual screening 19 U/L 15-37 [facility] Thin prep Papanicolaou smear with manual screening 8 5-15 [facility] Basophil percentageon 2021 Bilirubin [Mass/Vol] 0.40 mg/dL 0.20-1.00 [facility] Work Phone: Comment on above: For patients on eltr ombopag therapy, use of [place] TBIL is not recommended. Chloride [Moles/Vol] 104 mmol/L 98-107 [facility] Work Phone: Cholesterol [Mass/Vol] 244 mg/dL <200 [facility] Work Phone: Comment on above: <200 mg/dL Desirable 200-240 mg/dL Borderline >240 mg/dL High Risk Glucose [Mass/Vol] 132 mg/dL 74-106 [facility] Work Phone: Comment on above: Fasting Glucose resu lt greater than or equal to 126 mg/dL suggests DIABETES MELLITUS per A.D.A. criteria. Potassium [Moles/Vol] 4.1 mmol/L 3.5-5.1 [facility] Work Phone: Protein [Mass/Vol] 7.7 g/dL 6.4-8.2 [facility] Work Phone: Sodium [Moles/Vol] 137 mmol/L 136-145 [facility] Work Phone: Triglyceride [Mass/Vol] 342 mg/dL <199 [facility] Work Phone: Comment on above: The drugs N-Acetylcy steine and Metamizole may falsely depress this assay.Serum Triglycerides Reference Interval Normal <150 mg/dL Borderline high 150 - 199 mg/dL High 200 - 499 mg/dL Very High > or = 500 mg/dL Laboratory - Chemistry and C hemistry - challengeon 04-17-2022 ALP [Catalytic activity/Vol] 69 U/L 45-117 [facility] Work Phone: ALT [Catalytic activity/Vol] 30 U/L 13-56 [facility] Work Phone: CO2 [Moles/Vol] 26.0 mmol/L 21.0-32.0 [facility] Work Phone: Cobalamin (Vitamin B12) [Mass/Vol] 487 pg/mL 211-911 [facility] Work Phone: Free T4 [Mass/Vol] 1.32 ng/dL 0.76-1.46 [facility] Work Phone: Globulin (S) [Mass/Vol] 3.8 g/dL 2.2-4.2 [facility] Work Phone: Urea nitrogen/Creatinine [Mass ratio] 16.2 mg/mg - [facility] Work Phone: Laboratory - Hematology and Cell countson 04-17-2022 HbA1c (Bld) [Mass fraction] 6.6 % [facility] Work Phone: No Panel Informationon 04-17 Estimated GFR (MDRD) Amer 99 mL/min >60 [facility] Work Phone: Comment on above: GFR Calc Estimated GFR (MDRD) Non-Af Amer 82 mL/min >60 [facility] Work Phone: Comment on above: Non- GFR Calc Thyroglobulin Antibody < 1.0 IU/mL 0.0-0.9 [facility] Work Phone: Comment on above: Thyroglobulin Antibo dy measured by Andi CoulterMethodology Thyroglobulin Level 0.2 ng/mL 1.5-38.5 [facility] Work Phone: Comment on above: According to the [facility] [employer] of Clinical Biochemistry,the reference interval for Thyroglobulin (TG) should berelated to euthyroid patients and not for patients whounderwent thyroidectomy. TG reference intervals for thesepatients depend on the residual mass of the thyroid tissueleft after surgery. Establishing a post-operative baselineis recommended. The assay limit of quantitation is 0.1ng/mLThyroglobulin measured by [employer] ImmunometricAssayPerformed at: [facility] [id number] Director: Gerald Christianson PhD, Phone: [phone] Thyroid Stimulating Hormone (TSH) 0.86 uIU/mL 0.358-3.74 [facility] Work Phone: Urine Microalbumin/Creati nine Ratio 9.0 mg/g CRE <30 [facility] Work Phone: Vitamin D 25-Hydroxy 41.7 ng/mL [facility] Work Phone: Comment on above: Vitamin D 25(OH) Sta tus Range Deficiency <20 ng/mL (50nmol/L) Insufficiency 20 - 30 ng/mL (50 - 75 nmol/L) Sufficiency 30 - 100 ng/mL (75 - 250 nmol/L) Toxicity >100 ng/mL (>250 nmol/L) Serum or plasma albumin connie urement (mass/volume)on 04-17-2022 Albumin [Mass/Vol] 3.9 g/dL 3.2-5.0 [facility] Work Phone: Serum or plasma albumin/glob ulin mass ratioon 04-17-2022 Albumin/Globulin [Mass ratio] 1.0 {ratio} 0.9-2.4 [facility] Work Phone: Serum or plasma calcium connie urement (mass/volume)on 04-17-2022 Calcium [Mass/Vol] 9.2 mg/dL 8.5-10.1 [facility] Work Phone: Serum or plasma cholesterol in HDL measurement (mass/volume)on 04-17-2022 Cholesterol in HDL [Mass/Vol] 53 mg/dL >40 [facility] Work Phone: Comment on above: The drugs N-Acetylcy steine and Metamizole may falsely depress this assay. Reference Range HDL <40 mg/dL Low HDL Cholesterol HDL >or= 60 mg/dL High HDL Cholesterol Serum or plasma cholesterol in VLDL measurement (mass/volume)on 04-17-2022 Cholesterol in VLDL [Mass/Vol] 68 mg/dL 5-40 [facility] Work Phone: Serum or plasma creatinine m easurement (mass/volume)on 04-17-2022 Creatinine [Mass/Vol] 0.80 mg/dL 0.55-1.02 [facility] Work Phone: Comment on above: The validity of the calculated GFR & GFRAA in patients over 70 years has not been determined. Clinical correlation is essential. Serum or plasma low density lipoprotein (LDL) cholesterol measurement (mass/volume)on 04-17-2022 Cholesterol in LDL [Mass/Vol] 123 mg/dL 0-130 [facility] Work Phone: Serum or plasma urea nitroge n measurement (mass/volume)on 04-17-2022 Urea nitrogen [Mass/Vol] 13 mg/dL 7-18 [facility] Work Phone: Thin prep Papanicolaou smear with manual screeningon 04-17-2022 Thin prep Papanicolaou smear with manual screening 15 U/L 15-37 [facility] Work Phone: Thin prep Papanicolaou smear with manual screening 7 5-15 [facility] Work Phone: Thin prep Papanicolaou smear with manual screening 7.2 mg/L NO RANGE EST. [facility] Work Phone: Urine creatinine measurement (mass/volume)on 04-17-2022 Creatinine (U) [Mass/Vol] 80.30 mg/dL NO RANGE EST. [facility] Work Phone: No Panel Informationon 03-06 Follicle Stimulating Hormone 58.9 mIU/mL [facility] Work Phone: Comment on above: NORMAL REFERENCE RAN GES FEMALE FOLLICULAR 2.3 - 12.6 mIU/mL MID-CYCLE PEAK 5.2 - 17.5 mIU/mL LUTEAL 1.7 - 12.9 mIU/mL POST-MENOPAUSAL ON MHT 5.9 - 72.8 mIU/mL NOT ON MHT 12.7 - 132.2 mlU/mL MALE 0.7 - 10.8 mIU/mL Serum or plasma estradiol (E 2) measurement (mass/volume)on 03-06-2022 E2 [Mass/Vol] pg/mL [facility] Work Phone: Comment on above: NORMAL REFERENCE RAN GES FEMALE FOLLICULAR 21.4 - 164.8 pg/mL MID-CYCLE PEAK 49.9 - 367.2 pg/mL LUTEAL 40.2 - 259.0 pg/mL POST-MENOPAUSAL ON MHT <11.0 - 462.1 pg/mL NOT ON MHT <11.0 - 58.3 pg/mL MALE <11.0 - 52.5 pg/mL NOTE:[employer] HAS CONFIRMED THE DRUG FULVETRANT (FASLODEX) MAY CAUSE FALSELY ELEVATED ESTRADIOL RESULTS WHEN USING THIS TEST METHOD. IF PATIENT IS TAKING FULVESTRANT AN ALTERNATIVE METHOD SHOULD BE USED TO DETERMINE ESTRADIOL CONCENTRATION. Absolute lymphocyte counton 11-07-2021 Lymphocytes Auto (Unsp spec) [#/Vol] 1.45 10*3/uL 0.83-4.51 [facility] Work Phone: Basophil percentageon 2021 Basophils/100 WBC (Bld) 0.6 % 0-1 [facility] Work Phone: [phone] Bilirubin [Mass/Vol] 0.40 mg/dL 0.20-1.00 [facility] Work Phone: Comment on above: For patients on eltr ombopag therapy, use of [place] TBIL is not recommended. Chloride [Moles/Vol] 104 mmol/L 98-107 [facility] Work Phone: [phone] Eosinophils/100 WBC (Bld) 2.6 % 0-5 [facility] Work Phone: [phone] Glucose [Mass/Vol] 125 mg/dL 74-106 [facility] Work Phone: [phone] Comment on above: Fasting Glucose resu lt from 100 to 125 mg/dL suggests IMPAIRED HOMEOSTASIS per A.D.A. criteria. Neutrophils (Bld) [#/Vol] 4.4 10*3/uL 2.0-7.7 [facility] Work Phone: [phone] Neutrophils/100 WBC (Bld) 67.9 % 47-70 [facility] Work Phone: [phone] Potassium [Moles/Vol] 3.8 mmol/L 3.5-5.1 [facility] Work Phone: Protein [Mass/Vol] 7.6 g/dL 6.4-8.2 [facility] Work Phone: Sodium [Moles/Vol] 138 mmol/L 136-145 [facility] Work Phone: [phone] WBC (Bld) [#/Vol] 6.5 10*3/uL 4.4-11.0 [facility] Work [facility]: Blood erythrocytes count (nu mber/volume)on 11-07-2021 RBC (Bld) [#/Vol] 5.07 10*6/uL 4.2-5.4 [facility] Work Phone: Blood hemoglobin measurement (mass/volume)on 11-07-2021 Hemoglobin (Bld) [Mass/Vol] 14.6 g/dL 12.0-15.0 [facility] Work Phone: Blood lymphocytes/100 leukoc yteson 11-07-2021 Lymphocytes/100 WBC (Bld) 22.3 % 19-41 [facility] Work Phone: Blood monocytes/100 leukocyt eson 11-07-2021 Monocytes/100 WBC (Bld) 6.1 % 0-10 [facility] Work Phone: Blood platelet mean volumeon 11-07-2021 Platelet mean volume (Bld) [Entitic vol] 10.9 fL 6.2-12.0 [facility] Work Phone: Determination of erythrocyte mean corpuscular volume (MCV)on 11-07-2021 MCV (RBC) [Entitic vol] 87.2 fL 81-99 [facility] Work Phone: Hematocrit Auto (Bld) [Volum e fraction]on 11-07-2021 Hematocrit (Bld) [Volume fraction] 44.2 % 37-47 [facility] Work Phone: Laboratory - Chemistry and C hemistry - challengeon 11-07-2021 ALP [Catalytic activity/Vol] 56 U/L 45-117 [facility] Work Phone: ALT [Catalytic activity/Vol] 48 U/L 13-56 [facility] Work Phone: CO2 [Moles/Vol] 31.0 mmol/L 21.0-32.0 [facility] Work Phone: Globulin (S) [Mass/Vol] 3.7 g/dL 2.2-4.2 [facility] Work Phone: Urea nitrogen/Creatinine [Mass ratio] 22.3 mg/mg 10-20 [facility] Work Phone: Laboratory - Hematology and Cell countson 11-07-2021 Erythrocyte distribution width (RBC) [Entitic vol] 40.0 fL 35.1-43.9 [facility] Work Phone: Erythrocyte distribution width (RBC) [Ratio] 12.6 % 11.6-14.6 [facility] Work Phone: Immature granulocytes/100 WBC (Bld) 0.500 % 0.0-0.9 [facility] Work Phone: Comment on above: IG% - Immature Granu locytes (promyelocytes, myelocytes and metamyelocytes) > 1% indicates that a LEFT SHIFT is Present. MCH (RBC) [Entitic mass] 28.8 pg 27.0-32.0 [facility] Work Phone: Nucleated RBC/100 WBC (Bld) [Ratio] 0 % 0-5 [facility] Work Phone: MCHC Auto (RBC) [Mass/Vol]on 11-07-2021 MCHC (RBC) [Mass/Vol] 33.0 g/dL 32-36 [facility] Work Phone: No Panel Informationon 11-07 Estimated Creatinine Clearance Calc 103.12 ml/min [facility] Work Phone: Estimated GFR (MDRD) Amer 113 mL/min >60 [facility] Work Phone: Comment on above: GFR Calc Estimated GFR (MDRD) Non-Af Amer 93 mL/min >60 [facility] Work Phone: Comment on above: Non- GFR Calc Platelets bldon 11-07-2021 Platelets (Bld) [#/Vol] 197 10*3/uL 150-450 [facility] Work Phone: Serum or plasma albumin connie urement (mass/volume)on 11-07-2021 Albumin [Mass/Vol] 3.9 g/dL 3.2-5.0 [facility] Work Phone: Serum or plasma albumin/glob ulin mass ratioon 11-07-2021 Albumin/Globulin [Mass ratio] 1.1 {ratio} 0.9-2.4 [facility] Work Phone: Serum or plasma calcium connie urement (mass/volume)on 11-07-2021 Calcium [Mass/Vol] 9.4 mg/dL 8.5-10.1 [facility] Work Phone: Serum or plasma creatinine m easurement (mass/volume)on 11-07-2021 Creatinine [Mass/Vol] 0.72 mg/dL 0.55-1.02 [facility] Work Phone: Comment on above: The validity of the calculated GFR & GFRAA in patients over 70 years has not been determined. Clinical correlation is essential. Serum or plasma urea nitroge n measurement (mass/volume)on 11-07-2021 Urea nitrogen [Mass/Vol] 16 mg/dL 7-18 [facility] Work Phone: Thin prep Papanicolaou smear with manual screeningon 11-07-2021 Thin prep Papanicolaou smear with manual screening 18 U/L 15-37 [facility] Work Phone: Thin prep Papanicolaou smear with manual screening 3 5-15 [facility] Work Phone: Laboratory - Chemistry and C hemistry - challengeon 09-20-2020 Free T4 [Mass/Vol] 1.19 ng/dL 0.76-1.46 [facility] Work Phone: No Panel Informationon 09-20 Thyroglobulin Antibody < 1.0 IU/mL 0.0-0.9 [facility] Work Phone: Comment on above: Thyroglobulin Antibo dy measured by Andi CoulterMethodology Thyroglobulin Level 0.6 ng/mL 1.5-38.5 [facility] Work Phone: Comment on above: According to the [facility] [employer],the reference interval for Thyroglobulin (TG) should berelated to euthyroid patients and not for patients whounderwent thyroidectomy. TG reference intervals for thesepatients depend on the residual mass of the thyroid tissueleft after surgery. Establishing a post-operative baselineis recommended. The assay limit of quantitation is 0.1ng/mLThyroglobulin measured by Andi Thereson S.p.A. ImmunometricAssayPerformed at: [facility] [place], [place] [id number] Director: Gerald Christianson PhD, Phone: [phone] Thyroid Stimulating Hormone (TSH) 4.77 uIU/mL 0.358-3.74 [facility] Work Phone: Vitamin D 25-Hydroxy 79.4 ng/mL [facility] Work Phone: Comment on above: Vitamin D 25(OH) Sta tus Range Deficiency <20 ng/mL (50nmol/L) Insufficiency 20 - 30 ng/mL (50 - 75 nmol/L) Sufficiency 30 - 100 ng/mL (75 - 250 nmol/L) Toxicity >100 ng/mL (>250 nmol/L) Whole blood hemoglobin A1c/t otal hemoglobin ratio (mass fraction)on 09-20-2020 HbA1c (Bld) [Mass fraction] 6.6 % 3.8-5.6 [facility] Comment on above: Normal < 5.7 % Predi abetic 5.7 - 6.4 % Diabetic >or= 6.5 % Please note range changes. PAU REFLEXon 07-08-2020 PAU REFLEX Negative Normal . [facility] Comment on above: Result Comment: Nega tive <1:80 Borderline 1:80 Positive >1:80 Performed at: [facility] [address] [place], [place] [id number] Tnt Line Supervisor: Gerald Christianson PhD, Phone: [phone] Performed By: #### L 800.1525, L801.4204 #### [place] [address] CCPIGGIGAon 07-08-2020 CCPIGGIGA 4 units Normal 0-19 [facility] Comment on above: Result Comment: Nega tive <20 Weak positive 20 - 39 Moderate positive 40 - 59 Strong positive >59 Performed at: [address] [id number] Tnt Line Supervisor: Miguelina Hopper MD, Phone: [phone] Performed By: #### L 800.1525, L801.4200 #### [place] [address] C-REACTIVE PROTon 07-06-2020 C-REACTIVE PROT 0.71 mg/dL High 0.00-0.50 [facility] Comment on above: Result Comment: STAT ED NORMAL RANGE IS FOR ADULTS ONLY. NO NORMAL RANGE HAS BEEN ESTABLISHED FOR CHILDREN. Performed By: #### L 100.0500, L100.0470, L100.0490 #### [facility] - LABORATORY [address] [place] [address] ESRon 07-06-2020 ESR (Bld) [Velocity] 7 mm/h Normal 0-20 [facility] Comment on above: Performed By: #### L 200.1500 #### [facility] [address] [place] [address] RHEUMATOID FACTon 07-06-2020 RHEUMATOID FACT <10 Normal 0-14 [facility] Comment on above: Performed By: #### L 100.0500, L100.0470, L100.0490 #### [facility] [address] [place] [address] URIC ACIDon 07-06-2020 Urate [Mass/Vol] 7.1 mg/dL High 2.4-5.7 [facility] Comment on above: Performed By: #### L 100.0500, L100.0470, L100.0490 #### [facility] [address] [place] [address] PHYSICAL THERAPY REPORTon PHYSICAL THERAPY REPORT [facility] OF [address] [address] PHYSICAL THERAPY REPORT Patient: SOHA LEON JAMES D D.O. [id number] [age] F Status: DIS RCR PT Outpatient Physical Therapy Discharge Summary As you know, we are following your patient's plan of care secondary to right knee arthritis and effusion. The patient's last visit to Physical Therapy was on 06/01/2020. She has not scheduled any more visits to Physical Therapy. At this time, we will consider the patient discharged from active physical therapy. DATE OF VISIT: Report#: Dict ID [id number] / Int ID [id number] cc: Osmani Davies DO Dictated By: ROXI HERRON DPT 06/28/20 1300 ROXI HERRON DPT CC: OSMANI DAVIES D.O. << Signature on File>> Reported By: ROXI HERRON DPT Signed By: ROXI HERRON DPT Tests performed at: [place] [address] Normal [facility] MRI LOWER EXT JT WOUT CONTRA STon 06-16-2020 MRI LOWER EXT JT WOUT CONTRAST [address] [address] Name: SOHA LEON Phys: OSMANI DAVIES D.O. : 75 Age: 44 Sex: F Acct: [id number] Loc: [facility] MRI Exam Date: 06/16/20 Status: PRE CLI Radiology No.: [id number] Unit Number: [id number] Exam # Type/Exam [id number] MRI / MRI LOWER EXT JT WOUT CONTRAST RT MRI of the right knee without contrast Clinical statement: Osteoarthritis. Chondromalacia. COMPARISON: None FINDINGS: The cruciate ligaments appear normal. The medial collateral ligament, iliotibial band and lateral collateral ligament appear intact. The lateral meniscus and lateral tibiofemoral cartilage are normal. Moderate medial tibiofemoral cartilage loss seen. There is degenerative type tearing at the posterior horn-root junction of the medial meniscus. The patellar tendon, quadriceps tendon and retinaculum are intact. Lateral tilt of the patella noted. Moderate to high-grade areas of the patellar cartilage loss noted A small joint effusion visualized. The popliteus tendon, pes anserine tendons and conjoined tendon are intact. There is mild subchondral edema in the medial tibia. No aggressive osseous lesions identified. IMPRESSION: 1. Moderate medial tibiofemoral cartilage loss. Degenerative type tearing at the posterior horn-root junction of the medial meniscus. 2. Lateral tilt of the patella. Moderate to high-grade patellar cartilage loss seen. 3. 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 Signed In PowerScribe By: GERALD LUGO M.D. << Signature on File>> Reported By: GERALD LUGO M.D. Signed By: GERALD LUGO M.D. Tests performed at: [place] [address] Normal [facility] PHYSICAL THERAPY REPORTon [facility] [address] [address] PHYSICAL THERAPY REPORT Patient: SOHA LEONOSMANI D.O. [id number] [age] F Status: REG RCR PT Outpatient Physical Therapy Progress Report As you know, we are following your patient's plan of care secondary to right knee arthritis and effusion. On today's date, the patient completed her 10th and final scheduled visit to Physical Therapy. Treatment has consisted of stretching/range of motion, strengthening exercises, gait training, balance/proprioceptive exercises, patient education, and a structured home exercise program. The patient reports her pain is 5-6/10 today. She recently started a new job this past Saturday, which requires her to stand on her feet for majority of the day and lift objects. She states that prior to starting her job, her symptoms were much better and stair negotiation was better and her pain was a 1-2/10. She states that her symptoms have significantly increased since starting this new job. Manual muscle testing for bilateral knees are globally 5/5. Active range of motion for right knee flexion is 127 degrees. She has currently met 2/4 long-term goals. Strength and range of motion have improved and her symptoms are improving as well until she started this new job. She is scheduled to see you on June 08, 2020. We will put her chart on hold until June 10, 2020 and then discharge if no more visits are scheduled. Thank you for your time and referral. Both are greatly appreciated. DATE OF VISIT: 06/01/2020 Report#: Dict ID [id number] / Int ID [id number] cc: Osmani Davies DO Dictated By: ROXI HERRON DPT 06/06/20 0743 ROXI HERRON DPT CC: OSMANI DAVIES D.O. << Signature on File>> Reported By: ROXI HERRON DPT Signed By: ROXI HERRON DPT Tests performed at: [place] [address] Normal [facility] PHYSICAL THERAPY REPORTon [facility] [place] [address] PHYSICAL THERAPY REPORT Patient: DELORES LEONZANEELIMA Drake OSMANI DAVIES D.O. [id number] [age] F Status: REG RCR PT Outpatient Physical Therapy Initial Evaluation DATE OF VISIT: 04/29/2020 PHYSICAL THERAPY DIAGNOSES: 1. Right knee pain. 2. Right lower extremity impaired active range of motion. 3. Bilateral lower extremity weakness. MEDICAL DIAGNOSES: 1. Effusion of right knee. 2. Primary osteoarthritis of right knee. 3. Chondromalacia of right patella. ONSET DATE: 02/28/2020. CHIEF COMPLAINT/FUNCTIONAL LIMITATIONS: 1. 1/10 right knee pain. 2. Pain increasing with uneven surfaces and stair negotiation. 3. Difficulty with ADLs/IADLs. PERSONAL FACTORS AND COMORBIDITIES: 1. Diabetes. 2. High blood pressure. 3. Cancer. 4. Arthritis. 5. Migraines. 6. Broken bone/fractures. HISTORY: The patient reports that she has had her symptoms and they have been fluctuating for years now. However, roughly 2 months ago she was chasing after dog and she felt a pop in her knee. She noticed an increase in pain/since this time. She also reports that a couple months ago they moved from a ranch house to [facility]. She had to carry heavy boxes and go up and down stairs, which she feels may have increased her symptoms. She received a radiograph, which she reports revealed nothing significant. Occasionally, her knee will give out randomly and she also reports crepitus. She denies having any restrictions. She reports she has a home exercise program involving long arc quads and knee flexion stretch. She was instructed to ice multiple times a day and she does occasionally. She reports this somewhat helps. She takes ibuprofen as needed for symptom reduction. 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 EXAMINATION: GAIT: The patient ambulates today without an assistive device. No significant gait deviations. STRENGTH: Manual muscle testing is same bilaterally for hip flexion 4/5, hip abduction extension 4+/5, hamstrings and quadriceps 4+/5. RANGE OF MOTION: Supine active range of motion for right knee is 0-1-107 degrees and the left is 0-0-136 degrees. PALPATION: The patient is tender to palpation in the right knee at the medial joint line. SPECIAL TESTS: Nicholas's test positive on the right with tibial external rotation and negative on the left. OBSERVATION/HOME EXERCISE PROGRAM: The patient was instructed on home exercise program today involving lower extremity strengthening and stretching exercises. The patient had no adverse reactions to treatment, was instructed to perform these as her home exercise program. CLINICAL PRESENTATION: The patient displays an evolving clinical presentation with change in characteristics. CLINICAL DECISION-MAKING: Moderate complexity based upon above history and examination. PROBLEM LIST/FUNCTIONAL LIMITATIONS: 1. Right knee pain. 2. Right knee impaired active range of motion. 3. Bilateral lower extremity weakness. 4. No formal home exercise program. 5. Difficulty with ADLs/IADLs. SHORT-TERM GOALS: The patient will be independent with home exercise program within 2 weeks. LONG-TERM GOALS: 1. The patient will improve manual muscle testing for bilateral knees to be 5/5 within 10 visits. 2. The patient will improve active range of motion for right knee flexion to be 126 degrees or greater within 10 visits. 3. The patient will subjectively report abolishment of right knee pain within 10 visits. 4. The patient will subjectively report overall improvement in her symptoms within 10 visits. PROGNOSIS/REHABILITATIVE POTENTIAL: Good for physical therapy goals. TREATMENT PLAN: The patient participated in therapeutic exercises consisting of stretching/range of motion, strengthening exercises, balance/proprioceptive exercises, patient education, modalities as needed, and a structured home exercise program. FREQUENCY/DURATION: 2-3 times a week for 10 visits. DISCHARGE PLANS: The patient will be discharged from active physical therapy once accomplishing her goals, maximizing physical therapy progress, or maximizing current physical therapy prescription. Thank you for your time and referral. Both are greatly appreciated. Report#: Dict ID [id number] / Int ID [id number] cc: Osmani Davies DO Dictated By: ROXI HERRON DPT 05/04/20 0748 ROXI HERRON DPT CC: OSMANI DAVIES D.O. << Signature on File>> Reported By: ROXI HERRON DPT Signed By: ROXI HERRON DPT Tests performed at: [address] [address] Normal [facility] No Panel Informationon 08-20 Follicle Stimulating Hormone 55.2 mIU/mL [facility] Comment on above: NORMAL REFERENCE [facility]AN [facility] FEMALE FOLLICULAR 2.3 - 12.6 mIU/mL MID-CYCLE PEAK 5.2 - 17.5 mIU/mL LUTEAL 1.7 - 12.9 mIU/mL POST-MENOPAUSAL ON MHT 5.9 - 72.8 mIU/mL NOT ON MHT 12.7 - 132.2 mlU/mL MALE 0.7 - 10.8 mIU/mL NEW TEST METHOD & REFERENCE RANGES DECEMBER 17, 2011 Luteinizing Hormone 32.6 mIU/mL [facility] Comment on above: NORMAL REFERENCE RAN [facility] FEMALE FOLLICULAR 1.9 - 26.2 mIU/mL MID-CYCLE PEAK 22.8 - 76.1 mIU/mL LUTEAL 0.6 - 16.6 mIU/mL POST-MENOPAUSAL ON MHT 1.1 - 52.4 mIU/mL NOT ON MHT 8.6 - 61.8 mIU/mL MALE 1.2 - 10.6 mIU/mL NEW TEST METHOD & REFERENCE RANGES DECEMBER 17, 2011 Basophil percentageon 2018 Eosinophils/100 WBC (Bld) 7 % 0-5 [facility] Blood platelet adequacy dete ction by light microscopyon 06-10-2019 Platelets LM Ql (Bld) ADEQUATE ADEQ [facility] Laboratory - Hematology and Cell countson 06-10-2019 Lymphocytes/100 WBC (Bld) 9 % 19-41 [facility] Metamyelocytes/100 WBC (Bld) 3 % 0-1 [facility] Monocytes/100 WBC (Bld) 4 % 0-10 [facility] Neutrophils/100 WBC (Bld) 74 % 47-70 [facility] No Panel Informationon 06-10 Urine Microalbumin/Creati nine Ratio 17.1 mg/g CRE <30 [facility] Promyelocytes % 3 0-0 [facility] RBC morphologyon 06-10-2019 RBC morphology finding Nom (Bld) NORM C+C NORMAL NORM C&C [facility] Review by pathologiston 05-29 Pathologist review Gentry (Unsp spec) [Interp] Reviewed [facility] Comment on above: Previous reported re sult: November foll Edited by: RGOFEDERICO on 06/11/19:0912Neutrophilic leukocytosis with left shift. Clinical correlation necessary.Thien Bennett M.D. 06/11/19 AMENDED REPORT 06/11/19 0912 PATH REV previously reported as: November cesar Thin prep Papanicolaou smear with manual screeningon 06-10-2019 Thin prep Papanicolaou smear with manual screening 21.5 mg/L NO RANGE EST. [facility] Total cell counton 9 Cells counted [employer] (Bld/Tiss) [#] 100 MANUAL DIFF [facility] Urine creatinine measurement (mass/volume)on 06-10-2019 Creatinine (U) [Mass/Vol] 126.00 mg/dL NO RANGE EST. [facility] - Hematology and Cell countson 05-27-2019 Band form neutrophils/100 WBC (Bld) 3 % 0-5 [facility] Myelocytes/100 WBC (Bld) 3 % 0-0 [facility] Basophils/100 WBC Manual cnt (Unsp spec)on 04-15-2019 Basophils/100 WBC (Unsp spec) 1 % 0-1 [facility] THYROGLOB ANTIBon 09-03-2017 THYROGLOB ANTIB < 1.0 Normal 0.0-0.9 [facility] Comment on above: Result Comment: Thyr oglobulin Antibody measured by MedImpact Healthcare SystemsMethodologyPerformed At: [facility] [address] [place], [place] [id number] Vincent [id number] Performed By: #### L 750.00581 ####[facility] [address] [place] [address]Yx# [phone] CMPon 08-31-2017 Alanine aminotransferase (ALT) 68 U/L High 13-61 [facility] Comment on above: Result Comment: RESU LTS MAY BE FALSELY DEPRESSED AFTER THE ADMINISTRATION OFSULFASALAZINE AND/OR SULFAPYRIDINE. Performed By: #### L 500.04923, L500.94698, L500.42229, L500.16980, L500.31889, L500.04894 ####[facility] [id number] [place], [place] [address]Pv# [phone] Albumin 4.2 g/dL Normal 3.2-5.0 [facility] Comment on above: Performed By: #### L 500.04046, L500.31407, L500.29109, L500.68826, L500.24914, L500.53548 ####[facility] GPDGELSBSJ364[address] [place], [place] [address]Jp# [phone] Albumin/Globulin Ratio 1.2 {ratio} Normal 0.8-2.0 [facility] Comment on above: Performed By: #### L 500.58476, L500.17120, L500.81472, L500.62150, L500.23952, L500.20776 ####[facility] RZEXQ[address] [place], [place] [address]Nx# [phone] ALK PHOS 68 U/L Normal 45-117 [facility] Comment on above: Performed By: #### L 500.17415, L500.06091, L500.44633, L500.71333, L500.95259, L500.23295 ####[facility] [id number] [place], [place] [address]Jc# [phone] Anion gap 8 mmol/L Normal 5-16 [facility] Comment on above: Performed By: #### L 500.11108, L500.40819, L500.50955, L500.68656, L500.18704, L500.77365 ####[facility] WLE[address]EM[address] [place], [place] [address]Aw# [phone] BILI TOTAL 0.5 MG/DL Normal 0.2-1.0 [facility] Comment on above: Performed By: #### L 500.97372, L500.28540, L500.95971, L500.78896, L500.80244, L500.64131 ####[facility] LVFQFNHLEK[address] [place], [place] [address]No# [phone] BUN/Creatinine Ratio 17 mg/mg Normal 15-24 [facility] Comment on above: Performed By: #### L 500.47646, L500.17948, L500.41485, L500.30565, L500.37732, L500.36262 ####[facility] [address]USLWAJCF[address] [place], [place] [address]Oz# [phone] Calcium 8.8 mg/dL Normal 8.5-10.1 [facility] Comment on above: Performed By: #### L 500.56238, L500.09744, L500.95708, L500.93261, L500.98023, L500.89065 ####[facility] QGJPXRFVPC[address] [place], [place] [address]Kw# [phone] Chloride 101 mmol/L Normal 98-107 [facility] Comment on above: Performed By: #### L 500.96967, L500.25855, L500.44587, L500.04474, L500.96723, L500.26877 ####[facility] [address]CCZZVN[address] [place], [place] [address]Ti# [phone] CO2 28 mmol/L Normal 21-32 [facility] Comment on above: Performed By: #### L 500.11698, L500.24059, L500.06582, L500.62949, L500.46934, L500.83570 ####[facility] [address]ZCBBMRE[address] [place], [place] [address]Cf# [phone] Creatinine 0.635 mg/dL Normal 0.510-0.95 0 [facility] Comment on above: Result Comment: Kimberly ents receiving either N-Acetylcysteine (NAC) orMetamizole prior to venipuncture, may have falsely depressedresults. Performed By: #### L 500.82296, L500.37113, L500.18030, L500.75146, L500.82519, L500.17401 ####[facility] GLXYNWYHOR[address] [place], [place] [address]Vf# [phone] Globulin 3.4 g/dL Normal 2.2-4.2 [facility] Comment on above: Performed By: #### L 500.36653, L500.24389, L500.66334, L500.86307, L500.41678, L500.49485 ####[facility] LGZMQUGCPU14[address] [place], [place] [address]Sm# [phone] Glucose mass conc 115 mg/dL High 70-100 [facility] Comment on above: Result Comment: 70-1 00- Normal Fasting; 100-125 Impaired Fasting; greaterthan 126 on more than one result- Diabetes. ADA guidelines.Results may be falsely elevated after the administration ofSulfapyridine.Results may be falsely depressed after the administration ofSulfasalazine. Performed By: #### L 500.54821, L500.25176, L500.28720, L500.57117, L500.95282, L500.58939 ####[facility] FU[address]FJPNSA[address] [place], [place] [address]Nn# [phone] Potassium molar conc 4.2 mmol/L Normal 3.5-5.1 [facility] Comment on above: Performed By: #### L 500.52743, L500.66903, L500.03878, L500.59102, L500.69589, L500.29728 ####[facility] [id number] [place], [place] [address]Cv# [phone] Protein 7.6 g/dL Normal 6.0-8.5 [facility] Comment on above: Performed By: #### L 500.10110, L500.68384, L500.26551, L500.60136, L500.78171, L500.76230 ####[facility] NRKCJNQPVX2[address] [place], [place] [address]Nu# [phone] SGOT (AST) 68 U/L High 8-34 [facility] Comment on above: Result Comment: RESU LTS MAY BE FALSELY DEPRESSED AFTER THE ADMINISTRATION OFSULFASALAZINE AND/OR SULFAPYRIDINE. Performed By: #### L 500.86567, L500.55347, L500.41859, L500.71136, L500.65402, L500.37879 ####[facility] TJNYNB[address]WX[address] [place], [place] [address]Tu# [phone] Sodium 137 mmol/L Normal 136-145 [facility] Comment on above: Performed By: #### L 500.20873, L500.98832, L500.13440, L500.71200, L500.91111, L500.40593 ####[facility] NMYZICLOQI[address] [place], [place] [address]Ft# [phone] Urea nitrogen 11 mg/dL Normal 7-26 [facility] Comment on above: Performed By: #### L 500.84385, L500.25834, L500.07245, L500.62841, L500.53521, L500.04376 ####[facility] XPUCMZXWXB1747 [place], [place] [address]Ui# [phone] GFR ESTon 08-31-2017 IF AMER Greater than 60 Normal [facility] Comment on above: Performed By: #### L 500.13029, L500.63170, L500.35868, L500.55849, L500.67773, L500.03801 ####[facility] KTXQIVRYHE[address] [place], [place] [address]Fr# [phone] IF non-AFR AMER Greater than 60 Normal [facility] Comment on above: Performed By: #### L 500.32892, L500.67958, L500.29236, L500.43269, L500.70701, L500.50235 ####[facility] CEZFKKQOAC8040 [place], [place] [address]Dq# [phone] LIPIDon 08-31-2017 Cholesterol 186 mg/dL Normal 0-199 [facility] [place] Comment on above: Performed By: #### L 500.01593, L500.15015, L500.69145, L500.51534, L500.50453, L500.53288 ####[facility] JNEVGDPWHM[address] [place], [place] [address]Wo# [phone] HDL Cholesterol 50 mg/dL Normal [place] [facility] Comment on above: Result Comment: Kimberly ents receiving Metamizole prior to venipuncture, mayhave falsely depressed results. Performed By: #### L 500.21669, L500.78177, L500.01637, L500.12411, L500.58429, L500.94227 ####[facility] JBKNHEMZGA[address] [place], [place] [address]Ii# [phone] LDL Cholesterol 101 MG/DL Normal 0-129 [facility] Comment on above: Result Comment: ___C HOLESTEROL/HDL RATIO RISK___ CHD RISK = Total CHOL LDL HDL (CHOL/HDL) ----Recommended <200 <130 >35 <3.4 [place] rderline 200-239 130-159 3.4-4.99 --High >240 >160 >5.0 Performed By: #### L 500.29867, L500.80353, L500.99630, L500.18942, L500.10319, L500.48124 ####[facility] NIF[address]UYYHB[address] [place], [place] [address]Ou# [phone] Triglyceride 175 mg/dL High 30-149 [facility] Comment on above: Result Comment: Kimberly ents receiving either N-Acetylcysteine (NAC) orMetamizole prior to venipuncture, may have falsely depressedresults. Performed By: #### L 500.63685, L500.23175, L500.45745, L500.37316, L500.78445, L500.36692 ####[facility] TJSVMSMBUZ1014 [place], [place] [address]Eh# [phone] T3 FREEon 08-31-2017 Triiodothyronine (T3) free 3.60 pg/mL Normal 2.18-3.98 [facility] Comment on above: Performed By: #### L 500.79581, L500.37002, L500.36910, L500.35320, L500.48985, L500.57398 ####[facility] ARZHFKPYOC5[address] [place], [place] [address]Ue# [phone] T4 FREEon 08-31-2017 Thyroxine (T4) free 1.23 ng/dL Normal 0.76-1.46 [facility] Comment on above: Performed By: #### L 500.93006, L500.11820, L500.40317, L500.70840, L500.24848, L500.86843 ####[facility] DBXAIZTGOX2591 [place], [place] [address]Bc# [phone] TSHon 08-31-2017 Thyroid stimulating hormone (TSH) 0.129 UIU/ML Low 0.358-3.74 0 [facility] Comment on above: Result Comment: 3rd generation ultra sensitive TSH Performed By: #### L 500.11421, L500.25717, L500.04470, L500.67251, L500.24392, L500.75354 ####[facility] QXVLSUGSAF7368 [place], [place] [address]Ik# [phone] SURGICAL PATHOLOGY, VIKY White 05-14-2013 [facility] CYTOLOGY INCISING MACHINE OPERATOR, CONVERTEDon [facility] CYTOLOGY INCISING MACHINE OPERATOR, CONVERTEDon [facility] No Panel Information [facility] Vital Signs Date Time Vital Sign Value Performing Clinician Sherrie drake 02-23-2025 11:26-0400 Diastolic blood pressure 81 mm[Hg] Osmani Davies DO Work Phone: [facility] 02-23-2025 11:26-0400 Heart rate 79 /min Osmani Davies DO Work Phone: [facility] 02-23-2025 11:26-0400 Systolic blood pressure 141 mm[Hg] Osmani Davies DO Work Phone: [facility] 02-23-2025 11:23-0400 Body height 175.3 cm Osmani Davies DO Work Phone: [facility] 02-23-2025 11:23-0400 Body mass index (BMI) [Ratio] 27.63 kg/m2 Osmani Davies DO Work Phone: [facility] 02-23-2025 11:23-0400 Body weight 84.87 kg Osmani Davies DO Work Phone: [facility] 02-02-2025 09:21-0400 Body height 175.[address] Rashaun Cooper MD Work Phone: [facility] 02-02-2025 09:21-0400 Body mass index (BMI) [Ratio] 28 kg/m2 Dr. Rashaun Cooper MD Work Phone: [facility] 02-02-2025 09:21-0400 Body weight 86.[address] Rashaun Cooper MD Work Phone: [facility] 02-02-2025 09:21-0400 Diastolic blood pressure 93 mm[Hg] Dr. Rashaun Cooper MD Work Phone: [facility] 02-02-2025 09:21-0400 Heart rate 85 /min Dr. Rashaun Cooper MD Work Phone: [facility] 02-02-2025 09:21-0400 SaO2% (BldA) [Mass fraction] 96 % Dr. Rashaun Cooper MD Work Phone: [facility] 02-02-2025 09:21-0400 Systolic blood pressure 132 mm[Hg] Dr. Rashaun Cooper MD Work Phone: [facility] 12-28-2024 08:58-0400 Diastolic blood pressure 70 mm[Hg] Osmani Chelsea DO Work Phone: [facility] 12-28-2024 08:58-0400 Heart rate 84 /min Osmani Keke DO Work Phone: [facility] 12-28-2024 08:58-0400 Systolic blood pressure 122 mm[Hg] Osmani Keke DO Work Phone: [facility] 12-28-2024 08:55-0400 Body height 175.3 cm Osmani Chelsea DO Work Phone: [facility] 12-28-2024 08:55-0400 Body mass index (BMI) [Ratio] 29.53 kg/m2 Osmani Keke DO Work Phone: [facility] 12-28-2024 08:55-0400 Body weight 90.72 kg Osmani Keke DO Work Phone: [facility] 01-02-2024 09:13-0400 Diastolic blood pressure 81 mm[Hg] Osmani Chelsea DO Work Phone: [facility] 01-02-2024 09:13-0400 Heart rate 76 /min Osmani Keke DO Work Phone: [facility] 01-02-2024 09:13-0400 Systolic blood pressure 136 mm[Hg] Osmani Keke DO Work Phone: [facility] 01-02-2024 09:12-0400 Body height 175.3 cm Osmani Chelsea DO Work Phone: [facility] 01-02-2024 09:12-0400 Body mass index (BMI) [Ratio] 29.53 kg/m2 Osmani Chelsea DO Work Phone: [facility] 01-02-2024 09:12-0400 Body weight 90.72 kg Osmani Keke DO Work Phone: [facility] 12-19-2023 13:06-0400 Body height 175.3 cm Osmani Keke DO Work Phone: [facility] 12-19-2023 13:06-0400 Body mass index (BMI) [Ratio] 29.59 kg/m2 Osmani Keke DO Work Phone: [facility] 12-19-2023 13:06-0400 Body weight 90.9 kg Osmani Chelsea DO Work Phone: [facility] 12-19-2023 13:06-0400 Diastolic blood pressure 82 mm[Hg] Omsani Tomff DO Work Phone: [facility] 12-19-2023 13:06-0400 Heart rate 95 /min Osmani Tomff DO Work Phone: [facility] 12-19-2023 13:06-0400 Systolic blood pressure 131 mm[Hg] Osmani Keke DO Work Phone: [facility] 07-30-2023 15:41-0500 Body temperature 98.9 [degF] No Primary Care Physician [facility] 07-30-2023 15:41-0500 Diastolic blood pressure 90 mm[Hg] No Primary Care Physician [facility] 07-30-2023 15:41-0500 Heart rate 88 /min No Primary Care Physician [facility] 07-30-2023 15:41-0500 Respiratory rate 16 /min No Primary Care Physician [facility] 07-30-2023 15:41-0500 SaO2% (BldA) [Mass fraction] 100 % No Primary Care Physician [facility] 07-30-2023 15:41-0500 Systolic blood pressure 159 mm[Hg] No Primary Care Physician [facility] 07-30-2023 11:45-0500 Inhaled oxygen flow rate 4 L/min No Primary Care Physician [facility] 07-30-2023 06:30-0500 Body height 175.26 cm No Primary Care Physician [facility] 07-30-2023 06:30-0500 Body mass index (BMI) [Ratio] 30.9 kg/m2 No Primary Care Physician [facility] 07-30-2023 06:30-0500 Body weight 95 kg No Primary Care Physician [facility] 07-09-2023 11:10-0500 Body mass index (BMI) [Ratio] 30.7 kg/m2 No Primary Care Physician [facility] 07-09-2023 11:10-0500 Body weight 94.46 kg No Primary Care Physician [facility] 07-09-2023 11:10-0500 Diastolic blood pressure 88 mm[Hg] No Primary Care Physician [facility] 07-09-2023 11:10-0500 Systolic blood pressure 135 mm[Hg] No Primary Care Physician [facility] 06-19-2023 10:38-0500 Diastolic blood pressure 92 mm[Hg] Osmani Keke DO Work Phone: [facility] 06-19-2023 10:38-0500 Heart rate 82 /min Osmani Keke DO Work Phone: [facility] 06-19-2023 10:38-0500 Systolic blood pressure 137 mm[Hg] Osmani Chelsea DO Work Phone: [facility] 05-29-2023 12:48-0400 Body height 175.3 cm Osmani Chelsea DO Work Phone: [facility] 05-29-2023 12:48-0400 Body weight 93.89 kg Osmani Keke DO Work Phone: [facility] 05-29-2023 12:48-0400 Diastolic blood pressure 80 mm[Hg] Osmani Chelsea DO Work Phone: [facility] 05-29-2023 12:48-0400 Heart rate 86 /min Osmani Keke DO Work Phone: [facility] 05-29-2023 12:48-0400 Systolic blood pressure 131 mm[Hg] Osmani Keke DO Work Phone: [facility] 05-24-2023 07:33-0400 Body height 175.3 cm Louie Martinez MD Work Phone: [facility] 05-24-2023 07:33-0400 Body mass index (BMI) [Ratio] 30.72 kg/m2 Louie Martinez MD Work Phone: [facility] 05-24-2023 07:33-0400 Body temperature 98.4 [degF] Louie Martinez MD Work Phone: [facility] 05-24-2023 07:33-0400 Body weight 94.35 kg Louie Martinez MD Work Phone: [facility] 05-24-2023 07:33-0400 Diastolic blood pressure 100 mm[Hg] Louie Martinez MD Work Phone: [facility] 05-24-2023 07:33-0400 Heart rate 96 /min Louie Martinez MD Work Phone: [facility] 05-24-2023 07:33-0400 Respiratory rate 16 /min Louie Martinez MD Work Phone: [facility] 05-24-2023 07:33-0400 SaO2% (BldA) [Mass fraction] 98 % Louie Martinez MD Work Phone: [facility] 05-24-2023 07:33-0400 Systolic blood pressure 165 mm[Hg] Louie Martinez MD Work Phone: [facility] 05-23-2023 08:32-0400 Body mass index (BMI) [Ratio] 30.7 kg/m2 No Primary Care Physician [facility] 05-23-2023 08:32-0400 Body temperature 98 [degF] No Primary Care Physician [facility] 05-23-2023 08:32-0400 Body weight 94.46 kg No Primary Care Physician [facility] 05-23-2023 08:32-0400 Diastolic blood pressure 78 mm[Hg] No Primary Care Physician [facility] 05-23-2023 08:32-0400 Heart rate 80 /min No Primary Care Physician [facility] 05-23-2023 08:32-0400 Respiratory rate 18 /min No Primary Care Physician [facility] 05-23-2023 08:32-0400 SaO2% (BldA) [Mass fraction] 97 % No Primary Care Physician [facility] 05-23-2023 08:32-0400 Systolic blood pressure 118 mm[Hg] No Primary Care Physician [facility] 04-22-2023 10:53-0400 Body mass index (BMI) [Ratio] 30.6 kg/m2 No Primary Care Physician [facility] 04-22-2023 10:53-0400 Body weight 93.95 kg No Primary Care Physician [facility] 04-22-2023 10:53-0400 Diastolic blood pressure 82 mm[Hg] No Primary Care Physician [facility] 04-22-2023 10:53-0400 Systolic blood pressure 118 mm[Hg] No Primary Care Physician [facility] 04-04-2023 10:55-0400 Body height 175.[address] Tanvir Colindres Work Phone: [facility] 04-04-2023 10:55-0400 Body mass index (BMI) [Ratio] 31 kg/m2 Dr. Tanvir Colindres Work Phone: [facility] 04-04-2023 10:55-0400 Body temperature 98.1 [degF] Dr. Tanvir Colindres Work Phone: [facility] 04-04-2023 10:55-0400 Body weight 95.[address] Tanvir Colindres Work Phone: [facility] 04-04-2023 10:55-0400 Diastolic blood pressure 80 mm[Hg] Dr. Tanvir Colindres Work Phone: [facility] 04-04-2023 10:55-0400 Heart rate 81 /min Dr. Tanvir Colindres Work Phone: [facility] 04-04-2023 10:55-0400 Respiratory rate 16 /min Dr. Tnavir Colindres Work Phone: [facility] 04-04-2023 10:55-0400 SaO2% (BldA) [Mass fraction] 97 % Dr. Tanvir Colindres Work Phone: [facility] 04-04-2023 10:55-0400 Systolic blood pressure 119 mm[Hg] Dr. Tanvir Colindres Work Phone: [facility] 03-18-2023 15:03-0400 Body height 175.[address] Tanvir Colindres Work Phone: [facility] 03-18-2023 14:58-0400 Body mass index (BMI) [Ratio] 31 kg/m2 Dr. Tanvir Colindres Work Phone: [facility] 03-18-2023 14:58-0400 Body weight 95.[address] Tanvir Colindres Work Phone: [facility] 03-18-2023 14:58-0400 Diastolic blood pressure 82 mm[Hg] Dr. Tanvir Colindres Work Phone: [facility] 03-18-2023 14:58-0400 Systolic blood pressure 138 mm[Hg] Dr. Tanvir Colindres Work Phone: [facility] 02-25-2023 09:47-0400 Body height 175.26 cm No Primary Care Physician [facility] 02-25-2023 09:47-0400 Body mass index (BMI) [Ratio] 30.9 kg/m2 No Primary Care Physician [facility] 02-25-2023 09:47-0400 Body temperature 97.2 [degF] No Primary Care Physician [facility] 02-25-2023 09:47-0400 Body weight 94.91 kg No Primary Care Physician [facility] 02-25-2023 09:47-0400 Diastolic blood pressure 98 mm[Hg] No Primary Care Physician [facility] 02-25-2023 09:47-0400 Heart rate 76 /min No Primary Care Physician [facility] 02-25-2023 09:47-0400 Respiratory rate 18 /min No Primary Care Physician [facility] 02-25-2023 09:47-0400 SaO2% (BldA) [Mass fraction] 97 % No Primary Care Physician [facility] 02-25-2023 09:47-0400 Systolic blood pressure 142 mm[Hg] No Primary Care Physician [facility] 02-01-2023 08:33-0400 Body mass index (BMI) [Ratio] 31.8 kg/m2 No Primary Care Physician [facility] 02-01-2023 08:33-0400 Body temperature 98.3 [degF] No Primary Care Physician [facility] 02-01-2023 08:33-0400 Body weight 97.97 kg No Primary Care Physician [facility] 02-01-2023 08:33-0400 Diastolic blood pressure 90 mm[Hg] No Primary Care Physician [facility] 02-01-2023 08:33-0400 Heart rate 76 /min No Primary Care Physician [facility] 02-01-2023 08:33-0400 Respiratory rate 16 /min No Primary Care Physician [facility] 02-01-2023 08:33-0400 SaO2% (BldA) [Mass fraction] 96 % No Primary Care Physician [facility] 02-01-2023 08:33-0400 Systolic blood pressure 135 mm[Hg] No Primary Care Physician [facility] 01-30-2023 08:52-0400 Body height 175.3 cm Osmani Tomskye MULLINS Work Phone: [facility] 01-30-2023 08:52-0400 Body weight 97.52 kg Osmani Kekeskye MULLINS Work Phone: [facility] 01-30-2023 08:52-0400 Diastolic blood pressure 72 mm[Hg] Osmani Tomff DO Work Phone: [facility] 01-30-2023 08:52-0400 Heart rate 79 /min Osmani Keke DO Work Phone: [facility] 01-30-2023 08:52-0400 Systolic blood pressure 128 mm[Hg] Osmani Tomff DO Work Phone: [facility] 12-25-2022 07:50-0400 Body temperature 98.7 [degF] Dr. Michael Osuna Work Phone: [facility] 12-25-2022 07:50-0400 Diastolic blood pressure 73 mm[Hg] Dr. Michael Osuna Work Phone: [facility] 12-25-2022 07:50-0400 Heart rate 64 /min Dr. Michael Osuna Work Phone: [facility] 12-25-2022 07:50-0400 Respiratory rate 16 /min Dr. Michael Osuna Work Phone: [facility] 12-25-2022 07:50-0400 SaO2% (BldA) [Mass fraction] 97 % Dr. Michael Osuna Work Phone: [facility] 12-25-2022 07:50-0400 Systolic blood pressure 129 mm[Hg] Dr. Michael Osuna Work Phone: [facility] 12-25-2022 06:48-0400 Body height 175.[address] Michael Osuna Work Phone: [facility] 12-25-2022 06:48-0400 Body mass index (BMI) [Ratio] 31.1 kg/m2 Dr. Michael Osuna Work Phone: [facility] 12-25-2022 06:48-0400 Body weight 95.[address] Michael Osuna Work Phone: [facility] 11-08-2022 08:32-0400 Body height 175.[address] Michael Osuna Work Phone: [facility] 11-08-2022 08:31-0400 Body mass index (BMI) [Ratio] 31 kg/m2 Dr. Michael Osuna Work Phone: [facility] 11-08-2022 08:31-0400 Body temperature 97.6 [degF] Dr. Michael Osuna Work Phone: [facility] 11-08-2022 08:31-0400 Body weight 95.[address] Michael Osuna Work Phone: [facility] 11-08-2022 08:31-0400 Diastolic blood pressure 93 mm[Hg] Dr. Michael Osuna Work Phone: [facility] 11-08-2022 08:31-0400 Heart rate 81 /min Dr. Michael Osuna Work Phone: [facility] 11-08-2022 08:31-0400 Respiratory rate 20 /min Dr. Michael Osuna Work Phone: [facility] 11-08-2022 08:31-0400 SaO2% (BldA) [Mass fraction] 98 % Dr. Michael Osuna Work Phone: [facility] 11-08-2022 08:31-0400 Systolic blood pressure 142 mm[Hg] Dr. Michael Osuna Work Phone: [facility] 10-15-2022 08:43-0400 Body height 175.[address] Michael Osuna Work Phone: [facility] 10-15-2022 08:43-0400 Body mass index (BMI) [Ratio] 30.9 kg/m2 Dr. Michael Osuna Work Phone: [facility] 10-15-2022 08:43-0400 Body temperature 97.1 [degF] Dr. Michael Osuna Work Phone: [facility] 10-15-2022 08:43-0400 Body weight 94.[address] Michael Osuna Work Phone: [facility] 10-15-2022 08:43-0400 Diastolic blood pressure 85 mm[Hg] Dr. Michael Osuna Work Phone: [facility] 10-15-2022 08:43-0400 Heart rate 69 /min Dr. Michael Osuna Work Phone: [facility] 10-15-2022 08:43-0400 Respiratory rate 18 /min Dr. Michael Osuna Work Phone: [facility] 10-15-2022 08:43-0400 SaO2% (BldA) [Mass fraction] 97 % Dr. Michael Osuna Work Phone: [facility] 10-15-2022 08:43-0400 Systolic blood pressure 126 mm[Hg] Dr. Michael Osuna Work Phone: [facility] 10-10-2022 11:04-0400 Body mass index (BMI) [Ratio] 0.3 kg/m2 Dr. Michael Osuna Work Phone: [facility] 10-10-2022 11:04-0400 Body temperature 98.2 [degF] Dr. Michael Osuna Work Phone: [facility] 10-10-2022 11:04-0400 Body weight 93.[address] Michael Osuna Work Phone: [facility] 10-10-2022 11:04-0400 Diastolic blood pressure 81 mm[Hg] Dr. Michael Osuna Work Phone: [facility] 10-10-2022 11:04-0400 Heart rate 80 /min Dr. Michael Osuna Work Phone: [facility] 10-10-2022 11:04-0400 Respiratory rate 18 /min Dr. Michael Osuna Work Phone: [facility] 10-10-2022 11:04-0400 SaO2% (BldA) [Mass fraction] 98 % Dr. Michael Osuna Work Phone: [facility] 10-10-2022 11:04-0400 Systolic blood pressure 149 mm[Hg] Dr. Michael Osuna Work Phone: [facility] 09-27-2022 10:11-0500 Body mass index (BMI) [Ratio] 30.7 kg/m2 Dr. Michael Osuna Work Phone: [facility] 09-27-2022 10:11-0500 Body temperature 97.1 [degF] Dr. Michael Osuna Work Phone: [facility] 09-27-2022 10:11-0500 Body weight 94.[address] Michale Osuna Work Phone: [facility] 09-27-2022 10:11-0500 Diastolic blood pressure 83 mm[Hg] Dr. Michael Osuna Work Phone: [facility] 09-27-2022 10:11-0500 Heart rate 86 /min Dr. Michael Osuna Work Phone: [facility] 09-27-2022 10:11-0500 Respiratory rate 16 /min Dr. Michael Osuna Work Phone: [facility] 09-27-2022 10:11-0500 SaO2% (BldA) [Mass fraction] 96 % Dr. Michael Osuna Work Phone: [facility] 09-27-2022 10:11-0500 Systolic blood pressure 144 mm[Hg] Dr. Michael Osuna Work Phone: [facility] 08-27-2022 09:32-0500 Body mass index (BMI) [Ratio] 31.1 kg/m2 Dr. Michael Osuna Work Phone: [facility] 08-27-2022 09:32-0500 Body temperature 96 [degF] Dr. Michael Osuna Work Phone: [facility] 08-27-2022 09:32-0500 Body weight 95.[address] Michael Osuna Work Phone: [facility] 08-27-2022 09:32-0500 Diastolic blood pressure 83 mm[Hg] Dr. Michael Osuna Work Phone: [facility] 08-27-2022 09:32-0500 Heart rate 80 /min Dr. Michael Osuna Work Phone: [facility] 08-27-2022 09:32-0500 Respiratory rate 16 /min Dr. Michael Osuna Work Phone: [facility] 08-27-2022 09:32-0500 SaO2% (BldA) [Mass fraction] 98 % Dr. Michael Osuna Work Phone: [facility] 08-27-2022 09:32-0500 Systolic blood pressure 134 mm[Hg] Dr. Michael Osuna Work Phone: [facility] 04-17-2022 08:35-0400 Body mass index (BMI) [Ratio] 29.6 kg/m2 Dr. Sam Benitez Work Phone: [facility] Work Phone: 04-17-2022 08:35-0400 Body temperature 95.6 [degF] Dr. Sam Benitez Work Phone: [facility] Work Phone: 04-17-2022 08:35-0400 Body weight 90.[address] Sam Benitez Work Phone: [facility] Work Phone: 04-17-2022 08:35-0400 Diastolic blood pressure 69 mm[Hg] Dr. Sam Benitez Work Phone: [facility] Work Phone: 04-17-2022 08:35-0400 Heart rate 69 /min Dr. Sam Benitez Work Phone: [facility] Work Phone: 04-17-2022 08:35-0400 Respiratory rate 18 /min Dr. Sam Benitez Work Phone: [facility] Work Phone: 04-17-2022 08:35-0400 SaO2% (BldA) [Mass fraction] 97 % Dr. Sam Benitez Work Phone: [facility] Work Phone: 04-17-2022 08:35-0400 Systolic blood pressure 114 mm[Hg] Dr. Sam Benitez Work Phone: [facility] Work Phone: 03-14-2022 11:19-0400 Body mass index (BMI) [Ratio] 29.5 kg/m2 Dr. Sam Benitez Work Phone: [facility] Work Phone: 03-14-2022 11:19-0400 Body temperature 97.2 [degF] Dr. Sam Benitez Work Phone: [facility] Work Phone: 03-14-2022 11:19-0400 Body weight 90.[address] Sam Benitez Work Phone: [facility] Work Phone: 03-14-2022 11:19-0400 Diastolic blood pressure 94 mm[Hg] Dr. Sam Benitez Work Phone: [facility] Work Phone: 03-14-2022 11:19-0400 Heart rate 66 /min Dr. Sam Benitez Work Phone: [facility] Work Phone: 03-14-2022 11:19-0400 Respiratory rate 16 /min Dr. Sam Benitez Work Phone: [facility] Work Phone: 03-14-2022 11:19-0400 SaO2% (BldA) [Mass fraction] 98 % Dr. Sam Benitez Work Phone: [facility] Work Phone: 03-14-2022 11:19-0400 Systolic blood pressure 141 mm[Hg] Dr. Sam Benitez Work Phone: [facility] Work Phone: 03-07-2022 09:49-0400 Body height 175.[address] Sam Benitez Work Phone: [facility] Work Phone: 03-07-2022 09:49-0400 Body mass index (BMI) [Ratio] 29.5 kg/m2 Dr. Sam Benitez Work Phone: [facility] Work Phone: 03-07-2022 09:49-0400 Body weight 90.[address] Sam Benitez Work Phone: [facility] Work Phone: 03-07-2022 09:49-0400 Diastolic blood pressure 78 mm[Hg] Dr. Sam Benitez Work Phone: [facility] Work Phone: 03-07-2022 09:49-0400 Systolic blood pressure 138 mm[Hg] Dr. Sam Benitez Work Phone: [facility] Work Phone: 03-07-2022 09:11-0400 Body mass index (BMI) [Ratio] 29.5 kg/m2 Dr. Sam Benitez Work Phone: [facility] Work Phone: 03-07-2022 09:11-0400 Body temperature 97.4 [degF] Dr. Sam Benitez Work Phone: [facility] Work Phone: 03-07-2022 09:11-0400 Body weight 90.[address] Sam Benitez Work Phone: [facility] Work Phone: 03-07-2022 09:11-0400 Diastolic blood pressure 75 mm[Hg] Dr. Sam Benitez Work Phone: [facility] Work Phone: 03-07-2022 09:11-0400 Heart rate 72 /min Dr. Sam Benitez Work Phone: [facility] Work Phone: 03-07-2022 09:11-0400 Respiratory rate 18 /min Dr. Sam Benitez Work Phone: [facility] Work Phone: 03-07-2022 09:11-0400 SaO2% (BldA) [Mass fraction] 99 % Dr. Sam Benitez Work Phone: [facility] Work Phone: 03-07-2022 09:11-0400 Systolic blood pressure 123 mm[Hg] Dr. Sam Benitez Work Phone: [facility] Work Phone: 03-06-2022 08:44-0400 Body mass index (BMI) [Ratio] 29.7 kg/m2 Dr. Sam Benitez Work Phone: [facility] Work Phone: 03-06-2022 08:44-0400 Body weight 91.[address] Sam Benitez Work Phone: [facility] Work Phone: 03-06-2022 08:44-0400 Diastolic blood pressure 80 mm[Hg] Dr. Sam Benitez Work Phone: [facility] Work Phone: 03-06-2022 08:44-0400 Systolic blood pressure 126 mm[Hg] Dr. Sam Benitez Work Phone: [facility] Work Phone: 02-22-2022 09:06-0400 Body height 175.[address] Edwin Soria Work Phone: [facility] Work Phone: 02-22-2022 09:05-0400 Body mass index (BMI) [Ratio] 29.4 kg/m2 Dr. Edwin Soria Work Phone: [facility] Work Phone: 02-22-2022 09:05-0400 Body temperature 96.9 [degF] Dr. Edwin Soria Work Phone: [facility] Work Phone: 02-22-2022 09:05-0400 Body weight 90.[address] Edwin Soria Work Phone: [facility] Work Phone: 02-22-2022 09:05-0400 Diastolic blood pressure 94 mm[Hg] Dr. Edwin Soria Work Phone: [facility] Work Phone: 02-22-2022 09:05-0400 Heart rate 74 /min Dr. Edwin Soria Work Phone: [facility] Work Phone: 02-22-2022 09:05-0400 Respiratory rate 16 /min Dr. Edwin Soria Work Phone: [facility] Work Phone: 02-22-2022 09:05-0400 SaO2% (BldA) [Mass fraction] 98 % Dr. Edwin Soria Work Phone: [facility] Work Phone: 02-22-2022 09:05-0400 Systolic blood pressure 147 mm[Hg] Dr. Edwin Soria Work Phone: [facility] Work Phone: 11-07-2021 11:25-0400 Body mass index (BMI) [Ratio] 31.4 kg/m2 Dr. Edwin Soria Work Phone: [facility] Work Phone: 11-07-2021 11:25-0400 Body temperature 97.4 [degF] Dr. Edwin Soria Work Phone: [facility] Work Phone: 11-07-2021 11:25-0400 Body weight 96.[address] Edwin Soria Work Phone: [facility] Work Phone: 11-07-2021 11:25-0400 Diastolic blood pressure 75 mm[Hg] Dr. Edwin Soria Work Phone: [facility] Work Phone: 11-07-2021 11:25-0400 Heart rate 78 /min Dr. Edwin Soria Work Phone: [facility] Work Phone: 11-07-2021 11:25-0400 Respiratory rate 16 /min Dr. Edwin Soria Work Phone: [facility] Work Phone: 04-12-2022 11:25-0400 SaO2% (BldA) [Mass fraction] 99 % Dr. Edwin Soria Work Phone: [facility] Work Phone: 11-07-2021 11:25-0400 Systolic blood pressure 123 mm[Hg] Dr. Edwin Soria Work Phone: [facility] Work Phone: 09-20-2020 11:25-0500 Body mass index (BMI) [Ratio] 34.3 kg/m2 Dr. Edwin Soria Work Phone: [facility] 09-20-2020 11:25-0500 Body temperature 97.6 [degF] Dr. Edwin Soria Work Phone: [facility] 09-20-2020 11:25-0500 Body weight 105.[address] Edwin Soria Work Phone: [facility] 09-20-2020 11:25-0500 Diastolic blood pressure 94 mm[Hg] Dr. Edwin Soria Work Phone: [facility] 09-20-2020 11:25-0500 Heart rate 87 /min Dr. Edwin Soria Work Phone: [facility] 09-20-2020 11:25-0500 Respiratory rate 16 /min Dr. Edwin Soria Work Phone: [facility] 09-20-2020 11:25-0500 SaO2% (BldA) [Mass fraction] 97 % Dr. Edwin Soria Work Phone: [facility] 09-20-2020 11:25-0500 Systolic blood pressure 136 mm[Hg] Dr. Edwin Soria Work Phone: [facility] Encounters Encounter Date Encounter Type Care Provider Facility Start: 03-08-[address] [facility] Facility:[facility] Start: 02-23-2025 End: 02-23-2025 Patient encounter procedure Osmani Davies DO Work Phone: [facility] Comment on above: Primary osteoarthrit is of right knee (Primary Dx); Cyst of right knee joint Start: 02-23-2025 End: 02-23-2025 ambulatory OSMANI DAVIES Facility:[id number] Start: 02-02-2025 End: 02-02-[address] Rashaun Cooper MD -[facility] Work Phone: Start: 02-02-2025 End: 02-02-[address] Rashaun Cooper MD Work Phone: -[facility] Start: 01-11-2025 End: 01-11-[address] Rashaun Cooper MD Work Phone: [facility] Work Phone: Start: 01-11-2025 End: 01-11-[address] Rashaun Cooper MD -[facility] Start: 01-11-2025 End: 01-11-[address] [facility] Facility:[facility] Start: 12-28-2024 End: 12-28-2024 Patient encounter procedure Osmani Davies DO Work Phone: [facility] Comment on above: Primary osteoarthrit is of right knee (Primary Dx) Start: 12-28-2024 End: 12-28-2024 ambulatory OSMANI DAVIES Facility:[id number] Start: 09-14-2024 Encounter for gynecological examination (general) (routine) without abnormal findings Jaymie Kemp [facility] Start: 09-14-2024 End: 09-14-[address] [facility] Facility:[facility] Start: 06-15-2024 End: 06-15-[address] [facility] Facility:[facility] Start: 06-15-2024 End: 06-15-[address] [facility] Facility:[facility] Start: 05-21-2024 End: 05-21-2024 ambulatory [facility] Facility:[facility] Start: 04-15-2024 End: 04-15-2024 ambulatory [facility] Facility:[facility] Start: 03-09-2024 End: 03-09-2024 ambulatory LOUIE LUNA Facility:[facility] Start: 01-02-2024 End: 01-02-2024 Patient encounter procedure Osmani Vzáquez Keke DO Work Phone: [facility] Comment on above: Calcific tendinitis of right shoulder (Primary Dx) Start: 12-19-2023 End: 12-19-2023 Patient encounter procedure Osmani Tomff DO Work Phone: [facility] Comment on above: Calcific tendinitis of right shoulder (Primary Dx); Acute pain of right shoulder Start: 07-30-2023 Non-patient / Non-visit No [facility] Physician [facility] Start: 07-30-2023 End: 07-30-2023 Admission to same day surgery center No [facility] Start: 07-30-2023 End: 07-30-2023 ambulatory No [facility] Physician [facility] Work Phone: Start: 07-10-2023 End: 07-10-2023 ambulatory Yolis Younger [facility] Comment on above: Primary osteoarthrit is of right knee (Primary Dx); Chronic pain of right knee; Knee stiffness, right; Muscle weakness Start: 07-09-2023 End: 07-09-2023 Patient encounter procedure No [facility] Physician [facility] Work Phone: Start: 06-19-2023 End: 06-19-2023 Patient encounter procedure Osmani Davies DO Work Phone: [facility] Comment on above: Primary osteoarthrit is of right knee (Primary Dx) Start: 05-29-2023 End: 05-29-2023 Patient encounter procedure Osmani Vázquez Keke DO Work Phone: [facility] Comment on above: Primary osteoarthrit is of right knee (Primary Dx); Effusion of right knee Start: 05-24-2023 End: 05-24-2023 Emergency department patient visit LOUIE MARTINEZ [facility] Start: 05-24-2023 End: 05-24-2023 Emergency department patient visit Louie Martinez MD Work Phone: [facility] Emergency Dept Comment on above: Injury of right knee , initial encounter (Primary Dx) Start: 05-23-2023 End: 05-23-2023 Patient encounter procedure No Primary Care Physician [facility] Work Phone: Start: 04-22-2023 End: 04-22-2023 Patient encounter procedure No Primary Care Physician [facility] Work Phone: Start: 04-04-2023 End: 04-04-[address] Tanvir Colindres Work Phone: [facility] Work Phone: Start: 04-04-2023 End: 04-04-[address] Tanvir Colindres Work Phone: [facility] Work Phone: Start: 03-26-2023 End: 03-26-[address] Tanvir Colindres Work Phone: [facility] Work Phone: Start: 03-26-2023 End: 03-26-[address] Tanvir Colindres Work Phone: [facility]Ul[facility]ound, [facility] Work Phone: Start: 03-18-2023 End: 03-18-[address] Tanvir Colindres Work Phone: [facility] Work Phone: Start: 02-25-2023 End: 02-25-2023 Patient encounter procedure No Primary Care Physician [facility] Work Phone: Start: 02-22-2023 End: 02-22-2023 ambulatory No Primary Care Physician [facility] Work Phone: Start: 02-22-2023 End: 02-22-2023 Patient encounter procedure No Primary Care Physician [facility]-Outpatient Breast Imaging Work Phone: Start: 02-01-2023 End: 02-01-2023 Patient encounter procedure No Primary Care Physician [facility] Work Phone: Start: 01-30-2023 End: 01-30-2023 ambulatory OSMANI DAVIES Facility:[facility] Start: 01-30-2023 End: 01-30-2023 Patient encounter procedure Osmani Davies DO Work Phone: [facility] Comment on above: Strain of left ankle , initial encounter (Primary Dx); Sprain of left ankle, unspecified ligament, initial encounter; Acute left ankle pain Start: 12-25-2022 Non-patient / Non-visit Dr. Sanders Work Phone: [facility] Start: 12-25-2022 End: 12-25-2022 Admission to same day surgery center Dr. Michael Osuna Work Phone: [facility]-Endoscopy Start: 12-25-2022 End: 12-25-[address] Michael Osuna Work Phone: [facility] Work Phone: Start: 11-08-2022 End: 11-08-[address] Michael Osuna Work Phone: [facility]-Pulmonary Medicine [facility] Start: 11-06-2022 Non-patient / Non-visit Dr. Sanders Work Phone: [facility] Start: 11-06-2022 End: 11-06-[address] Michael Osuna Work Phone: [facility] Work Phone: Start: 11-06-2022 End: 11-06-[address] Michael Osuna Work Phone: [facility]-Cardiovascula r Services Start: 10-31-2022 End: 10-31-[address] Michael Osuna Work Phone: [facility] Work Phone: Start: 10-31-2022 End: 10-31-[address] Michael Osuna Work Phone: [facility]-Sleep Lab Start: 10-15-2022 End: 10-15-[address] Michael Osuna Work Phone: [facility] Start: 10-10-2022 End: 10-10-[address] Michael Osuna Work Phone: [facility]-Pulmonary Medicine [facility] Start: 09-27-[address] Michael Osuna Work Phone: [facility] Start: 09-27-2022 End: 09-27-[address] Michael Osuna Work Phone: [facility] Start: 08-27-2022 End: 08-27-[address] Michael Osuna Work Phone: [facility] Start: 04-17-2022 End: 04-17-[address] Sam Benitez Work Phone: [facility] Work Phone: Start: 04-17-2022 End: 04-17-[address] Sam Benitez Work Phone: [facility] Start: 03-14-2022 End: 03-14-[address] Sam Benitez Work Phone: [facility] Start: 03-14-2022 End: 03-14-[address] Sam Benitez Work Phone: [facility] Start: 03-07-2022 End: 03-07-[address] Sam Benitez Work Phone: [facility] Start: 03-06-2022 End: 03-06-[address] Sam Benitez Work Phone: [facility] Start: 02-22-2022 End: 02-22-[address] Edwin Soria Work Phone: [facility] Start: 02-20-2022 End: 02-20-[address] Edwin Soria Work Phone: [facility]-Outpatient Breast Imaging Start: 11-07-[address] Stiven Soria Work Phone: [facility] Start: 11-07-2021 End: 11-07-[address] Edwin Soria Work Phone: [facility] Start: 08-31-2017 Ambulatory Yazmin Looney Facilit y:[facility] Start: 05-15-[address] Amaya MD Work Phone: [facility] Start: 05-15-[address] Amaya MD Work Phone: [facility] Start: 10-21-[address] Amaya MD Work Phone: [facility] Start: 10-21-[address] Amaya MD Work Phone: [facility] Start: 03-05-2006 Documentation procedure Jaime Griffin III, MD Work Phone: [facility] Start: 03-05-2006 Historic EMR Jaime Griffin MD Work Phone: [facility] Procedures Date Procedure Procedure Detail Performing Clinician Start: 12-28-2024 Radiologic exam knee complete 4/more views Osmani Davies DO Work Phone: Start: 12-28-2024 Arthrocentesis aspir &/inj major jt/bursa w/o us Osmani Davies DO Work Phone: Start: 12-19-2023 Radex shoulder compl ete minimum 2 views Osmani Davies DO Work Phone: Start: 12-19-2023 Arthrocentesis aspir &/inj major jt/bursa w/o us Osmani Davies DO Work Phone: Start: 07-30-2023 Vaginal hysterectomy No Primary Care Physician Start: 05-29-2023 Arthrocentesis aspir &/inj major jt/bursa w/o us Osmani Davies DO Work Phone: Start: 05-24-2023 Radiologic examinati on knee 3 views Louie Martinez MD Work Phone: Start: 03-26-[address] Noelle Colindres Work Phone: Start: 02-22-2023 Screening mammography N o Primary Care Physician Start: 01-30-2023 Radex ankle complete minimum 3 views Osmani Davies DO Work Phone: Start: 12-25-[address] Michael Osuna Work Phone: Start: 03-14-[address] Meri Benitez Work Phone: Start: 03-14-[address] Sam Benitez Work Phone: Start: 02-20-2022 Dual energy X-ray absorptiometry Dr. 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 Start: 03-29-2024 Covid-19 Vaccine ( season) Covid-19 Vaccine ( season) [facility] Start: 03-29-2024 Influenza vaccination Influenz a Vaccine (Season Ended) [facility] Start: 01-02-2024 End: 01-02-2024 Patient encounter procedure 01/02/2024 9:20 AM EDT Office Visit [facility] [address] [place], [place] [id number] Osmani Davies DO [address] [place], [place] [id number] RIGHT SHOULDER FOLLOW UP [facility] Comment on above: RIGHT SHOULDER FOLLO W UP Start: 07-31-2023 Introduction of urin omar catheter [facility] Start: 07-31-2023 Oxygen therapy [facility] Start: 07-30-2023 Patient discharge [facility] Start: 07-30-2023 Introduction of urin omar catheter [facility] Start: 07-30-2023 Ambulation therapy management [facility] Start: 07-30-2023 Continuous pulse oximetry [facility] Start: 07-30-2023 Elevation of head of bed [facility] Start: 07-30-2023 Incentive spirometry [facility] Start: 07-30-2023 Measuring intake and output [facility] Start: 07-30-2023 Notification of physician [facility] Start: 07-30-2023 End: 07-30-2023 Oxygen therapy [facility] Start: 07-30-2023 Patient education [facility] Start: 07-30-2023 Procedures relating to eating and drinking [facility] Start: 07-30-2023 Taking patient vital signs [facility] Start: 07-30-2023 [facility] Start: 07-29-2023 Behavioral Health Screening Behavioral Health Screening [facility] Start: 03-29-2023 Covid-19 Vaccine ( season) Covid-19 Vaccine ( season) [facility] Start: 03-29-[address] [facility] Start: 03-29-2023 Influenza vaccinatio n given INFLUENZA VACCINE (#1) [facility] Start: 12-25-2022 Colonoscopy flx dx w/collj spec when pfrmd DIAGNOSTIC COLONOSCOPY [facility] Start: 12-25-2022 Patient discharge [facility] Start: 12-21-2022 Lipid 1996 panel - S danny or Plasma Lipid Screening [facility] Start: 12-21-2022 Lipid panel Lipid Screening [facility] Start: 12-21-2022 LIPID SCREEN LIPID SCREEN [facility] Start: 11-06-2022 Echo tthrc r-t 2d w/wom-mode compl spec&colr d TTE W/DOPPLER COMPLETE [facility] Start: 09-27-2022 Patient referral [facility] Work Phone: Start: 07-29-2022 [facility] Start: 03-06-2022 Patient referral [facility] Work Phone: Start: 12-21-2020 DIABETES SCREEN DIABETES SCREEN [facility] Start: 12-21-2020 Diabetes Screening Diabetes Screenin g [facility] Start: 11-16-2020 COLOGUARD (FIT-DNA) COLOGUARD (FIT-D NA) [facility] Start: 11-16-2020 Colonoscopy COLONOSCOPY [facility] Start: 11-16-2020 COLORECTAL CANCER SCREENING COLORECTAL CANCER SCREENING [facility] Start: 11-16-[address] COLONOGRAPHY [facility] Start: 11-16-2020 FECAL OCCULT BLOOD FECAL OCCULT BLOO D [facility] Start: 11-16-2020 Screening for malign ant neoplasm of colon [facility] Start: 11-16-2020 SIGMOIDOSCOPY SIGMOIDOSCOPY [facility] Start: 07-29-2020 Urine microalbumin profile DTaP,Tdap,Td Vaccine (2 - Td or Tdap) [facility] Start: 01-06-2020 Mammography [facility] Start: 01-06-2020 Screening for malign ant neoplasm of breast Mammogram Screening [facility] Start: 08-14-2019 [facility] Start: 2015 Screening for malign ant neoplasm of breast MAMMOGRAM [facility] Start: 11-16-2005 HPV TESTING HPV TESTING [facility] Start: 11-16-2005 Screening for malign ant neoplasm of cervix HPV Testing [facility] Start: 11-16-1996 PAP TESTING PAP TESTING [facility] Start: 11-16-1996 Screening for malign ant neoplasm of cervix [facility] Start: 11-16-1994 Hepatitis B Vaccine (1 of 3 - 19+ 3-dose series) Hepatitis B Vaccine (1 of 3 - 19+ 3-dose series) [facility] Start: 11-16-1994 Urine microalbumin profile [facility] Start: 11-16-1993 ANNUAL WELLNESS VISIT ANNUAL WELLNES S VISIT [facility] Start: 11-16-1993 Anxiety Screening Anxiety Screening [facility] Start: 11-16-1993 Depression Screening Depression Scre ening [facility] Start: 11-16-1993 HEPATITIS C SCREENING HEPATITIS C SC [facility] Start: 11-16-1993 Hepatitis C screening Hepatitis C [facility] Start: 11-16-1993 HIV SCREENING HIV SCREENING [facility] Start: 11-16-1993 HIV screening HIV Screening [facility] Start: 1987 Depression screening using PHQ-9 (Patient Health Questionnaire 9) score DEPRESSION SCREENING [facility] Start: 11-16-1986 Administration of diphtheria + tetanus + acellular pertussis vaccine DTAP/TDAP/TD VACCINE (1 - Tdap) [facility] Start: 05-18-1976 COVID-19 VACCINE (#1) COVID-19 VACCI NE (#1) [facility] Start: 1975 HEPATITIS B (1 of 3 - 3-dose series) HEPATITIS B (1 of 3 - 3-dose series) [facility] Start: 1975 Hepatitis B Vaccine (1 of 3 - 3-dose series) Hepatitis B Vaccine (1 of 3 - 3-dose series) [facility] Start: 1975 HPV/COTEST HPV/COTEST [facility] Start: 1975 Screening for malign ant neoplasm of cervix [facility] CBC W Auto Different ial panel - Blood [facility] Work Phone: CBC W Auto Different ial panel - Blood [facility] Chiropractic manipulation [facility] Work Phone: Colonoscopy [facility] Work Phone: MG Breast - bilatera l Screening [facility] MG Breast - bilatera l Screening [facility] Patient referral [facility] Work Phone: [facility] Immunizations Immunization Date Immunization Notes Care Provider [facility] 05-15-2012 influenza virus vacc ine, unspecified formulation Jaime Griffin III, MD Work Phone: [facility] Payers Date Payer Category Payer Medicaid [id number] 2019 Self-pay [id number] 2019 Unknown [id number] 2017 Unknown [id number] 1975 Unknown [id number] 2.16. [id number] 1975 Unknown [id number] 2.16. [id number] Unknown [id number] 2.16.8 [id number] Unknown [id number] 2.16.8 [id number] Unknown [id number] 2.16.8 [id number] Unknown [id number] 2.16.8 [id number] Unknown [id number] 2.16.8 [id number] Unknown [id number] 2.16.8 [id number] Unknown [id number] 2.16.8 [id number] Unknown [id number] 2.16.8 [id number] Unknown [id number] 2.16.8 [id number] Unknown [id number] 2.16.8 [id number] Unknown [id number] 2.16.8 [id number] Social History Date Type Detail Facility Start: 10-17-2021 End: 07-19-2023 Tobacco smoking status NEIS Unknown if ever smoked [facility] Start: 09-20-2020 Cigars [facility] Start: 1975 Sex Assigned At Female W [facility] Start: 03-08-2020 End: 12-19-2023 Tobacco smoking status NHIS Ex-smoker [facility] History of tobacco use Current smoker [facility] Start: 03-08-2020 End: 12-19-2023 Tobacco use and exposure Smokeless tobacco non-user [facility] Start: 01-30-2023 End: 02-23-2025 Alcohol intake Ex-drinker (finding) [facility] Start: 1975 Sex Assigned At Not on file [facility] Start: 01-30-2023 End: 02-23-2025 History of Social function [facility] Start: 01-30-2023 End: 02-23-2025 Tobacco use panel [facility] National Score (1-100), lower number is lower risk 46 [facility] Start: 02-25-2021 End: 03-27-2021 Exposure to SARS-CoV-2 (event) Not sure [facility] Start: 05-24-2023 Tobacco smoking stat us NEIS Never smoked tobacco [facility] Medical Equipment Procedure Code Equipment Code Equipment Origin al Text Equipment Identifier Dates Insertion, vascular access port PORT,POWER 8FR FDA Start: 03-23-2019 Insertion, vascular access port PORT,POWER 8FR FDA Start: 03-23-2019 Insertion, vascular access port PORT,POWER 8FR FDA Start: 03-23-2019 Insertion, vascular access port PORT,POWER 8FR FDA Start: 03-23-2019 Insertion, vascular access port PORT,POWER 8FR FDA Start: 03-23-2019 Insertion, vascular access port PORT,POWER 8FR FDA Start: 03-23-2019 Insertion, vascular access port PORT,POWER 8FR FDA Start: 03-23-2019 Insertion, vascular access port PORT,POWER 8FR FDA Start: 03-23-2019 Insertion, vascular access port PORT,POWER 8FR FDA Start: 03-23-2019 Insertion, vascular access port PORT,POWER 8FR FDA Start: 03-23-2019 Insertion, vascular access port PORT,POWER 8FR FDA Start: 03-23-2019 Insertion, vascular access port PORT,POWER 8FR FDA Start: 03-23-2019 SUTURE,LIGA CLIP MED LT200 FDA Start: 02-24-2019 SUTURE,LIGA CLIP MED LT200 FDA Start: 02-24-2019 SUTURE,LIGA CLIP MED LT200 FDA Start: 02-24-2019 SUTURE,LIGA CLIP SM LT-100 FDA Start: 02-24-2019 SUTURE,LIGA CLIP SM LT-100 FDA Start: 02-24-2019 Blood Sugar Diagnostic (Onetouch Verio Test Strips) strip Start: 06-09-2021 Blood Sugar Diagnostic (Onetouch Verio Test Strips) strip Start: 04-19-2021 End: 06-09-2021 SUTURE,LIGA CLIP MED LT200 FDA Start: 02-24-2019 SUTURE,LIGA CLIP MED LT200 FDA Start: 02-24-2019 SUTURE,LIGA CLIP MED LT200 FDA Start: 02-24-2019 SUTURE,LIGA CLIP SM LT-100 FDA Start: 02-24-2019 SUTURE,LIGA CLIP SM LT-100 FDA Start: 02-24-2019 Blood Sugar Diagnostic (Onetouch Verio Test Strips) strip Start: 06-09-2021 Blood Sugar Diagnostic (Onetouch Verio Test Strips) strip Start: 04-19-2021 End: 06-09-2021 SUTURE,LIGA CLIP MED LT200 FDA Start: 02-24-2019 SUTURE,LIGA CLIP MED LT200 FDA Start: 02-24-2019 SUTURE,LIGA CLIP MED LT200 FDA Start: 02-24-2019 SUTURE,LIGA CLIP SM LT-100 FDA Start: 02-24-2019 SUTURE,LIGA CLIP SM LT-100 FDA Start: 02-24-2019 Blood Sugar Diagnostic (Onetouch Verio Test Strips) strip Start: 06-09-2021 Blood Sugar Diagnostic (Onetouch Verio Test Strips) strip Start: 04-19-2021 End: 06-09-2021 SUTURE,LIGA CLIP MED LT200 FDA Start: 02-24-2019 SUTURE,LIGA CLIP MED LT200 FDA Start: 02-24-2019 SUTURE,LIGA CLIP MED LT200 FDA Start: 02-24-2019 SUTURE,LIGA CLIP SM LT-100 FDA Start: 02-24-2019 SUTURE,LIGA CLIP SM LT-100 FDA Start: 02-24-2019 Blood Sugar Diagnostic (Onetouch Verio Test Strips) strip Start: 06-09-2021 Blood Sugar Diagnostic (Onetouch Verio Test Strips) strip Start: 04-19-2021 End: 06-09-2021 SUTURE,LIGA CLIP MED LT200 FDA Start: 02-24-2019 SUTURE,LIGA CLIP MED LT200 FDA Start: 02-24-2019 SUTURE,LIGA CLIP MED LT200 FDA Start: 02-24-2019 SUTURE,LIGA CLIP SM LT-100 FDA Start: 02-24-2019 SUTURE,LIGA CLIP SM LT-100 FDA Start: 02-24-2019 Blood Sugar Diagnostic (Onetouch Verio Test Strips) strip Start: 06-09-2021 Blood Sugar Diagnostic (Onetouch Verio Test Strips) strip Start: 04-19-2021 End: 06-09-2021 SUTURE,LIGA CLIP MED LT200 FDA Start: 02-24-2019 SUTURE,LIGA CLIP MED LT200 FDA Start: 02-24-2019 SUTURE,LIGA CLIP MED LT200 FDA Start: 02-24-2019 SUTURE,LIGA CLIP SM LT-100 FDA Start: 02-24-2019 SUTURE,LIGA CLIP SM LT-100 FDA Start: 02-24-2019 Blood Sugar Diagnostic (Onetouch Verio Test Strips) strip Start: 06-09-2021 Blood Sugar Diagnostic (Onetouch Verio Test Strips) strip Start: 04-19-2021 End: 06-09-2021 SUTURE,LIGA CLIP MED LT200 FDA Start: 02-24-2019 SUTURE,LIGA CLIP MED LT200 FDA Start: 02-24-2019 SUTURE,LIGA CLIP MED LT200 FDA Start: 02-24-2019 SUTURE,LIGA CLIP SM LT-100 FDA Start: 02-24-2019 SUTURE,LIGA CLIP SM LT-100 FDA Start: 02-24-2019 Blood Sugar Diagnostic (Onetouch Verio Test Strips) strip Start: 06-09-2021 Blood Sugar Diagnostic (Onetouch Verio Test Strips) strip Start: 04-19-2021 End: 06-09-2021 SUTURE,LIGA CLIP MED LT200 FDA Start: 02-24-2019 SUTURE,LIGA CLIP MED LT200 FDA Start: 02-24-2019 SUTURE,LIGA CLIP MED LT200 FDA Start: 02-24-2019 SUTURE,LIGA CLIP SM LT-100 FDA Start: 02-24-2019 SUTURE,LIGA CLIP SM LT-100 FDA Start: 02-24-2019 Blood Sugar Diagnostic (Onetouch Verio Test Strips) strip Start: 06-09-2021 Blood Sugar Diagnostic (Onetouch Verio Test Strips) strip Start: 04-19-2021 End: 06-09-2021 SUTURE,LIGA CLIP MED LT200 FDA Start: 02-24-2019 SUTURE,LIGA CLIP MED LT200 FDA Start: 02-24-2019 SUTURE,LIGA CLIP MED LT200 FDA Start: 02-24-2019 SUTURE,LIGA CLIP SM LT-100 FDA Start: 02-24-2019 SUTURE,LIGA CLIP SM LT-100 FDA Start: 02-24-2019 Blood Sugar Diagnostic (Onetouch Verio Test Strips) strip Start: 06-09-2021 Blood Sugar Diagnostic (Onetouch Verio Test Strips) strip Start: 04-19-2021 End: 06-09-2021 SUTURE,LIGA CLIP MED LT200 FDA Start: 02-24-2019 SUTURE,LIGA CLIP MED LT200 FDA Start: 02-24-2019 SUTURE,LIGA CLIP MED LT200 FDA Start: 02-24-2019 SUTURE,LIGA CLIP SM LT-100 FDA Start: 02-24-2019 SUTURE,LIGA CLIP SM LT-100 FDA Start: 02-24-2019 Blood Sugar Diagnostic (Onetouch Verio Test Strips) strip Start: 06-09-2021 Blood Sugar Diagnostic (Onetouch Verio Test Strips) strip Start: 04-19-2021 End: 06-09-2021 SUTURE,LIGA CLIP MED LT200 FDA Start: 02-24-2019 SUTURE,LIGA CLIP MED LT200 FDA Start: 02-24-2019 SUTURE,LIGA CLIP MED LT200 FDA Start: 02-24-2019 SUTURE,LIGA CLIP SM LT-100 FDA Start: 02-24-2019 SUTURE,LIGA CLIP SM LT-100 FDA Start: 02-24-2019 Blood Sugar Diagnostic (Onetouch Verio Test Strips) strip Start: 06-09-2021 Blood Sugar Diagnostic strip Start: 04-18-2021 Blood Sugar Diagnostic (Onetouch Verio Test Strips) strip Start: 04-19-2021 End: 06-09-2021 Blood Sugar Diagnostic strip Start: 06-08-2019 End: 04-18-2021 SUTURE,LIGA CLIP MED LT200 FDA Start: 02-24-2019 SUTURE,LIGA CLIP MED LT200 FDA Start: 02-24-2019 SUTURE,LIGA CLIP MED LT200 FDA Start: 02-24-2019 SUTURE,LIGA CLIP SM LT-100 FDA Start: 02-24-2019 SUTURE,LIGA CLIP SM [id number]-100 FDA Start: 02-24-2019 Blood Sugar Diagnostic (Onetouch Verio Test Strips) strip Start: 06-09-2021 Blood Sugar Diagnostic strip Start: 04-18-2021 Blood Sugar Diagnostic (Onetouch Verio Test Strips) strip Start: 04-19-2021 End: 06-09-2021 Blood Sugar Diagnostic strip Start: 06-08-2019 End: 04-18-2021 Goals Date Patient Goal Desired Activity /State Functional Status Date Assessment Result Facility 07-30-2023 Functional status Ambulates [facility] Work Phone: Mental Status Date Assessment Result Facility 07-30-2023 Cognitive function Touch/Shaking [facility] Work Phone: 12-25-2022 Cognitive function Voice/Name [facility] Work Phone: 07-23-2019 Cognitive function Mood Descript ion Appropriate;Calm [facility] Work Phone: Clinical Notes 12-25-2022 to 02-23-2025 Osmani Davies, DO - 02/23/2025 11:40 AM EDTPatient InstructionsOsmani Davies, DO - 12/28/2024 9:20 AM EDTPatient InstructionsOsmani Davies, DO - 01/02/2024 9:20 AM EDTPatient Instructions Note Date & Type Note Facility 02-23-2025 History of Presen t illness Narrative HPI: Soha Leon is a 49 year old female established patient who returns for a re-evaluation of her Primary osteoarthritis of right knee. Patient noticed increased swelling over the last couple of days to the right anterior medial joint line with a cystic-like structure in that region. She says it was very sore swollen. She has been moving her house and doing a lot of climbing and lifting activities. She has been icing and taking her medication. Notes improvement today. Last seen on 12/28/2024 & received a steroid injection. Ongoing pain in her right knee for the past 3 days with no known injury. Ice, Diclofenac, tylenol, hinged knee brace, home exercises. Prior history as of 12/28/2024: Primary osteoarthritis of right knee. Patient 3/10, with some swelling and a lump present. Patient is taking diclofenac and using ice. Denies any new injury. gradual increase in right knee pain over the past month, with significant worsening in the last 2 weeks prompting her to seek medical attention. 2 braces for stability and pain control. Still taken diclofenac which has helped. Prior history as of 06-19-23. Last seen 05-29-2023 received a steroid injection. 3/10 pain & 60% improvement. Ice, diclofenac, tylenol, hinged knee brace, home exercises. Patient's been seen multiple times in the past for right knee osteoarthritis this required cortisone injections conservative measures. She had gel injections summer 2020. Past x-rays and MRI right knee showed arthritis. Current Outpatient Medications Medication Sig Dispense Refill ketoconazole (NIZORAL) 2 % shampoo once daily as needed. diclofenac, EC, (VOLTAREN) 75 mg EC tablet Take 1 tablet by mouth two times a day. 60 tablet 1 venlafaxine ER (EFFEXOR XR) 75 mg 24 hr capsule Take 1 capsule by mouth every afternoon. TRULICITY 1.5 mg/0.5 mL pen injector pseudoephedrine (SUDAFED) 30 mg tablet 2 tablets as needed Orally every 6 hrs for 7 days fluconazole (DIFLUCAN) 150 mg tablet TAKE 1 TABLET BY MOUTH ONCE DAILY FOR ONE DOSE hydroCHLOROthiazide 12.5 mg capsule Take 12.5 mg by mouth every morning. JARDIANCE 25 mg tablet Take 25 mg by mouth once daily. cetirizine (ZYRTEC) 10 mg tablet Take 10 mg by mouth as needed. fluticasone (FLONASE) 50 mcg/actuation nasal spray 1 [place] as needed. ondansetron orally disintegrating (ZOFRAN ODT) [...] Take 1 tablet by mouth once daily. Znkyo-7-GSH-EPA-Fish Oil 300-1,000 mg cap Take 1 capsule [...] wisdom teeth extraction TONSILLECTOMY AND ADENOIDECTOMY HX TOTAL ABDOM HYSTERECTOMY Social History Tobacco Use Smoking status: Former [...] Negative. Endo/Heme/Allergies: Negative. Psychiatric/Behavioral: Negative. Exam: BP 141/81 Pulse 79 Ht 175.3 cm (5' 9) Wt 84.9 kg (187 lb 1.6 oz) BMI 27.63 kg/m BMI 27.63 kg/(m^2) Const: Appears well developed and well nourished. No signs of acute distress present. Facial expression appears pleasant. CV: Extremities: No clubbing, cyanosis or edema. +2 distal pulses throughout Skin: No erythema, petechiae, rash. Neuro: Alert and oriented x3. Reflexes: DTRs are 2+ bilaterally. No deficits noted. Right Knee Exam Tenderness The patient is experiencing tenderness in the patella and medial joint line (Ganglion cyst type medial joint line anterior medial). Range of Motion Extension: normal Flexion: 130 abnormal Tests Nicholas: Medial - negative Lateral - negative Varus: negative Valgus: negative Ling: Anterior - negative Drawer: Anterior - negative Posterior - negative Patellar apprehension: positive Other Erythema: absent Scars: absent Sensation: normal Pulse: present Swelling: mild (Tear medial cystic structure) Effusion: no effusion present Comments: Positive mild tenderness medial joint and patellofemoral joint. (12/28/2024) Right knee X-ray: 4 view - Mild to moderate medial compartment narrowing with increased sclerosis. Early osteophyte formation in the medial and lateral compartments - Lateral view: Spurring around the patellofemoral joint and posterior tibial plateau with osteophyte formation - [place] view: Moderate arthritic changes in the patellofemoral joint with significant spurring in both lateral and medial aspects - Notch view: Moderate arthritic changes in the medial and lateral compartments ASSESSMENT/PLAN: 1. Primary osteoarthritis of right knee - ICD9: 715.16, ICD10: M17.11 (primary diagnosis) Continue to ice right knee 3 times a day for 20 minutes especially to the anterior medial aspect over the cystic region. Continue diclofenac 75 mg twice a day with food for the next week and then as needed for pain/ Tylenol 1-2 tablets 325 mg every 8 hours as needed for Breakthrough pain only. Continue home exercise program for keeping the quadriceps, hip flexors and hamstrings strong to help support the knee twice daily. Limited step climbing. Continue knee brace to wear daily activities. Glucosamine/chondroitin Joint supplement can help with joint pain. In the future if continued cystic enlargement to the knee would recommend MRI for further evaluation of the cyst. I feel this is more of a ganglion cyst secondary to the osteoarthritis of the right knee. 2. Cyst of right knee joint - ICD9: 719.86, ICD10: M25.861 Osmani Davies DO The information in this document was created by the medical doctor md/medical director. Pam Davies have reviewed and approved this document for accuracy. Note: This dictation was created with the assistance of voice recognition software. Phonetic and/or minor grammatical errors may exist. documented in this encounter [facility] 02-23-2025 Note HNO ID: [id number] Author: OSMANI DAVIES DO Service: ? Author Type: Physician Type: Progress Notes Filed: 02/23/2025 11:37 Note Text: HPI: Soha Leon is a 49 year old female established patient who returns for a re-evaluation of her Primary osteoarthritis of right knee. Patient noticed increased swelling over the last couple of days to the right anterior medial joint line with a cystic-like structure in that region. She says it was very sore swollen. She has been moving her house and doing a lot of climbing and lifting activities. She has been icing and taking her medication. Notes improvement today. Last seen on 12/28/2024 AND received a steroid injection. Ongoing pain in her right knee for the past 3 days with no known injury. Ice, Diclofenac, tylenol, hinged knee brace, home exercises. Prior history as of 12/28/2024: Primary osteoarthritis of right knee. Patient 3/10, with some swelling and a lump present. Patient is taking diclofenac and using ice. Denies any new injury. gradual increase in right knee pain over the past month, with significant worsening in the last 2 weeks prompting her to seek medical attention. 2 braces for stability and pain control. Still taken diclofenac which has helped. Prior history as of 06-19-23. Last seen 05-29-2023 received a steroid injection. 3/10 pain AND 60% improvement. Ice, diclofenac, tylenol, hinged knee brace, home exercises. Patient's been seen multiple times in the past for right knee osteoarthritis this required cortisone injections conservative measures. She had gel injections summer 2020. Past x-rays and MRI right knee showed arthritis. Current Outpatient Medications Medication Sig Dispense Refill ketoconazole (NIZORAL) 2 % shampoo once daily as needed. diclofenac, EC, (VOLTAREN) 75 mg EC tablet Take 1 tablet by mouth two times a day. 60 tablet 1 venlafaxine ER (EFFEXOR XR) 75 mg 24 hr capsule Take 1 capsule by mouth every afternoon. TRULICITY 1.5 mg/0.5 mL pen injector pseudoephedrine (SUDAFED) 30 mg tablet 2 tablets as needed Orally every 6 hrs for 7 days fluconazole (DIFLUCAN) 150 mg tablet TAKE 1 TABLET BY MOUTH ONCE DAILY FOR ONE DOSE hydroCHLOROthiazide 12.5 mg capsule Take 12.5 mg by mouth every morning. JARDIANCE 25 mg tablet Take 25 mg by mouth once daily. cetirizine (ZYRTEC) 10 mg tablet Take 10 mg by mouth as needed. fluticasone (FLONASE) 50 mcg/actuation nasal spray 1 [place] as needed. ondansetron orally disintegrating (ZOFRAN ODT) [...] Take 1 tablet by mouth once daily. Txwma-6-ODQ-EPA-Fish Oil 300-1,000 mg cap Take 1 capsule [...] wisdom teeth extraction TONSILLECTOMY AND ADENOIDECTOMY HX TOTAL ABDOM HYSTERECTOMY Social History Tobacco Use Smoking status: Former [...] Negative. Endo/Heme/Allergies: Negative. Psychiatric/Behavioral: Negative. Exam: BP 141/81 Pulse 79 Ht 175.3 cm (5' 9) Wt 84.9 kg (187 lb 1.6 oz) BMI 27.63 kg/m? BMI 27.63 kg/(m2) Const: Appears well developed and well nourished. No signs of acute distress present. Facial expression appears pleasant. CV: Extremities: No clubbing, cyanosis or edema. +2 distal pulses throughout Skin: No erythema, petechiae, rash. Neuro: Alert and oriented x3. Reflexes: DTRs are 2+ bilaterally. No deficits noted. Right Knee Exam Tenderness The patient is experiencing tenderness in the patella and medial joint line (Shanthi (more content not included)... [facility] 02-23-2025 Instructions Danay Bajwa MA - 02/23/2025 11:38 AM EDT Continue to ice right knee 3 times a day for 20 minutes especially to the anterior medial aspect over the cystic region. Continue diclofenac 75 mg twice a day with food for the next week and then as needed for pain/ Tylenol 1-2 tablets 325 mg every 8 hours as needed for Breakthrough pain only. Continue home exercise program for keeping the quadriceps, hip flexors and hamstrings strong to help support the knee twice daily. Limited step climbing. Continue knee brace to wear daily activities. Glucosamine/chondroitin Joint supplement can help with joint pain. In the future if continued cystic enlargement to the knee would recommend MRI for further evaluation of the cyst. I feel this is more of a ganglion cyst secondary to the osteoarthritis of the right knee. Osmani Davies DO documented in this encounter [facility] 12-28-2024 History of Presen t illness Narrative Associated Order(s): LARGE JOINT INJECTION/ARTHROCENTESIS: R knee joint Post-Procedure Diagnose(s): Primary osteoarthritis of right knee HPI: Soha Leon is a 47 year old female established patient who returns for a follow up of Primary osteoarthritis of right knee. Patient states her pain is 3/10, with some swelling and a lump present. Patient is taking diclofenac and using ice. Denies any new injury. gradual increase in right knee pain over the past month, with significant worsening in the last 2 weeks prompting her to seek medical attention. Patient wearing 2 braces for stability and pain control. Still taken diclofenac which has helped. She needs a refill. Prior history as of 06-19-23. Last seen 05-29-2023 received a steroid injection. [...] with ice, tylenol, knee sleeve. seen by [facility] on 05-24-2023, she had xray's done. [...] Current Outpatient Medications Medication Sig Dispense Refill venlafaxine ER (EFFEXOR XR) 75 mg 24 hr capsule Take 1 capsule by mouth every afternoon. OZEMPIC 2 mg/dose (8 mg/3 mL) pen injector Inject 2 mg subcutaneously one time a week. (Patient not taking: Reported on 12/28/2024) TRULICITY 1.5 mg/0.5 mL pen injector methocarbamol (ROBAXIN) 500 mg tablet Take 1 tablet by mouth four times daily. (Patient not taking: Reported on 12/28/2024) Pseudoephedrine HCl (SUDAFED SR) 120 mg TbER 1 tablet as needed Orally every 12 hrs for 7 days (Patient not taking: Reported on 12/28/2024) pseudoephedrine (SUDAFED) 30 mg tablet 2 tablets [...] fluticasone (FLONASE) 50 mcg/actuation nasal spray 1 [place] as needed. ondansetron orally disintegrating (ZOFRAN ODT) [...] mg by mouth two times a day. (Patient not taking: Reported on 12/28/2024) JANUVIA 100 mg tablet Take 100 mg by mouth once daily. (Patient not taking: Reported on 12/28/2024) VITAMIN B COMPLEX ORAL Take 1 tablet by mouth once daily. triamcinolone (KENALOG) 0.025 % cream Apply 1 application to affected area as needed. (Patient not taking: Reported on 12/28/2024) Zdfyl-4-RAC-EPA-Fish Oil 300-1,000 mg cap Take 1 capsule [...] wisdom teeth extraction TONSILLECTOMY AND ADENOIDECTOMY HX TOTAL ABDOM HYSTERECTOMY Social History Tobacco Use Smoking status: Former [...] Negative. Endo/Heme/Allergies: Negative. Psychiatric/Behavioral: Negative. Exam: BP 122/70 (BP Position: Sitting) Pulse 84 Ht 175.3 cm (5' 9) Wt 90.7 kg (200 lb) BMI 29.53 kg/m BMI 29.53 kg/(m^2) Const: Appears well developed and well [...] Scars: absent Sensation: normal Pulse: present Swelling: none Effusion: no effusion present Comments: Positive tenderness medial joint and patellofemoral joint. (12/28/2024) Right knee X-ray: 4 view - Mild to moderate medial compartment narrowing with increased sclerosis. Early osteophyte formation in the medial and lateral compartments - Lateral view: Spurring around the patellofemoral joint and posterior tibial plateau with osteophyte formation - [place] view: Moderate arthritic changes in the patellofemoral joint with significant spurring in both lateral and medial aspects - Notch view: Moderate arthritic changes in the medial and lateral compartments ASSESSMENT/PLAN: 1. Primary osteoarthritis of right knee - ICD9: 715.16, ICD10: M17.11 (primary diagnosis) LARGE JOINT INJECTION/ARTHROCENTESIS: R knee joint 12/28/2024 9:15 AM The procedure site was prepped in the usual sterile fashion. Site: R knee joint Medications: 40 mg triamcinolone acetonide 40 mg/mL; 2 mg dexAMETHasone sodium phosphate 4 mg/mL (lidocaine [id number], [id number], 07/22 kenalog [id number], [id number], 07/23 dexamethasone [id number], [id number], 04/22) Anesthetics: 2 mL lidocaine 20 mg/mL (2 %) Outcome: Tolerated well, no immediate complications Post-injection instructions were reviewed with the patient and the patient voiced understanding of these instructions. Informed Consent Consent Obtained: Verbal [place] Protocol A moment to CARE was completed. SIGN IN Personnel directly involved with the procedure wore the appropriate PPE. Special Equipment: N/A Patient/Surrogate Stated/Verified: Patient name, Date of , Relevant allergies and Intended procedure TIME OUT Relevant labs, photos, and/or imaging studies have been reviewed. Consent documented and matches the intended procedure. Correct side/site marked and visible. Medications required for procedure verified. No fire risk assessment and interventions applicable. No implant(s) inserted. Cortisone injection right knee given today. Ice right knee 3 times a day for 20 minutes. Refill diclofenac 75 mg twice a day with food for the next week and then as needed for pain/ Tylenol 1-2 tablets 325 mg every 8 hours as needed for Breakthrough pain only. Continue home exercise program for keeping the quadriceps, hip flexors and hamstrings strong to help support the knee twice daily. Limited step climbing. knee brace to wear daily activities. Glucosamine/chondroitin Joint supplement can help with joint pain. Please call in 3 weeks to report on how the right knee is feeling. If continued pain may consider gel injections at that time. Would recommend getting some updated lab work with CBC and CMP if taking long-term diclofenac. Osmani Davies, DO Medical Decision Making: Problems: Moderate: 1+ chronic illnesses with change Data: Unique test(s) ordered: 1 Risk: Low: Low risk from testing/treatment Moderate: Drug management Medical Decision Making Level: 4 - Moderate The information in this document was created by the medical doctor md/medical director. Pam Davies have reviewed and approved this document for accuracy. Note: This dictation was created with the assistance of voice recognition software. Phonetic and/or minor grammatical errors may exist. documented in this encounter [facility] 12-28-2024 Note HNO ID: [id number] Author: DELIA HANDY LPN Service: ? Author Type: Physician Type: Progress Notes Filed: 12/28/2024 15:49 Note Text: HPI: Soha Leon is a 47 year old female established patient who returns for a follow up of Primary osteoarthritis of right knee. Patient states her pain is 3/10, with some swelling and a lump present. Patient is taking diclofenac and using ice. Denies any new injury. gradual increase in right knee pain over the past month, with significant worsening in the last 2 weeks prompting her to seek medical attention. Patient wearing 2 braces for stability and pain control. Still taken diclofenac which has helped. She needs a refill. Prior history as of 06-19-23. Last seen 05-29-2023 received a steroid injection. [...] with ice, tylenol, knee sleeve. seen by [facility] on 05-24-2023, she had xray's done. [...] Current Outpatient Medications Medication Sig Dispense Refill venlafaxine ER (EFFEXOR XR) 75 mg 24 hr capsule Take 1 capsule by mouth every afternoon. OZEMPIC 2 mg/dose (8 mg/3 mL) pen injector Inject 2 mg subcutaneously one time a week. (Patient not taking: Reported on 12/28/2024) TRULICITY 1.5 mg/0.5 mL pen injector methocarbamol (ROBAXIN) 500 mg tablet Take 1 tablet by mouth four times daily. (Patient not taking: Reported on 12/28/2024) Pseudoephedrine HCl (SUDAFED SR) 120 mg TbER 1 tablet as needed Orally every 12 hrs for 7 days (Patient not taking: Reported on 12/28/2024) pseudoephedrine (SUDAFED) 30 mg tablet 2 tablets [...] fluticasone (FLONASE) 50 mcg/actuation nasal spray 1 [place] as needed. ondansetron orally disintegrating (ZOFRAN ODT) [...] mg by mouth two times a day. (Patient not taking: Reported on 12/28/2024) JANUVIA 100 mg tablet Take 100 mg by mouth once daily. (Patient not taking: Reported on 12/28/2024) VITAMIN B COMPLEX ORAL Take 1 tablet by mouth once daily. triamcinolone (KENALOG) 0.025 % cream Apply 1 application to affected area as needed. (Patient not taking: Reported on 12/28/2024) Molrd-8-LBW-EPA-Fish Oil 300-1,000 mg cap Take 1 capsule [...] wisdom teeth extraction TONSILLECTOMY AND ADENOIDECTOMY HX TOTAL ABDOM HYSTERECTOMY Social History Tobacco Use Smoking status: Former Smokeless tobacco: Never Substance Use Topics Alcohol use: Not Currently Drug use: Never FAMILY HISTORY Problem Relation Age of Onset Cancer Mother Diabetes Father Cancer Father Hypertension Father Diabetes Sister Review of Systems Constitutional: Negative. HENT: Negative. Eyes: Negative. Respiratory: Negative. Cardiovascular: Negative. Gastrointestinal: Negative. Genitourinary: Negative. (more content not included)... [facility] 12-28-2024 Instructions Delia Handy LPN - 12/28/2024 9:19 AM EDT Cortisone injection right knee given today. Ice right knee 3 times a day for 20 minutes. Refill diclofenac 75 mg twice a day with food for the next week and then as needed for pain/ Tylenol 1-2 tablets 325 mg every 8 hours as needed for Breakthrough pain only. Continue home exercise program for keeping the quadriceps, hip flexors and hamstrings strong to help support the knee twice daily. Limited step climbing. knee brace to wear daily activities. Glucosamine/chondroitin Joint supplement can help with joint pain. Please call in 3 weeks to report on how the right knee is feeling. If continued pain may consider gel injections at that time. Would recommend getting some updated lab work with CBC and CMP if taking long-term diclofenac. documented in this encounter [facility] 01-02-2024 History of Presen t illness Narrative HPI: Soha Leon is a 48 year old female established patient returns for a follow up of her Calcific tendinitis of right shoulder. Last seen 12/19/2023 & received a steroid injection. 100% improvement & 0/10 pain severity. Diclofenac, ice, heat, home exercises. Prior history as of 12/19/2023: presents for a new problem with her Right Shoulder pain that started on 12/13/2023 with no known injury. Patient treating with applying heat and was taking Meloxicam/Tylenol. She is right hand dominate. Patient says last week she did a lot of overhead use of racquet activities playing with her son. She says over the last couple days it got really sore to the point where she could not move it and palpation was very sore as well. She said it is really stiff and discomforting with activities of daily living. 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 She stated she has had a 70% improvement since the pain started. Pain Scales: Verbal (Numeric Rating or Visual Analog Scale) Pain Level: 0 Pain Location: Shoulder-Right Description: Duration Amount of Time: 3 Duration Units: Weeks Frequency: Intermittent Current Outpatient Medications Medication Sig Dispense Refill venlafaxine ER (EFFEXOR XR) 75 mg 24 hr capsule Take 1 capsule by mouth every afternoon. TRULICITY 1.5 mg/0.5 mL pen injector methocarbamol [...] fluticasone (FLONASE) 50 mcg/actuation nasal spray 1 [place] as needed. ondansetron orally disintegrating (ZOFRAN ODT) [...] 1 application to affected area as needed. Oybdj-9-XTG-EPA-Fish Oil 300-1,000 mg cap Take 1 capsule [...] wisdom teeth extraction TONSILLECTOMY AND ADENOIDECTOMY HX TOTAL ABDOM HYSTERECTOMY Social History Tobacco Use Smoking status: Former Smokeless tobacco: Never Substance Use Topics Alcohol use: Not Currently Drug use: Never FAMILY HISTORY Problem Relation Age of Onset Cancer Mother Diabetes Father Cancer Father Hypertension Father Diabetes Sister Review of Systems Constitutional: Negative. HENT: Negative. Eyes: Negative. Respiratory: Negative. Cardiovascular: Negative. Gastrointestinal: Negative. Genitourinary: Negative. Musculoskeletal: Positive for back pain and joint pain. Skin: Negative. Neurological: Negative. Endo/Heme/Allergies: Negative. Psychiatric/Behavioral: Negative. Exam: There were no vitals taken for this visit. No weight on file for this encounter. Const: Appears well developed and well nourished. No signs of acute distress present. Facial expression appears pleasant. CV: Extremities: No clubbing, cyanosis or edema. +2 distal pulses throughout Skin: No erythema, petechiae, rash. Neuro: Alert and oriented x3. Reflexes: DTRs are 2+ bilaterally. No deficits noted. Right Shoulder Exam Tenderness The patient is experiencing no tenderness. Range of Motion Active abduction: normal Passive abduction: normal Extension: normal External rotation: normal Forward flexion: normal Internal rotation 0 degrees: normal Internal rotation 90 degrees: normal Muscle Strength Abduction: 5/5 Internal rotation: 5/5 External rotation: 5/5 Supraspinatus: 5/5 Subscapularis: 5/5 Biceps: 5/5 Tests Dolan test: negative Impingement: negative Drop arm: negative Other Erythema: absent Scars: absent Sensation: normal Pulse: present Comments: Negative empty can sign strength intact. Recent Results (from the past 36 hour(s)) XR SHOULDER GENERAL 3V OR MORE AP/TRUE AP/OTHER RIGHT Impression 12/19/23 Right shoulder x-ray x 3 view shows small calcific area off the greater tubercle concern for calcific tendinitis on AP view. Mild AC joint arthritic changes. Normal glenohumeral joint. No acute fracture. ASSESSMENT/PLAN: 1. Calcific tendinitis of right shoulder - ICD9: 726.11, ICD10: M75.31 (primary diagnosis) Continue to ice 2 times a day evening and before bedtime specially after activities as well. Diclofenac as needed for right shoulder pain. Continue home exercises on a daily basis for range of motion and strengthening exercises. Any increased pain discomfort please call for reevaluation Osmani Davies DO The information in this document was created by the medical doctor md/medical director. Pam Davies have reviewed and approved this document for accuracy. Note: This dictation was created with the assistance of voice recognition software. Phonetic and/or minor grammatical errors may exist. documented in this encounter [facility] 12-19-2023 Instructions Danay Bajwa MA - 12/19/2023 1:42 PM EDT Ice or warm moist heat right shoulder 4 times a day for 20 minutes. Diclofenac 75 mg twice a day with food/Tylenol 1 to 2 tablets 325 mg every 8 hours as needed for breakthrough pain. Cortisone injection to affected right shoulder will decrease pain and improve function. Home exercises with Range of motion 2x day / Strengthening exercises once pain free ROM. Avoid repetitive overhead lifting or reaching for the next few weeks. Sleep in an inclined position to avoid laying on shoulder. Reevaluate in 2 weeks documented in this encounter [facility] 12-19-2023 History of Presen t illness Narrative Associated Order(s): LARGE JOINT INJECTION/ARTHROCENTESIS: R shoulder joint Post-Procedure Diagnose(s): Calcific tendinitis of right shoulder HPI: Soha Leon is a 48 year old female established patient presents for a new problem with her Right Shoulder pain that started on 12/13/2023 with no known injury. Patient treating with applying heat and was taking Meloxicam/Tylenol. She is right hand dominate. Patient says last week she did a lot of overhead use of racquet activities playing with her son. She says over the last couple days it got really sore to the point where she could not move it and palpation was very sore as well. She said it is really stiff and discomforting with activities of daily living. 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 She stated she has had a 70% improvement since the pain started. Pain Scales: Verbal (Numeric Rating or Visual Analog Scale) Pain Level: 3 Pain Location: Shoulder-Right Description: Sharp, Stabbing Duration Amount of Time: 6 Duration Units: Days Frequency: Intermittent Current Outpatient Medications Medication Sig Dispense Refill venlafaxine ER (EFFEXOR XR) 75 mg 24 hr capsule Take 1 capsule by mouth every afternoon. TRULICITY 1.5 mg/0.5 mL pen injector methocarbamol [...] fluticasone (FLONASE) 50 mcg/actuation nasal spray 1 [place] as needed. ondansetron orally disintegrating (ZOFRAN ODT) [...] 1 application to affected area as needed. Turhv-1-BTC-EPA-Fish Oil 300-1,000 mg cap Take 1 capsule [...] wisdom teeth extraction TONSILLECTOMY AND ADENOIDECTOMY HX TOTAL ABDOM HYSTERECTOMY Social History Tobacco Use Smoking status: Former Smokeless tobacco: Never Substance Use Topics Alcohol use: Not Currently Drug use: Never FAMILY HISTORY Problem Relation Age of Onset Cancer Mother Diabetes Father Cancer Father Hypertension Father Diabetes Sister Review of Systems Constitutional: Negative. HENT: Negative. Eyes: Negative. Respiratory: Negative. Cardiovascular: Negative. Gastrointestinal: Negative. Genitourinary: Negative. Musculoskeletal: Positive for back pain and joint pain. Skin: Negative. Neurological: Negative. Endo/Heme/Allergies: Negative. Psychiatric/Behavioral: Negative. Exam: BP 131/82 Pulse 95 Ht 175.3 cm (5' 9) Wt 90.9 kg (200 lb 6.4 oz) BMI 29.59 kg/m BMI 29.59 kg/(m^2) Const: Appears well developed and well nourished. No signs of acute distress present. Facial expression appears pleasant. CV: Extremities: No clubbing, cyanosis or edema. +2 distal pulses throughout Skin: No erythema, petechiae, rash. Neuro: Alert and oriented x3. Reflexes: DTRs are 2+ bilaterally. No deficits noted. Right Shoulder Exam Tenderness Right shoulder tenderness location: Right glenohumeral joint. Range of Motion Active abduction: 140 abnormal Passive abduction: normal Extension: 50 abnormal External rotation: normal Forward flexion: normal Internal rotation 0 degrees: normal Internal rotation 90 degrees: normal Muscle Strength Abduction: 4/5 Internal rotation: 5/5 External rotation: 5/5 Supraspinatus: 4/5 Subscapularis: 5/5 Biceps: 5/5 Tests Dolan test: positive Impingement: positive Drop arm: negative Other Erythema: absent Scars: absent Sensation: normal Pulse: present Comments: Positive empty can sign strength intact. Recent Results (from the past 36 hour(s)) XR SHOULDER GENERAL 3V OR MORE AP/TRUE AP/OTHER RIGHT Impression 12/19/23 Right shoulder x-ray x 3 view shows small calcific area off the greater tubercle concern for calcific tendinitis on AP view. Mild AC joint arthritic changes. Normal glenohumeral joint. No acute fracture. ASSESSMENT/PLAN: 1. Calcific tendinitis of right shoulder - ICD9: 726.11, ICD10: M75.31 (primary diagnosis) LARGE JOINT INJECTION/ARTHROCENTESIS: R shoulder joint Informed Consent Consent Obtained: Verbal [place] Protocol A moment to CARE was completed. [...] assessment and interventions applicable. No implant(s) inserted. 12/19/2023 1:22 PM The procedure site was prepped in the usual sterile fashion. Site: R shoulder joint Medications: 40 mg triamcinolone acetonide 40 mg/mL; 2 mg dexAMETHasone sodium phosphate 4 mg/mL Anesthetics: 2 mL lidocaine 20 mg/mL (2 %) Outcome: Tolerated well, no immediate complications Post-injection instructions were reviewed with the patient and the patient voiced understanding of these instructions. SIGN OUT No instruments, equipment or retained foreign bodies applicable. Ice or warm moist heat right shoulder 4 times a day for 20 minutes. Diclofenac 75 mg twice a day with food/Tylenol 1 to 2 tablets 325 mg every 8 hours as needed for breakthrough pain. Cortisone injection to affected right shoulder will decrease pain and improve function. Home exercises with Range of motion 2x day / Strengthening exercises once pain free ROM. Avoid repetitive overhead lifting or reaching for the next few weeks. Sleep in an inclined position to avoid laying on shoulder. Reevaluate in 2 weeks 2. Acute pain of right shoulder - ICD9: 719.41, ICD10: M25.511 - XR SHOULDER GENERAL 3V OR MORE AP/TRUE AP/OTHER RIGHT Osmani Davies DO The information in this document was created by the medical doctor md/medical director. Pam Davies have reviewed and approved this document for accuracy. Note: This dictation was created with the assistance of voice recognition software. Phonetic and/or minor grammatical errors may exist. documented in this encounter [facility] 07-30-2023 Procedure note [facility] 07-30-2023 History and physi renato note Note Date/Time July 30, 2023 6:57am [facility] Medical Records Department [address] [place] [address] History & Physical Exam 07/30/23 0656 MR#: [id number] Acct: [id number] Name: SOHA LEON Rep #:[id number] : 1975 47 From: Jaymie davis MD PCP: FELISA BUTTERFIELD Status:[facility] Location: [place] [address] History and Physical Date of Admission: 07/30/23 Intake Vital Signs 04/22/2310:53 05/23/2308:32 07/09/2311:05 07/09/2311:10 Height 5 ft 9 in 5 ft 9 in 5 ft 9 in 5 ft 9 in Weight: 207 lb 2 oz 208 lb 4 oz 208 lb 4 oz BMI 30.6 30.7 30.7 BP 118/82 H 118/78 135/88 H Blood Pressure Location Rt brachial Position Sitting Respiration 18 Pulse 80 Pulse Source Monitor Temp 98.0 F Pulse Oximetry (%) 97 Oxygen Delivery Method room air Intake Visit 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 Is patient in pain?: No Allergies hydrocodone [From Hycomine (hydrocodone-PPA)] Adverse Reaction (Mild, Verified 07/09/23 11:10) Itchingmetformin Adverse Reaction (Mild, Verified 07/09/23 11:10) Diarrhea Medications vitamin B complex 1 ea PO DAILY 02/17/19 [History Confirmed 07/09/23] cholecalciferol (vitamin D3) 25 mcg (1,000 unit) capsule 1,000 unit PO DAILY 06/08/19 [History Confirmed 07/09/23] aspirin 81 mg tablet,delayed release 81 mg PO DAILY 04/18/20 [History Confirmed 07/09/23] diclofenac sodium 75 mg tablet,delayed release 75 mg PO BID 03/02/21 [History Confirmed 07/09/23] blood sugar diagnostic #100 ea 04/18/21 [Rx Confirmed 07/09/23] blood-glucose meter (OneTouch Verio Flex Meter) #1 ea 04/19/21 [Rx Confirmed 07/09/23] OneTouch Verio test strips (blood sugar diagnostic) #200 ea 06/09/21 [Rx Confirmed 07/09/23] Jardiance 25 mg tablet (empagliflozin) 25 mg PO DAILY #90 tabs 02/01/23 [Rx Confirmed 07/09/23] cetirizine 10 mg tablet 10 mg PO DAILY PRN 04/04/23 [History Confirmed 07/09/23] levothyroxine 200 mcg tablet 200 mcg PO .COMPLEX #96 tabs 05/23/23 [Rx Confirmed 07/09/23] metoprolol succinate 100 mg tablet,extended release 24 hr 50 mg PO QHS 05/23/23 [History Confirmed 07/09/23] dulaglutide 3 mg/0.5 mL subcutaneous pen injector (Trulicity) 3 mg (0.5 mL) subcut QWEEK #2 mL 06/12/23 [Rx Confirmed 07/09/23] misoprostol 200 mcg tablet (Cytotec) See Rx Instructions .Route .COMPLEX #4 tabs109/09/22 [Rx Confirmed 07/09/23] Post menopausal: No Patient : No : No PFSH Medical History Arthritis Breast cancer, left Cancer Chronic headache Diabetes Former smoker Gastric reflux H/O emotional problems H/O: pneumonia History of echocardiogram History of irregular heartbeat History of malignant neoplasm of skin HTN (hypertension) Loud snoring Metabolic syndrome X Murmur, cardiac Neuropathy Obesity PORT PLACEMENT Thyroid cancer Thyroid disease TIA (transient ischemic attack) Wears glasses Surgical History History of breast biopsy (~12/2018) History of endometrial ablation History of removal of Port-a-Cath History of tonsillectomy Hx of surgical procedure S/P lumpectomy, left breast (~02/24/19) S/P thyroidectomy Status post left breast lumpectomy (~12/2018) Family History Mother Breast cancerGrandmother Cervical cancer Breast cancerSister Thyroid cancerUnknown Diabetes Arthritis Hyperlipidemia Hypertension Thyroid disorder CVA (cerebral vascular accident)Other Vocal cord cancer Social History Smoking Status: Former smoker Tobacco: How many years used: 22 second hand exposure: No alcohol intake: never substance use type: does not use caffeine: Yes what type of physical activity do you participate in: walking seatbelt use: always do you feel safe at home: Yes 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 she has had persistent PMB and has a history of breast cancer. unable to perform biopsy of uterine lining due to stenosis. Uterus measures 8.6 x 4.2 x 5.6 cm and is anteverted. Multiple nabothian cysts. Endometrium measures approximately 6 mm in diameter and appears to be somewhat ill-defined. Heterogeneous uterine echogenicity which may represent diffuse fibroid involvement or adenomyosis. Focal 13 mm fibroid noted within the posterior aspect of the lower uterine segment. Female Reproductive History Menopausal Symptoms: No night sweats History 3 Elective abortions Hx Para 3 Spontaneous abortions Hx # Term Pregnancies Ectopic pregnancies Hx # Pregnancies Multiple births # of living children Past Pregnancies Del. Date Name GA/Weeks Outcome Route Bth Weight Gen Labor Lgth Anesthesia Del Locatn Provider FOB Unknown 2006 [place] live - full term Unknown 2008 [place] live - full term Unknown 2012 Matt live - full term ROS Const Constitutional: Denies fatigue, night sweats, weight gain or weight loss ENT ENT: Reports system reviewed and no additional complaints, except as documented Cardio Card: Denies chest pain Resp Resp: Denies cough or dyspnea GI GI: Reports as per HPI; Denies abdominal pain, constipation, nausea or vomiting : Reports urinary incontinence; Denies nipple discharge, urinary frequency, urinary hesitancy, urinary urgency, vaginal discharge, vaginal dryness, vaginal odor or vaginal pruritus Musc Musc: Denies arthralgias, back pain or muscle weakness Skin Skin/Breast: Denies alopecia, change in hair, dry skin, breast mass, breast pain, breast skin changes or nipple discharge Neuro Neuro: Reports system reviewed and no additional complaints, except as documented Psych Psych: Reports system reviewed and no additional complaints, except as documented Endo Endo: Denies cold intolerance, excessive sweating, heat intolerance or polydipsia Axel/Lymph Hematologic/Lymphatic: Denies easy bleeding, Denies easy bruising and Denies lymphadenopathy Exam Const General: cooperative, healthy appearing, comfortable and no acute distress Orientation: alert HENMT Head: normal to inspection and normocephalic Ears: hearing grossly normal bilaterally and external ears normal Nose: external nose normal and nares normal Face and sinus: normal facial exam Neck Neck: normal visual inspection and no lymphadenopathy Thyroid: thyroid normal Chest Chest palpation & inspection: normal inspection of the chest Resp Effort & Inspection: normal respiratory effort Auscultation: clear to auscultation bilaterally Cardio Rate: regular rate Rhythm: regular rhythm Heart Sounds: S1 normal and S2 normal GI Inspection: normal to inspection and non-distended Palpation: soft and no hepatosplenomegaly Musc Other: gross motor intact no deficits, full bilateral strength Skin General: no rashes or lesions noted Neuro General: patient alert, patient awake, moves all extremities and no focal motor deficits Motor: muscle tone normal throughout Extrem General: normal to inspection and no pedal edema Psych Appearance: grossly normal Mental Status: mental status grossly normal Affect: normal affect Speech and Movement: speech and movement normal Coding Level of Care Code No Charge Diagnoses Malignant neoplasm of lower-inner quadrant of left female breast, unspecified estrogen receptor status C50.312 Breast location: lower inner quadrant of breast Estrogen receptor status: unspecified Postmenopausal bleeding N95.0 Assessment and Plan Assessment and Plan (1) Cancer of left female breast : Status: Chronic Qualifiers: Breast location: lower inner quadrant of breast Estrogen receptor status: unspecified Qualified Code(s): C50.312 - Malignant neoplasm of lower-inner quadrant of left female breast Comment: discussed risk reducing oophorectomy at time of hysterectomy, approved by oncology. (2) Postmenopausal bleeding: Status: Acute Comment: 2021 failed EMB. US lining was 4mm. Recurrent bleeding 11/2022:rpt US. Adenomyosis vs postablation syndrome. Lining 6mm. discussed options of d and c hystoersocpy vs LAVH BSO for persistent irregular bleeding, patient to decide. Medications: Refilled misoprostol (Cytotec) 200 mcg 2 tab po night prior to procedure and repeat 12hour later 4 tabs 0RF Plan After discussing the patient's diagnosis and treatment plan options, patient wishes to proceed with surgical management. I have discussed with the patient the risks, benefits, and alternatives of the procedure which include but are notlimited to risks of anesthesia, bleeding, infection, possible damage to bowel, bladder, or surrounding vasculature which could lead to additional surgery to evaluate any complications. Patient agrees to procedure and wishes to proceed. ACOG/uptodate references given for additional information regarding procedure. UPDATE- I have seen the patient and performed any clinically relevant updates to the history and physical exam. Jaymie Kemp MD 07/30/23 0657 <Electronically signed by Jaymie Kemp MD> Cosigner Signature (if applicable): CC: FELISA BUTTERFIELD; Dr. Jaymie Kemp MD~ Signed [facility] Work Phone: [phone] 401-800012-13-2023 History of Present illness Narrative* Yolis Younger, PIPE COVERING MOLDER - 07/10/2023 7:48 AM EST Episode Visit Count: 2 Therapist That Will Accept/Oversee The Plan Of Care: Marco Antonio Dailey DPConchis Start of Care Date: 07/02/23 Onset Date: 07/02/19 Plan of Care Certification Date: 07/02/23 Next Certification Due Date: 08/31/23 Patient Identified by Name and Date of : Yes REHABILITATION AND SPORTS THERAPY PHYSICAL THERAPY TREATMENT NOTE ASSESSMENT: Soha Leon tolerated the session with improved tolerance to [...] 822 Yolis Younger PTA [facility] Instructions* Patient Instructions* Yadira Duque MA - 06/19/2023 11:02 AM EST Ice right knee 3 times a day for 20 minutes. Continue diclofenac 75 mg twice a day with food/ Tylenol 1-2 tablets 325 mg every 8 hours as needed for Breakthrough pain only. Continue home exercise program for keeping the quadriceps, hip flexors and hamstrings strong to help support the knee twice darya ly. Formal physical therapy for right knee strengthening range of motion. Avoid deep knee bends, squats or excessive walking standing for the next few weeks. Limited step climbing. Hinged knee brace to wear daily activities. Glucosamine/chondroitin Joint supplement can help with joint pain. Reevaluate after therapy May consider gel injections in the future [facility] History of Present illness Narrative* Osmani Davies, - 06/19/2023 10:40 AM EST HPI: Soha Leon is a 47 year old female established [...] with ice, tylenol, knee sleeve. seen by [facility] on 05-24-2023, she had xray'sdone. Walking/ movement worsens her pain. Patient notes swelling and with prolonged walking standing will sometimes feel her leg go out. Sometimes she will fall. Patient [facility] and has lost weight and is feeling [...] fluticasone (FLONASE) 50 mcg/actuation nasal spray 1 [place] as needed. ondansetron orally disintegrating (ZOFRAN ODT) [...] 1 application to affected area as needed. Pjesr-6-VCC-EPA-Fish Oil 300-1,000 mg cap Take 1 capsule [...] strong to help support the knee twice darya ly. Formal physical therapy for right knee strengthening range of motion. Avoid deep knee bends, squats or excessive walking standing for the next few weeks. Limited step climbing. Hinged knee brace to wear daily activities. Glucosamine/chondroitin Joint supplement can help with joint pain. Reevaluate after therapy May consider gel injections in the future Osmani D Chelsea, DO The information in this document was created by the medical doctor md/medical director. Pam Davies have reviewed and approved this document for accuracy. Note: This dictation was created with the assistance of voice recognition software. Phonetic and/orminor grammatical errors may exist. documented [facility] this encounter[facility] Instructions* Patient Instructions* Yadira Duque MA - 05/29/2023 1:11 PM EDT Ice right knee 3-4 times a day for 20 minutes. Diclofenac 75 mg twice a day with food/ Tylenol 1-2 tablets 325 mg every 8 hours as needed for Breakthrough pain only. Hopefully aspiration/cortisone injection to affected right knee with decreased pain. Would recommend no heavy activities for the next7 days. Home exercise program for keeping the quadriceps, hip flexors and hamstrings strong to helpsupport the knee. Perform these twice daily. Avoid deep knee bends, squats or excessive walking standing for the next few weeks. Limited step climbing. Hinged knee brace to wear daily activities. Glucosamine/chondroitin Joint supplement can help with joint pain. Reevaluate in 3 weeks documented in this encounter[facility] History of Present illness Narrative* Osmani Davies DO - 05/29/2023 12:44 PM EDTAssociated Order(s): LARGE JOINT INJECTION/ARTHROCENTESIS: R knee joint Post-Procedure Diagnose(s): Primary osteoarthritis of right knee; Effusion of right knee HPI: Soha Leon is a 47 year old female established patient presents for reinjury of right Knee. Patient states pain started 5 days ago, she was stepping over her dog and went to sit in a chair and felt a pop. She states a 5/10 pain. Patient treating with ice, tylenol, knee sleeve. seen by [facility] on 05-24-2023, she had xray's done. [...] fluticasone (FLONASE) 50 mcg/actuation nasal spray 1 [place] as needed. ondansetron orally disintegrating (ZOFRAN ODT) [...] Take 1 tablet by mouth once daily. Cacjg-4-WHY-EPA-Fish Oil 300-1,000 mg cap Take 1 capsule [...] 131/80 Pulse 86 Ht 175.3 cm (5' 9) Wt 93.9 kg (207 lb) BMI 30.57 [...] knee joint Informed Consent Consent Obtained: Verbal [place] Protocol A moment to CARE was completed. [...] Would recommend no heavy activities for the next7 days. Home exercise program for keeping the quadriceps, hip flexors and hamstrings strong to helpsupport the knee. Perform these twice daily. Avoid deep knee bends, squats or excessive walking standing for the next few weeks. Limited step climbing. Hinged knee brace to wear daily activities. Glucosamine/chondroitin Joint supplement can help with joint pain. Reevaluate in 3 weeks 2. Effusion of right knee - ICD9: 719.06, ICD10: M25.461 Osmani Davies, DO The information in this document was created by the medical doctor md/medical director. Pam Davies have reviewed and approved this document for accuracy. Note: This dictation was created with the assistance of voice recognition software. Phonetic and/orminor grammatical errors may exist. documented in this encounter[facility] Emergency department Note * Artie Roque LPN - 05/24/2023 8:18 AM EDT Discharge orders reviewed, pt states understanding. NAD noted. Pt ambulates to [facility], leaves via car. [facility]10-27-2023 Emergency department Note* Artie Roque LPN - 05/24/2023 8:18 AM EDT Discharge orders reviewed, pt states understanding. NAD noted. Pt ambulates to [facility], leaves via car. * Louie Martinez MD - 05/24/2023 7:31 AM EDT Images from the original note were not included. [facility] Emergency Department - [place] [facility] Course/Medical Decision Making: Soha Leon, date of 1975, is a 47 y.o. [...] and slid and then she heard a pop. Denies falling or hitting her head. No other injuries. Deniessurgeries to this knee. Came into the ED [...] with instructions to return to the ED withany new or worsening symptoms. Patient amenable to [...] Patient presents with Knee Injury HPI Soha Leon, date of 1975, is a 47 y.o. female with no pertinent past medical history who presents to the Emergency Department with/for R knee pain. Patient states that last night she was stepping over her dog and stumbled. She states that she twisted her knee and then she heard apop. Denies falling or hitting her head. States [...] DM II (diabetes mellitus, type II), controlled ([facility]) H/O total thyroidectomy Heart murmur Hypertension Thyroid [...] Osteoarthritis. Louie Martinez MD 05/24/23, 8:03 AM [facility] Phys[facility] This note was partially generated using PrintToPeer Dictation system, and there may be some incorrect words, spellings, and punctuation that were not noted in checking the note before saving. Louie Martinez MD 05/24/23802 * Afshan Monson RN - 05/24/2023 7:31 AM EDT Patient ambulates to room 2 with crutches [...] respirations easy and unlabored. [facility] Discharge instructions* Discharge Instructions* Louie Martinez MD - 05/24/2023 8:04 AM EDT Follow up with your primary care doctor. Please return to the Emergency Department for any new or worsening symptoms. documented in this [facility]10-27-2023 Physician Emergency department Note* Louie Martinez MD - 05/24/2023 7:31 AM EDT Images from the original note were not included. [facility] Emergency Department - [place] [facility] Course/Medical Decision Making: Soha Leon, date of 1975, is a 47 y.o. female with no pertinent past medical history who presents to the Emergency Department with/for R knee pain. Upon arrival patient in no acute distress breathing easily on room air ED Course as of 05/24/23 08SatMay 24, 2023 0751 On arrival patient is alert and oriented x3 answering questions appropriately all extremity spontaneously. Hemodynamically stable and afebrile. Patient presents with right knee pain. She states that last night she was stepping over her dog and stepped awkwardly. She states that her knee buckled and slid and then she heard a pop. Denies falling or hitting her head. No other injuries. Deniessurgeries to this knee. Came into the ED [...] with instructions to return to the ED withany new or worsening symptoms. Patient amenable to [...] Patient presents with Knee Injury HPI Soha Leon, date of 1975, is a 47 y.o. female with no pertinent past medical history who presents to the Emergency Department with/for R knee pain. Patient states that last night she was stepping over her dog and stumbled. She states that she twisted her knee and then she heard apop. Denies falling or hitting her head. States [...] Osteoarthritis. Louie Martinez MD 05/24/23, 8:03 AM [facility] Emergency Physicians This note was partially generated using TripLingoation system, and there may be some incorrect words, spellings, and punctuation that were not noted in checking the note before saving. Louie Martinez MD 05/24/23 0803 [facility]10-27-2023 Emergency department Triage note* Afshan Monson RN - 05/24/2023 7:31 AM EDT Patient ambulates to room 2 with crutches [...] oriented, skin PWD, respirations easy and unlabored. [facility]07-05-2023 NoteHNO ID: [id number] Author: Osmani Davies, DO Service: ? Author Type: Physician Type: Progress Notes Filed: 01/30/2023 9:27 AM Note Text: HPI: Soha Leon is a 47 year old female established [...] fluticasone (FLONASE) 50 mcg/actuation nasal spray 1 [place] as needed. ondansetron orally disintegrating (ZOFRAN ODT) [...] Take 1 tablet by mouth once daily. Aawoq-1-XTG-EPA-Fish Oil 300-1,000 mg cap Take 1 capsule [...] 128/72 Pulse 79 Ht 175.3 cm (5' 9) Wt 97.5 kg (215 lb) BMI 31.75 [...] Old fracture noted t (more content not included)...[facility]07-05-2023 Instructions* Patient Instructions* Danay Bajwa MA - 01/30/2023 9:29 AM [...] Follow up after therapy [facility] History of Present illness Narrative* Osmani Davies DO - 01/30/2023 8:45 AM EDT HPI: Soha Leon is a 47 year old female established [...] on her feet worsens her pain. Patient t reating with ice, tylenol as needed, ankle brace, [...] fluticasone (FLONASE) 50 mcg/actuation nasal spray 1 [place] as needed. ondansetron orally disintegrating (ZOFRAN ODT) [...] Take 1 tablet by mouth once daily. Fjgcs-5-EJJ-EPA-Fish Oil 300-1,000 mg cap Take 1 capsule [...] 128/72 Pulse 79 Ht 175.3 cm (5' 9) Wt 97.5 kg (215 lb) BMI 31.75 [...] in this document was created by the medical doctor md/medical director. Pam Davies have reviewed and approved this document for accuracy. Note: This dictation was created with the assistance of voice recognition software. Phonetic and/orminor grammatical errors may exist. documented in this encounterTri[facility]Reason for [facility] Narr[facility]* Chief Complaint 6 MO - NO LABS Consultation 3 M FU LAVHBSO Hysterectomy,LAVH, Bilateral Salpin Hysterectomy,LAVH, Bilateral Salpin Reason for Visit Cancer of left femal e breast History of endometrial ablation Postmenopausal bleeding Stenosis, cervix Cancer of left female breast Diabetes Obesity Papillary microcarcinoma of thyroid Postsurgical hypothyroidism Postmenopausal bleeding Cancer of left female breast Postmenopausal bleeding S/P laparoscopic assisted vaginal hysterectomy (LAVH) Cancer of left female breast [facility] Work Phone: Discharge summary Author Jaymie Kemp [facility] July 30, 2023 2:32pm Note Date/Time July 30, 2023 2: 30pm [facility] Medical Records Department [address] [place] [address] Instructions for Home/Discharge Instructions 07/30/23 1429 MR#: [id number] Acct: [id number] Name: SOHA LEON Rep #:[id number] : 1975 47 From: Jaymie davis MD PCP: FELISA BUTTERFIELD Status:[facility] Discharge Instructions Diet Discharge Diet: No restrictions Activity May resume sexual activity in: 6 weeks Weight Bearing Status: Full weight bearing Dressing / Incision Call your doctor if your incision/area has: Continuous Slow Oozing, Sudden Increased Bleeding, Increased Pain/ Swelling, Increased Redness and Foul Smelling Discharge Call your doctor if you observe: Fever of 101 or Higher, Using more than 1 pad per hour, Shortness of breath, Chest pain and Uncontrolled pain Suture Line Care: Avoid Pulling/Pushing and Avoid Pinching/Bending Remove Dressing in: 1 week (if present) Cleanse incision/area with: Soap & Water and Keep Dressing Clean & Dry Follow Up Care Please Follow Up With: Jaymie Kemp MD When: Call to make an appointment with your doctor for a postop visit in 2 and 6weeks. Test Results: Test results from this visit will be discussed in further detail at your follow- up appointment, if applicable. Discharge Plan Admission Attending Provider: Jaymie Kemp Primary Care Provider: FELISA BUTTERFIELD Discharge Orders/Prescriptions Prescriptions: New oxycodone-acetaminophen [Percocet] 5-325 mg tablet 1 tab PO Q6H PRN (Reason: pain) 7 Days Qty: 20 0RF naproxen [naproxen] 500 mg tablet 500 mg PO BID PRN PRN (Reason: Pain) Qty: 30 1RF No Action cholecalciferol (vitamin D3) 1,000 unit capsule 1,000 unit PO DAILY diclofenac sodium 75 mg tablet,delayed release (DR/EC) 75 mg PO BID Patient Comments: TAKE 1 TABLET BY MOUTH TWICE DAILY cetirizine 10 mg tablet 10 mg PO DAILY PRN (Reason: allergy symptoms) Patient Comments: TAKE 1 TABLET BY MOUTH ONCE DAILY (DME) blood sugar diagnostic Strip See Rx Instructions .ROUTE .MEDSUPPLY Qty: 100 3RF Rx Instructions: As directed Jardiance 25 mg tablet 25 mg PO DAILY Qty: 90 2RF metoprolol succinate 100 mg tablet extended release 24 hr 50 mg PO QHS vitamin B complex 1 EACH capsule 1 ea PO DAILY aspirin 81 MG tablet,delayed release (DR/EC) 81 mg PO DAILY levothyroxine 200 mcg capsule 300 mcg PO SCHWAB omega 3-qpl-eic-fish oil [Fish Oil] 1,200 (144-216) mg capsule 1 cap PO DAILY misoprostol [Cytotec] 200 mcg tablet 400 mcg PO PRN PRN (Reason: PROCEDURE) Rx Instructions: 200 mcg 2 tab po night prior to procedure and repeat 12 hour later levothyroxine 200 mcg tablet 200 mcg PO .SAMOTUWETHFR Rx Instructions: 200 mcg PO One daily, 1 1/2 on Sundays; Trulicity 3 mg/0.5 mL pen injector 3 mg subcut WE (DME) blood-glucose meter [OneTouch Verio Flex meter] Misc See Rx Instructions .ROUTE .MEDSUPPLY Qty: 1 0RF Rx Instructions: As directed (DME) OneTouch Verio test strips Strip See Rx Instructions .ROUTE .MEDSUPPLY Qty: 200 6RF Rx Instructions: 2 times daily Referrals / Follow Up: Care Physician,No Primary [Non-Staff] - Disposition Disposition (needs filled in before D/C Order can be placed): Home, Self Care 07/30/23 1432<Electronically signed by Jaymie Kemp MD>Jaymie Kemp MD CC: FELISA BUTTERFIELD ~ Signed [facility] Work Phone: Evaluation note* Diagnosis Onset Date Resolution Status Cancer of left female breast chronic Cancer of left female breast chronic Peripheral neuropathy chroni c Cancer of left female breast chronic [facility] Work Phone: evaluation note* Diagnosis Onset Date Resolution Status Cancer of left female breast chronic Irregular menses acute Cancer of left female breast chronic Encounter for routine gynecological examination noneactive Screen for colon cancer acut e Irregular menses acute Postmenopausal acute [facility] Work Phone: Evaluation note* Diagnosis Onset Date Resolution Status Cancer of left female breast chronic Irregular menses acute Cancer of left female breast chronic Encounter for routine gynecological examination noneactive Screen for colon cancer acut e Irregular menses acute Postmenopausal acute Cancer of left female breast chronic Diabetes chronic Papillary microcarcinoma of thyroid chronic Peripheral neuropathy chroni c Postsurgical hypothyroidism chronic [facility] Work Phone: Evaluation note* Diagnosis Onset Date Resolution Status Cancer of left female breast chronic Cancer of left female breast chronic Cancer of left female breast chronic Peripheral neuropathy chroni c Loud snoring chronic Murmur, cardiac chronic Diabetes chronic Obesity chronic Papillary microcarcinoma of thyroid chronic Postsurgical hypothyroidism [facility] Work Phone: Evaluation note* Diagnosis Onset Date Resolution Status Cancer of left female breast chronic Cancer of left female breast chronic Cancer of left female breast chronic Peripheral neuropathy chroni c Loud snoring chronic Murmur, cardiac chronic Diabetes chronic Obesity chronic Papillary microcarcinoma of thyroid chronic Postsurgical hypothyroidism chronic Loud snoring chronic [facility] Work Phone: Evaluation note* Diagnosis Onset Date Resolution Status Cancer of left female breast chronic Cancer of left female breast chronic Cancer of left female breast chronic Peripheral neuropathy chroni c Loud snoring chronic Murmur, cardiac chronic Diabetes chronic Obesity chronic Papillary microcarcinoma of thyroid chronic Postsurgical hypothyroidism chronic Loud snoring chronic Screen for colon cancer acut e [facility] Work Phone: Evaluation note* Diagnosis Strain of left ankle, initial encounter- Primary Sprain of left ankle, unspecified ligament, initial encounter Acute left ankle pain documented [facility] this encounter [facility] Diagnosis Onset Date Resolution Status Loud snoring chronic Screen for colon cancer acut e Diabetes chronic Obesity chronic Papillary microcarcinoma of thyroid chronic Postsurgical hypothyroidism chronic Cancer of left female breast chronic [facility] Work Phone: Evaluation note* Diagnosis Onset Date Resolution Status Screen for colon cancer acut e Diabetes chronic Obesity chronic Papillary microcarcinoma of thyroid chronic Postsurgical hypothyroidism chronic Cancer of left female breast chronic History of endometrial ablation acute Postmenopausal bleeding acut e Stenosis, cervix acute Encounter for routine gynecological examination noneactive [facility] Work Phone: Evaluation note* Diagnosis Onset Date Resolution Status Screen for colon cancer acut e Diabetes chronic Obesity chronic Papillary microcarcinoma of thyroid chronic Postsurgical hypothyroidism chronic Cancer of left female breast chronic History of endometrial ablation acute Postmenopausal bleeding acut e Stenosis, cervix acute Encounter for routine gynecological examination noneactive Cancer of left female breast chronic [facility] Work Phone: Evaluation note* Diagnosis Injury of right knee, initial encounter- [facility] Primary osteoarthritis of right knee- Primary Primary localized osteoarthrosis, lower leg Effusion of right knee Effusion of lower leg joint documented in this encounter [facility]* Diagnosis Primary osteoarthritis of right knee- Primary Primary localized osteoarthrosis, lower leg [facility] [place] [facility]* Diagnosis Primary osteoarthritis of right knee- Primary Primary localized osteoarthrosis, lower leg Chronic pain of right knee Knee stiffness, right Muscle weakness Muscle weakness (generalized) documented in this encounter [facility]* Diagnosis Onset Date Resolution Status Cancer of left female breast chronic History of endometrial ablation acute Postmenopausal bleeding acut e Stenosis, cervix acute Cancer of left female breast chronic Diabetes chronic Obesity chronic Papillary microcarcinoma of thyroid chronic Postsurgical hypothyroidism chronic Postmenopausal bleeding acut e Cancer of left female breast chronic Postmenopausal bleeding acut e S/P laparoscopic assisted vaginal hysterectomy (LAVH) acute Cancer of left female breast chronic [facility] Work Phone: Evaluation note* Diagnosis Calcific tendinitis of right shoulder- Primary Calcifying tendinitis of shoulder Acute pain of right shoulder documented in this encounter [facility] [place] [facility]* Diagnosis Calcific tendinitis of right shoulder- Primary Calcifying tendinitis of shoulder documented in this encounter [facility] [place] [facility]* Diagnosis Primary osteoarthritis of right knee- Primary Primary localized osteoarthrosis, lower leg documented in this encounter [facility] noteNo assessment information availableWAvita [facility] Work Phone: Evaluation note* Diagnosis Primary osteoarthritis of right knee- Primary Primary localized osteoarthrosis, lower leg Cyst of right knee joint Other specified disorders of lower leg joint documented in this encounter [facility] and [facility] note Author Dr. Colindres [facility] December 25, 2022 7:14am Note Date/Time December 25, 2022 7:14a m [facility] Medical Records Department [address] [place] [address] History & Physical Exam 12/25/22712 MR#: [id number] Acct: [id number] Name: SOHA LEON Rep #:[id number] : 1975 47 From: Tanvir velasco MD PCP: FELISA BUTTERFIELD Status:[facility] Location: [place] [address] HPI - General HPI Narrative SOHA LEON, is a 47 F who presents for screening colonoscopy. Patient hashad several cancers and has family history of cancers but she has never had a colonoscopy. She says she occasionally has blood in her stool but is bright andshe thinks is from straining. She denies abdominal pain. She denies any weightloss. She has never had a colonoscopy in the past. [facility] Medical History (Updated 12/18/22 @ 09:46 by Tiki Fernandes) Arthritis Breast cancer, left Cancer Chronic headache Diabetes Former smoker Gastric reflux H/O emotional problems H/O: pneumonia History of echocardiogram History of irregular heartbeat History of malignant neoplasm of skin HTN (hypertension) Loud snoring Metabolic syndrome X Murmur, cardiac Neuropathy Obesity PORT PLACEMENT Thyroid cancer Thyroid disease TIA (transient ischemic attack) Wears glasses Home Medications vitamin B complex 1 ea PO DAILY 02/17/19 [History Last Taken Unknown] cholecalciferol (vitamin D3) 25 mcg (1,000 unit) capsule 1,000 unit PO DAILY 06/08/19 [History Last Taken Unknown] aspirin 81 mg tablet,delayed release 81 mg PO DAILY 04/18/20 [History Last Taken Unknown] cetirizine 10 mg tablet 10 mg PO DAILY 03/02/21 [History Last Taken Unknown] diclofenac sodium 75 mg tablet,delayed release 75 mg PO BID 03/02/21 [History Last Taken Unknown] blood sugar diagnostic #100 ea 04/18/21 [Rx Last Taken Unknown] blood-glucose meter (OneTouch Verio Flex Meter) #1 ea 04/19/21 [Rx Last Taken Unknown] OneTouch Verio test strips (blood sugar diagnostic) #200 ea 06/09/21 [Rx Last Taken Unknown] Jardiance 25 mg tablet (empagliflozin) 25 mg PO DAILY #90 tabs 10/15/22 [Rx Last Taken Unknown] levothyroxine 200 mcg tablet 200 mcg PO .COMPLEX #96 tabs 10/15/22 [Rx Last Taken 12/25/22 04:30] sitagliptin phosphate 100 mg tablet (Januvia) 100 mg PO DAILY #90 tabs 10/15/22 [Rx Last Taken Unknown] metoprolol succinate 100 mg tablet,extended release 24 hr 100 mg PO QHS 12/18/22[History Last Taken Unknown] Allergy/AdvReac Type Severity Reaction Status Date / Time hydrocodone AdvReac Mild Itching Verified 12/25/22 06:47 [From Hycomine (hydrocodone-PPA)] Family History Mother Breast cancer Grandmother Cervical cancer Breast cancer Sister Thyroid cancer Unknown Diabetes Arthritis Hyperlipidemia Hypertension Thyroid disorder CVA (cerebral vascular accident) Other Vocal cord cancer Surgical History (Updated 12/18/22 @ 09:46 by Tiki Fernandes) History of breast biopsy (~12/2018) History of endometrial ablation History of removal of Port-a-Cath History of tonsillectomy Hx of surgical procedure S/P lumpectomy, left breast (~02/24/19) S/P thyroidectomy Status post left breast lumpectomy (~12/2018) Social History Smoking Status: Former smoker Tobacco: How many years used: 22 second hand exposure: No alcohol intake: never substance use type: does not use caffeine: Yes what type of physical activity do you participate in: walking seatbelt use: always do you feel safe at home: Yes additional social history: Carissa (male) [employer] Patient works for [employer] business Past Medical/Surgical History Planned Operation Planned Operative Procedure/s: COLONOSCOPY S.O.S: No Previous Hospitalizations/Surgeries HX Hospitalizations: No HX of Surgeries: total thyroidectomy Uterine Ablation Tonsilectomy Brashear teeth left breast lumpectomy i&d left breast 12/2018 Any Problems With Anesthesia: No You/Your Family Experience Fever (Hyperthermia) With Anes: No Cholinesterase deficiency: No Cardiovascular Hx Chest Pain within Last 2 months: No Hx of Irregular Heartbeat and/or Afib: No Hx Heart Attack: No Hx Congestive Heart Failure: No Hx Rheumatic Fever: No Hx Hypertension: Yes (CONTROLLED ON MED) Hx Internal Defibrillator: No Hx Pacemaker: No Hx Cardiac Catheterization: No Hx Cardiac Surgery/Stents/Etc.: No Hx Stress Test: No Hx Pain in Legs when Walking/Leg Cramps: No Respiratory Chronic Cough: No HX of Shortness of Breath: No Hoarseness: No Hx Chronic Obstructive Pulmonary Disease (COPD): No Hx Asthma: No Hx Emphysema: No Hx Sleep Apnea: No CPAP: No BIPAP: No Hx Respiratory Tract Infection/Cold (presently): No Do You Snore Loudly (louder than talking or can be heard): Yes Do You Often Feel Tired/ Fatigued/ Sleepy Dring Daytime?: No Has Anyone Observed You Stop Breathing During Sleep?: No Result (for STOP score): Positive Hx Smoking: Yes (quit 5-6 yrs ago) Smoking Status: Former smoker Gastrointestinal Hx Gastroesophageal Reflux: No (occ heartburn) Controlled With Meds: No Hx Gastrointestinal Disorders: No Hx Gastrointestinal Bleed: No Hx Ulcer: No Hx Hiatal Hernia: No Difficulty Chewing/Swallowing: No Special diet followed at home: No Hx Unplanned Weight Loss of 20#: No HX Unplanned Weight Gain of 20#: No Neurological Hx Seizures: No HX Syncope/Blackout Spells/Unconsciousness: No Hx Transient Ischemic Attacks (TIA): No Hx Multiple Sclerosis: No Hx Parkinson's Disease: No Hx Head/Neck Injury: No Hx Headaches: Yes (migraines) Hx Back Injury/Pain: No Recent Onset of Speech Difficulty: No Restless Legs: No Does patient have nerve stimulator: No Blood Disorder Hx Leukemia: No Bleeding Tendencies: No Hx Deep Vein Thrombosis: No Hx High Cholesterol: Yes (in the past) Blood Transmitted Disease: No Hx Hepatitis: No Hx Cirrhosis: No Hx Anemia: No Hx Blood Disorders: No Reproduction Is Patient Lactating: No Hx Hysterectomy: No Hx Tubal Ligation: No (.) Are You Post Menopause: No Genitourinary Hx Renal Disease: No Hx Dialysis: No Musculoskeletal Hx Arthritis: Yes Hx Rheumatoid Arthritis: No Hx Gout: No Recent Onset of an Orthopedic Problem: No Endocrine Hx Diabetes: Yes (on med) Insulin: No Thyroid Disease: Yes (on med) Hx Steroid Therapy: No Psycho/Social Hx Substance Use: Yes (marijuana daily) Hx Alcohol Use: No Hx Anxiety: Yes (no med) Hx Depression: Yes (no med) Mental Illness: No Hx Dementia: No Miscellaneous Hx Cancer: Yes (thyroid/precancer skin/BREAST) Recent Exposure to Contagious Disease: No Hx of C-Diff: No Any Loose Teeth: No Allergies hydrocodone [From Hycomine (hydrocodone-PPA)] Adverse Reaction (Mild, Verified 12/25/22 06:47) Itching Discharge Is Pt Admitted From a Residential, or a Mcfp: No After D/C, Where Do you Plan to Go: Return Home Vital Signs Vital Signs Vital Signs: 12/25/22 06:48 12/25/22 06:48 Temperature 97.7 F L Temperature Source Temporal Pulse Rate 70 Respiratory Rate 18 Respiratory Pattern Normal Blood Pressure 148/84 H Blood Pressure Mean 105 Blood Pressure Source Monitor Blood Pressure Position Sitting Blood Pressure Location Right Arm Pulse Ox 99 Oxygen Delivery Method Room Air Weight Weight: 210 lb 15.718 oz Body Mass Index (BMI) 31.1 Physical Exam Const alert and oriented x3 HEENT normocephalic Eyes PERRL Resp normal respiratory effort and normal air movement Cardio regular rate and regular rhythm GI soft to palpation, non-tender and non-distended Extremity normal to inspection Assessment & Plan Assessment/Plan (1) Screen for colon cancer: PLAN: I explained endoscopy in detail to the patient. I explained the risks including but not limited to stroke or heart attack with anesthesia, perforationof the GI tract, bleeding, infection. I explained that any of these could necessitate further emergency surgery. The patient understands and all questions were answered sufficiently. The patient wishes to proceed with procedure. Tanvir Colindres MD Pager: [facility] [address] [place] [address] [address] [place] [address] Office: Surgery Risks - Colonoscopy Risks Include but are not Limited To: Risks include but are not limited to: Bleeding, perforation requiring further surgery, inability to complete colonoscopy requiring barium enema. 12/25/22 0714 <Electronically signed by Tanvir Colindres MD> Cosigner Signature (if applicable): CC: FELISA BUTTERFIELD; Dr. Tanvir Colindres MD~ Signed [facility] Work Phone: Reason for referral (narrative)* Diagnostic Procedure Only (Routine) - Pending Review Specialty Diagnoses / Procedures Referred By Clare tomas Referred To Contact XR IMAGING Diagnoses Acute left ankle pain Procedures XR ANKLE GENERAL 3V AP/LAT/OBL LEFT RADEX ANKLE COMPLETE MINIMUM 3 VIEWS Osmani Davies DO [address] [place] [id number] Xr Imaging Referral ID Status Reason Start Date Expiration Date Visits Requested Visits Authorized [id number] Pending Review Auto-Generat ed Referral 01/30/2023 02/24/2024 1 1 [facility] for referral (narrative)* Consultation (Routine) - Open Specialty Diagnoses / Procedures Referred By Clare tomas Referred To Contact Orthopedic Surgery Diagnoses Injury of right knee, initial encounter Louie Martinez MD [address] [place] [address] [facility] [address] [place] [address] [place] [address] Referral ID Status Reason Start Date Expiration Date Visits Re quested Visits Authorized [id number] Open 05/24/2023 06/24/2024 1 1 [facility] for referral (narrative)* Diagnostic Procedure Only (Routine) - Pending Review Specialty Diagnoses / Procedures Referred By Contac t Referred To Contact XR IMAGING Diagnoses Acute pain of right shoulder Procedures XR SHOULDER GENERAL 3V OR MORE AP/TRUE AP/OTHER RIGHT RADEX SHOULDER COMPLETE MINIMUM 2 VIEWS Osmani Davies DO [address] [place] [address] [place] [id number] Referral ID Status Reason Start Date Expiration Date Visits Requested Visits Authorized [id number] Pending Review Auto-Generat ed Referral 12/19/2023 01/15/2025 1 1 [facility] for referral (narrative)No reason for referral information availableWAvita [facility] Work Phone: Summary Purpose Family History No Family History Records Found Relationship Condition Age at Onset Recorded Date/T damaris Not Specified Malignant neoplasm of vocal cord Unknown mother Malignant neoplasm of breast Unknown grandmother Malignant neoplasm of cervix Unknown Malignant neoplasm of breast Unknown sister Malignant neoplasm of thyroid gland Unkno wn Not Specified Diabetes mellitus Unknown Arthritis Unknown Hyperlipidemia Unknown Hypertension Unknown Disorder of thyroid Unknown Cerebrovascular accident (CVA) Unknown Relationship Condition Age at Onset Recorded Date/T damaris Not Specified Malignant neoplasm of vocal cord Unknown mother Malignant neoplasm of breast Unknown grandmother Malignant neoplasm of cervix Unknown Malignant neoplasm of breast Unknown sister Malignant neoplasm of thyroid gland Unkno wn unrelated friend Diabetes mellitus Unknown Arthritis Unknown Hyperlipidemia Unknown Hypertension Unknown Disorder of thyroid Unknown Cerebrovascular accident (CVA) Unknown Advance Directives No Advanced Directives Records Found Advance Directive Response Recorded Date/ Time Advance Directives No June 10:59am Living Will No September 02 12:39pm Power of Flight Line Service Attendant No September 02, 2019 12:39pm Advance Directive Response Recorded Date/ Time Advance Directives No March 9:01am Living Will No April 17, 2022 9:01am Power of Flight Line Service Attendant No March 9:01am Advance Directive Response Recorded Date/ Time Advance Directives No March 9:01am Living Will No December 18, 2022 9 :46am Power of Flight Line Service Attendant No December 18, 2022 9:46am Advance Directive Response Recorded Date/ Time Advance Directives No March 8:01am Living Will No July 19, 023 10:18am Power of Flight Line Service Attendant No July 19, 2023 10:18am Advance Directive Response Recorded Date/ Time Advance Directives No March 9:01am Chief Complaint and Reason for Visit Chief Complaint 4 MO - LABS ONC/HEM SCREENING FOLLOWUP MAMMOGRAM Reason for Visit Cancer of left femal e breast Cancer of left female breast Peripheral neuropathy Cancer of left female breast Chief Complaint SCREENING FOLLOWUP MAMMOGRAM Annual (INCISING MACHINE OPERATOR) eorders CSCOPE EMB Reason for Visit Cancer of left femal e breast Irregular menses Cancer of left female breast Encounter for routine gynecological examination Screen for colon cancer Irregular menses Postmenopausal Chief Complaint SCREENING FOLLOWUP MAMMOGRAM 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 (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 MACHINE 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) 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 CSCOPE EMB AUB 4 MO - NO LABS 6 M FU EORDERS Reason for Visit Cancer of left femal e breast Irregular menses Cancer of left female breast Encounter for routine gynecological examination Screen for colon cancer Irregular menses Postmenopausal Cancer of left female breast Diabetes Papillary microcarcinoma of thyroid Peripheral neuropathy Postsurgical hypothyroidism Chief Complaint 6 month f/u breast 6 MO - LABS ONC/HEM Sleep apnea 6 M FU SNORING MURMUR Reason for Visit Cancer of left femal e breast Cancer of left female breast Cancer of left female breast Peripheral neuropathy Loud snoring Murmur, cardiac Diabetes Obesity Papillary microcarcinoma of thyroid Postsurgical hypothyroidism Chief Complaint 6 month f/u breast 6 MO - LABS ONC/HEM Sleep apnea 6 M FU SNORING MURMUR 1 M FU Reason for Visit Cancer of left femal e breast Cancer of left female breast Cancer of left female breast Peripheral neuropathy Loud snoring Murmur, cardiac Diabetes Obesity Papillary microcarcinoma of thyroid Postsurgical hypothyroidism Loud snoring Chief Complaint 6 month f/u breast 6 MO - LABS ONC/HEM Sleep apnea 6 M FU SNORING MURMUR 1 M FU Reason for Visit Cancer of left femal e breast Cancer of left female breast Cancer of left female breast Peripheral neuropathy Loud snoring Murmur, cardiac Diabetes Obesity Papillary microcarcinoma of thyroid Postsurgical hypothyroidism Loud snoring Screen for colon cancer Chief Complaint SNORING MURMUR 1 M FU 3 M FU SCREENING 6 month f/u, review mammo from 02/22 Reason for Visit Loud snoring Screen for colon cancer Diabetes Obesity Papillary microcarcinoma of thyroid Postsurgical hypothyroidism Cancer of left female breast Chief Complaint 3 M FU SCREENING 6 month f/u, review mammo from 02/22 Annual (INCISING MACHINE OPERATOR) AUB Reason for Visit Screen for colon can cer Diabetes Obesity Papillary microcarcinoma of thyroid Postsurgical hypothyroidism Cancer of left female breast History of endometrial ablation Postmenopausal bleeding Stenosis, cervix Encounter for routine gynecological examination Chief Complaint 3 M FU SCREENING 6 month f/u, review mammo from 02/22 Annual (INCISING MACHINE OPERATOR) AUB 6 MO - NO LABS Reason for Visit Screen for colon can cer Diabetes Obesity Papillary microcarcinoma of thyroid Postsurgical hypothyroidism Cancer of left female breast History of endometrial ablation Postmenopausal bleeding Stenosis, cervix Encounter for routine gynecological examination Cancer of left female breast Chief Complaint Admit Date 8 M FU, RS 12/14February 02, 2025 9:20a m Medications Administered Section Inactive Administered Medications - [...] Referral Specialty Diagnoses / Procedures Referred By Contac t Referred To Contact [facility] Diagnoses Primary osteoarthritis of right knee Procedures CONSULT TO PHYSICAL THERAPY PHYSICAL THERAPY EVALUATION HIGH COMPLEX 45 MINS Osmani Davies, [address] [address] [facility] [place] [address] [place] [address] Referral ID Status Reason Start Date Expiration Date Visits Requested Visits Authorized [id number] Pending Review Auto-Generat ed Referral 3 06/18/2024 1 1 Additional Source Comments INFORMATION SOURCE (unrecogn ized section and content) DATE CREATED AUTHOR 01/20/2018 [facility] DATE CREATED AUTHOR AUTHOR'S ORGANIZ ATION 07/12/2020 [facility] DATE CREATED AUTHOR AUTHOR'S ORGANIZ ATION 01/30/2023 [facility] DATE CREATED AUTHOR AUTHOR'S ORGANIZ ATION 05/26/2023 [facility] DATE CREATED AUTHOR AUTHOR'S ORGANIZ ATION 02/24/2025 [facility] DATE CREATED AUTHOR AUTHOR'S ORGANIZ ATION 03/06/2025 [facility] Goals (unrecognized section and content) Goals may be documented in a n alternate sectionGoals may be documented in an alternate sectionGoals may be documented in an alternate sectionGoals may be documented in an alternate sectionGoals may be documented in an alternate sectionGoals may be documented in an alternate sectionGoals may be documented in an alternate section Care Teams (unrecognized sec tion and content) Team Status: Active Member Role Status Dates Dr. Sam Benitez MD Family Provider Active No Primary Care Physician Primary Care Provider Active Team Status: Inactive Member Role Status Dates Dr. Michael Osuna DO Attending Provider, Referring P pipo Active CATHERINE SAAVEDRA Primary Care Provider Active Team Status: Inactive Member Role Status Dates Dr. Edwin Soria MD Attending Provider, Referrin g Provider Active Team Status: Inactive Member Role Status Dates Dr. Rashaun Cooper MD Attending Provider Active Out of Town Doctor Primary Care Provider, Referring Pr stephanie Active Team Status: Inactive Member Role Status Dates Dr. Eduard Teixeira MD Attending Provider Active Out of Town Doctor Referring Provider Active Team Status: Active Member Role Status Dates No Primary Care Physician Primary Care Provider Active Dr. Latoya Irby MD Attending Provider Active Team Status: Active Member Role Status Dates Dr. Sam Benitez MD Primary Care Provider, Famil y Provider Active Dr. Edwin Soria MD Attending Provider Active Dr. Tanvir Colindres MD Referring Provider Active Dr. Rashaun Cooper MD Other Provider Active Dr. Michael Osuna DO Other Provider Active Team Status: Inactive Member Role Status Dates Dr. Eduard Teixeira MD Attending Provider, Referring Provider Active No Primary Care Physician Primary Care Provider Active Team Status: Active Member Role Status Dates Dr. Eduard Teixeira MD Attending Provider, Referring Provider Active No Primary Care Physician Primary Care Provider Active Team Status: Inactive Member Role Status Dates Out of Town Doctor Referring Provider Active Dr. Eduard Teixeira MD Attending Provider Active No Primary Care Physician Primary Care Provider Active Team Status: Active Member Role Status Dates Dr. Sam Benitez MD Family Provider Active FELISA BUTTERFIELD Primary Care Provider Active Team Status: Active Member Role Status Dates No Primary Care Physician Primary Care Provider Active Dr. Latoya Irby MD Attending Provider, Referring Pr ovider Active Team Status: Active Member Role Status Dates Dr. Tanvir Colindres MD Attending Pr ovider, Referring Provider, Other Provider Active CATHERINE SAAVEDRA Primary Care Provider Active Team Status: Inactive Member Role Status Dates Dr. Tanvir Colindres MD Attending Provider, Referr ing Provider Active CATHERINE SAAVEDRA Primary Care Provider Active Embedded Case Manager Relationship Specialty Start Date End Date Felisa Butterfield, [employer] [address] [place] [address] PCP - General Family Medicine 03/08/20 Team Status: Active Member Role Status Dates Dr. Sam Benitez MD Family Provider Active Team Status: Inactive Member Role Status Dates Dr. Michael Osuna DO Attending Provider Active CATHERINE SAAVEDRA Primary Care Provider Active Team Status: Inactive Member Role Status Dates Out of [facility] Doctor Referring Provider Active Dr. Rashaun Cooper MD Attending Provider Active Team Status: Inactive Member Role Status Dates Dr. Sam Benitez MD Referring Provider Active Zina Burnett HSE ADVISOR, HSE ADVISOR-C Attending Provider Active Team Status: Inactive Member Role Status Dates Zina Burnett HSE ADVISOR, HSE ADVISOR-C Attending Provider, Referring Provider Active No Primary Care Physician Primary Care Provider Active Team Status: Inactive Member Role Status Dates Dr. Edwin Soria MD Attending Provider Active No Primary Care Physician Primary Care Provider, Refer ring Provider Active Team Status: Inactive Member Role Status Dates No Primary Care Physician Primary Care Provider Active Zina Burnett HSE ADVISOR, HSE ADVISOR-C Attending Provider, Referring Provider Active Embedded Case Manager Relationship Specialty Start Date End Date PcpInessa, WOODS RIDER PCP - General 07/10/12 01/25/13 Felisa Butterfield CNP [address] [place] [address] PCP - General Family Medicine 03/08/20 Embedded Case Manager Relationship Specialty Start Date End Date Felisa Butterfield CNP [address] [place] [address] PCP - General Family Medicine 03/08/20 Embedded Case Manager Relationship Specialty Start Date End Date Felisa Butterfield APRN [employer] [address] [place] [id number] PCP - General Nurse Practitioner-Family 05/24/23 Embedded Case Manager Relationship Specialty Start Date End Date Felisa Butterfield CNP [address] [place] [address] PCP - General Family Medicine 03/08/20 Embedded Case Manager Relationship Specialty Start Date End Date Felisa Butterfield CNP [address] [place] [address] PCP - General Family Medicine 03/08/20 Embedded Case Manager Relationship Specialty Start Date End Date Felisa Butterfield CNP [address] [place], [place] [id number] PCP - General Family Medicine 03/08/20 Team Status: Inactive Member Role Status Dates Dr. Rashaun Cooper MD Attending Provider Active No Primary Care Physician Primary Care Provider, Refer ring Provider Active Team Status: Inactive Member Role Status Dates No Primary Care Physician Primary Care Provider, Refer ring Provider Active Dr. Jaymie Kemp MD Attending Provider Active Team Status: Active Member Role Status Dates Dr. Jaymie Kemp MD Attending Pr ovider, Referring Provider, Other Provider Active CATHERINE SAAVEDRA Primary Care Provider Active Team Status: Inactive Member Role Status Dates Dr. Jaymie Kemp MD Attending Provider, Referr ing Provider Active CATHERINE SAAVEDRA Primary Care Provider Active Embedded Case Manager Relationship Specialty Start Date End Date Felisa Butterfield [employer] [address] [place] [address] PCP - General Family Medicine 03/08/20 Embedded Case Manager Relationship Specialty Start Date End Date Felisa Butterfield [employer] [address] [place] [address] PCP - General Family Medicine 03/08/20 Embedded Case Manager Relationship Specialty Start Date End Date Felisa Butterfield [employer] [address] [place] [address] PCP - General Family Medicine 03/08/20 Team Status: Active Member Role Status Dates Dr. Rashaun Cooper MD Primary Care Provider Active Team Status: Inactive Member Role Status Dates Dr. Rashaun Cooper MD Primary Care Provider Active Start: January 11, 2025 End: January 11, 2025 Dr. Rashaun Cooper MD Attending Provider Active Sta rt: January 11, 2025 End: January 11, 2025 Dr. Rashaun Cooper MD Referring Provider Active Sta rt: January 11, 2025 End: January 11, 2025 Team Status: Active Member Role/Relationship Status Dates Dr. Rashaun Cooper MD Primary Care Provider Active Team Status: Inactive Member Role/Relationship Status Dates Dr. Rashaun Cooper MD Primary Care Provider Active Start: January 11, 2025 End: January 11, 2025 Dr. Rashaun Cooper MD Attending Provider Active Sta rt: January 11, 2025 End: January 11, 2025 Dr. Rashaun Cooper MD Referring Provider Active Sta rt: January 11, 2025 End: January 11, 2025 Team Status: Inactive Member Role/Relationship Status Dates Dr. Rashaun Cooper MD Primary Care Provider Active Start: February 02, 2025 End: February 02, 2025 Dr. Rashaun Cooper MD Attending Provider Active Sta rt: February 02, 2025 End: February 02, 2025 Dr. Rashaun Cooper MD Referring Provider Active Sta rt: February 02, 2025 End: February 02, 2025 Source Comments (unrecognize d section and content) In the event this informatio n is protected by the Federal Confidentiality of Alcohol and Drug Abuse Patient Records regulations: The Federal rules restrict any use of the information to criminally investigate or prosecute any alcohol or drug abuse patient.[facility] the event this information is protected by the Federal Confidentiality of Alcohol and Drug Abuse Patient Records regulations: The Federal rules restrict any use of the information to criminally investigate or prosecute any alcohol or drug abuse patient.[facility] the event this information is protected by the Federal Confidentiality of Alcohol and Drug Abuse Patient Records regulations: The Federal rules restrict any use of the information to criminally investigate or prosecute any alcohol or drug abuse patient.[facility] the event this information is protected by the Federal Confidentiality of Alcohol and Drug Abuse Patient Records regulations: The Federal rules restrict any use of the information to criminally investigate or prosecute any alcohol or drug abuse patient.[facility] the event this information is protected by the Federal Confidentiality of Alcohol and Drug Abuse Patient Records regulations: The Federal rules restrict any use of the information to criminally investigate or prosecute any alcohol or drug abuse patient.[facility] the event this information is protected by the Federal Confidentiality of Alcohol and Drug Abuse Patient Records regulations: The Federal rules restrict any use of the information to criminally investigate or prosecute any alcohol or drug abuse patient.[facility] the event this information is protected by the Federal Confidentiality of Alcohol and Drug Abuse Patient Records regulations: The Federal rules restrict any use of the information to criminally investigate or prosecute any alcohol or drug abuse patient.[facility] the event this information is protected by the Federal Confidentiality of Alcohol and Drug Abuse Patient Records regulations: The Federal rules restrict any use of the information to criminally investigate or prosecute any alcohol or drug abuse patient.[facility] the event this information is protected by the Federal Confidentiality of Alcohol and Drug Abuse Patient Records regulations: The Federal rules restrict any use of the information to criminally investigate or prosecute any alcohol or drug abuse patient.[facility] the event this information is protected by the Federal Confidentiality of Alcohol and Drug Abuse Patient Records regulations: The Federal rules restrict any use of the information to criminally investigate or prosecute any alcohol or drug abuse patient.[facility] the event this information is protected by the Federal Confidentiality of Alcohol and Drug Abuse Patient Records regulations: The Federal rules restrict any use of the information to criminally investigate or prosecute any alcohol or drug abuse patient.[facility] Reason for Visit (unrecogniz ed section and content) Reason Comments New Reason Comments Knee Injury Reason Comments New Reason Comments Established Patient Follow Up Reason Comments Physical Therapy Specialty Diagnoses / Procedures Referred By Contac t Referred To Contact [facility] Diagnoses Primary osteoarthritis of right knee Procedures CONSULT TO PHYSICAL THERAPY PHYSICAL THERAPY EVALUATION HIGH COMPLEX 45 MINS Osmani Davies, [address] [place] [id number] [facility] [place] [address] [place] [address] Referral ID Status Reason Start Date Expiration Date Visits Requested Visits Authorized [id number] Authorized Auto-Generat ed Referral 07/29/2022 07/28/2023 30 30 Reason Comments New Established Patient Pain Reason Comments Established Patient Follow Up Reason Comments Established Patient Follow Up Swelling Knee Pain Reason Comments Established Patient Knee Pain FOR RECORDS PERTAINING TO PATIENTS WHO ARE [...] BE BASED ON THE PRIMARY CLINICAL RECORDS. [facility]. provides no warranty or guarantee of the accuracy or completeness of information in this document.
== END | disposition home or self-care (01) ==
LOC: OPBI 08:36
PROVIDERS: PCP Nurse Practitioner Family; Referring Provider Student in an Organized Health Care Education/Training Program; Visit Provider Student in an Organized Health Care Education/Training Program
DX: Z12.31 Encounter for screening mammogram for malignant neoplasm of breast (principal); C50.312 Malignant neoplasm of lower-inner quadrant of left female breast
CPT/HCPCS: 77063; 77067